=== PATIENT | male | born 1965 | race Caucasian/White ===

== ENCOUNTER 2017-07-24 18:57 | Inpatient (IN) | payer SELFPAY ==
[~2017-07-24] VITALS: Ht 170.2 cm; Wt 175.3 kg
--- NOTE | ~2017-07-24 | CON ---
[place], [place] REPORT OF CONSULTATION NAME: TEMI GARCÍA UNIT #: [id number] ROOM: 525 DOCTOR: ABBIE SHANNON MD BIRTHDATE: [birth year] DOS: 07/25/2017 REASON FOR CONSULTATION: Chest heaviness. HISTORY OF PRESENT ILLNESS: The patient Quirino is a 52-year-old obese man who has a history of hypertension, but no previous history of heart disease, diabetes, hypertension, myocardial infarction or stroke. He states that he has been under considerable stress lately and has had several "panic attacks." He does have a long history of an anxiety disorder. He states that typically he can calm himself down if he has a chance to just sit and relax for a few minutes, but on 07/24/2017, he could not get calmed. He stated that he felt like he was choking and that he could not catch his breath. In addition, he had heaviness and tightness across his chest. He had a hard time describing the sensation. He denied any nausea, vomiting or diaphoresis. His symptoms became intolerable to him and therefore he came into the Emergency Room. In the Emergency Room, he was noted to be hypertensive. Electrocardiogram showed no acute changes and troponin was not abnormally elevated. He was admitted to the hospital for further assessment. PAST MEDICAL HISTORY: Includes the followin. Anxiety disorder with panic attacks. 2. Morbid obesity. 3. Essential hypertension. 4. Degenerative joint disease of the knees. MEDICATIONS: Prior to admission, the patient states that he occasionally took sertraline 100 mg daily along with Xanax p.r.n. Records from his pharmacy indicate that he has been on losartan with hydrochlorothiazide in the past, but has not taken it recently. ALLERGIES: He has no known drug allergies. REVIEW OF SYSTEMS: The patient denies diplopia or loss of vision. He denies focal weakness. He denies fevers, chills, sweats or recent weight change. He has had dyspnea and a sensation that he could not catch his breath. He felt tight in his throat and in his chest. He denied orthopnea. He denied nausea, vomiting, hemoptysis or hematemesis. He denied blood in his stools or urine. He denied any change in his bowel or bladder habits. He denied pedal edema. He did note that his knees hurt quite a bit and his right ankle hurts after an accident a few years ago. He denies heat or cold intolerance and denies polydipsia or polyuria. The remainder of the review of systems is negative except as noted above. FAMILY HISTORY: The patient denies any family history of heart disease. His father of cancer that was in his bones. His mother of complications of dementia. SOCIAL HISTORY: The patient has never smoked. He does not drink to excess. 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 [place], [place] REPORT OF CONSULTATION NAME: TEMI GARCÍA UNIT #: [id number] ROOM: [facility] DOCTOR: ABBIE SHANNON MD BIRTHDATE: [birth year] PHYSICAL EXAMINATION: GENERAL: Reveals an overweight white male who is awake, alert and oriented. VITAL SIGNS: Pulse is 84 and regular, blood pressure is 178/85. He is afebrile. He weighs 175.3 kg and has a body mass index of 60.5. HEENT: Normocephalic, atraumatic. Extraocular muscles are intact. Sclerae are clear. Pupils are equal, round and reactive to light. The oral mucosa is moist. Tongue is midline. NECK: Supple. He has no jugular distention. Carotids are full. I heard no bruits. He had no neck or supraclavicular masses. No thyromegaly. LUNGS: Respirations are unlabored. His chest is clear to auscultation and percussion. He has no presacral edema or chest wall tenderness. CARDIOVASCULAR: His heart has a regular rhythm. He has a fourth heart sound, but no third heart sound or murmur. The PMI is not displaced. He has no precordial heave, lift or thrill. ABDOMEN: Obese, but otherwise benign, without masses, organomegaly or bruits. EXTREMITIES: Showed no edema. Peripheral pulses are palpable in the feet. LABORATORY DATA: Hemoglobin is 13.2, hematocrit 40.7, white count 9600, platelet count 201,000. Electrocardiogram showed sinus rhythm with poor precordial R-wave progression. He does have fairly prominent Q-waves in 1 and aVL with T-wave inversion in aVL, suggesting the possibility of a previous lateral infarction. No acute ST changes are seen. Sodium is 139, potassium 3.8, BUN 14, creatinine 1.01. Troponins have been normal. Cholesterol is 162, triglycerides 67, LDL 95, HDL 54. IMPRESSION: 1. Atypical chest pain. The patient shows no acute objective findings to suggest myocardial injury. His electrocardiogram is suggestive of a previous myocardial infarction. 2. Uncontrolled hypertension. 3. Morbid obesity. 4. Anxiety disorder. PLAN: We will start him back on his losartan with hydrochlorothiazide. We will arrange for him to undergo a pharmacologic myocardial perfusion study. He cannot walk for stress test because of his arthritic problems. Further recommendations depend upon his response to therapy and the results of his testing. I thank the hospitalist physicians for asking our advice regarding his care. [place], [place] REPORT OF CONSULTATION NAME: TEMI GARCÍA UNIT #: [id number] ROOM: 525 DOCTOR: ABBIE SHANNON MD BIRTHDATE: [birth year] ABBIE SHANNON MD CM:CONSTR:REPORT OF CONSULTATION 0922 07/25/17 2253 interface
--- NOTE | ~2017-07-24 | CON ---
[place], [place] REPORT OF CONSULTATION NAME: TEMI GARCÍA UNIT #: [id number] ROOM: 525 DOCTOR: TEMI HURST MD BIRTHDATE: [birth year] DOS: 07/27/2017 CHIEF COMPLAINT: "I have been having panic attacks. They really are scaring me." HISTORY OF PRESENT ILLNESS: This is a 52-year-old white male who was admitted due to possible cardiac issues and has undergone a cardiac workup that per his report has been negative to date. The patient states that he has a history of both depression and panic attacks and had been on Zoloft for approximately 5 years and previously had taken Xanax for the panic attacks. He reports that these symptoms have worsened in the last 3 months prior to this admission. 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 The panic attacks are becoming increasingly more frequent and include rapid heart rate, shortness of breath, constriction of his throat and sense of impending doom. The symptoms have been worsening to the point where he feels that it is significantly impinging on his quality of life. PAST MEDICAL HISTORY: Remarkable for hypertension, morbid obesity, depression and panic attacks. MENTAL STATUS: The patient is alert and oriented. Mood is overwhelmingly depressed with extremely anxious overtones. He endorses multiple neurovegetative symptoms as well as multiple symptoms of autonomic nervous system hyperarousal. There is no lyn or hypomania. Likewise, there are no auditory or visual hallucinations. No delusions, no paranoia present. Memory is intact. DIAGNOSES: Major depression, recurrent and panic disorder. PLAN: I will discontinue his Zoloft as this has lost effectiveness for him and start him on Cymbalta 30 mg at bedtime. I will increase his ____ Ativan to 1 mg b.i.d. to get ahead of the panic attacks. He should follow up in the office with one of the nurse practitioners to further adjust his medicines as needed and as required. TEMI HURST MD CM:CONSTR:REPORT OF CONSULTATION 0939 07/28/17 0142 interface
--- NOTE | ~2017-07-24 | PR ---
[place], [place] PROGRESS NOTE NAME: TEMI GARCÍA UNIT #: [id number] ROOM: 525 DOCTOR: ABBIE SHANNON MD BIRTHDATE: [birth year] DOS: 07/27/2017 SUBJECTIVE: The patient was seen at his bedside today, 07/27/2017. Earlier today, he was feeling lightheaded and apparently fell walking back from the bathroom to his bed. He believes that he did hit his head, but was not knocked unconscious. A CAT scan of the head is pending. I had requested an echocardiogram be done today, but it has not yet been accomplished and probably will not be done until tomorrow. The patient does complain of feeling shaky. He denies any chest pain at this time. PHYSICAL EXAMINATION: VITAL SIGNS: His pulse is 82 and regular, blood pressure 140/59. He is afebrile. He weighs 175.3 kg and has a body mass index of 60.5. NECK: Supple. He has no jugular distention. Carotids are full without bruits. He has no neck or supraclavicular masses. LUNGS: Respirations are unlabored. Chest is clear. HEART: Has a regular rhythm. There is a fourth heart sound, but no third heart sound. ABDOMEN: Obese, but otherwise benign. EXTREMITIES: Showed no edema. IMPRESSION: 1. Atypical chest pain, no evidence for coronary artery disease. 2. Hypertension. 3. Left ventricular enlargement on nuclear imaging. Echocardiography is pending. PLAN: We will review the echo once available. At this point, no other cardiac workup is planned. I thank the hospitalist physicians for asking our advice regarding the patient's care. [place], [place] PROGRESS NOTE NAME: TEMI GARCÍA UNIT #: [id number] ROOM: 525 DOCTOR: ABBIE SHANNON MD BIRTHDATE: [birth year] ABBIE SHANNON MD CM:PNTRANS [id number] ABBIE SHANNON MD 07/27/17 172 interface
--- NOTE | ~2017-07-24 | PR ---
[place], [place] PROGRESS NOTE NAME: TEMI GARCÍA [facility] #: [id number] UNIT #: [id number] ROOM: 525 DOCTOR: ABBIE SHANNON MD BIRTHDATE: [birth year] DOS: 07/26/2017 SUBJECTIVE: The patient was seen in the Cardiology Department today, 07/26/2017, prior to his stress test. He continues to have a feeling of tightness in his throat and dyspnea as well as a cough. He thinks that he may have a viral infection or some other infection in his chest. PHYSICAL EXAMINATION: VITAL SIGNS: Today, his pulse is 71 and regular, blood pressure is 154/74. He is afebrile. He weighs 175.3 kg and has a body mass index of 60.5, oxygen saturations vary from 94 to 97%. NECK: Supple. He has no jugular distention. Carotids are full. LUNGS: Respirations are unlabored at rest. He has decreased breath sounds at the bases, but no wheezes or rales. HEART: Has a regular rhythm with a soft S4 gallop, but no S3. ABDOMEN: Soft and normally active. EXTREMITIES: Showed no edema. IMPRESSION: 1. Atypical chest pain. 2. Anxiety. 3. Essential hypertension. PLAN: We will proceed with his pharmacologic stress test today. Further recommendations will depend upon the results of the stress test. I thank the hospitalist physicians for asking our advice regarding his care. ABBIE SHANNON MD CM:PNTRANS [id number] ABBIE SHANNON MD 07/26/17 1149 interface
[2017-07-24 19:20] VITALS: BP 191/94
[2017-07-24 19:21] LABS: BASO # 0.1 10*3/uL (0.0-0.1); BASO % 0.6 % (0.0-1.0); EOS # 0.2 10*3/uL (0.0-0.4); EOS % 1.5 % (1.0-4.0); HEMOGLOBIN 14.2 g/dl (14.0-18.0); LYMPH # 2.5 10*3/uL (1.3-4.4); LYMPH % 23.5 % (27.0-41.0); MEAN CELL VOLUME 91.9 fl (80.0-94.0); MEAN CORPUSCULAR HGB 29.6 pg (27.0-31.0); MEAN CORPUSCULAR HGB CONC 32.3 g/dl (33.0-37.0); MEAN PLATELET VOLUME 10.1 fl (9.6-12.3); MONO # 0.8 10*3/uL (0.1-1.0); MONO % 7.8 % (3.0-9.0); NEUT # 7.1 10*3/uL (2.3-7.9); NEUT % 66.3 % (47.0-73.0); PLATELET COUNT AUTOMATED 236 10*3/uL (130-400); RED BLOOD COUNT 4.79 10*6/uL (4.50-5.90); RED CELL DISTRI WIDTH 14.4 % (0-14.5); WHITE BLOOD COUNT 10.7 10*3/uL (4.8-10.8)
[2017-07-24 19:35] LABS: ACT PARTIAL THROMBO TIME 25.6 SECONDS (20.8-31.5)
[2017-07-24 19:53] VITALS: BP 213/106
[2017-07-24 20:03] LABS: ALBUMIN 3.7 gm/dl (3.1-4.5); ALKALINE PHOSPHATASE 41 U/L (45-117); BUN 13 mg/dl (7-24); CHLORIDE 105 mmol/L (98-107); CREATININE 1.26 mg/dL (0.70-1.30); POTASSIUM 3.8 mmol/L (3.5-5.1); SGOT/AST 18 IU/L (3-35); SGPT/ALT 23 U/L (12-78); SODIUM 140 mmol/L (136-145)
[2017-07-24 20:04] LABS: TROPONIN I 0.032 ng/ml (<0.045)
[2017-07-24 22:00] VITALS: BP 164/101
--- NOTE | 2017-07-24 22:00 | NUR ---
A 52, admitted to , under the services of MIRNA Larsen DO with a diagnosis of CHEST PAIN. Chief complaint is CHEST PAIN. Patient arrived via bed from ER. Monitor applied. Initial assessment completed. Vital signs taken and recorded. MIRNA LARSEN DO notified of admission to the unit. Orders received. See assessment for past medical history, medications and allergies. Patient and/or family oriented to unit. [facility] visitation policy reviewed. Clothing/patient valuable form completed. MICHELLE CHIU
[2017-07-24] MEDS ORDERED: ZOLOFT100 MG PO (22:27)
--- NOTE | 2017-07-24 22:28 | NUR ---
PT ONLY SURE OF THE NAME OF ONE MEDICATION TAKEN WHICH IS ZOLOFT. HE STATES HE HAS BEEN OUT OF IT FOR ONE WEEK. HE ALSO STATES THAT HE TAKES A MEDICATION THAT STARTS WITH AN "M" THAT IS AN ANTI-INFLAMMATORY. WILL PASS ALONG TO CALL HIS PHARMACY IN THE AM TO UPDATE MED REC.
--- NOTE | 2017-07-24 22:39 | NUR ---
BP ELEVATED, LOPRESSOR GIVEN THAT WAS ORDERED FROM ER. PT C/O PAIN TO B/L KNEES OF 03/28. NORCO GIVEN FOR PAIN. WILL CONT TO MONITOR. CALL LIGHT IN REACH.
--- NOTE | 2017-07-24 23:08 | NUR ---
ANSWERING SERVICE WAS NOTIFIED OF DR. SHIVA SUAREZ. RESPONSE OF NOTIFICATION WAS OK I HAVE YOUR MESSAGE AND I WILL SEND IT. MICHELLE CHIU
[2017-07-25] VITALS (7 sets, daily range): BP systolic 160–187; BP diastolic 65–88
--- NOTE | 2017-07-25 00:35 | NUR ---
DR MO MADE AWARE OF PATIENTS ELEVATED BP. STATES HE WILL TAKE A LOOK AT THE PATIENTS INFO. NO NEW ORDERS.
--- NOTE | 2017-07-25 01:13 | NUR ---
NOTIFIED DR MO OF PATIENTS EKG REPORT SHOWING "PROBABLE LATERAL INFARCT, AGE INDETERMINATE" NO NEW ORDERS AT THIS TIME.
[2017-07-25 02:20] LABS: BASO # 0.1 10*3/uL (0.0-0.1); BASO % 0.5 % (0.0-1.0); EOS # 0.1 10*3/uL (0.0-0.4); EOS % 1.4 % (1.0-4.0); HEMATOCRIT 40.7 % (42.0-52.0); HEMOGLOBIN 13.2 g/dl (14.0-18.0); LYMPH % 20.9 % (27.0-41.0); MEAN CELL VOLUME 92.3 fl (80.0-94.0); MEAN CORPUSCULAR HGB 29.9 pg (27.0-31.0); MEAN CORPUSCULAR HGB CONC 32.4 g/dl (33.0-37.0); MEAN PLATELET VOLUME 9.8 fl (9.6-12.3); MONO # 0.6 10*3/uL (0.1-1.0); MONO % 6.6 % (3.0-9.0); NEUT # 6.8 10*3/uL (2.3-7.9); NEUT % 70.3 % (47.0-73.0); PLATELET COUNT AUTOMATED 201 10*3/uL (130-400); RED BLOOD COUNT 4.41 10*6/uL (4.50-5.90); RED CELL DISTRI WIDTH 14.4 % (0-14.5); WHITE BLOOD COUNT 9.6 10*3/uL (4.8-10.8)
--- NOTE | 2017-07-25 02:20 | NUR ---
RECHECK OF PATIENTS BP AFTER X1 DOSE OF APRESOLINE IS 160/65. WILL CONTINUE TO [facility].
[2017-07-25 02:32] LABS: ACT PARTIAL THROMBO TIME 26.6 SECONDS (20.8-31.5)
[2017-07-25 02:36] LABS: BUN 14 mg/dl (7-24); CHLORIDE 104 mmol/L (98-107); CREATININE 1.01 mg/dL (0.70-1.30); POTASSIUM 3.8 mmol/L (3.5-5.1); SODIUM 139 mmol/L (136-145)
[2017-07-25 02:41] LABS: CHOLESTEROL 162 mg/dL (<200); HDL CHOLESTEROL 54 mg/dl (40-60); LDL CHOLESTEROL 95 mg/dL (9-159); PHOSPHOROUS 2.8 mg/dL (2.5-4.9); TRIGLYCERIDES 67 mg/dl (<150); VLDL CHOLESTEROL 13 mg/dL (6-40)
--- NOTE | 2017-07-25 05:49 | NUR ---
DR MO MADE AWARE OF PATIENTS C/O ANXIETY AND SHAKINESS. NO NEW ORDERS AT THIS TIME.
[2017-07-25 07:43] LABS: VITAMIN D, 25-HYDROXY 7.8 ng/mL (30-100)
--- NOTE | 2017-07-25 09:00 | NUR ---
Business Strategist in to talk to patient. Patient states lives at home with alone. There are few steps in the home. Physician: forrest olivas Pharmacy: [facility] Home health services: none Patient's level of ADLs: INDEPENDENT Patient has working utilities: all working DME: none Follow-up physician's appointment after d/c: will be made by hospitalist nurse director upon discharge Does patient want to access PORTAL?: no Discharge plan discussed with patient, patient lives at home alone, is independent in adls and ambulation, works, drives, patient states he will be going back home when able and denies any home needs, patient also does not have any insurance and pays [facility] for medications, he will also be contacted by someone from [email or web address] and be send a paper to fill out for help with hospital stay. AYAN ROSS
--- NOTE | 2017-07-25 09:28 | NUR ---
This nurse was asked to evaluate patient right upper arm and left upper arm. Patient has several intact scab noted to right upper arm, left upper arm, lower abodmen and upper legs. Patient states I have had these all my life. I need something to do with my hands so I pick myself I'm a very nervous person. Patient states he takes zoloft for his anxiety and was prescribed xanax but hasn't taken that in a long time because he no longer has a prescription for it. Patient requesting something be put on the areas. Cleanse affected areas with soap and water and apply aquaphor BID.
--- NOTE | 2017-07-25 10:45 | NUR ---
PT UNABLE TO GET FIRST SET OF PICTURES FOR NUCLEAR STRESS TEST WITH DR SHANNON, DUE TO EXTREME ANXIETY. PT TAKEN BACK TO FLOOR AND NURSE NOTIFIED OF CANCELLATION OF TEST. DR SHANNON PRESENT AND NOTIFIED THAT PT WAS UNABLE TO COMPLETE PICUTRES.
--- NOTE | 2017-07-25 11:31 | NUR ---
Spoke with Dr. Herzog regarding wound care recommendations.
--- NOTE | 2017-07-25 13:30 | NUR ---
[facility] SPOKE TO HELIO AND SHE STATED SHE WILL INFORM DR HURST.
--- NOTE | 2017-07-25 19:27 | NUR ---
24 HR chart check completed.
--- NOTE | 2017-07-25 21:21 | NUR ---
C/O INSOMNIA. MEDICATED WITH RESTORIL ORDERED AND PER PATIENT REQUEST.
--- NOTE | 2017-07-25 22:20 | NUR ---
PATIENT ASLEEP. RESTORIL EFFECTIVE.
[2017-07-26] VITALS (7 sets, daily range): BP systolic 118–180; BP diastolic 61–100
--- NOTE | 2017-07-26 04:23 | NUR ---
DR. CLAY NOTIFIED OF ELEVATED BLOOD PRESSURES.
[2017-07-26 07:04] LABS: BUN 7 mg/dl (7-24); CHLORIDE 104 mmol/L (98-107); CREATININE 0.84 mg/dL (0.70-1.30); FREE T4 0.98 ng/dl (0.76-1.46); POTASSIUM 4.3 mmol/L (3.5-5.1); SODIUM 138 mmol/L (136-145)
--- NOTE | 2017-07-26 09:00 | NUR ---
case management visits with patient, patient denies any home needs at this time
--- NOTE | 2017-07-26 10:30 | NUR ---
DR HURST IN TO SEE PT. PT WAS IN STRESS TEST. DR HURST WILL SEE PT TOMORROW.
--- NOTE | 2017-07-26 11:16 | NUR ---
INFORMED CONSENT SIGNED FOR LEXISCAN STRESS TEST WITH DR. SHANNON. RESTING EKG NSR, HR 86, BP 168/114. PULSE OX 96% AND LUNGS CLEAR. COMPLETED ONE MINUTE OF LEXISCAN PROTOCOL RECEIVING LEXISCAN 0.4MG OVER 10 SECONDS[address] NO ARRHYTHMI[address] OR ST CHANGES NOTED. PT C/O SOB, HEADACHE AND BEING ANXIOUS. LAST RECOVERY HR 97, BP 180/100. PT CONTINOUS TO C/O LIGHTHEADEDNESS. TRANSFERRED ONTO CART AND PLACE IN A SEMI-FOWLERS POSITION. STATES THAT HELPED. WAITING NUCLEAR SCANNING IN STABLE CONDITION.
--- NOTE | 2017-07-26 12:44 | NUR ---
ADMINISTERED PO NORCO PER PT REQUEST FOR BILAT KNEE PAIN RATED 8/10. WILL MONITOR FOR EFFECTIVENESS.
--- NOTE | 2017-07-26 13:40 | NUR ---
Patient resting quietly with no c/o discomfort. Respirations easy and regular. Vital signs stable. No overt distress. ESTEFANI ROJAS
--- NOTE | 2017-07-26 14:15 | NUR ---
GAVIOTA LEROY IN TO SEE PT R/T COMPLAINTS OF SORE THROAT.
--- NOTE | 2017-07-26 16:45 | NUR ---
ROUTINE MEDICATIONS TOLERATED WELL. ADMINISTERED PO NORCO PER PT REQUEST FOR BILAT KNEE PAIN RATED 7/10. WILL MONITOR FOR EFFECTIVENESS.
--- NOTE | 2017-07-26 17:00 | NUR ---
DR SHANNON IN TO SEE PT TO DISCUSS RESULTS OF STRESS TEST AND IN FORMED HIM OF SCHEDULED ECHO FOR TOMORROW.
--- NOTE | 2017-07-26 17:45 | NUR ---
Patient resting quietly with no c/o discomfort. Respirations easy and regular. Vital signs stable. No overt distress. ESTEFANI ROJAS
--- NOTE | 2017-07-26 20:00 | NUR ---
PT ASSESSED AT THIS TIME, NO ABNORMALITIES NOTED AT THIS TIME. NO S/S OF DISTRESS. PT ADVISED THAT HE IS ABLE TO REMOVE LEAFLET DISTRIBUTOR IN ORDER TO SHOWER, BUT DECLINES WANTING TO AT THIS TIME. HE STATES HE WILL SHOWER IN THE AM. PT RESTING IN BED, ALL NEEDS CURRENTLY MET. NO COMPLAINTS VOICED, CALL LIGHT IN REACH.
[2017-07-27] VITALS: BP 155/85
--- NOTE | 2017-07-27 04:24 | NUR ---
PT RESTING COMFORTABLY AT THIS TIME. RESPIRATIONS EASY AND UNLABORED. NO S/S OF DISTRESS. ALL SAFETY MEASURES IN PLACE. NOT AWAKENED PER [facility] POLICY. CALL LIGHT IN REACH.
--- NOTE | 2017-07-27 04:55 | NUR ---
24 HR chart check completed.
--- NOTE | 2017-07-27 06:30 | NUR ---
AM MEDICATION TAKEN WITH EASE. NO S/S OF DISTRESS AT THIS TIME. PT DENIES ANY PAIN. NO COMPLAINTS VOICED. ALL NEEDS MET, CALL LIGHT IN REACH.
--- NOTE | 2017-07-27 08:37 | NUR ---
PT RESTING IN BED, PT CONT C/O CHEST TIGHTNESS, SOB, CONGESTION. CALL LIGHT WITHIN REACH. WILL MONITOR
--- NOTE | 2017-07-27 09:00 | NUR ---
case management visits with patient, patient denies any home needs at this time
--- NOTE | 2017-07-27 09:47 | NUR ---
PT BP HIGH AT THIS TIME. GAVIOTA LEROY NOTIFIED
[2017-07-27 12:00] VITALS: BP 140/59
--- NOTE | 2017-07-27 14:45 | NUR ---
Patient sustained a fall on 07/27/17, at 1445. The fall was found by a staff member. The patient sustained no injury. Details: PT FOUND ON FLOOR . PT STATES THAT HE GOT DIZZY AND FELL TO FLOOR Patient was assisted to BED, STATES HE DID NOT HIT HIS HEAD. GAVIOTA LEROY NOTIFIED Medications were reviewed. Fall signage initiated per policy. Notification of fall included: Physician/Famil/Supervisr. Fall risk level was reassessed per policy with review of contributory medications and environmental factors. See intervention.
[2017-07-27 16:00] VITALS: BP 157/66
--- NOTE | 2017-07-27 16:00 | NUR ---
GAVIOTA LEROY IN TO SEE PT
[2017-07-27 20:00] VITALS: BP 153/81
--- NOTE | 2017-07-27 22:37 | NUR ---
Medicated with Restoril po prn for help with sleep. Will monitor effectiveness. Call light within reach.
--- NOTE | 2017-07-27 23:35 | NUR ---
Patient resting quietly in bed with eyes closed. Restoril effective. Will continue to monitor. Call light within reach.
--- NOTE | 2017-07-27 23:53 | NUR ---
Medicated with [place] po prn for bilateral knee pain rating 7/10. Will monitor effectiveness. Call light within reach.
[2017-07-28] VITALS: BP 178/79
--- NOTE | 2017-07-28 00:55 | NUR ---
Patient resting quietly in bed with eyes closed. [place] effective. Will continue to monitor. Call light within reach.
--- NOTE | 2017-07-28 01:04 | NUR ---
24 HR chart check completed.
[2017-07-28 08:00] VITALS: BP 156/89
--- NOTE | 2017-07-28 08:45 | NUR ---
PT RESTING IN BED, NO DISTRESS NOTED. WILL MONITOR . GAVIOTA LEROY IN TO SEE PT
--- NOTE | 2017-07-28 09:00 | NUR ---
case management visits with patient, patient denies any home needs
[2017-07-28] MEDS ORDERED: LORAZEPAM1 MG PO (10:47)
[2017-07-28] MEDS ORDERED: LOSARTAN POTASS50 M1 PO (10:47)
[2017-07-28] MEDS ORDERED: GOOD NEIGHBOR L10 MG PO (10:47)
[2017-07-28] MEDS ORDERED: Vitamin D PO (10:47)
[2017-07-28] MEDS ORDERED: DULOXETINE HCL30 MG PO (10:47)
[2017-07-28] MEDS ORDERED: HYDR25T PO (10:47)
[2017-07-28 12:00] VITALS: BP 170/94
--- NOTE | 2017-07-28 14:00 | NUR ---
PT REFUSED TO HAVE DC PHOTOS TAKEN
--- NOTE | 2017-07-28 14:30 | NUR ---
Discharge instructions reviewed with patient/family. Patient receptive and verbalizes understanding. Follow-up care arranged. Written instructions given to patient/family. LINSEY DUMONT
== END 2017-07-28 14:30 | disposition home or self-care (01) | DRG 313 ==
LOC: ED 18:57 → 5E 20:06 → EDHOLD 20:06 → 5E 20:15
PROVIDERS: Internal Medicine; Internal Medicine Cardiovascular Disease; Student in an Organized Health Care Education/Training Program; ADMIT Internal Medicine
PROC: 4A02XM4 Measurement of Cardiac Total Activity, External Approach (ICD-10-PCS; principal; 2017-07-26)
DX: R07.89 Other chest pain (principal); E66.01 Morbid (severe) obesity due to excess calories; I16.1 Hypertensive emergency; Z68.43 Body mass index [BMI] 50.0-59.9, adult; F32.9 Major depressive disorder, single episode, unspecified; F41.0 Panic disorder [episodic paroxysmal anxiety]; F43.0 Acute stress reaction; F41.1 Generalized anxiety disorder; L98.1 Factitial dermatitis; I10 Essential (primary) hypertension; Z91.89 Other specified personal risk factors, not elsewhere classified; Z91.14 Patient's other noncompliance with medication regimen; M19.90 Unspecified osteoarthritis, unspecified site

== ENCOUNTER 2017-09-21 14:01 | Emergency (ER) | payer SELFPAY ==
[~2017-09-21] VITALS: Wt 165.1 kg
[~2017-09-21 14:01] MED LIST: DULOXETINE HCL30 MG PO; GOOD NEIGHBOR L10 MG PO; HYDR25T PO; LORAZEPAM1 MG PO; LOSARTAN POTASS50 M1 PO; Vitamin D PO; ZOLOFT100 MG PO
[2017-09-21] MEDS ORDERED: VITAMIN D32000 UNI1 PO (14:50)
[2017-09-21] MEDS ORDERED: CYMBALTA30 MG PO (14:50)
[2017-09-21] MEDS ORDERED: COZAAR50 M1 PO (14:50)
[2017-09-21] MEDS ORDERED: HYDR25T PO (14:50)
== END 2017-09-21 15:06 | disposition home or self-care (01) ==
LOC: ED 14:01
DX: Z76.0 Encounter for issue of repeat prescription (principal); F41.9 Anxiety disorder, unspecified; Z98.890 Other specified postprocedural states; Z79.899 Other long term (current) drug therapy

== ENCOUNTER 2018-04-23 22:59 | Inpatient (IN) | payer SELFPAY ==
[~2018-04-23] VITALS: Ht 172.7 cm; Wt 141.3 kg
--- NOTE | ~2018-04-23 | EKG ---
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: Aida Llanos : 1965 Requested By: BRANDIE HOLGUIN Order Number: [id number] Reading MD: Evgeny Burks MD Measurements Intervals [place] Rate: 70 P: 27 [place]: 162 QRS: -25 QRSD: 100 T: 75 QT: 399 QTc: 431 Interpretive Statements Sinus rhythm Borderline left axis deviation Abnormal R-wave progression, late transition ST elev, probable normal early repol pattern Baseline wander in lead(s) V3 Compared to previous tracing, no significant change Electronically Signed On 04-24-2018 7:50:13 PDT by Evgeny Burks MD CM:EKGRPT:ELECTROCARDIOGRAM REPORT [id number] 0750 BRANDIE CORREA DRAFT REPORT BRANDIE HOLGUIN DO
--- NOTE | ~2018-04-23 | EKG ---
[place], [place] ELECTROCARDIOGRAM REPORT NAME: TEMI GARCÍA UNIT #: [id number] ROOM: 516 DOCTOR: SHELTON DRAFT REPORT BIRTHDATE: [birth year] [facility] Test Date: 2018-04-24 Test Time: 02:00:42 Pat Name: TEMI GARCÍA Department: 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
--- NOTE | ~2018-04-23 | EKG ---
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
--- NOTE | ~2018-04-23 | CON ---
[place], [place] REPORT OF CONSULTATION NAME: TEMI GARCÍA UNIT #: [id number] ROOM: 516 DOCTOR: PHD ELKE MELISSA BIRTHDATE: [birth year] DOS: 04/24/2018 HISTORY OF PRESENT ILLNESS: The patient is a 53-year-old male who is referred by Pia Schuler with concerns for anxiety, who recently discontinued his Cymbalta due to side effects and feeling it was no longer necessary. At the present time, the patient is on the medical floor of [facility]. The patient has never and has no children. 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 He denied tobacco and illegal drug use. Alcohol use was reported as occasional. PAST MEDICAL HISTORY: Significant for dermatillomania, elevated vitamin B12, hypertension, generalized anxiety disorder, major depressive disorder, panic attacks. MEDICATIONS: Include Cymbalta, Cozaar, Esidrix, Lovenox, Dulcolax, Zofran, [place] 5/325, Ativan and Restoril. PHYSICAL EXAMINATION: The patient is awake, alert and oriented to person, place and time. He reports significant anxiety, panic and depression. Affect was tearful with the patient having an apparent panic attack during the evaluation. He firmly denied current suicidal ideation, plan, and intent. He denied participating in counseling in the past and states that he is not interested in participating in counseling currently due to financial concerns. Provided cognitive behavioral and supportive therapy interventions. DIAGNOSES: Panic disorder; major depressive disorder, recurrent, unspecified; anxiety disorder, unspecified. RECOMMENDATIONS: 1. Continue to assess the appropriateness of psychiatric medications. 2. The patient would benefit from outpatient psychotherapy. Thank you very much for this consult. Maricruz Sheth, PhD CM:CONSTR:REPORT OF CONSULTATION 1754 04/25/18 0024 interface
--- NOTE | ~2018-04-23 | CON ---
[place], [place] REPORT OF CONSULTATION NAME: [facility]ARC[facility]A [id number] UNIT #: [id number] ROOM: 516 DOCTOR: ABBIE SHANNON MD BIRTHDATE: [birth year] DOS: 04/24/2018 REASON FOR CONSULTATION: Chest pressure. HISTORY OF PRESENT ILLNESS: The patient is a 53-year-old man with a history of severe anxiety. He also has hypertension, but no documented previous history of heart disease, diabetes, myocardial infarction or stroke. He was hospitalized in 07/2017 with symptoms of chest tightness. He ruled out for myocardial infarction at that time. A pharmacologic stress test showed an ejection fraction of 58% with normal wall motion and perfusion. It was felt that his symptoms were not cardiac in origin. He tells me that after that he felt well. He had no further chest tightness. He stopped taking his blood pressure medicine sometime back because he thought they were making him lethargic and tired. He continued to be well until about the last 2 days when he began to feel much more anxious. He felt like he was having a panic attack, but could not get ahead of it. Associated with this, he did have some chest tightness like he had in 07/2017. When his symptoms did not improve, he came to the Emergency Room. His blood pressure on admission is recorded as 197/171 with an automated blood pressure cuff. Subsequent blood pressures have been more reasonable, but are still elevated, the most recent of which was 159/75. Serial troponin levels have been mildly abnormal. His initial troponin was 0.062. Subsequent levels were 0.053 and 0.049. We were asked to help assist in his care. Currently, the patient is very anxious. He alternates between crying, shaking and restless movement across his bed. He is able to answer questions, but has a very shaky voice. He looks very frightened. He states that he is afraid of taking a stress test because he fears that it will make his anxiety worse. PAST MEDICAL HISTORY: Includes the followin. Anxiety disorder with panic attacks. 2. Morbid obesity. 3. Essential hypertension. 4. Degenerative joint disease of the knees. 5. Precordial chest discomfort. The patient was hospitalized in 07/2017. Myocardial infarction was ruled out. 6. Pharmacologic stress test on 07/26/2017 showed dilation of the left ventricle with stress and rest. Ejection fraction was 58% with normal wall motion. Normal perfusion was present. The study was felt to be low risk. 7. Medication noncompliance. MEDICATIONS: Prior to admission, the patient's prescribed medicines include vitamin D 2000 units daily, duloxetine 30 mg at 8 p.m. daily, hydrochlorothiazide 25 mg daily and losartan 50 mg daily as noted above. He admits he has not taken his blood pressure medicines recently. ALLERGIES: recently. REVIEW OF SYSTEMS: The patient denies diplopia or loss of vision. He does feel mildly lightheaded, but denies syncope or focal weakness. He feels somewhat [place], [place] REPORT OF CONSULTATION NAME: TEMI GARCÍA UNIT #: [id number] ROOM: 51 DOCTOR: ABBIE SHANNON MD BIRTHDATE: [birth year] nauseous. He denies vomiting. He denies fevers, chills, sweats or recent weight change. His appetite has been good. He has had a rash over his entire body from the neck down. It does appear excoriated. He denies change in bowel or bladder habits. Denies blood in the stools or urine. He denies any peripheral edema. His knees do hurt. He denies any muscle cramps. He does feel very anxious and frightened. Remainder of the review of systems is negative except as noted above. FAMILY HISTORY: The patient denies any family history of heart disease. His father of cancer that was in his bones. His mother of complications of dementia. SOCIAL HISTORY: The patient has never smoked. He does drink on a weekly basis, but denies drinking to excess. He denies the use of any recreational drugs. 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 PHYSICAL EXAMINATION: GENERAL: The patient is an overweight white male who is awake, alert and oriented. He is constantly moving and shaking during the interview. VITAL SIGNS: Pulse is 78 and regular, blood pressure is 159/75. He is afebrile. He weighs 141.3 kg and has a body mass index of 47.4. HEENT: Normocephalic and atraumatic. Extraocular muscles are intact. Sclerae are clear. Pupils equal, round and react to light. The oral mucosa is moist. Tongue is midline. NECK: Supple. He has no jugular distention. Carotids are full. I heard no bruits. He had no neck or supraclavicular masses and no thyromegaly. LUNGS: Respirations are unlabored. His chest is clear to auscultation and percussion. He has no presacral edema or chest wall tenderness. CARDIOVASCULAR: His heart has a regular rhythm with a soft S4 gallop, but no S3 or murmur. The PMI is not displaced. He has no precordial heave, lift or thrill. ABDOMEN: Soft and normoactive without masses, organomegaly or bruits. EXTREMITIES: Showed no edema. Peripheral pulses are easily palpated in the feet. The patient does have an excoriated rash over much of his body. LABORATORY DATA: I reviewed his electrocardiogram, which showed sinus rhythm with a leftward axis. He has poor precordial R-wave progression. He does have early repolarization changes. I compared his current EKGs to those obtained in 07/2017 and there was no change. Hemoglobin is 14.8, hematocrit 44, white count 8300, platelet count 223,000. Sodium is 136, potassium 3.8, chloride 102, CO2 of 28, BUN 10, creatinine 0.71. Sugar 81. Hemoglobin A1c 5.3. Troponins are mildly elevated as noted above. IMPRESSIONS: 1. Atypical chest pain. The patient does note tightness in his chest, but has no EKG changes. His troponin levels are minimally elevated, but do not show a typical rise and fall pattern that would suggest an acute coronary syndrome. 2. Extreme anxiety. The patient is currently in a panic attack. 3. Essential hypertension. The patient currently does not take his blood [place], [place] REPORT OF CONSULTATION NAME: TEMI GARCÍA UNIT #: [id number] ROOM: 516 DOCTOR: ABBIE SHANNON MD BIRTHDATE: [birth year] pressure medicines and appears to have hypertensive urgency. PLAN: When the patient was first presented to me, I thought we should proceed with a stress test; however, he is not in any shape to cooperate with a stress test at this point. In addition, he had a stress test in 07/2017, which showed normal perfusion and ejection fraction with normal wall motion. It is very unlikely that he has developed significant coronary artery disease since then without any EKG changes. His mild elevation in troponin may be related to demand ischemia from his hypertension. For now, we will control his blood pressure and observe him in the hospital. I think that all efforts should be made to control his severe anxiety. After his panic attack has been managed, we can reconsider whether a stress test at this time would be appropriate. I thank the hospitalist physicians for asking our advice regarding his care. ABBIE SHANNON MD CM:CONSTR:REPORT OF CONSULTATION 04/24/181918 interface
[~2018-04-23 22:59] MED LIST changes: +COZAAR50 M1 PO; +CYMBALTA30 MG PO; +VITAMIN D32000 UNI1 PO
[2018-04-23 23:10] VITALS: BP 197/171
[2018-04-23 23:34] LABS: BASO # 0.1 10*3/uL (0.0-0.1); BASO % 0.8 % (0.0-1.0); EOS # 0.2 10*3/uL (0.0-0.4); EOS % 1.7 % (1.0-4.0); HEMATOCRIT 47.4 % (42.0-52.0); LYMPH # 2.2 10*3/uL (1.3-4.4); LYMPH % 18.7 % (27.0-41.0); MEAN CELL VOLUME 89.1 fl (80.0-94.0); MEAN CORPUSCULAR HGB 30.1 pg (27.0-31.0); MEAN CORPUSCULAR HGB CONC 33.8 g/dl (33.0-37.0); MEAN PLATELET VOLUME 9.6 fl (9.6-12.3); MONO # 0.9 10*3/uL (0.1-1.0); MONO % 7.4 % (3.0-9.0); NEUT # 8.5 10*3/uL (2.3-7.9); NEUT % 71.1 % (47.0-73.0); PLATELET COUNT AUTOMATED 260 10*3/uL (130-400); RED BLOOD COUNT 5.32 10*6/uL (4.50-5.90); RED CELL DISTRI WIDTH 14.1 % (0-14.5); WHITE BLOOD COUNT 11.9 10*3/uL (4.8-10.8)
[2018-04-23 23:45] LABS: ACT PARTIAL THROMBO TIME 24.9 SECONDS (20.8-31.5)
[2018-04-23 23:51] LABS: ALBUMIN 3.6 gm/dl (3.1-4.5); ALKALINE PHOSPHATASE 45 U/L (45-117); BUN 11 mg/dl (7-24); CHLORIDE 100 mmol/L (98-107); CREATININE 0.99 mg/dL (0.70-1.30); POTASSIUM 4.2 mmol/L (3.5-5.1); SGOT/AST 28 IU/L (3-35); SGPT/ALT 34 U/L (12-78); SODIUM 134 mmol/L (136-145); TOTAL PROTEIN 7.1 gm/dL (6.4-8.2)
[2018-04-23 23:53] LABS: TROPONIN I 0.062 ng/ml (<0.045)
[2018-04-24] VITALS (7 sets, daily range): BP systolic 146–170; BP diastolic 66–89
[2018-04-24 05:44] LABS: ALBUMIN 3.2 gm/dl (3.1-4.5); ALKALINE PHOSPHATASE 38 U/L (45-117); BUN 10 mg/dl (7-24); CHLORIDE 102 mmol/L (98-107); CHOLESTEROL 145 mg/dL (<200); CREATININE 0.71 mg/dL (0.70-1.30); FREE T4 0.99 ng/dl (0.76-1.46); HDL CHOLESTEROL 84 mg/dl (40-60); LDL CHOLESTEROL 52 mg/dL (9-159); POTASSIUM 3.8 mmol/L (3.5-5.1); SGOT/AST 24 IU/L (3-35); SGPT/ALT 31 U/L (12-78); SODIUM 136 mmol/L (136-145); TOTAL PROTEIN 6.4 gm/dL (6.4-8.2); TRIGLYCERIDES 45 mg/dl (<150); VLDL CHOLESTEROL 9 mg/dL (6-40)
[2018-04-24 06:02] LABS: BASO # 0.1 10*3/uL (0.0-0.1); BASO % 0.6 % (0.0-1.0); EOS # 0.2 10*3/uL (0.0-0.4); EOS % 2.5 % (1.0-4.0); HEMOGLOBIN 14.8 g/dl (14.0-18.0); LYMPH # 1.4 10*3/uL (1.3-4.4); LYMPH % 17.2 % (27.0-41.0); MEAN CORPUSCULAR HGB 30.3 pg (27.0-31.0); MEAN CORPUSCULAR HGB CONC 33.6 g/dl (33.0-37.0); MONO # 0.6 10*3/uL (0.1-1.0); MONO % 6.8 % (3.0-9.0); NEUT % 72.7 % (47.0-73.0); PLATELET COUNT AUTOMATED 223 10*3/uL (130-400); RED BLOOD COUNT 4.89 10*6/uL (4.50-5.90); WHITE BLOOD COUNT 8.3 10*3/uL (4.8-10.8)
[2018-04-24 06:12] LABS: ACT PARTIAL THROMBO TIME 25.3 SECONDS (20.8-31.5)
[2018-04-24 07:18] LABS: VITAMIN D, 25-HYDROXY 18.1 ng/mL (30-100)
[2018-04-24] MEDS ORDERED: ADVIL200 M1 PO (09:58)
[2018-04-24] MEDS ORDERED: TYLENOL WITH C1 EACH PO (09:58)
[2018-04-25] VITALS: BP 128/58
[2018-04-25 08:00] VITALS: BP 140/82; BP 154/86
[2018-04-25] MEDS ORDERED: DULOXETINE HCL30 MG PO (11:16)
[2018-04-25] MEDS ORDERED: HYDROXYZINE PAM25 M1 PO (11:16)
[2018-04-25] MEDS ORDERED: HYDR25T PO (11:16)
[2018-04-25] MEDS ORDERED: LOSARTAN POTASS50 M1 PO (11:16)
== END 2018-04-25 11:45 | disposition home or self-care (01) | DRG 313 ==
LOC: ED 22:59 → EDHOLD 04-24 00:21 → 5E 04-24 00:21
PROVIDERS: Emergency Medicine; Family Medicine
DX: R07.89 Other chest pain (principal); I24.8 Other forms of acute ischemic heart disease; E66.01 Morbid (severe) obesity due to excess calories; F33.9 Major depressive disorder, recurrent, unspecified; Z68.42 Body mass index [BMI] 45.0-49.9, adult; B86 Scabies; F41.0 Panic disorder [episodic paroxysmal anxiety]; I10 Essential (primary) hypertension; R74.8 Abnormal levels of other serum enzymes; F41.1 Generalized anxiety disorder; M17.0 Bilateral primary osteoarthritis of knee; E55.9 Vitamin D deficiency, unspecified; Z80.8 Family history of malignant neoplasm of other organs or systems; Z91.14 Patient's other noncompliance with medication regimen; Z79.899 Other long term (current) drug therapy; Z82.0 Family history of epilepsy and other diseases of the nervous system

== ENCOUNTER 2019-01-06 12:04 | Inpatient (IN) | payer OTHER ==
[~2019-01-06] VITALS: Ht 172.7 cm; Wt 132.0 kg
[2019-01-06] VITALS (8 sets, daily range): BP systolic 171–190; BP diastolic 54–109
--- NOTE | ~2019-01-06 | O ---
[place], [place] OPERATIVE NOTE NAME: TEMI GARCÍA UNIT #: [id number] ROOM: 503 DOCTOR: NESSA WEAVERMELISSA BIRTHDATE: [birth year] DOS: 01/08/2019 PANENDOSCOPY REPORT: INDICATION: The patient has presented with abdominal pain, undergoing investigation. PROCEDURE: Today's procedure part of investigation is panendoscopy. PREMEDICATION: Propofol. SCOPE: Olympus forward-viewing gastroscope Q10 video. REPORT: After putting the patient in left lateral position and application of lubricant to the scope, the scope was introduced. Thereafter, under direct visualization, passed the length of esophagus without difficulty into gastric pouch. As I approached the pyloric ring, there is a giant deep penetrated ulceration in this anatomy, photograph and biopsy from distant margin of which was obtained. The patient was gradually extubated. He tolerated the procedure well. IMPRESSION AND PLAN: Deep, penetrating, giant, acute ulceration secondary to NSAID at pyloric ring, which is corresponding with CT scan finding. We are going to however address with aggressive ulcer therapy. We are going to proceed with colonoscopy. COLONOSCOPIC REPORT: INDICATION: The patient has presented with abdominal pain, undergoing investigation, suspected hepatic flexure pathology. PROCEDURE: Today's procedure part of investigation is colonoscopy. PREMEDICATION: Propofol. SCOPE: Olympus forward-viewing colonoscope 10L video. REPORT: After putting the patient in left lateral position and application of lubricant to the scope, the scope was introduced. Thereafter, under direct visualization, advanced through the length of colon without difficulty. Right colon was approached; however, presence of retained stool throughout the length of colon was appreciated. No other obvious pathology was seen. The patient was extubated. He tolerated the procedure well. IMPRESSION AND PLAN: Normal colonoscopic examination with retained stool. We are going to treat this gentleman with Protonix 40 mg IV b.i.d., sucralfate 2 g 2 hours before meals and at bedtime. Diet to limit to liquid diet including ice cream and milk shake. We have to be careful to see if he can bypass need of surgery and penetrating duodenal pyloric ring ulcer. Follow-up colonoscopy in [place], [place] OPERATIVE NOTE NAME: TEMI GARCÍA UNIT #: [id number] ROOM: 503 DOCTOR: NESSA WEAVER,MELISSA BIRTHDATE: [birth year] 10 years unless there are symptoms in which case follow-up should be as needed. MELISSA SZYMANSKI MD CM:OPRECORD:OPERATIVE NOTE [phone] MELISSA SZYMANSKI MD 01/24/19 1453 interface
--- NOTE | ~2019-01-06 | PR ---
[place], [place] PROGRESS NOTE NAME: [facility]A [id number] UNIT #: [id number] ROOM: 503 DOCTOR: MELISSA SZYMANSKI MD BIRTHDATE: [birth year] DOS: 01/10/2019 GASTROENDOSCOPIC REPORT SUBJECTIVE: A 53-year-old who was presented with chief complaint of GI bleed, has undergone investigation and was found to have a normal colonoscopic examination and was found to have a giant deeply penetrated pyloric ring and duodenal bulb ulceration. The patient has been kept on aggressive ulcer therapy with Protonix 40 mg IV b.i.d., sucralfate 2 g 2 hours before meals and at bedtime, full liquid diet observation of labs on records. The patient had antral biopsy. There was H. pylori, negative fortunately. CBC differential, H and H of 12 and 36, white blood cell of 8, is noted known. His basic metabolic panel has been essentially unremarkable. He has been expressing desire to eat, but been pretty strict about advancing his diet beyond this point, allowing the medication to performance task of enhancing ulcer recovery since if he does not comply and may need do antrectomy and vagotomy and so forth. His labs and records reviewed. PHYSICAL EXAMINATION: HEENT: Head normocephalic, nontraumatic. Mouth and buccal mucosa benign. NECK: Supple, no thyromegaly, no cervical lymphadenopathy. CHEST: Symmetric anatomy, equal expansion. No wheeze, no rhonchi. HEART: Normal sinus rhythm, no gallop, no murmur. ABDOMEN: Obese, large, soft. No hepato-organomegaly. Bowel sounds present. EXTREMITIES: No cyanosis, no pedal edema. NEUROLOGIC: Alert, oriented to time, place, person. IMPRESSION: 1. Giant pyloric ring ulcer, very deep, very large, non-penetrating. 2. Normal colonoscopic examination. PLAN AND DISCUSSION: Remaining with aggressive ulcer therapy, avoiding solid food until Tuesday reassessment, should he not be given adequate time for that ulcer to organize itself and heel, he may end up with surgical consequences and that we should try to avoid. Thank you very much indeed. [place], [place] PROGRESS NOTE NAME: TEMI GARCÍA UNIT #: [id number] ROOM: 503 DOCTOR: MELISSA SZYMANSKI MD BIRTHDATE: [birth year] MELISSA SZYMANSKI MD CM:IGLESIA [id number] MELISSA SZYMANSKI MD 01/31/19 0723 interface
--- NOTE | ~2019-01-06 | POSTOPNOTE ---
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
--- NOTE | ~2019-01-06 | PR ---
[place], [place] PROGRESS NOTE NAME: TEMI GARCÍA UNIT #: [id number] ROOM: 503 DOCTOR: MELISSA SZYMANSKI MD BIRTHDATE: [birth year] DOS: 01/15/2019 SUBJECTIVE: The patient has presented with GI bleed, epigastric pain, nausea, and vomiting. He was found to have a giant ulcer at the antrum. He is very compliant so far with management and therapy and he has been aggressively under therapy with sucralfate and Carafate double dosage. H. pylori, fortunately, has been negative. He has stayed on clear liquid. His cultures have been negative. His latest set of blood work shows H and H of 13 and 40. His basic metabolic panel, electrolytes are balanced. His operative report was reassessed, deep penetrating giant ulcer at the pyloric ring. His CBC differential again was reassessed. The patient was evaluated at the bedside. PAST MEDICAL HISTORY: Obesity, hypertension, dermatitis, depression, scabies. PAST SURGICAL HISTORY: Podiatric surgeries. REVIEW OF SYSTEMS: HEENT: Denies double vision or blurred vision. RESPIRATORY: Denies acute shortness of breath. CARDIOVASCULAR: Denies chest pain. DIGESTIVE SYSTEM: Nausea, epigastric distress. PHYSICAL EXAMINATION: VITAL SIGNS: Stable. HEENT: Benign. NECK: Supple. No thyromegaly. No cervical lymphadenopathy. CHEST: Symmetric anatomy, equal expansion. No wheeze, no rhonchi. HEART: Normal sinus rhythm. No murmur. ABDOMEN: Obese, large, soft. No hepato-organomegaly. Bowel sounds present. EXTREMITIES: Appear to be infestation of scabies however. IMPRESSION: A giant pyloric ring antral ulceration. PLAN: Aggressive therapy and EGD in the next 2 days to assure if he can be discharged and followed up as outpatient. His latest H and H remain stable. [place], [place] PROGRESS NOTE NAME: TEMI GARCÍA UNIT #: [id number] ROOM: 503 DOCTOR: MELISSA SZYMANSKI MD BIRTHDATE: [birth year] MELISSA SZYMANSKI MD CM:PNTRANS [id number] MELISSA SZYMANSKI MD 01/16/19 0420 interface
--- NOTE | ~2019-01-06 | CON ---
[place], [place] REPORT OF CONSULTATION NAME: [facility]ARCÍA [facility] [id number] UNIT #: [id number] ROOM: 503 DOCTOR: NESSA WEAVERRACQUELYE BIRTHDATE: [birth year] DOS: 01/08/2019 GASTROENDOSCOPIC CONSULTATION REPORT HISTORY OF PRESENT ILLNESS: The patient has presented with chief complaint of abdominal pain, epigastric pain. The patient was investigated with CBC and lab results. He was found to have white blood cell of 12, H and H of 12 and 38. His lactic acid was 2.4. His comprehensive metabolic panel was GFR greater than 60. Liver function test was normal. C-reactive protein was 1.6. The patient has been taking 5-[address] scan of the abdomen and pelvis has been done, inflammatory changes in the left upper quadrant, likely relating to cholecystitis, alternative is peptic ulcer disease or pancreatitis possibility. Gallbladder sonogram with unremarkable liver, no cholelithiasis. His CBC differential slight drop was noticed. PAST MEDICAL HISTORY: Morbid obesity, hypertension, dermatitis, major depression, panic disorder, scabies. PAST SURGICAL HISTORY: Podiatric surgery. SOCIAL HISTORY: Social alcohol consumer, nonsmoker. FAMILY HISTORY: Noncontributory. ALLERGIES: TO NO KNOWN MEDICATIONS. MEDICATIONS: Medication list has been reviewed. He is taking meloxicam 7.5 mg daily in addition to 220 mg of Advil 5-6 tablets daily. REVIEW OF SYSTEMS: In general: HEENT: Denies double vision or blurred vision. RESPIRATORY: Denies shortness of breath. CARDIOVASCULAR: Denies chest pain. DIGESTIVE SYSTEM: Abdominal pain, epigastric distress. PHYSICAL EXAMINATION: VITAL SIGNS: Stable. GENERAL: Obese patient. HEENT: Head is normocephalic, nontraumatic. Mouth and buccal mucosa benign. NECK: Supple. No thyromegaly. No cervical lymphadenopathy. CHEST: Symmetric anatomy, equal expansion. No wheeze, no rhonchi. HEART: Normal sinus rhythm. No gallop, no murmur. ABDOMEN: Morbidly obese. Intraabdominal organs cannot be evaluated. EXTREMITIES: Possible scabies on trunk, posterior and anterior, and extremities. NEUROLOGIC: Alert, oriented to time, place, and person. IMPRESSION AND PLAN: Suspected inflammatory response around right upper quadrant, which was defined as gallbladder; however, there is no gallbladder involvement. He has been on meloxicam and Aleve 5 tablets a day. We are going [place], [place] REPORT OF CONSULTATION NAME: TEMI GARCÍA UNIT #: [id number] ROOM: [facility] DOCTOR: MELISSA SZYMANSKI MD BIRTHDATE: [birth year] to proceed with endoscopic and colonoscopic evaluation for GI bleed. Other adjunctive diagnoses as outlined in paragraph of past medical and surgical history. Labs reviewed, records reviewed, and data reviewed. Thank you very much indeed for your kind referral. MELISSA SZYMANSKI MD CM:CONSTR:REPORT OF CONSULTATION 1828 01/09/19 0457 interface
--- NOTE | ~2019-01-06 | O ---
[place], [place] OPERATIVE NOTE NAME: [facility]I [facility]A [facility] [id number] UNIT #: [id number] ROOM: 503 DOCTOR: MELISSA SZYMANSKI MD BIRTHDATE: [birth year] DOS: 01/17/2019 GASTROENDOSCOPIC REPORT INDICATIONS: The patient has presented with a giant antral duodenal ulcers and deep to the level of penetration of ulcer and has been undergoing intense ulcer therapy. PROCEDURE: Today's procedure part of investigation is panendoscopy. PREMEDICATION: Propofol. SCOPE: Olympus forward-viewing gastroscope Q10 video. REPORT: After putting the patient in left lateral position and application of lubricant to the scope, the scope was introduced. Thereafter, under direct visualization, I advanced through the length of esophagus without difficulty. The gastric pouch into the pyloric ring area where there is a large pyloric ring and antral duodenal ulcer. This ulcer has significantly responded to aggressive therapy. Therefore, the danger is evolved and granulation has happened. No biopsies were obtained. Photographed multiple times. The patient extubated, tolerated the procedure well. IMPRESSION: Significant healing response in penetrating pyloric and antral duodenal ulcer. This patient can be treated as outpatient safely now with Protonix 40 mg daily, Carafate 1 gram 2 hours before meals and at bedtime in the outpatient setting. Plan regular diet. ACTIVITY: Ad priti. MELISSA SZYMANSKI MD CM:OPRECORD:OPERATIVE NOTE [phone] MELISSA SZYMANSKI MD 01/31/19 0721 interface
[~2019-01-06 12:04] MED LIST changes: +ADVIL200 M1 PO; +HYDROXYZINE PAM25 M1 PO; +TYLENOL WITH C1 EACH PO; +VISTARIL25 MG PO
[2019-01-06 12:32] LABS: BASO # 0.2 10*3/uL (0.0-0.1); BASO % 1.4 % (0.0-1.0); EOS # 1.3 10*3/uL (0.0-0.4); EOS % 10.3 % (1.0-4.0); HEMOGLOBIN 12.6 g/dl (14.0-18.0); LYMPH # 1.6 10*3/uL (1.3-4.4); LYMPH % 12.5 % (27.0-41.0); MEAN CELL VOLUME 94.8 fl (80.0-94.0); MEAN CORPUSCULAR HGB 31.4 pg (27.0-31.0); MEAN CORPUSCULAR HGB CONC 33.2 g/dl (33.0-37.0); MEAN PLATELET VOLUME 9.2 fl (9.6-12.3); MONO # 0.7 10*3/uL (0.1-1.0); MONO % 5.4 % (3.0-9.0); NEUT # 8.7 10*3/uL (2.3-7.9); NEUT % 70.2 % (47.0-73.0); PLATELET COUNT AUTOMATED 410 10*3/uL (130-400); RED BLOOD COUNT 4.01 10*6/uL (4.50-5.90); RED CELL DISTRI WIDTH 12.6 % (0-14.5); WHITE BLOOD COUNT 12.4 10*3/uL (4.8-10.8)
[2019-01-06 12:41] LABS: ACT PARTIAL THROMBO TIME 26.3 SECONDS (20.8-31.5)
--- NOTE | 2019-01-06 12:46 | NUR ---
LACTIC @ 2.4, NIKO MARSHALL APRN NOTIFIED.
[2019-01-06 12:49] LABS: ALBUMIN 2.8 gm/dl (3.1-4.5); ALKALINE PHOSPHATASE 51 U/L (45-117); BUN 8 mg/dl (7-24); CHLORIDE 106 mmol/L (98-107); LIPASE 116 U/L (73-393); POTASSIUM 3.8 mmol/L (3.5-5.1); SGOT/AST 13 IU/L (3-35); SGPT/ALT 14 U/L (12-78); SODIUM 138 mmol/L (136-145); TOTAL PROTEIN 6.9 gm/dL (6.4-8.2)
[2019-01-06 12:58] LABS: BILIRUBIN 1+ (NEGATIVE); BLOOD 3+ (NEGATIVE); CLARITY CLOUDY (CLEAR); COLOR YELLOW (YELLOW); GLUCOSE NEGATIVE (NEGATIVE); KETONE TRACE (NEGATIVE); LEUKO ESTERASE NEGATIVE (NEGATIVE); NITRITE NEGATIVE (NEGATIVE); PH 5.5 (5.0-9.0); SPECIFIC GRAVITY >= 1.030 (1.005-1.030); UROBILINOGEN 0.2 E.U./dl (0.2-1.0)
--- NOTE | 2019-01-06 13:20 | NUR ---
PT WAS ABLE TO TOLERATE CT, STATES HE HAS ANXIETY, PT WAS BROUGHT BACK TO THE ROOM AND WAS GIVEN SOME MORPHINE. PT IS CALM AND COOPERTIVE, NO DISTRESS NOTED.
[2019-01-06 13:22] LABS: RBC TNTC rbc/hpf (0-2)
[2019-01-06 13:23] LABS: BACTERIA 1+
[2019-01-06 13:24] LABS: FINE GRANULAR CAST 15-20
--- NOTE | 2019-01-06 14:06 | NUR ---
PT RETURNE FROM CT CRYIN AND UPSET, PT WAS UNABLE TO LAY STILL FOR THE CT. PT WAS BROUGHT BACK TO THE ER. NIKO MARSHALL CNP NOTIFIED.
--- NOTE | 2019-01-06 15:18 | NUR ---
PT ADMINISTERED 1 MG IV ATIVAN FOR ANXIETY, PT TAKEN TO CT.
--- NOTE | 2019-01-06 16:43 | NUR ---
PT RESTING WITH FRIENDS AT THE [facility], WAITING ON CT RESULTS.
--- NOTE | 2019-01-06 18:06 | NUR ---
A 53, admitted to 5E, under the services of MIRNA Larsen DO with a diagnosis of ACUTE CHOLECYSTITIS. Chief complaint is ABDOMINAL PAIN. Patient arrived via from ER. Monitor applied. Initial assessment completed. Vital signs taken and recorded. MIRNA LARSEN DO notified of admission to the unit. Orders received. See assessment for past medical history, medications and allergies. Patient and/or family oriented to unit. [address] visitation policy reviewed. Clothing/patient valuable form completed. PT NOTED TO HAVE MULTIPLE SCABBED AREAS ALL OVER HIS BODY THAT HE STATES ARE FROM ITCHING CAUSED BY ANXIETY. NO AREAS ARE OPEN. NO DRAINAGE, PAIN, OR SIGNS OF INFECTION. PT STATES THAT HE HAS SEVERE ANXIETY AND THAT IT IS COMMON FOR HIM TO HAVE MULTIPLE PANIC ATTACKS PER DAY. HE ALSO STATES THAT THE ABDOMINAL PAIN IS RATED AN 8/10 WITH NO ALEVIATING FACTORS KNOWN. JORDEN STRICKLAND
[2019-01-06] MEDS ORDERED: LOSARTAN POTASS25 M1 PO (18:29)
[2019-01-06] MEDS ORDERED: VISTARIL25 MG PO (18:29)
[2019-01-06] MEDS ORDERED: MOBIC7.5 MG PO (18:30)
[2019-01-06] MEDS ORDERED: CYMBALTA60 MG PO (18:30)
[2019-01-06] MEDS ORDERED: ALEVE220 M1 PO (18:31)
--- NOTE | 2019-01-06 21:22 | NUR ---
DR. ALONSO INTO SEE PATIENT.
[2019-01-07] VITALS: BP 139/72
--- NOTE | 2019-01-07 02:30 | NUR ---
IV started right hand with #22 angiocath after 1 attempt. The IV site was prepped with Chloraprep. Heparin lock attached. Sterile dressing applied. Patient tolerated precedure well. Procedure performed according to [facility] policy & procedure. IV discontinued. Site symptomatic. Pressure applied. Sterile dressing applied. CHON HALL
[2019-01-07 06:05] LABS: BASO # 0.1 10*3/uL (0.0-0.1); BASO % 0.8 % (0.0-1.0); EOS % 12.6 % (1.0-4.0); HEMATOCRIT 32.7 % (42.0-52.0); HEMOGLOBIN 10.9 g/dl (14.0-18.0); LYMPH # 1.2 10*3/uL (1.3-4.4); LYMPH % 14.3 % (27.0-41.0); MEAN CELL VOLUME 96.2 fl (80.0-94.0); MEAN CORPUSCULAR HGB 32.1 pg (27.0-31.0); MEAN CORPUSCULAR HGB CONC 33.3 g/dl (33.0-37.0); MEAN PLATELET VOLUME 9.7 fl (9.6-12.3); MONO # 0.6 10*3/uL (0.1-1.0); MONO % 7.8 % (3.0-9.0); NEUT # 5.3 10*3/uL (2.3-7.9); NEUT % 64.1 % (47.0-73.0); PLATELET COUNT AUTOMATED 316 10*3/uL (130-400); RED CELL DISTRI WIDTH 12.8 % (0-14.5); WHITE BLOOD COUNT 8.3 10*3/uL (4.8-10.8)
[2019-01-07 06:08] LABS: ALBUMIN 2.4 gm/dl (3.1-4.5); ALKALINE PHOSPHATASE 41 U/L (45-117); BUN 7 mg/dl (7-24); CHLORIDE 109 mmol/L (98-107); CHOLESTEROL 135 mg/dL (<200); CREATININE 0.83 mg/dL (0.70-1.30); HDL CHOLESTEROL 40 mg/dl (40-60); LDL CHOLESTEROL 80 mg/dL (9-159); LIPASE 48 U/L (73-393); PHOSPHOROUS 3.8 mg/dL (2.5-4.9); POTASSIUM 3.7 mmol/L (3.5-5.1); SGOT/AST 13 IU/L (3-35); SGPT/ALT 12 U/L (12-78); SODIUM 142 mmol/L (136-145); TOTAL PROTEIN 5.8 gm/dL (6.4-8.2); TRIGLYCERIDES 77 mg/dl (<150); VLDL CHOLESTEROL 15 mg/dL (6-40)
[2019-01-07 08:00] VITALS: BP 152/72
--- NOTE | 2019-01-07 08:09 | NUR ---
DR. SZYMANSKI CONSULTED AT THIS TIME SEE NEW ORDERS.
--- NOTE | 2019-01-07 08:12 | NUR ---
MEDICATED WITH IV MORPHINE AND ZOFRAN ORDERED PER PT REQUEST FOR C/O ABDOMINAL PAIN AND NAUSEA.
--- NOTE | 2019-01-07 09:53 | NUR ---
DR SZYMANSKI CALLED REGARDING NEW PT CONSULT. ORDERS RECEIVED FOR EGD/COLO WITH PREP.
--- NOTE | 2019-01-07 10:06 | NUR ---
MEDICATIONS EFFECTIVE. MEDICATED WITH PO VISTARIL ORDERED PER PT REQUEST FOR C/O ANXIETY. PT INFORM THAT HE WILL HAVE AN EGD/COLO IN AM.
--- NOTE | 2019-01-07 11:30 | NUR ---
MEDICATION EFFECTIVE FOR ANXIETY.
[2019-01-07 12:00] VITALS: BP 141/63
--- NOTE | 2019-01-07 15:36 | NUR ---
MEDICATED WITH IV MORPHINE AND ZOFRAN ORDERED PER PT REQUEST FOR C/O STOMACH PAIN RATED 5/10 AND NAUSEA.
[2019-01-07 16:00] VITALS: BP 142/82
--- NOTE | 2019-01-07 16:17 | NUR ---
MEDICATIONS EFFECTIVE PER PT.
[2019-01-07 20:00] VITALS: BP 154/91
--- NOTE | 2019-01-07 20:47 | NUR ---
PT REQUESTED AND GIVEN MORPHINE FOR C/O ABD PAIN. PT RATES PAIN 4/10 WILL MONITOR
--- NOTE | 2019-01-07 21:40 | NUR ---
PT REQUESTED AND GIVEN VISTARIL FOR C/O. ANXIETY WILL MONITOR PT STATES THAT MS HELPED WILL MONITOR
[2019-01-08] VITALS (8 sets, daily range): BP systolic 130–176; BP diastolic 74–100
[2019-01-08 06:46] LABS: BASO # 0.1 10*3/uL (0.0-0.1); BASO % 1.1 % (0.0-1.0); EOS # 1.4 10*3/uL (0.0-0.4); EOS % 15.5 % (1.0-4.0); HEMATOCRIT 33.7 % (42.0-52.0); HEMOGLOBIN 10.7 g/dl (14.0-18.0); LYMPH # 1.5 10*3/uL (1.3-4.4); LYMPH % 17.5 % (27.0-41.0); MEAN CELL VOLUME 98.5 fl (80.0-94.0); MEAN CORPUSCULAR HGB 31.3 pg (27.0-31.0); MEAN CORPUSCULAR HGB CONC 31.8 g/dl (33.0-37.0); MEAN PLATELET VOLUME 9.5 fl (9.6-12.3); MONO # 0.6 10*3/uL (0.1-1.0); MONO % 7.3 % (3.0-9.0); NEUT # 5.1 10*3/uL (2.3-7.9); NEUT % 58.3 % (47.0-73.0); PLATELET COUNT AUTOMATED 314 10*3/uL (130-400); RED BLOOD COUNT 3.42 10*6/uL (4.50-5.90); RED CELL DISTRI WIDTH 12.6 % (0-14.5); WHITE BLOOD COUNT 8.7 10*3/uL (4.8-10.8)
[2019-01-08 07:08] LABS: BUN 5 mg/dl (7-24); CHLORIDE 111 mmol/L (98-107); CREATININE 0.69 mg/dL (0.70-1.30); POTASSIUM 3.9 mmol/L (3.5-5.1); SODIUM 140 mmol/L (136-145)
--- NOTE | 2019-01-08 08:29 | NUR ---
PT C/O ANXIETY, IN ROOM CRYING AND STATING THAT HE NEEDS SOMETHING FOR ANXIETY. PHYSICIAN NOTIFIED AND ONE TIME ORDER FOR 0.5 ATIVAN VIA IV GIVEN AT THIS TIME. WILL NOTIFY PT AND MEDICATE PT WHEN MEDICATION AVAILABLE.
--- NOTE | 2019-01-08 13:15 | NUR ---
Cigarette Carton Sealer in to talk to patient. Patient states lives at HOME with ALONE. There are FEW steps in the home. Physician: HELGA ACEVEDO IN [facility] Pharmacy: [facility] Home health services: NONE Patient's level of ADLs: INDEPENDENT Patient has working utilities: YES DME: NONE Follow-up physician's appointment after d/c: WILL BE MADE BY HOSPITALIST NURSE DIRECTOR ON DISCHARGE Does patient want to access PORTAL?: NO Discharge plan PT LIVES AT HOME ALONE AND PLANS TO RETURN HOME ON DISCHARGE. PT STATES IF HE HAS TO HAVE SURGERY HE MAY NEED HOME HEALTH WHEN HE IS DISCHARGED. OTHER THAN THAT DENIES ANY HOME NEEDS. WILL CONTINUE TO FOLLOW. PT STATES HE WILL HAVE A RIDE HOME .. [facility]
--- NOTE | 2019-01-08 17:25 | NUR ---
PT OFF OF FLOOR FOR SURGERY AT THIS TIME.
--- NOTE | 2019-01-08 18:30 | NUR ---
NEW ORDERS RECEIVED FROM DR SZYMANSKI POST SURGERY. PHYSIICAN STATES THAT PT HAS LARGE PENETRATING, NEARLY PERFORATING ULCER. PT ALSO HAS REFLUX, GASTRITIS, AND GASTRIC OUTLET PYLORIC RING. NEW ORDERS ARE PROTONIX 40 MG IV BID, CARAFATE SLURRY 2 GRAM 2 HOURS ACHS, DISCONTINUE MELOXICAM, DISCONTINUE ALEVE, AND FULL LIQUID DIET WITH NO ADVANCEMENT. SURGERY NURSES STATE THAT PT VITALS ARE WNL AND THAT PROCEDURES WERE TOLERATED WELL. PT WILL BE TRANSFERRED UP TO FLOOR AT 1845.
--- NOTE | 2019-01-08 19:00 | NUR ---
PT AWAKE IN BED DURING BEDSIDE SHIFT REPORT. FULL LIQUID TRAY OBTAINED FROM KITCHEN FOR PT HE RECENTLY RETURNED FROM SURGERY AND WAS UNABLE TO ORDER DINNER. CALL LIGHT IN REACH.
--- NOTE | 2019-01-08 19:06 | NUR ---
PT GIVEN MORPHINE AT THIS TIME FOR C/O ABDOMINAL PAIN. LR FROM SURGERY RUNNING INTO IV SITE IN LEFT HAND, SITE IS PATENT. NO OTHER COMPLAINTS VOICED. RESPIRATIONS EASY AND UNLABORED. PT AWARE OF ALL NEW ORDERS GIVEN BY DR SZYMANSKI. CALL LIGHT IN REACH.
--- NOTE | 2019-01-08 21:00 | NUR ---
OR PHONED AND ADVISED THIS NURSE THAT DR. SZYMANSKI WANTED REPORTED THAT HE DID NOT SEE ANY TUMORS ON THIS PT DURING HIS COLONOSCOPY.
--- NOTE | 2019-01-08 21:20 | NUR ---
PT MEDICATED W/VISTARIL PER REQUEST. LIGHTS TURNED OFF. CALL LIGHT IN REACH.
[2019-01-09 00:30] VITALS: BP 190/96
--- NOTE | 2019-01-09 00:47 | NUR ---
DR. ALONSO NOTIFIED OF PT'S MANUAL BP OF 190/96, PT ASYMPTOMATIC, PT'S BP HAS BEEN ELEVATED ALL PREVIOUS DAY, AND PT TAKES COZAAR 25 MG DAILY AT 1000. TO ORDER VASOTEC.
[2019-01-09 02:00] VITALS: BP 156/73
--- NOTE | 2019-01-09 02:47 | NUR ---
CELESTE OROSCO NOTIFIED OF PT'S BP NOW 156/73
--- NOTE | 2019-01-09 05:52 | NUR ---
PT MEDICATED W/MORPHINE IVP FOR C/O ABD PAIN. PT RESTING QUIETLY IN BED. CALL LIGHT IN REACH.
[2019-01-09 06:39] LABS: BASO # 0.1 10*3/uL (0.0-0.1); BASO % 0.8 % (0.0-1.0); EOS # 1.3 10*3/uL (0.0-0.4); EOS % 16.8 % (1.0-4.0); HEMATOCRIT 33.3 % (42.0-52.0); HEMOGLOBIN 10.6 g/dl (14.0-18.0); LYMPH # 1.3 10*3/uL (1.3-4.4); LYMPH % 16.6 % (27.0-41.0); MEAN CELL VOLUME 96.8 fl (80.0-94.0); MEAN CORPUSCULAR HGB 30.8 pg (27.0-31.0); MEAN CORPUSCULAR HGB CONC 31.8 g/dl (33.0-37.0); MEAN PLATELET VOLUME 9.8 fl (9.6-12.3); MONO # 0.6 10*3/uL (0.1-1.0); MONO % 7.2 % (3.0-9.0); NEUT # 4.7 10*3/uL (2.3-7.9); NEUT % 58.2 % (47.0-73.0); PLATELET COUNT AUTOMATED 313 10*3/uL (130-400); RED BLOOD COUNT 3.44 10*6/uL (4.50-5.90); RED CELL DISTRI WIDTH 12.6 % (0-14.5)
[2019-01-09 06:54] LABS: BUN 4 mg/dl (7-24); CHLORIDE 110 mmol/L (98-107); CREATININE 0.75 mg/dL (0.70-1.30); POTASSIUM 3.7 mmol/L (3.5-5.1); SODIUM 143 mmol/L (136-145)
[2019-01-09 08:00] VITALS: BP 172/70
--- NOTE | 2019-01-09 11:43 | NUR ---
PT MEDICATED WITH PRN MORPHINE FOR C/O ABDOMINAL PAIN THAT HE RATES 04/28. WILL REACCESS.
[2019-01-09 12:00] VITALS: BP 164/80
[2019-01-09 15:48] VITALS: BP 153/67
[2019-01-09 20:00] VITALS: BP 132/57
--- NOTE | 2019-01-09 21:43 | NUR ---
PATIENT MEDICATED WITH VISTARIL FOR COMPLAINTS OF ITCHING AND INSOMNIA. WILL CONTINUE TO MONITOR. CALL LIGHT IN REACH.
[2019-01-10] VITALS: BP 164/77
[2019-01-10 08:00] VITALS: BP 156/67
--- NOTE | 2019-01-10 08:20 | NUR ---
PT REQUESTED IV MORPHINE PER PRN ORDER FOR C/O ABD PAIN. RATES PAIN 5/10. WILL MONITOR EFFECTIVENESS.
[2019-01-10 08:36] LABS: BASO # 0.1 10*3/uL (0.0-0.1); BASO % 0.7 % (0.0-1.0); EOS # 1.5 10*3/uL (0.0-0.4); EOS % 17.4 % (1.0-4.0); HEMATOCRIT 36.4 % (42.0-52.0); LYMPH # 1.4 10*3/uL (1.3-4.4); LYMPH % 16.2 % (27.0-41.0); MEAN CELL VOLUME 97.1 fl (80.0-94.0); MEAN PLATELET VOLUME 9.1 fl (9.6-12.3); MONO # 0.8 10*3/uL (0.1-1.0); MONO % 9.5 % (3.0-9.0); NEUT # 4.9 10*3/uL (2.3-7.9); NEUT % 55.9 % (47.0-73.0); PLATELET COUNT AUTOMATED 307 10*3/uL (130-400); RED BLOOD COUNT 3.75 10*6/uL (4.50-5.90); RED CELL DISTRI WIDTH 12.7 % (0-14.5); WHITE BLOOD COUNT 8.7 10*3/uL (4.8-10.8)
--- NOTE | 2019-01-10 09:10 | NUR ---
EARLIER MORPHINE EFFECTIVE PER PT. WILL CONTINUE TO MONITOR.
[2019-01-10 11:38] VITALS: BP 173/83
--- NOTE | 2019-01-10 13:28 | NUR ---
NO NEW NEEDS PER PT. WILL CONTINUE TO FOLLOW.
--- NOTE | 2019-01-10 15:20 | NUR ---
NOTIFIED REGARDING PATIENTS TOLERANCE OF FULL LIQUID DIET.
[2019-01-10 15:54] VITALS: BP 168/72
--- NOTE | 2019-01-10 16:03 | NUR ---
NOTIFIED REGARDING ELEVATED BP. NEW ORDERS TO BE ENTERED.
--- NOTE | 2019-01-10 19:47 | NUR ---
PATIENT MEDICATED WITH VISTARIL FOR COMPLAINTS OF ANXIETY AND MORPHINE FOR COMPLAINTS OF PAIN. WILL CONTINUE TO MONITOR. CALL LIGHT IN REACH.
[2019-01-10 19:49] VITALS: BP 178/80
[2019-01-11] VITALS (7 sets, daily range): BP systolic 145–188; BP diastolic 69–84
--- NOTE | 2019-01-11 08:10 | NUR ---
NOTIFIED REGARDING ELEVATED BP THIS AM. PT ASYMPTOMATIC. AWAITING PHYSICIAN ORDERS.
--- NOTE | 2019-01-11 11:00 | NUR ---
PT MEDICATED WITH IV MORPHINE SLOWLY PER PRN ORDER FOR C/O ABD PAIN. RATES PAIN 04/28. WILL MONITOR EFFECTIVENESS.
--- NOTE | 2019-01-11 11:05 | NUR ---
VISTARIL PO GIVEN PER PRN ORDER FOR C/O ANXIETY. WILL MONITOR EFFECTIVENESS.
--- NOTE | 2019-01-11 12:00 | NUR ---
EARLIER MEDICATIONS EFFECTIVE PER PT.
--- NOTE | 2019-01-11 12:51 | NUR ---
PT STATES NO NEW NEEDS AT THIS TIME. WILL CONTINUE TO FOLLOW.
--- NOTE | 2019-01-11 13:08 | NUR ---
PT MEDICATED WITH IV ZOFRAN PER PRN ORDER FOR C/O NAUSEA. WILL MONITOR EFFECTIVENESS.
--- NOTE | 2019-01-11 13:20 | NUR ---
PT MEDICATED WITH IV MORPHINE PER PRN ORDER FOR C/O ABD PAIN. INCREASED PAIN/NAUSEA AFTER [place]. WILL MONITOR EFFECTIVENESS. DR.EVERETTE GUILLEN.
--- NOTE | 2019-01-11 14:15 | NUR ---
EARLIER MEDS EFFECTIVE AT THIS TIME. WILL CONTINUE TO MONITOR.
--- NOTE | 2019-01-11 18:45 | NUR ---
PT MEDICATED WITH IV MORPHINE PER PRN ORDER FOR C/O ABD PAIN. RATES PAIN 03/28. WILL MONITOR EFFECTIVENESS.
--- NOTE | 2019-01-11 20:30 | NUR ---
24 HR chart check completed.
--- NOTE | 2019-01-11 21:00 | NUR ---
RESTING IN BED WITH NO ACUTE DISTRESS NOTED. RESPIRATIONS EASY. LUNGS DIMINISHED, CLEAR. PULSE OX 97% RA. CALL LIGHT WITHIN REACH. NO VOICED COMPLAINTS
--- NOTE | 2019-01-11 22:30 | NUR ---
REQUESTED AND RECEIVED VISTARIL AND RESTORIL PER PRN ORDER TO ASSIST WITH ANXIETY AND SLEEP. CALL LIGHT WITHIN REACH. WILL MONITOR FOR EFFECTIVENESS
[2019-01-12] VITALS: BP 160/80
--- NOTE | 2019-01-12 | NUR ---
MEDS APPEAR EFFECTIVE. SLEEPING. NO DISTRESS NOTED. RESPIRATIONS EASY. VSS. CALL LIGHT WITHIN REACH
[2019-01-12] MEDS ORDERED: LOSARTAN-HCTZ1 EAC1 PO (01:29)
[2019-01-12] MEDS ORDERED: MELOXICAM7.5 MG PO (01:31)
--- NOTE | 2019-01-12 05:30 | NUR ---
DR ALONSO CONTACTED AND INFORMED OF DISCREPANCY WITH HOME MEDS. MEDS UPDATED IN COMPUTER, DR ALONSO TO REVIEW
--- NOTE | 2019-01-12 06:00 | NUR ---
SLEPT THROUGHOUT NIGHT WITH NO DISTRESS NOTED. RESPIRATIONS EASY. CALL LIGHT WITHIN REACH. NO VOICED COMPLAINTS THIS SHIFT
[2019-01-12 08:00] VITALS: BP 117/60
--- NOTE | 2019-01-12 08:20 | NUR ---
PT RESTING IN BED. PT C/O ABD PAIN PT HAS NO IV SITE AT THIS TIME WILL MONITOR
--- NOTE | 2019-01-12 10:03 | NUR ---
PT REQUESTED AND GIVEN MORPHINE FOR C/O ABD PAIN , PT RATES PAIN 6/10 WILL MONITOR
--- NOTE | 2019-01-12 11:00 | NUR ---
MORPHINE HELPED PER PT WILL MONITOR
[2019-01-12 12:00] VITALS: BP 157/62
--- NOTE | 2019-01-12 13:28 | NUR ---
PT DENIES HOME NEEDS ON DISCHARGE WILL CONTINUE TO FOLLOW.
--- NOTE | 2019-01-12 14:36 | NUR ---
PT REQUESTED AND GIVEN MORPHINE FOR C/O ABD PAIN. PT RATES PAIN 6/10 WILL MONITOR
--- NOTE | 2019-01-12 15:53 | NUR ---
MORPHINE IS EFFECTIVE. WILL MONITOR
[2019-01-12 16:00] VITALS: BP 155/76
[2019-01-12 20:00] VITALS: BP 161/77
[2019-01-13] VITALS (8 sets, daily range): BP systolic 146–200; BP diastolic 68–88
--- NOTE | 2019-01-13 02:47 | NUR ---
PATIENT SLEEPING. NO S/S OF DISTRESS NOTED. RESPIRATIONS EASY/REG ON RA. CALL LIGHT IN REACH
--- NOTE | 2019-01-13 10:08 | NUR ---
PATIENT RECEIVED NORCO FOR PAIN RATED 6/10.
--- NOTE | 2019-01-13 10:08 | NUR ---
PATIENT'S CLOTHING SENT TO [facility] FOR LAUNDERING. PATIENT STICKER PLACED ON BAG.
--- NOTE | 2019-01-13 11:41 | NUR ---
HYDRALAZINE GIVEN DUE TO BP OF 188/80.
--- NOTE | 2019-01-13 14:05 | NUR ---
PATIENT RECEIVED MORPHINE FOR PAIN IN STOMACH RATED 5/10.
--- NOTE | 2019-01-13 16:38 | NUR ---
PATIENT C/O ABDOMINAL PAIN, RATES 6.5/10 ON PAIN SCALE. MEDICATED WITH PO PRN NORCO AT THIS TIME, WILL MONITOR FOR EFFECTIVENESS. BED IN LOWEST/LOCKED POSITION, SIDERAILS UP X2, CALL LIGHT WITHIN REACH. PATIENT IS ALERT & ORIENTED X3 AT THIS TIME. ENCOURAGED TO USE CALL LIGHT IF ASSISTANCE IS NEEDED.
--- NOTE | 2019-01-13 17:45 | NUR ---
PATIENT RESTING IN BED WITH EYES CLOSED, PRN MEDICATION APPEARS TO BE EFFECTIVE AT THIS TIME. WILL CONTINUE TO MONITOR. BED IN LOWEST/LOCKED POSITION WITH SIDERAILS UP X2 FOR SAFETY AND CALL LIGHT WITHIN REACH.
[2019-01-14 06:29] LABS: BASO # 0.1 10*3/uL (0.0-0.1); BASO % 0.7 % (0.0-1.0); EOS # 1.4 10*3/uL (0.0-0.4); EOS % 15.8 % (1.0-4.0); HEMATOCRIT 41.5 % (42.0-52.0); HEMOGLOBIN 13.7 g/dl (14.0-18.0); LYMPH # 1.8 10*3/uL (1.3-4.4); LYMPH % 20.8 % (27.0-41.0); MEAN CELL VOLUME 94.7 fl (80.0-94.0); MEAN CORPUSCULAR HGB 31.3 pg (27.0-31.0); MEAN PLATELET VOLUME 10.1 fl (9.6-12.3); MONO # 0.9 10*3/uL (0.1-1.0); NEUT # 4.7 10*3/uL (2.3-7.9); NEUT % 52.6 % (47.0-73.0); PLATELET COUNT AUTOMATED 352 10*3/uL (130-400); RED BLOOD COUNT 4.38 10*6/uL (4.50-5.90); RED CELL DISTRI WIDTH 12.9 % (0-14.5); WHITE BLOOD COUNT 8.9 10*3/uL (4.8-10.8)
[2019-01-14 07:01] LABS: BUN 5 mg/dl (7-24); CHLORIDE 101 mmol/L (98-107); CREATININE 0.88 mg/dL (0.70-1.30); SODIUM 138 mmol/L (136-145)
[2019-01-14 08:00] VITALS: BP 156/90
--- NOTE | 2019-01-14 08:50 | NUR ---
TALKED WITH REGARDING PATIENT RASH THAT IS ALL OVER HIS BILATERAL ARMS,TRUNK AND LEGS. PATIENT IS C/O ITCHING ALL OVER. STATED THAT HE WILL ORDER THE PATIENT BENADRYL.
--- NOTE | 2019-01-14 09:36 | NUR ---
PATIENT C/O ITCHING ALL OVER. MEDICATED WITH BENADRYL PER PRN ORDER. WILL CONTINUE TO MONITOR.
--- NOTE | 2019-01-14 09:36 | NUR ---
PATIENT C/O UPPER EPIGASTRI TO RUQ PAIN. MEDICATED WITH NORCO PER PRN ORDER. PAIN RATED 6/10 ON PAIN SCALE. WILL CONTINUE TO MONITOR.
[2019-01-14 12:00] VITALS: BP 118/70
--- NOTE | 2019-01-14 14:29 | NUR ---
PATIENT CONTINUES TO C/O RUQ/UPPER EPIGASTRIC PAIN. RATE 6/10 ON PAIN SCALE. MEDICATED WITH NORCO PER PRN ORDER. WILL CONTINUE TO MONITOR.
--- NOTE | 2019-01-14 15:30 | NUR ---
LUNA SEMIEFFECTIVE. RATE 4/10 ON PAIN SCALE.
[2019-01-14 16:00] VITALS: BP 147/84
--- NOTE | 2019-01-14 18:21 | NUR ---
PATIENT CONTINUES TO C/O RUQ/UPPER EPIGASTRIC PAIN. RATE 6/10 ON PAIN SCALE. MEDICATED WITH NORCO PER PRN ORDER.
[2019-01-14 20:00] VITALS: BP 133/57
--- NOTE | 2019-01-14 21:15 | NUR ---
PATIENT MEDICATED WITH RESTORIL FOR COMPLAINTS OF INSOMNIA. WILL CONTINUE TO MONITOR.
--- NOTE | 2019-01-14 21:21 | NUR ---
PATIENT MEDICATED WITH BENADRYL FOR COMPLAINTS OF ITCHING. WILL CONTINUE TO MONITOR. CALL LIGHT IN REACH.
[2019-01-15] VITALS: BP 137/53
[2019-01-15 06:27] LABS: BASO # 0.1 10*3/uL (0.0-0.1); BASO % 0.6 % (0.0-1.0); EOS # 1.3 10*3/uL (0.0-0.4); EOS % 15.3 % (1.0-4.0); HEMATOCRIT 40.9 % (42.0-52.0); HEMOGLOBIN 13.3 g/dl (14.0-18.0); LYMPH # 1.5 10*3/uL (1.3-4.4); LYMPH % 17.8 % (27.0-41.0); MEAN CELL VOLUME 95.6 fl (80.0-94.0); MEAN CORPUSCULAR HGB 31.1 pg (27.0-31.0); MEAN CORPUSCULAR HGB CONC 32.5 g/dl (33.0-37.0); MEAN PLATELET VOLUME 9.7 fl (9.6-12.3); MONO # 0.8 10*3/uL (0.1-1.0); MONO % 9.5 % (3.0-9.0); NEUT # 4.9 10*3/uL (2.3-7.9); NEUT % 56.6 % (47.0-73.0); PLATELET COUNT AUTOMATED 310 10*3/uL (130-400); RED BLOOD COUNT 4.28 10*6/uL (4.50-5.90); RED CELL DISTRI WIDTH 12.7 % (0-14.5); WHITE BLOOD COUNT 8.6 10*3/uL (4.8-10.8)
[2019-01-15 06:50] LABS: BUN 6 mg/dl (7-24); CHLORIDE 99 mmol/L (98-107); CREATININE 0.99 mg/dL (0.70-1.30); SODIUM 137 mmol/L (136-145)
[2019-01-15 06:56] LABS: POTASSIUM 3.5 mmol/L (3.5-5.1)
--- NOTE | 2019-01-15 07:24 | NUR ---
PATIENT C/O PAIN IN RUQ/UPPER EPIGASTRIC PAIN. RATE 6/10 ON PAIN SCALE. MEDICATED WITH NORCO PER PRN ORDER.
[2019-01-15 08:00] VITALS: BP 132/58
--- NOTE | 2019-01-15 08:12 | NUR ---
PATIENT C/O ITCHING ALL OVER. MEDICATED WITH BENADRYL PER PRN ORDER. WILL CONTINUE TO MONITOR.
[2019-01-15 12:00] VITALS: BP 140/60
--- NOTE | 2019-01-15 12:37 | NUR ---
PT CHAVA HE DOES NOT KNOW WHAT THEY ARE GOING TO DO WITH HIM YET. IF HE HAS SURGERY HE WILL REQUIRE HELP AT HOME WITH HOME HEALTH. STATES HE WILL KNOW MORE AFTER HE TALKS WITH SURGEON TODAY. WILL CONTINUE TO FOLLOW.
[2019-01-15 16:00] VITALS: BP 135/67
[2019-01-15 20:00] VITALS: BP 141/69
--- NOTE | 2019-01-15 20:03 | NUR ---
PATIENT IS RESTING IN BED WITH EASY AND REGULAR RESPERS ON ROOM AIR. ASSESSMENT IS COMPLETE WITH NO C/O OR S/S OF DISTRESS NOTED AT THIS TIME. BED IS LOW, LOCKED, AND CALL LIGHT IS WITHIN REACH. SEE SHIFT ASSESSMENT.
--- NOTE | 2019-01-15 21:41 | NUR ---
2200 MEDICATIONS GIVEN AT THIS TIME. PRN NORCO AND BENADRYL PROVIDED FOR ABDOMINAL PAIN AND ITCHING. ELIMITE CREAM APPLIED. PATIENT TOLERATED PO MEDICATIONS. ELIMITE CREAM WAS TOLERATED WITH THE EXECEPTION OF FEET. PATIENT STATES "I CANT TAKE THIS IT RIVERO TO BAD ON MY FEET." CREAM WAS WIPED OFF WITH DAMP WASHCLOTH. INFORMED PATIENT THAT SHOWER WOULD HAVE TO BE OBTAINED AROUND 10AM FOR THE CREAM TO BE EFFECTIVE, HE IS IN AGREEANCE WITH THIS. CALL LIGHT IS WITHIN REACH, WILL MONITOR EFFECT OF MEDICATIONS.
[2019-01-16] VITALS: BP 125/58; BP 141/69; BP 142/64
[2019-01-16 07:47] LABS: BASO # 0.1 10*3/uL (0.0-0.1); BASO % 0.7 % (0.0-1.0); EOS # 1.1 10*3/uL (0.0-0.4); EOS % 12.5 % (1.0-4.0); HEMATOCRIT 40.8 % (42.0-52.0); HEMOGLOBIN 13.3 g/dl (14.0-18.0); LYMPH # 1.5 10*3/uL (1.3-4.4); LYMPH % 16.5 % (27.0-41.0); MEAN CELL VOLUME 93.8 fl (80.0-94.0); MEAN CORPUSCULAR HGB 30.6 pg (27.0-31.0); MEAN CORPUSCULAR HGB CONC 32.6 g/dl (33.0-37.0); MEAN PLATELET VOLUME 9.7 fl (9.6-12.3); MONO # 0.8 10*3/uL (0.1-1.0); MONO % 9.1 % (3.0-9.0); NEUT # 5.4 10*3/uL (2.3-7.9); PLATELET COUNT AUTOMATED 281 10*3/uL (130-400); RED BLOOD COUNT 4.35 10*6/uL (4.50-5.90); RED CELL DISTRI WIDTH 12.7 % (0-14.5); WHITE BLOOD COUNT 8.9 10*3/uL (4.8-10.8)
--- NOTE | 2019-01-16 07:56 | NUR ---
WRONG O2 AND PULSE OX DOCUMENTED ON THIS PT ON 01/15/19 AT 0857.
[2019-01-16 08:00] VITALS: BP 144/70
[2019-01-16 08:18] LABS: BUN 5 mg/dl (7-24); CHLORIDE 101 mmol/L (98-107); POTASSIUM 3.3 mmol/L (3.5-5.1); SODIUM 137 mmol/L (136-145)
--- NOTE | 2019-01-16 08:27 | NUR ---
24HR CHART CHECK COMPLETE
--- NOTE | 2019-01-16 09:09 | NUR ---
PRN NORCO AND ZOFRAN GIVEN FOR COMPLAINTS OF PAIN AND NAUSEA. PAIN RATED 7/10. WILL MONITOR FOR EFFECTIVENESS. CONTINUE TO MONITOR THE PT.
--- NOTE | 2019-01-16 09:50 | NUR ---
RE-EVALUATED AT THIS TIME. PAIN IS CONTROLLED. PRN NORCO EFFECTIVE. PRN ZOFRAN EFFECTIVE WELL.
[2019-01-16 12:00] VITALS: BP 148/72
[2019-01-16 16:00] VITALS: BP 122/60
--- NOTE | 2019-01-16 16:43 | NUR ---
PATIENT C/O ANXIETY AT PRESENT TIME, REQUESTING ANXIETY MEDICATION. STATES 20 MINUTES EARLIER WAS UP TO RR, BECAME DIZZY, SLIGHTLY SOB AND BEGAN TO SEE DARK SPOTS, HAD ONE EPISODE OF DIARRHEA AND RETURNED TO BED. ALL SYMPTOMS EXCEPT SEEING DARK SPOTS RESOLVED WITH REST. HE DENIES WEAKNESS OR NAUSEA, NO PALPITATIONS OR CHEST PAIN, BUT REMAINS ANXIOUS ABOUT THE VISUAL CHANGES.
--- NOTE | 2019-01-16 17:56 | NUR ---
PRN PO VISTARIL EFFECTIVE FOR ANXIETY, PER PATIENT.
[2019-01-16 20:00] VITALS: BP 130/62
--- NOTE | 2019-01-16 20:13 | NUR ---
PATIENT IS RESTING IN BED WITH EASY AND REGULAR RESPERS ON ROOM AIR. ASSESSMENT IS COMPLETE WITH NO C/O OR S/S OF DISTRESS NOTED AT THIS TIME. BED IS LOW, LOCKED, AND CALL LIGHT IS WITHIN REACH. PATIENT DOES ASK WHEN HE IS DUE FOR MEDICATIIONS AGAIN, BUT COULD NOT SPECIFY WHAT TIME. PATIENT DENIES PAIN, ANXIETY, AND ITCHING. INFORMED PATIENT THAT 2200 MEDICATIONS ARE TO BE GIVEN AROUND 2100 AND HE IS IN AGREEANCE TO THIS. SEE SHIFT ASSESSMENT.
--- NOTE | 2019-01-16 21:30 | NUR ---
PRN NORCO AND BENADRYL GIVEN AT THIS TIME FOR C/O ABDOMINAL PAIN AND ITCHING. CALL LIGHT IS WITHIN REACH. WILL MONITOR EFFECT.
--- NOTE | 2019-01-16 22:00 | NUR ---
PRN MEDICATIONS SEEM EFFECTIVE, PATIENT IS SLEEPING WITH EASY AND REGULAR RESPERS ON ROOM AIR. CALL LIGHT IS WITHIN REACH.
[2019-01-17] VITALS (9 sets, daily range): BP systolic 102–141; BP diastolic 50–85
--- NOTE | 2019-01-17 04:00 | NUR ---
PATIENT SLEEPING WITH EASY AND REGULAR RESPERS ON ROOM AIR.
--- NOTE | 2019-01-17 05:26 | NUR ---
0600 MEDICATIONS HELD D/T EGD IN THE AM.
[2019-01-17 06:33] LABS: BUN 9 mg/dl (7-24); CHLORIDE 101 mmol/L (98-107); CREATININE 1.17 mg/dL (0.70-1.30); POTASSIUM 3.3 mmol/L (3.5-5.1); SODIUM 137 mmol/L (136-145)
--- NOTE | 2019-01-17 10:30 | NUR ---
PATIENT TO OR BY BED FOR EGD PROCEDURE.
--- NOTE | 2019-01-17 13:10 | NUR ---
PATIENT BACK FROM OR PROCEDURE, RESUMING MEDICATIONS AND DIET.
--- NOTE | 2019-01-17 13:20 | NUR ---
MEDICATED WITH PRN PO NORCO FOR ABDOMINAL PAIN.
--- NOTE | 2019-01-17 14:41 | NUR ---
PRN PO NORCO EFFECTIVE, PER PATIENT.
[2019-01-18] VITALS: BP 92/50
[2019-01-18 06:32] LABS: BASO # 0.1 10*3/uL (0.0-0.1); BASO % 0.9 % (0.0-1.0); EOS # 0.8 10*3/uL (0.0-0.4); EOS % 9.5 % (1.0-4.0); HEMATOCRIT 39.6 % (42.0-52.0); LYMPH # 1.9 10*3/uL (1.3-4.4); LYMPH % 22.5 % (27.0-41.0); MEAN CELL VOLUME 94.5 fl (80.0-94.0); MEAN CORPUSCULAR HGB CONC 32.8 g/dl (33.0-37.0); MEAN PLATELET VOLUME 10.2 fl (9.6-12.3); MONO # 0.9 10*3/uL (0.1-1.0); MONO % 10.4 % (3.0-9.0); NEUT # 4.8 10*3/uL (2.3-7.9); NEUT % 56.3 % (47.0-73.0); PLATELET COUNT AUTOMATED 278 10*3/uL (130-400); RED BLOOD COUNT 4.19 10*6/uL (4.50-5.90); RED CELL DISTRI WIDTH 12.5 % (0-14.5); WHITE BLOOD COUNT 8.5 10*3/uL (4.8-10.8)
[2019-01-18 06:58] LABS: ALBUMIN 2.8 gm/dl (3.1-4.5); ALKALINE PHOSPHATASE 48 U/L (45-117); BUN 11 mg/dl (7-24); CHLORIDE 100 mmol/L (98-107); CREATININE 1.28 mg/dL (0.70-1.30); POTASSIUM 3.3 mmol/L (3.5-5.1); SGOT/AST 10 IU/L (3-35); SGPT/ALT 9 U/L (12-78); SODIUM 136 mmol/L (136-145); TOTAL PROTEIN 6.1 gm/dL (6.4-8.2)
[2019-01-18 08:00] VITALS: BP 152/52
[2019-01-18 08:48] VITALS: BP 101/60
--- NOTE | 2019-01-18 10:34 | NUR ---
PT HAS NO NEEDS AT HOME ON DISCHARGE. WILL CONTINUE TO FOLLOW.
[2019-01-18 12:00] VITALS: BP 114/51
--- NOTE | 2019-01-18 14:47 | NUR ---
MEDICATED WITH PRN PO NORCO FOR ABDOMINAL PAIN.
--- NOTE | 2019-01-18 14:49 | NUR ---
PATIENT REPORTS HAVING NAUSEA/EMESIS AFTER EATING MEATLOAF THIS AFTERNOON. HE IS REQUESTING NAUSEA MEDICATION.
--- NOTE | 2019-01-18 14:57 | NUR ---
MEDICATED WITH PRN PO ZOFRAN FOR NAUSEA.
[2019-01-18 16:00] VITALS: BP 107/64
[2019-01-18] MEDS ORDERED: PROTONIX TR40 M1 PO (16:21)
[2019-01-18] MEDS ORDERED: AMLODIPINE BESYL5 MG PO (16:21)
[2019-01-18] MEDS ORDERED: LOPRESSOR25 MG PO (16:21)
[2019-01-18] MEDS ORDERED: CARAFATE1 G1 PO (16:21)
--- NOTE | 2019-01-18 16:52 | NUR ---
PRN PO NORCO AND ZOFRAN EFFECTIVE, PER PATIENT.
[2019-01-18] MEDS ORDERED: ZOFRAN4 MG PO (17:18)
--- NOTE | 2019-01-18 17:33 | NUR ---
Discharge instructions reviewed with patient. Patient receptive and verbalizes understanding. Follow-up care arranged. Written instructions given to patient. PATIENT DISCHARGED TO ER FRONT LOBBY, AMBULATORY, FOR TRANSPORT HOME BY PRIVATE VEHICLE. PERRY VALE
[2019-01-27] MEDS ORDERED: MELOXICAM7.5 MG PO (13:21)
[2019-01-31] MEDS ORDERED: Carafate1 GM PO (10:09)
[2019-01-31] MEDS ORDERED: LISINOPRIL5 MG PO (10:09)
[2019-01-31] MEDS ORDERED: SEPTDS PO (10:09)
[2019-01-31] MEDS ORDERED: Bactroban Oint22 GM T (10:12)
[2019-01-31] MEDS ORDERED: ELIMITE 5%60 GM T (10:18)
[2019-01-31] MEDS ORDERED: BETASEPT 118 M118 ML T (10:22)
[2019-01-31] MEDS ORDERED: ULTRAM50 MG PO (10:36)
== END 2019-01-18 17:33 | disposition home or self-care (01) | DRG 377 ==
LOC: ED 12:04 → 5E 17:18 → EDHOLD 17:18 → 5E 17:48
PROVIDERS: Family Medicine; Internal Medicine; Nurse Practitioner Family; Student in an Organized Health Care Education/Training Program; ADMIT Emergency Medicine
PROC: 0DB98ZX Excision of Duodenum, Via Natural or Artificial Opening Endoscopic, Diagnostic (ICD-10-PCS; 2019-01-08)
PROC: 0DJD8ZZ Inspection of Lower Intestinal Tract, Via Natural or Artificial Opening Endoscopic (ICD-10-PCS; 2019-01-08)
PROC: 0DJ08ZZ Inspection of Upper Intestinal Tract, Via Natural or Artificial Opening Endoscopic (ICD-10-PCS; principal; 2019-01-17)
DX: K29.91 Gastroduodenitis, unspecified, with bleeding (principal); E43 Unspecified severe protein-calorie malnutrition; R65.10 Systemic inflammatory response syndrome (SIRS) of non-infectious origin without acute organ dysfunction; E87.2 Acidosis; Z68.41 Body mass index [BMI] 40.0-44.9, adult; I16.0 Hypertensive urgency; D53.9 Nutritional anemia, unspecified; F41.0 Panic disorder [episodic paroxysmal anxiety]; D47.3 Essential (hemorrhagic) thrombocythemia; K42.9 Umbilical hernia without obstruction or gangrene; R73.9 Hyperglycemia, unspecified; E66.01 Morbid (severe) obesity due to excess calories; F32.9 Major depressive disorder, single episode, unspecified; G47.00 Insomnia, unspecified; M19.90 Unspecified osteoarthritis, unspecified site; F41.1 Generalized anxiety disorder; I10 Essential (primary) hypertension; E87.8 Other disorders of electrolyte and fluid balance, not elsewhere classified; B86 Scabies; R10.84 Generalized abdominal pain; Z80.8 Family history of malignant neoplasm of other organs or systems; Z82.0 Family history of epilepsy and other diseases of the nervous system; Z79.899 Other long term (current) drug therapy

== ENCOUNTER 2019-02-05 19:16 | Inpatient (IN) | payer MEDICAID ==
[~2019-02-05] VITALS: Ht 172.7 cm; Wt 130.3 kg
--- NOTE | ~2019-02-05 | EKG ---
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
--- NOTE | ~2019-02-05 | ST ---
[place], [place] EXERCISE STRESS TEST REPORT [id number] UN[facility] #: [id number] ROOM: 531 DOCTOR: BALJIT VAUGHAN MD BIRTHDATE: [birth year] DOS: 02/08/2019 LEXISCAN STRESS EKG REFERRING PHYSICIAN: Dr. Minaya. INDICATION: Central chest pain. The patient underwent standard protocol Lexiscan stress EKG. Baseline EKG, normal sinus, nonspecific ST-T wave changes. The patient's peak baseline heart rate was 99 with blood pressure 112/78. The patient's peak heart rate is 122 with a blood pressure 118/80. The patient had no chest pain, no ischemic changes, no arrhythmias. SUMMARY OF FINDINGS: Unremarkable Lexiscan stress EKG. Please see separate report for perfusion scan imaging results. BALJIT VAUGHAN MD CM:STRESS:EXERCISE STRESS TEST REPORT [id number] 02 BALJIT VAUGHAN MD
--- NOTE | ~2019-02-05 | EKG ---
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1965 Requested By: JOSE ANTONIO YEPEZ Order Number: [id number] Reading MD: Archie Ramos MD Measurements Intervals [place] Rate: 86 P: 34 MN: 185 QRS: -16 QRSD: 102 T: 62 QT: 355 QTc: 425 Interpretive Statements Sinus rhythm Borderline left axis deviation Abnormal lateral Q waves Probable anteroseptal infarct, old Compared to ECG 04/24/2018 05:02:15 Q waves now present Myocardial infarct finding now present ST (T wave) deviation no longer present Electronically Signed On 02-09-2019 9:35:54 PDT by Archie Ramos MD CM:EKGRPT:ELECTROCARDIOGRAM REPORT [id number] JOSE ANTONIO CORREA DRAFT REPORT JOSE ANTONIO YEPEZ DO
--- NOTE | ~2019-02-05 | EKG ---
[place], [place] ELECTROCARDIOGRAM REPORT NAME: TEMI GARCÍA UNIT #: [id number] ROOM: 531 DOCTOR: SHELTON DRAFT REPORT BIRTHDATE: [birth year] [facility] Test Date: 2019-02-05 Test Time: 22:24:26 Pat Name: TEMI GARCÍA Department: Room: 531 Gender: M [place] Layer: SS RESP : 1965 Requested By: JOSE ANTONIO YEPEZ Order Number: [id number] Reading MD: Archie Ramos MD Measurements Intervals [place] Rate: 71 P: 21 WV: 172 QRS: -20 QRSD: 102 T: 51 QT: 384 QTc: 418 Interpretive Statements Sinus rhythm Borderline left axis deviation Probable lateral infarct, old Probable anteroseptal infarct, old Baseline wander in lead(s) V4,V5,V6 Compared to ECG 04/24/2018 05:02:15 Myocardial infarct finding now present ST (T wave) deviation no longer present Electronically Signed On 02-09-2019 9:33:49 PDT by Archie Ramos MD CM:EKGRPT:ELECTROCARDIOGRAM REPORT [id number] JOSE ANTONIO CORREA DRAFT REPORT JOSE ANTONIO YEPEZ DO
[~2019-02-05 19:16] MED LIST changes: +ALEVE220 M1 PO; +AMLODIPINE BESYL5 MG PO; +BETASEPT 118 M118 ML T; +Bactroban Oint22 GM T; +CARAFATE1 G1 PO; +CYMBALTA60 MG PO; +Carafate1 GM PO; +ELIMITE 5%60 GM T; +LISINOPRIL5 MG PO; +LOPRESSOR25 MG PO; +LOSARTAN POTASS25 M1 PO; +LOSARTAN-HCTZ1 EAC1 PO; +MELOXICAM7.5 MG PO; +MOBIC7.5 MG PO; +PROTONIX TR40 M1 PO; +SEPTDS PO; +ULTRAM50 MG PO; +ZOFRAN4 MG PO
[2019-02-05 19:17] VITALS: BP 119/71
[2019-02-05 19:41] LABS: BASO # 0.1 10*3/uL (0.0-0.1); BASO % 0.7 % (0.0-1.0); EOS # 0.3 10*3/uL (0.0-0.4); EOS % 2.1 % (1.0-4.0); HEMATOCRIT 36.1 % (42.0-52.0); HEMOGLOBIN 12.3 g/dl (14.0-18.0); LYMPH % 22.7 % (27.0-41.0); MEAN CELL VOLUME 90.5 fl (80.0-94.0); MEAN CORPUSCULAR HGB 30.8 pg (27.0-31.0); MEAN CORPUSCULAR HGB CONC 34.1 g/dl (33.0-37.0); MEAN PLATELET VOLUME 10.8 fl (9.6-12.3); MONO # 0.8 10*3/uL (0.1-1.0); NEUT % 68.1 % (47.0-73.0); PLATELET COUNT AUTOMATED 329 10*3/uL (130-400); RED BLOOD COUNT 3.99 10*6/uL (4.50-5.90); RED CELL DISTRI WIDTH 12.5 % (0-14.5); WHITE BLOOD COUNT 13.2 10*3/uL (4.8-10.8)
[2019-02-05 20:16] LABS: ALBUMIN 3.2 gm/dl (3.1-4.5); ALKALINE PHOSPHATASE 55 U/L (45-117); BUN 25 mg/dl (7-24); CHLORIDE 100 mmol/L (98-107); CREATININE 3.23 mg/dL (0.70-1.30); POTASSIUM 4.9 mmol/L (3.5-5.1); SGOT/AST 19 IU/L (3-35); SGPT/ALT 10 U/L (12-78); SODIUM 135 mmol/L (136-145); TOTAL PROTEIN 6.8 gm/dL (6.4-8.2)
[2019-02-05 20:17] LABS: TROPONIN I < 0.015 ng/ml (<0.045)
[2019-02-05 20:45] LABS: ACT PARTIAL THROMBO TIME 26.8 SECONDS (20.0-32.1); INTERNATIONAL NORM RATIO 0.9 (2.0-3.5)
[2019-02-05 22:05] VITALS: BP 112/61
--- NOTE | 2019-02-05 22:05 | NUR ---
A 53, admitted to , under the services of MIRNA Larsen DO with a diagnosis of ARF,CP. Chief complaint is CP WITH DIZZINESS ONSET COUPLE HOURS PRIOR TO ER. PT. HAS HX OF ANXIETY BUT PER PT. SAYS "IT FEELS DIFFERENT". Patient arrived via wheel chair from ER. Monitor applied. Initial assessment completed. Vital signs taken and recorded. MIRNA LARSEN DO notified of admission to the unit. Orders received. See assessment for past medical history, medications and allergies. Patient and/or family oriented to unit. [facility]. visitation policy reviewed. Clothing/patient valuable form completed. STEPHANIE TENORIO
--- NOTE | 2019-02-05 22:15 | NUR ---
PATIENT WITH MULTIPLE SCABBED WOUNDS. PATIENT WITH CLOSED WOUND TO [facility] BUT REFUSED PHOTO. NO CONERNS AT THIS TIME.
--- NOTE | 2019-02-06 01:51 | NUR ---
C/O HEADACHE TOOK TYLENOL TO PATIENT AND HE SAID "THAT'S NOT GOING TO DO ANYTHING FOR IT, MY HEAD IS HURTING TO BAD. I NEED SOMETHING STRONGER." PATIENT STATED PAIN STARTED ON LEFT SIDE AND NOW IT'S ALL ACROSS THE FOREHEAD TO THE OTHER SIDE. CALLED DR. LANGFORD AND NOTIFIED HIM OF THIS AND ORDERS TO BE RECEIVED.
--- NOTE | 2019-02-06 06:23 | NUR ---
CALLED ANSWERING SERVICE FOR DR. VAUGHAN CONSULT. INFORMATION OBTAINED.
--- NOTE | 2019-02-06 06:24 | NUR ---
PT. ALSO CONTINUES TO C/O HEADACHE.
[2019-02-06 07:33] LABS: BASO # 0.1 10*3/uL (0.0-0.1); BASO % 0.8 % (0.0-1.0); EOS # 0.4 10*3/uL (0.0-0.4); EOS % 3.7 % (1.0-4.0); HEMATOCRIT 35.4 % (42.0-52.0); HEMOGLOBIN 11.6 g/dl (14.0-18.0); LYMPH # 1.9 10*3/uL (1.3-4.4); LYMPH % 18.8 % (27.0-41.0); MEAN CORPUSCULAR HGB 29.8 pg (27.0-31.0); MEAN CORPUSCULAR HGB CONC 32.8 g/dl (33.0-37.0); MEAN PLATELET VOLUME 9.4 fl (9.6-12.3); MONO # 0.7 10*3/uL (0.1-1.0); MONO % 6.9 % (3.0-9.0); NEUT # 6.9 10*3/uL (2.3-7.9); NEUT % 69.1 % (47.0-73.0); PLATELET COUNT AUTOMATED 315 10*3/uL (130-400); RED BLOOD COUNT 3.89 10*6/uL (4.50-5.90); RED CELL DISTRI WIDTH 12.3 % (0-14.5); WHITE BLOOD COUNT 9.9 10*3/uL (4.8-10.8)
[2019-02-06 08:00] VITALS: BP 114/70
[2019-02-06 08:05] LABS: ALBUMIN 2.8 gm/dl (3.1-4.5); CREATININE 2.5 mg/dL (0.70-1.30); PHOSPHOROUS 4.3 mg/dL (2.5-4.9); TOTAL PROTEIN 5.9 gm/dL (6.4-8.2)
[2019-02-06 08:13] LABS: FREE T4 0.85 ng/dl (0.76-1.46); THYROID STIM HORMONE (HS) 3.8 uIU/ml (0.358-4.75)
[2019-02-06 08:24] LABS: POTASSIUM 3.9 mmol/L (3.5-5.1)
--- NOTE | 2019-02-06 08:26 | NUR ---
TEMI GARCÍA [id number] Please refer to the physician's history and physical for past medical history, comorbid conditions, and allergies. Diagnosis: ARF CHEST PAIN Robinson Score: 21,LOW OR NO RISK WOUND DESCRIPTIONS: Patient has raised firm raised area measuring 1.5cm x 1.0cm x <0.1cm to right ac. No drainage noted at time of assessment patient complaining of discomfort upon touch. Patient has several areas of partial thickness areas in a linear fashion bilateral upper extremities, bilateral lower extremities, chest, abdomen, back and hands. No drainage noted at time of assessment. Patient stated that he is not itchy. He stated that he was very itchy about 2 months ago. He states the area where he had his ankle repaired is very itchy but that is his normal. Surface the patient is resting on: Isoflex SKIN PREVENTION RECOMMENDATION: 1. Pressure redistribution support surface as appropriate 2. Elevate heels 3. Remove boots/TEDS every shift and reapply 4. Head of bed 30 degrees as tolerated 5. Assess nutrition and hydration 6. Manage moisture 7. Avoid the use of containment devices while in bed 8. Use absorptive products on surfaces limit layers of linens on bed 9. Turn and reposition every 1-2 hours in bed and every 1 hour in chair as tolerated 10. Weight shifts every 15 minutes while up in chair 11. Offloading with pillows or device to keep heels elevated off bed 12. Monitor skin at least every shift 13. Inspect under medical devices twice a day WOUND TREATMENT RECOMMENDATIONS: Consult ID due to non-healing areas to entire body and treatment orders. 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 Consult surgery per patient request due to area to right ac.
--- NOTE | 2019-02-06 10:27 | NUR ---
Dr. Stroud notified of wound care recommendations.
--- NOTE | 2019-02-06 11:15 | NUR ---
PT TAKEN TO NUCLEAR MEDICINE IN STABLE CONDITION FOR SCANNING. WITH LAYING DOWN PT BECAME ANXIOUS. PT CRYING OUT WANTING UP AND REMOVED FROM SCANNER. SCANNING NEVER STARTED. DR. VAUGHAN HERE AND NOTIFIED AND STRESS TEST CANCELLED. REPORT CALLED TO NURSING STAFF AND RETURNED TO NURSING UNIT. CONTACT ISOLATION WAS MAINTAINED.
--- NOTE | 2019-02-06 13:12 | NUR ---
Manager Lpn in to talk to patient. Patient states lives at HOME with ALONE. There are FEW steps in the home. Physician: KRISTINA PARTIDA Pharmacy: [facility] Home health services: NONE Patient's level of ADLs: INDEPENDENT Patient has working utilities: YES DME: NONE Follow-up physician's appointment after d/c: WILL BE MADE BY HOSPITALIST NURSE DIRECTOR ON DISCHARGE Does patient want to access PORTAL?: NO Discharge plan PT STATES HE LIVES ALONE AND PLANS TO RETURN HOME ON DISCHARGE.. DENIES ANY HOME NEEDS. WILL CONTINUE TO FOLLOW. STATES HE WILL HAVE A RIDE HOME ON DISCHARGE. [place] [facility]
[2019-02-06] MEDS ORDERED: CARAFATE1 G1 PO (14:59)
[2019-02-06 16:00] VITALS: BP 147/87
--- NOTE | 2019-02-06 19:51 | NUR ---
24 HR CHART CHECK COMPELTE.
[2019-02-06 20:00] VITALS: BP 121/54
--- NOTE | 2019-02-06 20:39 | NUR ---
PT MEDICATED WITH PRN NORCO FOR COMPLAINT OF HEADACHE RATED A 6/10. WILL MONITOR FOR EFFECTIVENESS.
--- NOTE | 2019-02-06 21:30 | NUR ---
PT IS RESTING COMFORTABLY. PRN NORCO EFFECTIVE. WILL CONTINUE TO MONITOR.
[2019-02-07] VITALS: BP 108/83
[2019-02-07 08:00] VITALS: BP 122/80
--- NOTE | 2019-02-07 08:22 | NUR ---
PHONED CARDIAC REHAB REGARDING IV ATIVAN DOSE TO BE GIVEN BEFORE STRESS TEST TODAY AND THEY STATED TEST WAS NOT REORDERED. DR. VAUGHAN PAGED TO CLARIFY.
[2019-02-07 08:45] LABS: CREATININE 2.03 mg/dL (0.70-1.30)
[2019-02-07 08:50] LABS: POTASSIUM 5.2 mmol/L (3.5-5.1)
--- NOTE | 2019-02-07 10:12 | NUR ---
PT MEDICATED WITH TYLENOL,BENADRYL,SOLUMEDROL AND REGLAN PER ORDER FROM DR FOR C/O A HEADACHE. WILL MONITOR.
--- NOTE | 2019-02-07 11:00 | NUR ---
Dr. Stroud notified of wound care recommendations.
[2019-02-07 12:00] VITALS: BP 131/68
--- NOTE | 2019-02-07 12:23 | NUR ---
PT CONTINUES TO DENY NEEDS AT HOME ON DISCHARAGE. WILL CONTINUE TO FOLLOW.
--- NOTE | 2019-02-07 15:00 | NUR ---
PHYSICAL THERAPY PAtient off floor for testing at this time. Lamar Larose,PT
--- NOTE | 2019-02-07 15:00 | NUR ---
Patient not available for Occupational Therapy as he is out of his room for testing. OTR will recheck at a later date. Rita Erickson OTR/L
[2019-02-07 16:00] VITALS: BP 99/63
[2019-02-07 20:00] VITALS: BP 91/55
--- NOTE | 2019-02-07 21:15 | NUR ---
PT STATING THAT HE IS UNABLE TO EMPTY HIS BLADDER. HE STATES THAT HE HAS NOT URINATED SINCE THE PREVIOUS NIGHT BUT HAS NOT TOLD ANYONE ABOUT IT UNTIL NOW. BLADDER SCANNER REVEALED APPROX 400ML OF URINE. PATIENT WAS ENCOURAGED TO ATTEMP TO VOID AND WAS THEN ASSISTED TO THE BATHROOM. HAT WAS PROVIDED IN TOILET TO MEASURE OUTPUT BUT THE PATIENT FAILED TO URINATE INTO THE HAT. UNKNOWN AMOUNT OF URINE VOIDED. POST BLADDER SCAN REAVEALED NO URINE. DR LANGFORD NOTIFIED OF PT'S C/O BEING UNABLE TO VOID. ORDERS RECIEVED TO OBTAIN UA AND CONTINUE TO MONITOR.
--- NOTE | 2019-02-07 21:57 | NUR ---
PRN VISTARIL ADMINISTERED FOR C/O ANXIETY PER PT. WILL CONTINUE TO MONITOR.
--- NOTE | 2019-02-07 22:18 | NUR ---
PRN RESTORIL ADMINISTERED PER PATIENT REQUEST FOR C/O BEING UNABLE TO SLEEP. WILL CONTINUE TO MONITOR.
--- NOTE | 2019-02-07 22:45 | NUR ---
PT IS RESTING COMFORTABLY IN BED. HE STATES THAT HIS ANXIETY IS MUCH LESS SEVERE AT THIS TIME AND HE IS GOING TO TRY TO GET SOME REST.
--- NOTE | 2019-02-07 23:34 | NUR ---
PT LAYING IN BED WITH EYES CLOSED AT THIS TIME. LEGS SEEM SOMEWHAT RESTLESS, BUT OTHERWISE NO DISTRESS NOTED. WILL CONTINUE TO MONITOR.
--- NOTE | 2019-02-07 23:48 | NUR ---
WHEN REMINDING PATIENT OF NPO STATUS AT MIDNIGHT, HE BECAME ANGRY AND STATES THAT HE IS ONLY SPENDING ONE MORE NIGHT HERER AND THEN HE IS LEAVING. ATTEMPT WAS MADE TO CALM PATIENT DOWN BUT HE STATES THAT HE JUST WANTS LEFT ALONE. WILL CONTINUE TO MONITOR.
[2019-02-08] VITALS: BP 129/71
[2019-02-08 03:36] LABS: BILIRUBIN NEGATIVE (NEGATIVE); BLOOD 1+ (NEGATIVE); CLARITY CLEAR (CLEAR); COLOR YELLOW (YELLOW); GLUCOSE NEGATIVE (NEGATIVE); KETONE NEGATIVE (NEGATIVE); LEUKO ESTERASE NEGATIVE (NEGATIVE); NITRITE NEGATIVE (NEGATIVE); PH 6.5 (5.0-9.0); SPECIFIC GRAVITY <= 1.005 (1.005-1.030); UROBILINOGEN 0.2 E.U./dl (0.2-1.0)
[2019-02-08 03:41] LABS: BACTERIA TRACE; EPITHELIAL CELLS 0-2; RBC 16-20 rbc/hpf (0-2); WBC 0-2 wbc/hpf (0-5)
[2019-02-08 06:44] LABS: BASO % 0.1 % (0.0-1.0); HEMATOCRIT 36.8 % (42.0-52.0); HEMOGLOBIN 11.9 g/dl (14.0-18.0); LYMPH # 1.3 10*3/uL (1.3-4.4); LYMPH % 12.2 % (27.0-41.0); MEAN CORPUSCULAR HGB 29.8 pg (27.0-31.0); MEAN CORPUSCULAR HGB CONC 32.3 g/dl (33.0-37.0); MEAN PLATELET VOLUME 9.7 fl (9.6-12.3); MONO # 0.3 10*3/uL (0.1-1.0); NEUT # 9.3 10*3/uL (2.3-7.9); NEUT % 84.2 % (47.0-73.0); RED CELL DISTRI WIDTH 12.2 % (0-14.5)
[2019-02-08 06:59] LABS: PLATELET COUNT AUTOMATED 481 10*3/uL (130-400)
[2019-02-08 07:07] LABS: CREATININE 2.09 mg/dL (0.70-1.30)
[2019-02-08 07:16] LABS: POTASSIUM 3.9 mmol/L (3.5-5.1)
[2019-02-08 08:00] VITALS: BP 134/76
--- NOTE | 2019-02-08 10:42 | NUR ---
PT MEDICATED WITH ATIVAN 2MG ORDERED FOR TESTING WILL MONITOR
--- NOTE | 2019-02-08 11:30 | NUR ---
INFORMED CONSENT OBTAINED FOR LEXISCAN NUCLEAR STRESS TEST WITH DR. VAUGHAN. PT IN CONTACT ISOLATION AND ISOLATION PROTOCOL MAINTAINED. RESTING EKG NSR WITH PAC'S WITH A RESTING HR OF 99 AND BP 112/78. LUNGS DIMINISHED BS WITH SPO2 OF 97% ON ROOM AIR. PT COMPLETED A 1:00 LEXISCAN PROTOCOL RECEIVING LEXISCAN 0.4 MG IV OVER 10 SECONDS. HAD NO CHEST PAIN OR ANY EKG CHANGES. HAD A PEAK HR OF 122 AND BP OF 118/80. LAST RECOVERY HR OF 111 WITH BP OF 122/78. AWAITING SCANNING IN STABLE CONDITION.
[2019-02-08 12:00] VITALS: BP 144/70
[2019-02-08 16:00] VITALS: BP 138/74
[2019-02-08 20:00] VITALS: BP 128/61
--- NOTE | 2019-02-08 20:00 | NUR ---
24 HR chart check completed.
--- NOTE | 2019-02-08 21:00 | NUR ---
RESTING IN BED. NO ACUTE DISTRESS NOTED. RESPIRATIONS EASY. LUNGS DIMINISHED, CLEAR. PULSE OX 97% RA. LINEAR SCRATCHES/SCBAS NOTED SPORADICALLY OVER ENTIRE BODY, DENIES ITCHING. IV FLUIDS INFUSING PER ORDER. CALL LIGHT WITHIN REACH. NO VOICED COMPLAINTS
--- NOTE | 2019-02-08 22:00 | NUR ---
PATIENT VOICING DISPLEASURE WITH CARE. STATES PLAN OF CARE CONTINUES TO CHANGE AND "NO-ONE IS DOING ANYTHING FOR ME." WHEN ASKED TO EXPLAIN, PATIENT C/O HEADACHE SINCE ADMISSION AND STATES "NO-ONE WANTS TO DO ANYTHING." EXPLAINED TO PATIENT MRI SCHEDULED FOR AM. PATIENT VOICES AWARENESS.
--- NOTE | 2019-02-08 22:15 | NUR ---
MEDICATED WITH NORCO PER PRN ORDER FOR C/O HEADACHE RATING A 5. ALSO MEDICATED WITH VISTARIL TO ASSIST WITH ANXIETY AND RESTORIL TO ASSIST WITH SLEEP. WILL MONITOR FOR EFFECTIVENESS
[2019-02-09] VITALS: BP 133/63
--- NOTE | 2019-02-09 | NUR ---
EARLIER MEDS APPEAR EFFECTIVE. SLEEPING. RESPIRATIONS EASY. VSS. CALL LIGHT WITHIN REACH
--- NOTE | 2019-02-09 06:31 | NUR ---
SLEPT THROUGHOUT NIGHT WITH NO DISTRESS NOTED. RESPIRATIONS EASY. CONTINUES TO C/O HEADACHE RATING A 5, MEDICATED WITH NORCO PER PRN ORDER. IV FLUIDS MAINTAINED. CALL LIGHT WITHIN REACH. WILL MONITOR
[2019-02-09 08:00] VITALS: BP 120/71; BP 126/74
--- NOTE | 2019-02-09 08:06 | NUR ---
PATIENT MEDICATED WITH IV ATIVAN AT THIS TIME PER ORDER FOR MRI PREP. WILL MONITOR FOR EFFECTIVENESS.
--- NOTE | 2019-02-09 08:33 | NUR ---
Patient not available for Occupational Therapy as he out of his room for an MRI. Rita Erickson OTR/l
--- NOTE | 2019-02-09 08:33 | NUR ---
PHYSICAL THERAPY Spoke with Dr. Mathias, patient is not being discharged and may require SNF. Attempted PT evaluation right after discussion with Dr. Mathias and patient off floor for MRI. Will attempt later this date. Thank you for this referral. Lamar Larose,PT
--- NOTE | 2019-02-09 09:30 | NUR ---
PT WAS ABLE TO WITHSTAND MRI; ATIVAN EFFECTIVE. PT BACK ON FLOOR AT THIS TIME.
--- NOTE | 2019-02-09 12:02 | NUR ---
Patient declined OT evalaution this date stating that he just returned from MRI and was too tired. Rita Erickson OTR/L
--- NOTE | 2019-02-09 12:02 | NUR ---
PHYSICAL THERAPY PAtient refuses PT at this time. Reports maybe later this date. Thank you for this referral. Lamar Larose,PT
[2019-02-09 12:10] LABS: CREATININE 1.64 mg/dL (0.70-1.30); POTASSIUM 3.9 mmol/L (3.5-5.1)
[2019-02-09 14:26] LABS: BILIRUBIN NEGATIVE (NEGATIVE); BLOOD 1+ (NEGATIVE); CLARITY CLEAR (CLEAR); COLOR YELLOW (YELLOW); GLUCOSE NEGATIVE (NEGATIVE); KETONE NEGATIVE (NEGATIVE); LEUKO ESTERASE NEGATIVE (NEGATIVE); NITRITE NEGATIVE (NEGATIVE); SPECIFIC GRAVITY <= 1.005 (1.005-1.030); UROBILINOGEN 0.2 E.U./dl (0.2-1.0)
[2019-02-09 14:35] LABS: URINE CREATININE RANDOM 76.9 mg/dL
[2019-02-09 14:40] LABS: BACTERIA 1+; EPITHELIAL CELLS 0-2
--- NOTE | 2019-02-09 14:45 | NUR ---
PHYSICAL THERAPY PT evaluation attempted for second time this date. Patient educated and encouraged to get up to feel better. Patient asking for PT to come back later. Plan to reassess at a later date. Isha Ramos, PT,DPT
--- NOTE | 2019-02-09 14:59 | NUR ---
PT REFUSING TO KEEP PODIATRIC SURGEON ON AT THIS TIME; NOTIFIED .
[2019-02-09 16:00] VITALS: BP 117/66
[2019-02-09 20:00] VITALS: BP 124/55
--- NOTE | 2019-02-09 20:16 | NUR ---
24 HR chart check completed.
--- NOTE | 2019-02-09 21:00 | NUR ---
RESTING IN BED. FLAT AFFECT. RESPIRATIONS EASY. LUNGS DIMINISHED, CLEAR. PULSE OX 97% RA. C/O DIZZINESS. ORTHOS CHECKED: SUPINE 126/64, 78 ; SITTING 112/80, 82 ; REFUSES TO STAND STATING "I DON'T THINK I CAN." C/O GROIN PAIN BUT DENIES DYSURIA. PATIENT CONTINUES TO VOICE DISPLEASURE WITH TREATMENT AND PROBABLE D/C IN AM. REQUESTS IV TO BE REMOVED, EXPLAINED TO PATIENT THAT IV ACCESS NEEDS TO REMAIN. CONTINUES TO REFUSE PAIL TESTER. CALL LIGHT WITHIN REACH
--- NOTE | 2019-02-09 21:28 | NUR ---
REQUESTED AND RECEIVED RESTORIL TO ASSIST WITH SLEEP AND VISTARIL FOR ANXIETY. WILL MONITOR
--- NOTE | 2019-02-09 21:45 | NUR ---
CALLED TO ROOM BY PATIENT. PATIENT HOLDING IV. 2X2'S APPLIED TO SITE. PATIENT STATES "THIS IS GOING TO END UP LIKE THE OTHER (REFERRING TO RIGHT AC ABSCESS +MRSA). PATIENT INSTRUCTED TO LEAVE SITE COVERED.
--- NOTE | 2019-02-09 23:30 | NUR ---
MEDS APPEAR EFFECTIVE. SLEEPING. CALL LIGHT WITHIN REACH
[2019-02-10] VITALS: BP 123/52
--- NOTE | 2019-02-10 00:30 | NUR ---
sleeping. no distress noted. respirations easy. vss. call light within reach
--- NOTE | 2019-02-10 05:53 | NUR ---
MEDICATED WITH VISTARIL PER PRN ORDER TO ASSIST WITH ANXIETY. CALL LIGHT WITHIN REACH. WILL MONITOR FOR EFFECTIVENESS
[2019-02-10 06:56] LABS: BASO # 0.1 10*3/uL (0.0-0.1); EOS # 0.2 10*3/uL (0.0-0.4); HEMATOCRIT 33.9 % (42.0-52.0); HEMOGLOBIN 10.8 g/dl (14.0-18.0); LYMPH # 1.9 10*3/uL (1.3-4.4); LYMPH % 23.5 % (27.0-41.0); MEAN CELL VOLUME 93.6 fl (80.0-94.0); MEAN CORPUSCULAR HGB 29.8 pg (27.0-31.0); MEAN CORPUSCULAR HGB CONC 31.9 g/dl (33.0-37.0); MEAN PLATELET VOLUME 9.4 fl (9.6-12.3); MONO # 0.6 10*3/uL (0.1-1.0); MONO % 7.8 % (3.0-9.0); NEUT # 5.2 10*3/uL (2.3-7.9); NEUT % 64.5 % (47.0-73.0); PLATELET COUNT AUTOMATED 316 10*3/uL (130-400); RED BLOOD COUNT 3.62 10*6/uL (4.50-5.90); RED CELL DISTRI WIDTH 12.5 % (0-14.5); WHITE BLOOD COUNT 8.1 10*3/uL (4.8-10.8)
[2019-02-10 07:23] LABS: CREATININE 1.49 mg/dL (0.70-1.30); POTASSIUM 3.8 mmol/L (3.5-5.1)
[2019-02-10 08:00] VITALS: BP 124/76
[2019-02-10] MEDS ORDERED: DOXYCYCLINE MO100 M1 PO (10:04)
[2019-02-10] MEDS ORDERED: MECLIZINE HCL25 M2 PO (10:04)
--- NOTE | 2019-02-10 12:04 | NUR ---
Discharge instructions reviewed with patient/family. Patient receptive and verbalizes understanding. Follow-up care arranged. Written instructions given to patient/family. SHERRI PRUITT
== END 2019-02-10 11:45 | disposition home or self-care (01) | DRG 683 ==
LOC: ED 19:16 → 5E 20:57 → EDHOLD 20:57 → 5E 21:41
PROVIDERS: Family Medicine; Internal Medicine Nephrology; Student in an Organized Health Care Education/Training Program; ADMIT Internal Medicine
PROC: 4A02XM4 Measurement of Cardiac Total Activity, External Approach (ICD-10-PCS; principal; 2019-02-08)
PROC: 3E073KZ Introduction of Other Diagnostic Substance into Coronary Artery, Percutaneous Approach (ICD-10-PCS; principal; 2019-02-08)
DX: N17.0 Acute kidney failure with tubular necrosis (principal); E87.1 Hypo-osmolality and hyponatremia; L02.413 Cutaneous abscess of right upper limb; F41.0 Panic disorder [episodic paroxysmal anxiety]; D64.9 Anemia, unspecified; D72.829 Elevated white blood cell count, unspecified; E66.01 Morbid (severe) obesity due to excess calories; I10 Essential (primary) hypertension; L98.1 Factitial dermatitis; I95.1 Orthostatic hypotension; R51 Headache; E78.5 Hyperlipidemia, unspecified; Z68.41 Body mass index [BMI] 40.0-44.9, adult; Z79.899 Other long term (current) drug therapy

== ENCOUNTER 2019-03-20 10:51 | Emergency (ER) | payer MEDICAID ==
[~2019-03-20] VITALS: Ht 172.7 cm; Wt 142.0 kg
[~2019-03-20 10:51] MED LIST changes: +DOXYCYCLINE MO100 M1 PO; +MECLIZINE HCL25 M2 PO
[2019-03-20] MEDS ORDERED: Motrin,Rufen400 MG PO (15:18)
[2019-03-20] MEDS ORDERED: TYLENOL325 M1 PO (15:18)
== END 2019-03-20 16:08 | disposition home or self-care (01) ==
LOC: ED 10:51
DX: M72.2 Plantar fascial fibromatosis (principal); M25.571 Pain in right ankle and joints of right foot; I10 Essential (primary) hypertension; E66.01 Morbid (severe) obesity due to excess calories; Z98.890 Other specified postprocedural states; Z79.899 Other long term (current) drug therapy

== ENCOUNTER 2019-03-30 16:36 | Emergency (ER) | payer MEDICAID ==
[~2019-03-30] VITALS: Ht 172.7 cm; Wt 148.3 kg
--- NOTE | ~2019-03-30 | EKG ---
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
--- NOTE | ~2019-03-30 | EKG ---
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
[~2019-03-30 16:36] MED LIST changes: +Motrin,Rufen400 MG PO; +TYLENOL325 M1 PO
[2019-03-30 17:12] LABS: BASO % 0.1 % (0.0-1.0); HEMATOCRIT 37.2 % (42.0-52.0); HEMOGLOBIN 12.2 g/dl (14.0-18.0); LYMPH # 1.5 10*3/uL (1.3-4.4); MEAN CELL VOLUME 92.1 fl (80.0-94.0); MEAN CORPUSCULAR HGB 30.2 pg (27.0-31.0); MEAN CORPUSCULAR HGB CONC 32.8 g/dl (33.0-37.0); MEAN PLATELET VOLUME 10.7 fl (9.6-12.3); MONO # 1.2 10*3/uL (0.1-1.0); MONO % 7.2 % (3.0-9.0); NEUT # 13.5 10*3/uL (2.3-7.9); NEUT % 83.1 % (47.0-73.0); PLATELET COUNT AUTOMATED 230 10*3/uL (130-400); RED BLOOD COUNT 4.04 10*6/uL (4.50-5.90); RED CELL DISTRI WIDTH 14.2 % (0-14.5); WHITE BLOOD COUNT 16.3 10*3/uL (4.8-10.8)
== END 2019-03-30 17:29 | disposition short-term general hospital (02) ==
LOC: ED 16:36
PROVIDERS: Emergency Medicine
DX: I21.3 ST elevation (STEMI) myocardial infarction of unspecified site (principal); I10 Essential (primary) hypertension; E66.01 Morbid (severe) obesity due to excess calories; Z79.2 Long term (current) use of antibiotics; Z79.899 Other long term (current) drug therapy

== ENCOUNTER 2019-04-22 11:27 | Inpatient (IN) | payer MEDICAID ==
[~2019-04-22] VITALS: Ht 172.7 cm; Wt 145.4 kg
--- NOTE | ~2019-04-22 | EKG ---
[place], [place] ELECTROCARDIOGRAM REPORT NAME: TEMI GARCÍA UNIT #: [id number] ROOM: 521 DOCTOR: SHELTON DRAFT REPORT BIRTHDATE: [birth year] [facility] Test Date: 2019-04-22 Test Time: 14:36:22 Pat Name: TEMI GARCÍA Department: Room: 521 Gender: M Chick Sexer: MALOU : 1965 Requested By: PEGGY OWENS Order Number: [id number] Reading MD: Archie Ramos MD Measurements Intervals [place] Rate: 71 P: 37 WV: 153 QRS: -18 QRSD: 93 T: 67 QT: 363 QTc: 395 Interpretive Statements Sinus rhythm Borderline left axis deviation ST elevation, consider anterior injury Baseline wander in lead(s) I,II,aVR Compared to ECG 03/30/2019 17:06:27 ST (T wave) deviation now present Myocardial infarct finding still present Electronically Signed On 04-23-2019 12:01:07 PDT by Archie Ramos MD CM:EKGRPT:ELECTROCARDIOGRAM REPORT 1436 1201 PEGGY PEOPLES DRAFT REPORT PEGGY OWENS M.D.
--- NOTE | ~2019-04-22 | EKG ---
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
--- NOTE | ~2019-04-22 | WRIGHTHP ---
[place], [place] PATIENT HISTORY AND PHYSICAL EXAM NAME: [facility]A [facility] [id number] UNIT #: [id number] ROOM: 521 DOCTOR: POLLO MARLEY DPM BIRTHDATE: [birth year] DOS: 04/26/2019 INDICATION NOTE The patient is seen for painful right ankle. He has had history of previous fixation on his right ankle and there what appears to be an open reduction and internal fixation. The patient has changes in his talus and tibia joint and that he wants to have the ankle replacement. Due to his history and uncertainty, he is brought in for culture and biopsy of his right ankle to check for any contamination or infection in this ankle. With this in mind, he is aware of pros, cons, risks, benefits, overcorrection, undercorrection, recurrence of his infection or worsening, limb loss, DVT, PE, RSD, etc. With this in mind, he is set for surgery at [facility] on 04/26/2019. POLLO MARLEY DPM CM:HISPHYS:PATIENT HISTORY AND PHYSICAL EXAMINATION 3 5 POLLO MARLEY DPM 05/02/19811 interface
--- NOTE | ~2019-04-22 | O ---
[place], [place] OPERATIVE NOTE NAME: TEMI GARCÍA [facility] #: [id number] UNIT #: [id number] ROOM: 521 DOCTOR: POLLO MARLEY DPM BIRTHDATE: [birth year] DOS: 04/26/2019 SURGEON: Pollo Marley DPM ASSISTANTS: 1. Dr. Raul Covarrubias, fellow. 2. Andrew Parrish, PGY3. 3. Chan Gaitan, PGY1. PREOPERATIVE DIAGNOSES: 1. Osteomyelitis, distal tibia, right. 2. Osteomyelitis of the right talus. POSTOPERATIVE DIAGNOSES: 1. Osteomyelitis, distal tibia, right. 2. Osteomyelitis of the right talus. PROCEDURES: 1. Incision and drainage, bone debridement, bone biopsy of the right lateral distal tibia. 2. Incision and drainage, bone debridement, bone biopsy of the right medial tibia. 3. Incision and drainage, bone debridement, bone biopsy of the right lateral talus. 4. Incision and drainage, bone debridement, bone biopsy of the right medial talus. DESCRIPTION OF PROCEDURE: The patient was seen in preoperative holding area. Appropriate site markings performed. The patient concurred with this. After appropriate time-out, perioperative management and also the operative report and site marking. He was brought into OR, placed well-padded on OR table. Anesthesia was achieved. Once the anesthesia was achieved under fluoroscopy guidance, procedure was done. PROCEDURE #1: INCISION AND DRAINAGE, BONE DEBRIDEMENT, BONE BIOPSY OF RIGHT LATERAL TIBIA. Under fluoroscopy, a stab incision was made. It was deepened down to the same plane using sharp and blunt dissection, avoiding the neurovascular structures, carried down to the bone. At this time, using a Jamshidi needle and a curette, the bone was harvested and curettaged on the distal right lateral tibia. The bone was debrided and sent for Gram stain, aerobic, anaerobic, fungal, acid fast as well as a biopsy of the right. The area was flushed with copious amounts of sterile saline. Skin was closed using 2-0 nylon. PROCEDURE #2: INCISION AND DRAINAGE, BONE DEBRIDEMENT, BONE BIOPSY OF THE DISTAL MEDIAL TIBIA. Incision was made under fluoroscopy guidance. This was deepened to the same plane using sharp and blunt dissection, avoiding the neurovascular structures, carried down to the bone. At this point in time, the bone was debrided with a curette and the bone was harvested with Jamshidi needle and curettes and sent for Gram stain, aerobic, anaerobic, fungal, acid fast as [place], [place] OPERATIVE NOTE NAME: TEMI GARCÍA UNIT #: [id number] ROOM: 521 DOCTOR: POLLO MARLEY DPM BIRTHDATE: [birth year] well as biopsy of the right medial distal tibia. The area was flushed with copious amounts of sterile saline. Skin was closed using 2-0 nylon. PROCEDURE #3: INCISION AND DRAINAGE, BONE DEBRIDEMENT, BONE BIOPSY, RIGHT LATERAL TALUS. Under fluoroscopy guidance, incision was made and this was carried down to the bone and at this time this was debrided with a curette and bone was resected and excised as well as a Jamshidi needle for harvesting of bone and sent for Gram stain, aerobic, anaerobic, fungal, acid fast as well as a biopsy of the right lateral talus. PROCEDURE #4: INCISION AND DRAINAGE, BONE DEBRIDEMENT, BONE BIOPSY OF THE RIGHT MEDIAL TALUS. Incision was made, carried down to bone. At this time, this bone was again excised and removed in total using a curette, debridement of bone as well as Jamshidi needle for harvesting of bone. It was sent for Gram stain, aerobic, anaerobic, fungal, acid fast as well as biopsy of the right medial area, this was flushed with copious amounts of sterile saline. Skin was closed using 2-0 nylon. Surgical wounds were dressed with Betadine-soaked Adaptic, 4 x 4s, Young in a sterile compressive fashion. He tolerated the procedure and anesthesia well, left the OR with vital signs stable and vascular status intact. POLLO MARLEY DPM CM:OPRECORD:OPERATIVE NOTE [id number] POLLO MARLEY DPM 05/02/19 0815 interface
--- NOTE | ~2019-04-22 | EKG ---
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
--- NOTE | ~2019-04-22 | WRIGHTHP ---
[place], [place] PATIENT HISTORY AND PHYSICAL EXAM [facility]: [id number] UNIT #: [id number] ROOM: 521 DOCTOR: POLLO MARLEY DPM BIRTHDATE: [birth year] DOS: LOWER EXTREMITY PHYSICAL EXAMINATION: VASCULAR: He has intact pedal pulses bilaterally. Mild diffuse edema around the right lower leg. NEUROLOGICAL: He has intact epicritic sensation on the right with no gross deformities. DERMATOLOGIC: He has well-healed previous scars from previous surgery. MUSCULOSKELETAL: He has pain upon range of motion. He has slight tenderness upon standing, ambulation and activity of his tibiotalar joint of the right. 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 POLLO MARLEY DPM CM:HISPHYS:PATIENT HISTORY AND PHYSICAL EXAMINATION 0824 1204 POLLO MARLEY DPM 04/26/19 1203 interface
--- NOTE | 2019-04-22 11:28 | NUR ---
PT REPORTS MIDSTERNAL NONRADIATING CHEST PAIN INTERMITTENTLY FOR 2 DAYS AND RECENT HX OF STENT PLACEMENT.
[2019-04-22 11:37] VITALS: BP 154/111
[2019-04-22 11:53] LABS: BASO % 0.2 % (0.0-1.0); EOS # 0.1 10*3/uL (0.0-0.4); EOS % 0.3 % (1.0-4.0); HEMATOCRIT 37.4 % (42.0-52.0); HEMOGLOBIN 12.2 g/dl (14.0-18.0); LYMPH # 1.3 10*3/uL (1.3-4.4); LYMPH % 7.7 % (27.0-41.0); MEAN CELL VOLUME 90.8 fl (80.0-94.0); MEAN CORPUSCULAR HGB 29.6 pg (27.0-31.0); MEAN CORPUSCULAR HGB CONC 32.6 g/dl (33.0-37.0); MEAN PLATELET VOLUME 9.1 fl (9.6-12.3); MONO # 0.8 10*3/uL (0.1-1.0); MONO % 4.7 % (3.0-9.0); NEUT # 14.1 10*3/uL (2.3-7.9); NEUT % 85.6 % (47.0-73.0); PLATELET COUNT AUTOMATED 338 10*3/uL (130-400); RED BLOOD COUNT 4.12 10*6/uL (4.50-5.90); WHITE BLOOD COUNT 16.5 10*3/uL (4.8-10.8)
[2019-04-22 11:56] VITALS: BP 138/64
[2019-04-22 12:05] LABS: ACT PARTIAL THROMBO TIME 22.7 SECONDS (20.0-32.1); INTERNATIONAL NORM RATIO 0.9 (2.0-3.5)
[2019-04-22 12:10] LABS: ALBUMIN 3.6 gm/dl (3.1-4.5); CREATININE 1.72 mg/dL (0.70-1.30); POTASSIUM 4.5 mmol/L (3.5-5.1); TOTAL PROTEIN 6.4 gm/dL (6.4-8.2)
--- NOTE | 2019-04-22 12:10 | NUR ---
PAIN UNCHANGED FROM NTG DOSE. VITALS STABLE AND WITHIN NORMAL LIMITS. MADE AWARE, NEW ORDERS PENDING.
[2019-04-22 12:15] LABS: TROPONIN I 0.054 ng/ml (<0.045)
--- NOTE | 2019-04-22 12:15 | NUR ---
TROPONIN 0.054 CALLED CRITICAL AT THIS TIME. DR OWENS NOTIFIED.
[2019-04-22 12:16] VITALS: BP 132/60
[2019-04-22 12:49] VITALS: BP 138/64
--- NOTE | 2019-04-22 12:50 | NUR ---
PT RESTING WITH EYES CLOSED INTERMITTENTLY, STATES PAIN IS DOWN FROM 10/10 T0 5/10 AFTER MORPHINE AND ATIVAN DOSING. ALL TESTING HAS RETURNED.
--- NOTE | 2019-04-22 13:17 | NUR ---
ADMISSION ORDER INPUT, AWAITING BED ASSIGNMENT.
[2019-04-22] MEDS ORDERED: METOPROLOL SUCC25 M2 PO (13:42)
[2019-04-22] MEDS ORDERED: NITROSTAT0.4 MG SL (13:43)
[2019-04-22] MEDS ORDERED: LISINOPRIL5 MG PO (13:44)
[2019-04-22] MEDS ORDERED: ATORVASTATIN CA80 M1 PO (13:44)
[2019-04-22] MEDS ORDERED: BRILINTA90 M1 PO (13:44)
[2019-04-22] MEDS ORDERED: ASPIR 8181 MG PO (13:44)
[2019-04-22] MEDS ORDERED: MAPAP325 MG PO (13:45)
[2019-04-22] MEDS ORDERED: LOSARTAN-HCTZ1 EAC1 PO (13:46)
[2019-04-22] MEDS ORDERED: MELOXICAM7.5 MG PO (13:46)
[2019-04-22 14:00] VITALS: BP 152/93
--- NOTE | 2019-04-22 14:00 | NUR ---
DR. VAUGHAN'S ANSWERING SERVICE NOTIFIED OF CONSULT.
--- NOTE | 2019-04-22 14:00 | NUR ---
A 54 YO MALE, admitted to , under the services of JODI Knox DO with a diagnosis of CHEST PAIN. Chief complaint is LEFT OF STERNUM PAIN INTERMITTENTLY FOR PAST TWO DAYS WITH DIZZINESS AND SHORTNESS OF BREATH. Patient arrived via stretcher from ER. Monitor applied. Initial assessment completed. Vital signs taken and recorded. JODI KNOX DO notified of admission to the unit. Orders received. See assessment for past medical history, medications and allergies. Patient and/or family oriented to unit. [facility] visitation policy reviewed. Clothing/patient valuable form completed. PERRY VALE
--- NOTE | 2019-04-22 14:37 | NUR ---
MED REC UPDATED/CORRECTED USING INFORMATION PROVIDED BY THE PATIENT, WHICH CORRESPONDS WITH HIS MEDICATIONS CLAIMS HISTORY.
--- NOTE | 2019-04-22 15:06 | NUR ---
ÁNGEL LEROY NOTIFIED OF MOST RECENT TROPONIN RESULT, DR. VAUGHAN ALSO PAGED VIA HIS ANSWERING SERVICE WITH THE RESULT.
--- NOTE | 2019-04-22 15:50 | NUR ---
PODIATRY RESIDENT NOTIFIED OF CONSULT, OBTAINED ORDER FOR XRAY OF RIGHT ANKLE.
--- NOTE | 2019-04-22 16:00 | NUR ---
MEDICATED WITH PRN IV MORPHINE FOR CHEST PAIN.
--- NOTE | 2019-04-22 16:07 | NUR ---
MEDICATED WITH PRN IV MORPHINE FOR SEVERE CHEST PAIN.
--- NOTE | 2019-04-22 16:42 | NUR ---
PATIENT REFUSED XRAYS OF RT FOOT AND ANKLE, STATES JUST HAD IMAGING DONE IN DR. RUELAS'S OFFICE AND A RECENT CT SCAN, WAS FOR A BONE BIOPSY THIS TUESDAY.
--- NOTE | 2019-04-22 16:45 | NUR ---
PRN IV MORPHINE SOMEWHAT EFFECTIVE, PER PATIENT.
--- NOTE | 2019-04-22 18:43 | NUR ---
Patient sustained a fall on 04/22/19, at 1833. The fall was reported by a staff member. The patient sustained moderate/intervention injury. Details: PATIENT REPORTED ATTEMPTING TO GO TO RR, BECAME LIGHT-HEADED/DIZZY AND FELL AGAINST BATHROOM DOOR JAM, STATES ONLY HIS HEAD STRUCK THE DOOR, CAUGHT HIMSELF USING THE DOOR HANDLE, SO DID NOT FALL TO THE GROUND. HE RETURNED TO BED, NOW REPORTS PAIN 5/10 ON PAIN SCALE TO LEFT ABOVE BAPTISM AREA. HE IS TEARFUL, ANXIOUS, AND GUARDING LEFT HEAD, THE AREA IS TENDER TO PALPATION Intervention included: STAT CT HEAD ORDERED BY PHYSICIAN, MEDICATED WITH NORCO FOR HEAD PAIN, REINFORCED CALL SYSTEM, INSTRUCTED PATIENT TO CALL FOR HELP EVERY TIME HE NEEDS TO GET OUT OF BED. Medications were reviewed. Signage posted at per policy. Notification of fall included: Physician AND NURSING CUSTODY ASSISTANT. Fall risk level was reassessed per policy with review of contributory medications and environmental factors. See intervention.
[2019-04-22 20:00] VITALS: BP 151/56
[2019-04-23] VITALS: BP 163/89
--- NOTE | 2019-04-23 05:36 | NUR ---
MEDICATED WITH NORCO FOR COMPLAINTS OF PAIN. WILL CONTINUE TO MONITOR.
[2019-04-23 07:00] LABS: BASO % 0.3 % (0.0-1.0); EOS # 0.1 10*3/uL (0.0-0.4); EOS % 1.4 % (1.0-4.0); HEMATOCRIT 35.3 % (42.0-52.0); HEMOGLOBIN 11.2 g/dl (14.0-18.0); LYMPH # 2.3 10*3/uL (1.3-4.4); MEAN CELL VOLUME 93.1 fl (80.0-94.0); MEAN CORPUSCULAR HGB 29.6 pg (27.0-31.0); MEAN CORPUSCULAR HGB CONC 31.7 g/dl (33.0-37.0); MEAN PLATELET VOLUME 9.2 fl (9.6-12.3); MONO # 0.6 10*3/uL (0.1-1.0); MONO % 5.9 % (3.0-9.0); NEUT # 7.1 10*3/uL (2.3-7.9); PLATELET COUNT AUTOMATED 258 10*3/uL (130-400); RED BLOOD COUNT 3.79 10*6/uL (4.50-5.90); WHITE BLOOD COUNT 10.3 10*3/uL (4.8-10.8)
[2019-04-23 07:05] LABS: ALBUMIN 3.1 gm/dl (3.1-4.5); ALKALINE PHOSPHATASE 24 U/L (45-117); BUN 29 mg/dl (7-24); CHLORIDE 107 mmol/L (98-107); CREATININE 1.35 mg/dL (0.70-1.30); PHOSPHOROUS 3.4 mg/dL (2.5-4.9); POTASSIUM 4.1 mmol/L (3.5-5.1); SGOT/AST 13 IU/L (3-35); SGPT/ALT 21 U/L (12-78); SODIUM 140 mmol/L (136-145); TOTAL PROTEIN 5.4 gm/dL (6.4-8.2)
[2019-04-23 08:00] VITALS: BP 136/80
--- NOTE | 2019-04-23 08:55 | NUR ---
MEDICATED WITH PRN IV MORPHINE FOR CHEST PAIN.
--- NOTE | 2019-04-23 08:58 | NUR ---
MEDICATED WITH PRN PO VISTARIL FOR ITCHING TO LOWER ABDOMEN.
--- NOTE | 2019-04-23 09:42 | NUR ---
PRN IV MORPHINE SOMEWHAT EFFECTIVE, PER PATIENT.
--- NOTE | 2019-04-23 11:38 | NUR ---
MEDICATED WITH PRN PO NORCO FOR CHEST PAIN, ALSO RIGHT HIP AREA PAIN.
[2019-04-23 12:00] VITALS: BP 149/81
--- NOTE | 2019-04-23 12:30 | NUR ---
PRN PO NORCO NOT VERY EFFECTIVE, PER PATIENT.
--- NOTE | 2019-04-23 12:42 | NUR ---
Fluid Dynamicist in to talk to patient. Patient states lives at HOME with ALONE. There are OUTSIDE steps in the home. Physician: HELGA ACEVEDO Pharmacy: [facility] health services: NONE Patient's level of ADLs: INDEPENDENT Patient has working utilities: YES DME: [employer] Follow-up physician's appointment after d/c: WILL BE MADE BY HOSPITALIST NURSE DIRECTOR ON DISCHARGE Does patient want to access PORTAL?: NO Discharge plan PT LIVES AT HOME ALONE AND IS INDEPENDENT IN CARE. STATES HE RECENTLY HAD STENTS PUT IN AT [facility] AND IS SCHEDULED TO HAVE A TOTAL ANKLE REPLACMENT AT THE END OF THE MONTH. STATES HE IS CURRENTLY USING [employer] TO GET AROUND. DENIES HE WILL HAVE ANY NEEDS ON DISCHARGE AT THIS TIME. STATES HE WILL HAVE A RIDE HOME. WILL CONTINUE TO FOLLOW.. [place] [facility]
--- NOTE | 2019-04-23 14:57 | NUR ---
MEDICATED WITH PRN IV MORPHINE FOR CHEST PAIN.
[2019-04-23 16:00] VITALS: BP 139/98
--- NOTE | 2019-04-23 16:11 | NUR ---
PRN IV MORPHINE SOMEWHAT EFFECTIVE, PER PATIENT.
--- NOTE | 2019-04-23 19:54 | NUR ---
PATIENT MEDICATED WITH MORPHINE FOR C/O 7/10 CHEST PAIN. WILL MONITOR
[2019-04-23 20:00] VITALS: BP 145/69
--- NOTE | 2019-04-23 20:54 | NUR ---
PATIENT STATED MORPHINE "TOOK THE EDGE OFF THE PAIN." WILL MONITOR
--- NOTE | 2019-04-23 23:54 | NUR ---
PATIENT MEDICATED AT THIS TIME WITH VISTARIL FOR C/O ANXIOUS AND UNABLE TO SLEEP ALONG WITH BEING ITCHY. WILL MONITOR
[2019-04-24] VITALS: BP 128/57
--- NOTE | 2019-04-24 00:54 | NUR ---
VISTARIL APPEARS TO BE EFFECTIVE. PATIENT RESTING IN BED, EYES CLOSED NO DISTESS NOTED. CALL LIGTH WITHIN REACH.
--- NOTE | 2019-04-24 06:57 | NUR ---
PATIENT MEDICATED WITH MORPHINE FOR C/O 8/10 CHEST PAIN. WILL MONITOR
--- NOTE | 2019-04-24 07:00 | NUR ---
HEPARIN DRIPS STOPPED AT THIS TIME PER HEPARIN PROTOCOL FOR APTT=85.9. WILL BE RESUMED IN 1HR AND AND NEW LAB DRAW 6 HRS FROM THEN.
--- NOTE | 2019-04-24 08:00 | NUR ---
HEPARIN GTT RESTARTED AT THIS TIME AND DECREASED TO 11U/GR/HR. REPEAT APTT ORDERED @ 1400.
--- NOTE | 2019-04-24 09:39 | NUR ---
PT TAKEN OFF FLOOR FOR CTA AT THIS TIME.
--- NOTE | 2019-04-24 10:51 | NUR ---
PT C/O ITCHING TO SCABBED AREAS ON STOMACH. MEDICATED WITH VISTARIL PER ORDER AT THIS TIME; WILL MONITOR.
[2019-04-24 12:00] VITALS: BP 118/68
--- NOTE | 2019-04-24 12:00 | NUR ---
PT STATES THAT VISTARIL HAS BEEN EFFECTIVE. ITCHING HAS IMPROVED. NO OTHER COMPLAINTS AT THIS TIME.
--- NOTE | 2019-04-24 12:42 | NUR ---
PT DENIES NEEDS AT HOME ON DISCHARGE. WILL RETURN HOME WHEN MEDICALLY STABLE. WILL CONTINUE TO FOLLOW.
[2019-04-24] MEDS ORDERED: BRILINTA90 M1 PO (13:20)
[2019-04-24 16:00] VITALS: BP 120/68
--- NOTE | 2019-04-24 17:00 | NUR ---
PT C/O MULTIPLE ITCHY, SCABBED AREAS T/O TRUNK AND BLE. NOTED IN ASSESSMENT AND NOTIFIED SINCE GAVIOTA LEROY HAS LEFT FOR THE DAY.
--- NOTE | 2019-04-24 19:05 | NUR ---
BEDSIDE REPORT OBTAINED FROM EDMUNDO-RN. PATIENT IS RESTING IN BED, VOICED NO COMPLAINTS. NO DISTRESS NOTED, RESP ARE ERND ON ROOM AIR. BED IS LOCKED IN LOWEST POSITION. CALL LIGHT LEFT WITHIN REACH
[2019-04-24 20:00] VITALS: BP 112/71
--- NOTE | 2019-04-24 21:28 | NUR ---
PATIENT MEDICATED WITH VISTARIL FOR C/O ITCHING AND ANXIETY. WILL MONITOR
--- NOTE | 2019-04-24 21:29 | NUR ---
PATIENT MEDICATED WITH MORPHINE FRO C/O 04/28 CHEST PAIN, NON-RADIATING. WILL MONITOR
--- NOTE | 2019-04-24 22:29 | NUR ---
MORPHINE EFFECTIVE FOR CHEST PAIN.
[2019-04-25] VITALS: BP 144/84
--- NOTE | 2019-04-25 06:05 | NUR ---
PATIENT MEDICATED WITH MORPHINE FRO C/O 8/10 CHEST PAIN. WILL MONITOR
[2019-04-25 06:43] LABS: ALBUMIN 3.1 gm/dl (3.1-4.5); BUN 25 mg/dl (7-24); CHLORIDE 107 mmol/L (98-107); POTASSIUM 4.5 mmol/L (3.5-5.1); SGOT/AST 14 IU/L (3-35); SGPT/ALT 24 U/L (12-78); SODIUM 138 mmol/L (136-145)
[2019-04-25 06:45] LABS: ALKALINE PHOSPHATASE 25 U/L (45-117); TOTAL PROTEIN 5.8 gm/dL (6.4-8.2)
[2019-04-25 08:00] VITALS: BP 124/70
--- NOTE | 2019-04-25 11:08 | NUR ---
PT DENIES NEEDS AT HOME. WILL CONTINUE TO FOLLOW.
[2019-04-25 12:00] VITALS: BP 112/49
--- NOTE | 2019-04-25 14:05 | NUR ---
PT MEDICATED WITH MORPHINE IV PER ORDER FOR COMPLAINTS OF CHEST PAIN 02/26. WILL MONITOR FOR EFFECTIVENESS.
--- NOTE | 2019-04-25 15:08 | NUR ---
PHYSICAL THERAPY Physical therapy evaluation offered. Patient reports no difficulty and is preparing to take a shower at this time. Plan to re-assess following bone biopsy tomorrow and offer PT evaluation again at a later date. Thank you. Isha Ramos,PT,DPT.
--- NOTE | 2019-04-25 15:12 | NUR ---
Patient seated edge of bed with crutches nearby. Patient waiting to take a shower. Patient had strong body odor and in need of a shower. He reports that he does "fairly well " with mobility and ADls. OTR will recheck tomorrow after gone biopsy to determine OT needs. Patient in agreement. Rita Erickson OTR/dasha
[2019-04-25 16:00] VITALS: BP 155/75
[2019-04-25 20:00] VITALS: BP 129/73
--- NOTE | 2019-04-25 20:19 | NUR ---
PRN MORPHINE GIVEN FOR PT COMPLAINTS OF CHEST PAIN RATING IT 10/10. CALL LIGHT WITHIN REACH, WILL ARTEM
--- NOTE | 2019-04-25 20:55 | NUR ---
IN TO PUT PATIENT BACK ON HEART MONITOR, PATIENT ON BATHROOM FLOOR FACE DOWN. ASKED PATIENT WHAT HAPPENED HE STATED THAT HE PASSED OUT GETTING UP FROM THE TOILET. THIS NURSE STATED THAT HE WAS FACING TOWARDS THE DOOR AND THAT HE WOULD HAVE BEEN ON HIS WAY BACK FROM THE BATHROOM. ASKED PATIENT WHY HE DECIDED TO NOT USE THE URINAL THIS TIME AND HE STATED HE WAS JUST TRYING TO GET UP AND GO TO THE BATHROOM. ALSO ASKED WHY HE DID NOT USE THE CRUTCHES THAT ARE IN HIS ROOM AND HE STATED THAT HE THOUGHT HE WAS OK. THIS NURSE STATED THAT HE HAD SAID EARLIER THAT HE DIDN'T FEEL VERY GOOD AND DIDN'T WANT TO GET BACK UP. PATIENT HAS BEEN ALERT AND ORIENTED THIS WHOLE TIME. HE STATED THAT HE HAD TO HAVE HIT HIS HEAD. ALL OF THIS WAY RELAYED TO DR. COBB. TRACK OILER NOTIFIED WELL.
--- NOTE | 2019-04-25 21:58 | NUR ---
PRN TYLENOL GIVEN FOR PT COMPLAINTS OF A HEADACHE. RATING IT 8/10. CALL LIGHT WITHIN REACH, WILL ARTEM. PATIENT ALSO STATED THAT MORPHINE IS INEFFECTIVE FOR CHEST PAIN
--- NOTE | 2019-04-25 21:59 | NUR ---
PRN NITRO GIVEN FOR PT COMPLAINTS OF CHEST PAIN RATING IT 10/10. CALL LIGHT WITHIN REACH, WILL MONITOR
--- NOTE | 2019-04-25 22:21 | NUR ---
IN TO REASSESS PATIENTS CHEST PAIN. PATIENT SITTING UP PLAYING ON PHONE. ASKED PATIENT HOW HE FELT, HE STATED THAT HE FELT ABOUT THE SAME AND THE PAIN IS ALL ACROSS HIS CHEST.
--- NOTE | 2019-04-25 22:44 | NUR ---
PRN NORCO GIVEN FOR CONTINUED CHEST PAIN RATING IT 10/10. NOTIFIED DR. COBB THAT NITRO AND MORPHINE INEFFECTIVE, SHE STATED TO TRY THE NORCO. CALL LIGHT WITHIN REACH, WILL MONITOR
[2019-04-26] VITALS (12 sets, daily range): BP systolic 117–143; BP diastolic 58–83
--- NOTE | 2019-04-26 | NUR ---
PRN MEDICATION APPEARS EFFECTIVE, PT SLEEPING
--- NOTE | 2019-04-26 06:30 | NUR ---
PATIENT OFF THE FLOOR TO SURGERY AT THIS TIME
[2019-04-26 06:53] LABS: HEMATOCRIT 36.9 % (42.0-52.0); HEMOGLOBIN 12.1 g/dl (14.0-18.0); MEAN CELL VOLUME 91.1 fl (80.0-94.0); MEAN CORPUSCULAR HGB 29.9 pg (27.0-31.0); MEAN CORPUSCULAR HGB CONC 32.8 g/dl (33.0-37.0); MEAN PLATELET VOLUME 9.2 fl (9.6-12.3); PLATELET COUNT AUTOMATED 267 10*3/uL (130-400); RED BLOOD COUNT 4.05 10*6/uL (4.50-5.90); RED CELL DISTRI WIDTH 13.6 % (0-14.5); WHITE BLOOD COUNT 13.2 10*3/uL (4.8-10.8)
[2019-04-26 07:22] LABS: TOTAL CELLS COUNTED 100 #CELLS
[2019-04-26 07:23] LABS: PLATELET SUFFICIENCY NORMAL (NORMAL)
--- NOTE | 2019-04-26 09:50 | NUR ---
PATIENT BACK IN ROOM.
--- NOTE | 2019-04-26 10:01 | NUR ---
MEDICATED WITH PRN NORCO FOR C/O R FOOT PAIN RATED AT A 7 OUT OF 10.
--- NOTE | 2019-04-26 13:05 | NUR ---
PHYSICAL THERAPY Physical therapy evaluation offered. Patient reports that he is "good right now" and that he just returned from surgery a couple of hours ago. Patient requesting for skilled PT services to come back again tomorrow so he can rest. Will attempt PT evaluation tomorrow. Thank you. Isha Ramos,PT,DPT.
--- NOTE | 2019-04-26 13:06 | NUR ---
Occupational Therapy evaluation offered this date. patient in bed and reports that he had a bone biopsy this am and fell last night coming from the bathroom and he did not sleep well and did not feel well. He declined OT evaluation. OTR to recheck at a later date. Rita Erickson OTR/l
--- NOTE | 2019-04-26 15:48 | NUR ---
MEDICATED WITH PRN NORCO FOR C/O R FOOT PAIN.
--- NOTE | 2019-04-26 17:35 | NUR ---
MEDICATED WITH PRN NITRO FOR C/O MIDSTERNAL CHEST PAIN FOR ABOUT 1/2 HOUR.
--- NOTE | 2019-04-26 17:51 | NUR ---
MEDICATED WITH PRN MORPHINE PER ORDER AND REQUEST, NITRO NOT HELPING.
--- NOTE | 2019-04-26 22:16 | NUR ---
All medications taken at this time 2208. Patient complaining of chest pain ratting a 8 out of 10. vital signs stable. P.R.N. Morphine given at this time per orders and request. call light within reach.
--- NOTE | 2019-04-26 22:20 | NUR ---
patient complaing of increased anxiety.medicated wth vistiral per orders and request. sinus on the monitor . no signs and symptoms of distres. call light within reach.
[2019-04-27] VITALS: BP 122/54
--- NOTE | 2019-04-27 | NUR ---
PRN MEDICATION APPEARS EFFECTIVE, PT SLEEPING
--- NOTE | 2019-04-27 04:36 | NUR ---
AT 2300 RESIDENT IN BED RESTING WITH EYES CLOSED. NO SIGNS OR SYMPTOMS OF DISTRESS, CALL LIGHT WITHIN REACH.
--- NOTE | 2019-04-27 05:14 | NUR ---
24 HR chart check completed.
--- NOTE | 2019-04-27 06:15 | NUR ---
MORPHINE GIVEN AT THIS TIME FOR PATIENTS COMPLAINTS OF RIGHT FOOT PAIN. WILL CONTINUE TO MONITOR CALL LIGHT WITHIN REACH
[2019-04-27 08:00] VITALS: BP 124/62
--- NOTE | 2019-04-27 08:42 | NUR ---
MEDICATED WITH PRN NORCO FOR C/O OF CHEST PAIN AMD R FOOT PAIN.
--- NOTE | 2019-04-27 08:56 | NUR ---
PHYSICAL THERAPY Physical therapy evaluation attempted. Patient refusing PT services again this date. Will try again at a later date. Thank you. Isha Ramos,PT,DPT.
--- NOTE | 2019-04-27 08:56 | NUR ---
Occupational Therapy evaluation offered this date, patient declined stating he was waiting to hear from the chimney mechanic regarding his RLE. He did not have his cam walker on his RLE and he is supposed to be PWB RLE with cam walker. OTR will recheck at a later time. Rita Erickson OTR/Emely
--- NOTE | 2019-04-27 09:30 | NUR ---
LUNA HELPED A LITTLE.
[2019-04-27] MEDS ORDERED: Bactroban Oint22 GM T (10:08)
[2019-04-27] MEDS ORDERED: DOXYCYCLINE100 MG PO (10:08)
[2019-04-27] MEDS ORDERED: XARELTO10 MG PO (10:08)
[2019-04-27] MEDS ORDERED: TRAMADOL HCL50 MG PO (10:08)
--- NOTE | 2019-04-27 11:09 | NUR ---
PATIENT BEING DISCHARGED.
--- NOTE | 2019-04-27 11:41 | NUR ---
PT STATAES NO NEEDS AT HOME. CAN BE DISCHARGED TO HOME WHEN MEDICALLY STABLE. WILL CONTINUE TO FOLLOW.
--- NOTE | 2019-04-27 12:36 | NUR ---
WAITING FOR SCRIPTS TO BE FILLED.
--- NOTE | 2019-04-27 13:15 | NUR ---
SCRIPTS FILLED THIS RN PICKED UP FOR PATIENT. TAKEN BY WHEEL CHAIR TO CAR WITH BELONGINGS.
[2019-04-27 17:07] LABS: ACID FAST SPEC PROCESSING Tissue Grinding (.)
== END 2019-04-27 13:17 | disposition home or self-care (01) | DRG 982 ==
LOC: ED 11:27 → 5E 13:18 → EDHOLD 13:18 → 5E 13:54
PROVIDERS: Emergency Medicine; Podiatrist; Registered Nurse; ADMIT Internal Medicine
PROC: 0QBG0ZZ Excision of Right Tibia, Open Approach (ICD-10-PCS; principal; 2019-04-26)
PROC: 0QBG0ZZ Excision of Right Tibia, Open Approach (ICD-10-PCS; 2019-04-26)
PROC: 0QBL0ZZ Excision of Right Tarsal, Open Approach (ICD-10-PCS; 2019-04-26)
PROC: 0QBL0ZZ Excision of Right Tarsal, Open Approach (ICD-10-PCS; 2019-04-26)
DX: M94.0 Chondrocostal junction syndrome [Tietze] (principal); E44.0 Moderate protein-calorie malnutrition; Z68.42 Body mass index [BMI] 45.0-49.9, adult; M86.8X6 Other osteomyelitis, lower leg; I71.2 Thoracic aortic aneurysm, without rupture; I12.9 Hypertensive chronic kidney disease with stage 1 through stage 4 chronic kidney disease, or unspecified chronic kidney disease; N18.3 Chronic kidney disease, stage 3 (moderate); D72.829 Elevated white blood cell count, unspecified; D53.9 Nutritional anemia, unspecified; F32.9 Major depressive disorder, single episode, unspecified; I25.10 Atherosclerotic heart disease of native coronary artery without angina pectoris; F41.1 Generalized anxiety disorder; E66.01 Morbid (severe) obesity due to excess calories; Z87.11 Personal history of peptic ulcer disease; Z82.0 Family history of epilepsy and other diseases of the nervous system; Z80.8 Family history of malignant neoplasm of other organs or systems; Z79.899 Other long term (current) drug therapy; I25.2 Old myocardial infarction; Z79.82 Long term (current) use of aspirin; Z95.5 Presence of coronary angioplasty implant and graft

== ENCOUNTER 2019-05-15 16:21 | Inpatient (IN) | payer MEDICAID ==
[~2019-05-15] VITALS: Ht 172.7 cm; Wt 137.6 kg
[~2019-05-15 16:21] MED LIST changes: +ASPIR 8181 MG PO; +ATORVASTATIN CA80 M1 PO; +BRILINTA90 M1 PO; +DOXYCYCLINE100 MG PO; +MAPAP325 MG PO; +METOPROLOL SUCC25 M2 PO; +NITROSTAT0.4 MG SL; +TRAMADOL HCL50 MG PO; +XARELTO10 MG PO
[2019-05-15 16:23] VITALS: BP 119/83
--- NOTE | 2019-05-15 17:16 | NUR ---
PT REMAINS W/O ACUTE DISTRESS NOTED AWAITING ALL RESULTS FOR ADDITIONAL PLAN OF CARE,SAFETY PRECAUTIONS INTACT AND CALL LIGHT WITHIN REACH,NO COMPLAINTS VOICED.
[2019-05-15 17:17] LABS: BASO % 0.2 % (0.0-1.0); EOS # 0.2 10*3/uL (0.0-0.4); EOS % 1.6 % (1.0-4.0); LYMPH # 2.5 10*3/uL (1.3-4.4); MEAN CELL VOLUME 86.7 fl (80.0-94.0); MEAN CORPUSCULAR HGB 28.9 pg (27.0-31.0); MEAN CORPUSCULAR HGB CONC 33.3 g/dl (33.0-37.0); MEAN PLATELET VOLUME 9.7 fl (9.6-12.3); MONO # 0.9 10*3/uL (0.1-1.0); MONO % 6.7 % (3.0-9.0); NEUT # 9.8 10*3/uL (2.3-7.9); PLATELET COUNT AUTOMATED 382 10*3/uL (130-400); RED BLOOD COUNT 3.46 10*6/uL (4.50-5.90); RED CELL DISTRI WIDTH 13.2 % (0-14.5); WHITE BLOOD COUNT 13.6 10*3/uL (4.8-10.8)
[2019-05-15 17:27] LABS: ACT PARTIAL THROMBO TIME 23.3 SECONDS (20.0-32.1); INTERNATIONAL NORM RATIO 0.9 (2.0-3.5)
[2019-05-15 17:32] LABS: ALBUMIN 3.2 gm/dl (3.1-4.5); ALKALINE PHOSPHATASE 37 U/L (45-117); BUN 14 mg/dl (7-24); CHLORIDE 106 mmol/L (98-107); CREATININE 1.21 mg/dL (0.70-1.30); POTASSIUM 4.2 mmol/L (3.5-5.1); SGOT/AST 7 IU/L (3-35); SGPT/ALT 24 U/L (12-78); SODIUM 138 mmol/L (136-145); TOTAL PROTEIN 6.1 gm/dL (6.4-8.2)
--- NOTE | 2019-05-15 18:12 | NUR ---
PT WITH MULTIPLE SCABS AND PT ITCHING,SCRATCHING SELF NO OPEN DRAINGE AREAS NOTED,PT WITH WRAP ON RT ANKLE PER DR MARLEY(PODIATRY)FROM BIOPSY.
[2019-05-15 19:03] VITALS: BP 124/75
[2019-05-15 20:15] VITALS: BP 120/98
[2019-05-15 21:00] VITALS: BP 131/75
--- NOTE | 2019-05-15 21:00 | NUR ---
A 54, admitted to 5E, under the services of BREANNA Grande DO with a diagnosis of POSITIVE BLOOD CULTURES, SEPSIS. Chief complaint is MULTIPLE COMPLAINTS. Patient arrived via STRETCHER FROM ER. Monitor applied. Initial assessment completed. Vital signs taken and recorded. BREANNA GRANDE DO notified of admission to the unit. Orders received. See assessment for past medical history, medications and allergies. Patient and/or family oriented to unit. [address] visitation policy reviewed. Clothing/patient valuable form completed. MED REQ IS UP TO DATE. ADMISSION ASSESSMENT COMPLETE. NO OPEN WOUNDS NOTED ON ADMISSION. GENERALIZED SCABS PRESENT, GENERALIZED BRUISING PRESENT, AND ON RT FOOT PT HAS 4 SUTURES PRESENT ON ANKLE, PICTURES WERE TAKEN IN ER PER ER NURSE IN REPORT. PT ALSO STATES THAT HE WAS SUPPOSED TO HAVE SURGERY ON THAT ANKLE TOMORROW, BUT HAS NOT HAD A CHANCE TO FOLLOW UP WITH HIS NATURE PHOTOGRAPHER. NO PROOF OF APPOINTMENT WAS NOTED ON ADMISSION. PT DOES COMPLAIN OF DIZZINESS WHEN STANDING UP. PT STATES MOST RECENT FALL WAS ON TuesdayApril, NONE NOTED SINCE. BED ALARM INTACT AND CALL LIGHT IN REACH FOR PATIENT. NO SIGNS OF DISTRESS AT THIS TIME. JEANETTE FERRARO
[2019-05-15] MEDS ORDERED: TRAMADOL HCL50 MG PO (21:10)
[2019-05-15] MEDS ORDERED: RANOLAZINE ER500 MG PO (21:14)
[2019-05-15] MEDS ORDERED: PANTOPRAZOLE SO40 MG PO (21:15)
[2019-05-15] MEDS ORDERED: BUSPIRONE15 MG PO (21:16)
[2019-05-15] MEDS ORDERED: MIDODRINE HCL5 M1 PO (21:17)
[2019-05-15] MEDS ORDERED: CARAFATE1 G1 PO (21:18)
--- NOTE | 2019-05-15 22:11 | NUR ---
CALLED DR. ALONSO AND NOTIFIED HIM THAT MED REQ WAS UP TO DATE AND ALSO NOTIFIED HIM THAT PT HAS SCABS GENERALIZED AND HAS A HISTORY OF SCABBIES. PT IS CURRENTLY IN CONTACT ISOLATION DUE TO HISTORY OF (+) MRSA OF NARES. NO SIGNS OF ANY BUGS WITHIN PT'S ROOM. WILL CONTINUE TO MONITOR PATIENT.
[2019-05-16 03:30] LABS: BASO % 0.3 % (0.0-1.0); EOS # 0.2 10*3/uL (0.0-0.4); EOS % 1.9 % (1.0-4.0); HEMATOCRIT 25.9 % (42.0-52.0); HEMOGLOBIN 8.5 g/dl (14.0-18.0); LYMPH # 2.1 10*3/uL (1.3-4.4); LYMPH % 19.7 % (27.0-41.0); MEAN CELL VOLUME 87.5 fl (80.0-94.0); MEAN CORPUSCULAR HGB 28.7 pg (27.0-31.0); MEAN CORPUSCULAR HGB CONC 32.8 g/dl (33.0-37.0); MEAN PLATELET VOLUME 8.8 fl (9.6-12.3); MONO # 0.7 10*3/uL (0.1-1.0); MONO % 6.3 % (3.0-9.0); NEUT # 7.6 10*3/uL (2.3-7.9); NEUT % 70.5 % (47.0-73.0); PLATELET COUNT AUTOMATED 279 10*3/uL (130-400); RED BLOOD COUNT 2.96 10*6/uL (4.50-5.90); RED CELL DISTRI WIDTH 13.2 % (0-14.5); WHITE BLOOD COUNT 10.7 10*3/uL (4.8-10.8)
[2019-05-16 03:42] LABS: BUN 11 mg/dl (7-24); CHLORIDE 108 mmol/L (98-107); CREATININE 1.14 mg/dL (0.70-1.30); POTASSIUM 3.8 mmol/L (3.5-5.1); SODIUM 140 mmol/L (136-145)
--- NOTE | 2019-05-16 06:21 | NUR ---
24 HR chart check completed.
[2019-05-16 08:00] VITALS: BP 144/66
--- NOTE | 2019-05-16 08:49 | NUR ---
RICKYTEMI [id number] Please refer to the physician's history and physical for past medical history, comorbid conditions, and allergies. Diagnosis: POSITIVE BLOOD CULTURE SEPSIS Robinson Score: 17,AT RISK WOUND DESCRIPTIONS: PATIENT HAS INTACT SCABS TO ABD, LEGS AND ARMS. PATIENT STATES HE "ITCHES ALL OVER" WITH NO RELIEF FROM TOPICAL CREAMS. PATIENT STATES THAT HE ITCHES DUE TO "NERVOUS ENERGY." PATIENT DENIES PAIN AT ASSESSMENT. PATIENT HAS FOUR INTACT SUTURES DORSAL RIGHT FOOT. PATIENT STATES PODIATRY DID A BIOPSY IN THESE AREAS APPROXIMATELY THREE WEEKS AGO. PATIENT DENIES PAIN TO THIS AREA. PATIENT STATES THAT HE HAD AN APPOINTMENT TODAY WITH PODIATRY TO HAVE SUTURES REMOVED TODAY. Surface the patient is resting on: Isoflex SKIN PREVENTION RECOMMENDATION: 1. Pressure redistribution support surface as appropriate 2. Elevate heels 3. Remove boots/TEDS every shift and reapply 4. Head of bed 30 degrees as tolerated 5. Assess nutrition and hydration 6. Manage moisture 7. Avoid the use of containment devices while in bed 8. Use absorptive products on surfaces limit layers of linens on bed 9. Turn and reposition every 1-2 hours in bed and every 1 hour in chair as tolerated 10. Weight shifts every 15 minutes while up in chair 11. Offloading with pillows or device to keep heels elevated off bed 12. Monitor skin at least every shift 13. Inspect under medical devices twice a day WOUND TREATMENT RECOMMENDATIONS: CONSULT PODIATRY PATIENT IN KNOWN TO THEM.
--- NOTE | 2019-05-16 08:58 | NUR ---
PHYSICAL THERAPY Nursing screen received and chart reviewed. Please refer PT services for evaluation if decline in functional mobility presents. Thank you. Isha Ramos,PT,DPT.
--- NOTE | 2019-05-16 09:42 | NUR ---
ELIMITE CREAM APPLIED TO MAJORITY OF PT'S BODY, PT STATES HE WILL APPLY TO HIS ABDOMEN AND MAIDA AREA.
--- NOTE | 2019-05-16 09:42 | NUR ---
DR FAIRCHILD MADE AWARE OF NEW CONSULT.
--- NOTE | 2019-05-16 10:00 | NUR ---
DR WEISS HERE AT THIS TIME TO REMOVE SUTURES TO RIGHT FOOT.
[2019-05-16 12:00] VITALS: BP 153/80
--- NOTE | 2019-05-16 14:02 | NUR ---
DR VANESSA MADE AWARE THAT PT IS REQUESTING HIS HOME MEDICATIONS, SPECIFICALLY HIS ULTRAM, STATING HIS RIGHT FOOT IS PAINFUL.
--- NOTE | 2019-05-16 14:39 | NUR ---
MEDICATED WITH ULTRAM PER PRN ORDER FOR COMPLAINTS OF RIGHT FOOT PAIN, RATES PAIN 8/10, ALSO GIVEN VISTARIL FOR ITCHING. WILL MONITOR FOR EFFECTIVENESS.
[2019-05-16 16:00] VITALS: BP 134/88
--- NOTE | 2019-05-16 16:00 | NUR ---
Nursing screen received and chart reviewed. patient admitted with positive blood cultures. If patient should have a decline in AdLS or functional mobility please refer to Occupational Therapy. Thank you. Rita Erickson OTr/L
--- NOTE | 2019-05-16 16:00 | NUR ---
ASSUMED CARE FOR THIS PT AT THIS TIME. PT HAS A FLAT AFFECT AND APPEARS DEPRESSED. PT NOT WANTING TO TALK. PT STATES HE IS NOT GOING TO EAT. COMFORT AND PT TEACHNG GIVEN. PT LYING IN BED. CALL LIGHT IN REACH.
--- NOTE | 2019-05-16 17:17 | NUR ---
PT MEDICATED W/IVP BENADRYL FOR C/O WHOLE BODY ITCHING. ADVISED PT TO NOTIFY THIS NURSE IF EFFECTIVE. PT STATES, "IT DON'T MATTER, YOU DON'T HAVE TO." PT STATES THAT HE CONTINUES TO HAVE DIZZINESS BUT "IT DOESN'T MATTER." PT CONTINUES TO REFUSE TO TALK TO THIS NURSE. WILL CONTINUE TO MONITOR PT FOR S/S OF SUICIDAL IDEATIONS.
--- NOTE | 2019-05-16 18:00 | NUR ---
PT STATES THAT BENADRYL DID NOT HELP THE ITCHING.
[2019-05-16 20:00] VITALS: BP 138/82
[2019-05-17] VITALS: BP 159/94
--- NOTE | 2019-05-17 03:47 | NUR ---
24 HR chart check completed.
[2019-05-17 06:20] LABS: BASO % 0.3 % (0.0-1.0); EOS # 0.2 10*3/uL (0.0-0.4); EOS % 2.1 % (1.0-4.0); HEMATOCRIT 24.7 % (42.0-52.0); HEMOGLOBIN 7.7 g/dl (14.0-18.0); LYMPH # 1.3 10*3/uL (1.3-4.4); LYMPH % 15.3 % (27.0-41.0); MEAN CELL VOLUME 89.5 fl (80.0-94.0); MEAN CORPUSCULAR HGB 27.9 pg (27.0-31.0); MEAN CORPUSCULAR HGB CONC 31.2 g/dl (33.0-37.0); MEAN PLATELET VOLUME 9.4 fl (9.6-12.3); MONO # 0.7 10*3/uL (0.1-1.0); MONO % 7.8 % (3.0-9.0); NEUT # 6.4 10*3/uL (2.3-7.9); NEUT % 73.4 % (47.0-73.0); PLATELET COUNT AUTOMATED 288 10*3/uL (130-400); RED BLOOD COUNT 2.76 10*6/uL (4.50-5.90); RED CELL DISTRI WIDTH 13.2 % (0-14.5); WHITE BLOOD COUNT 8.7 10*3/uL (4.8-10.8)
[2019-05-17 06:42] LABS: BUN 8 mg/dl (7-24); CHLORIDE 108 mmol/L (98-107); CREATININE 1.14 mg/dL (0.70-1.30); POTASSIUM 4.1 mmol/L (3.5-5.1); SODIUM 142 mmol/L (136-145)
[2019-05-17 08:00] VITALS: BP 152/75
[2019-05-17] MEDS ORDERED: MIDODRINE HCL5 M1 PO (10:00)
[2019-05-17] MEDS ORDERED: MECLIZINE HCL25 M2 PO (10:00)
--- NOTE | 2019-05-17 10:31 | NUR ---
Discharge instructions reviewed with patient/family. Patient receptive and verbalizes understanding. Follow-up care arranged. Written instructions given to patient/family. Patient refused education on medication changes and follow up appointment with . Patient stated "I already cancelled it." Patient was wheeled from unit by staff member with all personal belongings accounted for. VERNON HENRIQUEZ
== END 2019-05-17 10:31 | disposition home or self-care (01) | DRG 872 ==
LOC: ED 16:21 → 5E 20:01 → EDHOLD 20:01 → 5E 20:30
PROVIDERS: Internal Medicine; Nurse Practitioner Family; Student in an Organized Health Care Education/Training Program; ADMIT Internal Medicine
DX: A41.9 Sepsis, unspecified organism (principal); Z68.42 Body mass index [BMI] 45.0-49.9, adult; E66.01 Morbid (severe) obesity due to excess calories; F41.0 Panic disorder [episodic paroxysmal anxiety]; F32.9 Major depressive disorder, single episode, unspecified; I12.9 Hypertensive chronic kidney disease with stage 1 through stage 4 chronic kidney disease, or unspecified chronic kidney disease; D64.9 Anemia, unspecified; N18.3 Chronic kidney disease, stage 3 (moderate); I25.10 Atherosclerotic heart disease of native coronary artery without angina pectoris; B86 Scabies; I25.2 Old myocardial infarction; Z95.5 Presence of coronary angioplasty implant and graft; Z80.8 Family history of malignant neoplasm of other organs or systems; Z82.0 Family history of epilepsy and other diseases of the nervous system; Z79.82 Long term (current) use of aspirin; Z79.899 Other long term (current) drug therapy

== ENCOUNTER 2019-05-28 18:03 | Inpatient (IN) | payer MEDICAID ==
[~2019-05-28] VITALS: Ht 172.7 cm; Wt 140.8 kg
--- NOTE | ~2019-05-28 | EKG ---
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
--- NOTE | ~2019-05-28 | O ---
[place], [place] OPERATIVE NOTE NAME: [facility]ARC[facility]A [id number] UNIT #: [id number] ROOM: 401 DOCTOR: MELISSA SZYMANSKI MD BIRTHDATE: [birth year] DOS: 05/30/2019 GASTROENDOSCOPIC REPORT INDICATIONS: This is a 54-year-old patient who has presented with chief complaint of gastro abdominal pain, anemia and guaiac positivity, undergoing investigation. PROCEDURE: Today's procedure part of investigation is panendoscopy plus biopsy. PREMEDICATION: Propofol. SCOPE: Olympus forward-viewing gastroscope Q10 video. REPORT: After putting the patient in left lateral position and application of lubricant to the scope, the scope was introduced. Thereafter, under direct visualization, advanced through the length of esophagus without difficulty. Hiatal hernia 2 cm was noticed. Gastric pouch was entered. As we approached toward the antrum, deep ulceration which is approximately 2 cm in its diameters was noticed. A biopsy from margin was obtained, antral ulcer was photographed. Duodenal bulb, second and third part within normal limits. The patient extubated, tolerated the procedure well. IMPRESSION: Large antral ulcer, gastritis, hiatal hernia. PLAN AND DISCUSSION: We are going to proceed with aggressive PPI therapy, Protonix 40 mg b.i.d., Carafate 2 grams slurry 2 hours before meals and at bedtime and clinical reassessment. MELISSA SZYMANSKI MD CM:OPRECORD:OPERATIVE NOTE 20 32 MELISSA SZYMANSKI MD 05/30/191931 interface
--- NOTE | ~2019-05-28 | EKG ---
[place], [place] ELECTROCARDIOGRAM REPORT NAME: TEMI GARCÍA UNIT #: [id number] ROOM: 401 DOCTOR: SHELTON DRAFT REPORT BIRTHDATE: [address] 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
--- NOTE | ~2019-05-28 | EKG ---
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
--- NOTE | ~2019-05-28 | CON ---
[place], [place] REPORT OF CONSULTATION NAME: [id number] UNIT #: [id number] ROOM: 401 DOCTOR: SEBASTIEN MCNEILL BIRTHDATE: [birth year] DOS: 05/29/2019 CARDIOLOGY CONSULTATION REASON FOR CONSULTATION: Chest pain and syncope. REQUESTING PHYSICIAN: Dr. Jarrett Mathias. HISTORY OF PRESENT ILLNESS: The patient is a 54-year-old gentleman with a history of coronary artery disease, recently had an anterior GA in 03/2019, status post PCI to the LAD. He also has recurrent syncope, states he has had about 7 episodes over the past 3 months, including when he presented with GA recently. It sounds like on each occasion syncopal episode is related to rising from a seated position and upon walking, he gets dizzy, lightheaded and passes out. This is precisely what happened yesterday. He is watching TV. He got up to walk to the kitchen and started to feel dizzy and lightheaded and the next thing he woke up on the floor. Unclear how long he was out for. He suddenly woke up, he did have some chest heaviness. He also gets short of breath when he walks, which he states has been present since his stent was placed in March. He notes some palpitations right before he passed out as well. He otherwise denies exertional chest pain, difficulty. REVIEW OF SYSTEMS: He otherwise is feeling well prior to yesterday, denies being dehydrated and undernourished. Denies any fevers or chills. Remainder of the review of systems negative except as described above. PAST MEDICAL HISTORY: Coronary artery disease as described above, recent PCI to the LAD, 03/2019, CKD, hypertension, recurrent syncope, depression, obesity, osteomyelitis of the ankle. SURGICAL HISTORY: Incision and drainage of the ankle in 01/2019. SOCIAL HISTORY: Occasional alcohol use. Denies smoking or drug abuse. FAMILY HISTORY: No history of premature coronary artery disease. Both parents are . Father had brain cancer. Mother had dementia. HOME MEDICATIONS: Currently include aspirin 81 mg daily, atorvastatin 80 mg daily, ticagrelor 90 mg b.i.d., hydrochlorothiazide 25 mg daily, lisinopril 5 mg daily, losartan 100 mg daily, metoprolol succinate 25 mg b.i.d., midodrine 2.5 mg b.i.d., ranolazine 500 mg daily. In addition, on acetaminophen, buspirone, duloxetine, hydroxyzine, meloxicam, pantoprazole, sucralfate, tramadol, nitroglycerin. ALLERGIES: No known drug allergies. PHYSICAL EXAMINATION: VITAL SIGNS: He is afebrile, pulse 61, blood pressure 155/67, saturating 97% on room air. Orthostatic vital signs checked last evening, supine 168/74, pulse in the 60s; sitting 154/83, pulse in the 60s; standing 146/85, pulse in the 60s. [place], [place] REPORT OF CONSULTATION NAME: TEMI GARCÍA UNIT #: [id number] ROOM: 401 DOCTOR: SEBASTIEN MCNEILL BIRTHDATE: [birth year] GENERAL APPEARANCE: He is an obese-appearing middle-aged male, lying in bed, in no distress. ENT: Moist mucous membranes. NECK: Supple and thick. Difficult to assess JVP given body habitus. No bruits. RESPIRATORY: Lungs are clear. CARDIOVASCULAR: Regular rhythm with normal rate. No murmurs. Chest wall very tender to palpation, reproducing the same pain that he states he woke up with. ABDOMEN: Obese. Positive bowel sounds. Soft. Mildly tender to palpation. EXTREMITIES: Warm and well perfused. No edema. NEUROLOGIC: Nonfocal. LABORATORY DATA: Hemoglobin 8.3, platelets 219. Potassium 4.1, creatinine 1.22, was 1.44 on admission. LFTs normal. Three sets of troponins are negative. CRP elevated at 5, LDL 54. Echocardiogram 01/2019 showed normal EF 60%, mild LVH, grade 1 diastolic dysfunction. Nuclear stress test from 04/2019 showed normal perfusion with normal EF. Recent heart catheterization from [facility], I do not have the details, but he did receive a mid LAD stent for an 80% lesion. EKG from admission showed sinus rhythm with a rate of 82 beats per minute. Normal axis with normal intervals. There is subtle anterior ST elevation, which appears similar to the EKG from 04/22/2019 without significant changes. Repeat EKG later last evening shows sinus rhythm, rate of 62 with similar appearing changes. He has been in sinus rhythm on telemetry with no arrhythmias. IMPRESSION: 1. Recurrent syncope. It sounds orthostatic by history, complicated by polypharmacy. 2. Chest pain appears musculoskeletal. 3. History of anterior GA, status post PCI to the LAD, 03/2019. 4. Obesity. 5. Likely untreated sleep apnea. 6. Acute kidney injury, resolved with hydration. 7. Depression. RECOMMENDATIONS: 1. Resume dual antiplatelet therapy with aspirin and ticagrelor. 2. It sounds like he is being overmedicated for his hypertension as an outpatient, also he is on both an GABE inhibitor and an ARB along with a diuretic, beta alexandria and multiple antidepressants and antianxiety medications. Suspect this is contributing to orthostatic postural changes. Recommend continuing midodrine. Resume lisinopril and hold other antihypertensives for now. 3. We will continue to monitor on telemetry. 4. Counseled on counter pressure maneuvers, and taking this time with postural changes. I suspect finding an optimal medication regimen will be beneficial. [place], [place] REPORT OF CONSULTATION NAME: RICKYTEMI Addie UNIT #: [id number] ROOM: [facility] DOCTOR: SEBASTIEN MCNEILL BIRTHDATE: [birth year] 5. Recommend an outpatient sleep study and weight loss. Thank you for the consultation. Dr. SEBASTIEN MCNEILL MD CM:CONSTR:REPORT OF CONSULTATION 0758 05/29/19 1107 interface
--- NOTE | ~2019-05-28 | PR ---
[place], [place] PROGRESS NOTE NAME: TEMI GARCÍA UNIT #: [id number] ROOM: 401 DOCTOR: SEBASTIEN MCNEILL BIRTHDATE: [birth year] DOS: 06/01/2019 The patient is being seen in followup for syncope and chest pain. SUBJECTIVE: The patient states he had another terrible night. He had a panic attack yesterday. He continues to complain of headache and dizziness. Hemoglobin is actually stable today, and he remains on aspirin and ticagrelor. OBJECTIVE: VITAL SIGNS: Temperature 98.1, pulse 83, respirations 16, blood pressure 155/62, saturating 94% on room air. GENERAL: Obese, middle-aged male lying in bed, in no distress. NECK: Supple. JVP is normal. No carotid bruits. RESPIRATORY: Lungs are clear. CARDIOVASCULAR: Regular rhythm with a normal rate. There are no murmurs. ABDOMEN: Obese. Mildly tender to palpation in the epigastric area. EXTREMITIES: Free of edema. LABORATORY DATA: Hemoglobin is 9.4, potassium 3.7, creatinine 1.11. CURRENT CARDIAC MEDICATIONS: Includes aspirin 81 mg daily, atorvastatin 80 mg daily, ticagrelor 90 mg b.i.d., lisinopril 5 mg daily. IMPRESSION: 1. Syncope, multifactorial, in part due to blood loss anemia and overmedication with antihypertensive agents. No recurrent episodes while in the hospital and no arrhythmias. 2. Acute blood loss anemia secondary to gastric ulcer, status post EGD. 3. Coronary artery disease, status post percutaneous coronary intervention to the mid left anterior descending on 03/30/2019 for non-ST elevation myocardial infarction with a single drug-eluting stent. 4. Obesity. 5. Untreated sleep apnea. 6. Depression and anxiety. RECOMMENDATIONS: 1. Continue dual antiplatelet therapy. 2. Increase lisinopril to 10 mg daily. 3. Continue to monitor blood counts as they may trend down because of his ulcer, but dual antiplatelet therapy is necessary because of his recent stent and he is at high risk for in-stent thrombosis. 4. Transfuse as necessary. 5. We will be available on an as needed basis over the weekend. Please call with any questions. [place], [place] PROGRESS NOTE NAME: TEMI GARCÍA UNIT #: [id number] ROOM: [facility] DOCTOR: SEBASTIEN MCNEILL BIRTHDATE: [birth year] Dr. SEBASTIEN MCNEILL MD CM:PNTRANS 1415 0030 SEBASTIEN MCNEILL 06/02/19 0028 interface
--- NOTE | ~2019-05-28 | PR ---
[place], [place] PROGRESS NOTE NAME: TEMI GARCÍA [facility] #: [id number] UNIT #: [id number] ROOM: 401 DOCTOR: NESSA WEAVERMELISSA BIRTHDATE: [birth year] DOS: 06/01/2019 SUBJECTIVE: This is a 54-year-old patient who has presented with chief complaint of ulcer within the gastric antrum with depth of 1.3 cm. Findings; no CT scan evidence of findings for perforation or intraperitoneal fat, large fat-containing umbilical hernia. This is the latest CT scan with of the contrast p.o. His biopsy of gastric ulcer and no evidence of the neoplastic cells, debris of acute inflammatory residuals from the margin of the ulcer has been confirmed. His chest x-ray has been no acute pulmonic findings. Comprehensive metabolic panel within normal limit. Liver function tests normal. CBC: White blood cell 6, H and H of 9 and 29. Endoscopic findings has been reviewed at the bedside with him, attending physician, Dr. Davies involved with details. The patient at bedside, he is telling me that he is feeling much better since he has been compliant with his GI medication while he is in the hospital. REVIEW OF SYSTEMS: HEENT: Denies double vision, blurred vision. RESPIRATORY: Denies acute shortness of breath. CARDIOVASCULAR: Denies acute chest pain. DIGESTIVE SYSTEM: No hematemesis, no hematochezia. PHYSICAL EXAMINATION: VITAL SIGNS: Stable. GENERAL: Obese patient. HEENT: Within normal limit. NECK: Supple, no thyromegaly, no cervical lymphadenopathy. CHEST: Symmetric anatomy, equal expansion. HEART: Normal sinus rhythm, no gallop, no murmur. ABDOMEN: Soft. No hepato-organomegaly. Bowel sounds present. EXTREMITIES: No cyanosis, no pedal edema. He had difficulty with ambulation. NEUROLOGIC: Alert, oriented to time, place, and person. Labs reviewed. Records reviewed. IMPRESSION: Gastric ulcer, status post biopsies, status post aggressive ulcer therapy with sucralfate and PPI management. There is no evidence of perforation or ulcer. Nevertheless, this ulcer about 13 mm deep and approximately a cm and half in width. PLAN AND DISCUSSION: He requires continuation and meticulous tenderness to intake of his medications and then ____. Etiology of above has been nonsteroidal anti-inflammatory and aspirin products. [place], [place] PROGRESS NOTE NAME: TEMI GARCÍA UNIT #: [id number] ROOM: 401 DOCTOR: NESSA WEAVER,MELISSA BIRTHDATE: [birth year] MELISSA SZYMANSKI MD CM:IGLESIA 192 07 MELISSA SZYMANSKI MD 06/02/19 0715 interface
--- NOTE | ~2019-05-28 | PR ---
[place], [place] PROGRESS NOTE NAME: TEMI GARCÍA [facility] #: [id number] UNIT #: [id number] ROOM: 401 DOCTOR: SEBASTIEN MCNEILL BIRTHDATE: [birth year] DOS: 05/31/2019 CARDIOLOGY PROGRESS NOTE. CHIEF COMPLAINT: The patient is being seen in followup for syncope and chest pain. SUBJECTIVE: The patient underwent EGD yesterday showing a large gastric ulcer. States he still feels terrible with a headache and dizzy every time he stands up. He did receive blood transfusion yesterday, hemoglobin is up to 9.0 today. Still with intermittent chest pain. States he became a little bit itchy with a blood transfusion and has not felt much better after blood transfusion. PHYSICAL EXAMINATION: VITAL SIGNS: Afebrile, pulse 63, respirations 18, blood pressure 137/57, saturating 99% on room air. GENERAL APPEARANCE: Obese, middle-aged male, lying in bed, in no distress. NECK: Supple. JVP normal. No carotid bruits. RESPIRATORY: Lungs are clear. CARDIOVASCULAR: Regular rhythm, normal rate. No murmurs. ABDOMEN: Positive bowel sounds. Soft. Mildly tender to palpation. EXTREMITIES: No edema. LABORATORY DATA: Hemoglobin 9.0 up from 7.9, platelets 217. CURRENT CARDIAC MEDICATIONS: Include atorvastatin 80 mg daily, ticagrelor 90 mg b.i.d., midodrine 2.5 mg daily, lisinopril 5 mg daily. Aspirin was discontinued. PROCEDURES PERFORMED: Details of left heart catheterization, which was on 03/30/2019 for [id number] myocardial infarction: Mid LAD 80% stenosis treated with a 3 x 15 mm [place] drug-eluting stent. RCA had mild disease. A large obtuse marginal had a 50% midportion stenosis. ASSESSMENT: 1. Syncope, multifactorial, in large part due to blood loss anemia and overmedication with antihypertensive agents. 2. Acute blood loss anemia secondary to gastric ulcers, status post EGD. 3. Coronary artery disease, status post PCI to the mid LAD on 03/30/2019 because of [id number]-[id number] myocardial infarction with a drug-eluting stent. 4. Obesity. 5. Untreated sleep apnea. 6. Depression. RECOMMENDATIONS: 1. Unfortunately, it is a high risk to hold antiplatelet agents as he had a mid LAD stent just 2 months ago. Ideally, we would like to get him to bare minimum of 3 months in the absence of overt hemorrhage. Thus, I recommend continuing dual antiplatelet therapy, realizing he is at high risk of bleeding. Recommend transfusing relatively liberally and we would recommend another blood [place], [place] PROGRESS NOTE NAME: TEMI GARCÍA UNIT #: [id number] ROOM: 401 DOCTOR: SEBASTIEN MCNEILL BIRTHDATE: [birth year] transfusion today. If he continues to have persistent drop in hemoglobin, then I would consider stopping one of the antiplatelet agents, but again with a mid LAD drug-eluting stent, it is high risk for stent thrombosis. 2. We will discontinue midodrine at this time. I do not think it is helping much. 3. Continue lisinopril alone for antihypertensive therapy. Dr. SEBASTIEN MCNEILL MD CM:PNTRANS [id number] SEBASTIEN MCNEILL 05/31/19 1448 interface
--- NOTE | ~2019-05-28 | CON ---
[place], [place] REPORT OF CONSULTATION NAME: [facility]A [facility] [id number] UNIT #: [id number] ROOM: 401 DOCTOR: NESSA WEAVERMELISSA BIRTHDATE: [birth year] DOS: 05/30/2019 HISTORY OF PRESENT ILLNESS: A 54-year-old gentleman who has presented with chief complaint of atypical chest pain, history of myocardial infarction. He has had persistent epigastric distress. Also, he has been guaiac positive, he has been anemic. PAST MEDICAL HISTORY: Morbid obesity, hepatic steatosis, degenerative joint disease, protein-calorie malnutrition, osteomyelitis, non-STEMI myocardial infarction, essential hypertension, chronic renal insufficiency stage 3 and coronary artery disease. PAST SURGICAL HISTORY: Manipulation of the ankle joint, cardiac catheterization. SOCIAL HISTORY: Nonsmoker, social alcohol consumer. FAMILY HISTORY: Noncontributory. MEDICATIONS: List reviewed including meloxicam. Amongst multiple other medications including enteric aspirin 81 mg. The patient as well on Brilinta. PHYSICAL EXAMINATION. HEENT: Denies double vision, blurred vision. RESPIRATORY: Admits some shortness of breath. CARDIOVASCULAR: Atypical chest pain. DIGESTIVE SYSTEM: Epigastric pain and dyspepsia. The patient on aspirin and meloxicam. PHYSICAL EXAMINATION: VITAL SIGNS: Stable. HEENT: Head normocephalic, nontraumatic. Mouth and buccal mucosa benign. NECK: Supple, no thyromegaly, no cervical lymphadenopathy. CHEST: Symmetric anatomy, equal expansion. No wheeze. Decreased air entry in general. HEART: Normal sinus rhythm, no gallop, no murmur. ABDOMEN: Soft. No hepato-organomegaly, obese. Bowel sounds present. No detailed organ evaluation can be done externally. EXTREMITIES: No cyanosis, no pedal edema. NEUROLOGICAL: Alert and oriented to time, place, person. IMPRESSION: Epigastric pain, dyspepsia, on aspirin and meloxicam, possibility of peptic ulcer disease. Labs and records have been reviewed. CBC: H and H of 8 and 26, platelet of 231. Comprehensive metabolic panel has been reviewed. Liver function tests normal, lipase has been normal. CPK and troponin has been addressed, which is within normal limit. His H and H dropped to 7 and 25. Labs reviewed, records reviewed. PLAN: Endoscopic assessment, ruling out peptic ulcer disease, workup input in general. I am recommending at this time to withhold meloxicam and aspirin and [place], [place] REPORT OF CONSULTATION NAME: TEMI GARCÍA UNIT #: [id number] ROOM: 401 DOCTOR: NESSA WEAVER,MELISSA BIRTHDATE: [birth year] we are going to treat this gentleman with aggressive antiulcer medications with PPI and sucralfate therapy. MELISSA SZYMANSKI MD CM:CONSTR:REPORT OF CONSULTATION 20 05/30/191943 interface
--- NOTE | ~2019-05-28 | PR ---
[place], [place] PROGRESS NOTE NAME: TEMI GARCÍA UNIT #: [id number] ROOM: 401 DOCTOR: VERONICA MCGREGOR MD BIRTHDATE: [birth year] DOS: 06/04/2019 CARDIOLOGY FOLLOWUP NOTE REASON FOR VISIT: Syncope and recent myocardial infarction. HISTORY OF PRESENT ILLNESS: The patient denies any chest pain or shortness of breath. Apparently, he is being transferred to a tertiary care hospital. No chest pain or shortness of breath. No PND, no orthopnea, no palpitations or dizziness. REVIEW OF SYSTEMS: Review of the 8 systems negative except as mentioned above. PHYSICAL EXAMINATION: VITAL SIGNS: Blood pressure 126/91, pulse 72, respiratory rate was 20, weight 145 kg and BMI 47. RHYTHM STRIPS: The patient in sinus rhythm. GENERAL: Alert, comfortable, in no acute distress. HEAD AND NECK: Pupils are round and equal. No jaundice. CHEST: Nontender. LUNGS: A few scattered rhonchi. HEART: Regular rhythm, no S3, no palpable thrills. ABDOMEN: Obese, nontender. EXTREMITIES: No edema. Distal pulses are fair. His right hand was in dressing. NEUROLOGIC: Alert with no focal neurologic deficit. RECTAL: Deferred. IMPRESSION: 1. Syncope, likely from his anemia and possible hypotension. 2. Severe anemia due to upper gastrointestinal bleed. 3. Recent myocardial infarction with drug-eluting stent to the left anterior descending on 03/30/2019. 4. Anemia. 5. Morbid obesity. 6. Hypertension. RECOMMENDATIONS: 1. Continue his cardiac medications including aspirin, Brilinta and statins. 2. The patient is being transferred to tertiary care hospital for further management. 3. Currently, the patient is chest pain free and hemoglobin 9.4. 4. No family at bedside at the time of examination. 5. The patient will follow with [facility] after discharge. 6. No family at bedside at the time of examination. 7. The patient advised not to stop his aspirin and Brilinta unless there is a life-threatening bleeding issue. [place], [place] PROGRESS NOTE NAME: TEMI GARCÍA UNIT #: [id number] ROOM: 401 DOCTOR: VERONICA MCGREGOR MD BIRTHDATE: [birth year] VERONICA MCGREGOR MD CM:PNTRANS [id number] VERONICA MCGREGOR MD 06/05/19 0237 interface
--- NOTE | ~2019-05-28 | EKG ---
[place], [place] ELECTROCARDIOGRAM REPORT NAME: TEMI GARCÍA UNIT #: [id number] ROOM: 401 DOCTOR: SHELTON DRAFT REPORT BIRTHDATE: [birth year] [facility] Test Date: 2019-06-03 Test Time: 02:31:35 Pat Name: TEMI GARCÍA Department: Room: 401 Gender: M Diver'S Tender: Ibis Lynch : 1965 Requested By: YURIY VANESSA Order Number: [id number] Reading MD: Lance Dupree Measurements Intervals [place] Rate: 127 P: 49 [place]: 144 QRS: -20 QRSD: 92 T: 89 QT: 306 QTc: 445 Interpretive Statements Sinus tachycardia Multiple premature complexes, vent \T\ supraven Abnormal R-wave progression, late transition Probable LVH with secondary repol abnrm Baseline wander in lead(s) V2,V3 Compared to ECG 05/31/2019 11:21:25 Sinus rhythm no longer present Left-axis deviation no longer present ST (T wave) deviation no longer present Myocardial infarct finding no longer present Electronically Signed On 06-03-2019 11:12:21 PDT by Lance Dupree CM:EKGRPT:ELECTROCARDIOGRAM REPORT [id number] YURIY CORREA DRAFT REPORT YURIY VANESSA DO
--- NOTE | ~2019-05-28 | PR ---
[place], [place] PROGRESS NOTE NAME: TEMI GARCÍA [facility] #: [id number] UNIT #: [id number] ROOM: 401 DOCTOR: SEBASTIEN MCNEILL BIRTHDATE: [birth year] DOS: 05/30/2019 CARDIOLOGY PROGRESS NOTE The patient is being seen in followup for syncope and coronary artery disease. SUBJECTIVE: The patient states he is feeling terrible this morning. He said he had an episode sometime overnight where he felt very faint like he has been in the past couple of days, feels like he may have gone out for a few minutes, he woke up and the nurse was at the bedside. He told the nurse that he was feeling quite unwell. He has been getting very dizzy when he goes up to use the bathroom. Today's hemoglobin was quite low at 7.9, from 8.6 on admission. He has a history of stomach ulcers. He now reports to me he has noted melena over the past couple of weeks. He states he was scoped a few months back. He has never received a blood transfusion. He is still getting short of breath, and also when he woke up from the episode, he had some chest heaviness. OBJECTIVE: VITAL SIGNS: Afebrile, pulse in the 70s, respirations 16, blood pressure 148/64. Last night, blood pressure 123/50, saturating 100% on room air. GENERAL APPEARANCE: Overweight, middle-aged male, lying in bed, in no acute distress. NECK: Supple. JVP normal. No carotid bruits. RESPIRATORY: Lungs are clear. CARDIOVASCULAR: Regular rhythm with a normal rate. No murmurs heard. ABDOMEN: Positive bowel sounds. Soft, nontender. EXTREMITIES: Free of edema. LABORATORY DATA: Hemoglobin 7.9, down from 8.6 on admission, hemoglobin was 12 about a month ago, potassium 3.8, creatinine 1.05. CURRENT CARDIAC MEDICATIONS: Include aspirin 81 mg daily, ticagrelor 90 mg p.o. b.i.d., aspirin 81 mg daily, midodrine 2.5 mg b.i.d., lisinopril 5 mg daily. The remainder of his home antihypertensives including hydrochlorothiazide, losartan, metoprolol succinate on hold, unclear why he was on both lisinopril and losartan. IMPRESSION: 1. Syncope, multifactorial. Likely due to overmedication with antihypertensive agents, causing orthostatic hypotension, interactions with his psychiatric meds, and I think anemia is a big part of this. 2. Blood loss anemia, hemoglobin 7.9. 3. History of gastric ulcers. 4. History of coronary artery disease, status post left anterior descending percutaneous coronary intervention on 04/07/2019 after an anterior myocardial infarction. 5. Obesity. 6. Untreated sleep apnea. 7. Depression. [place], [place] PROGRESS NOTE NAME: TEMI GARCÍA UNIT #: [id number] ROOM: [facility] [place][note 2] DOCTOR: SEBASTIEN MCNEILL BIRTHDATE: [birth year] RECOMMENDATIONS: 1. I think he will benefit from a blood transfusion, at his size and age and significant drop in hemoglobin over the past month, this is likely contributing to all of his symptoms. 2. Because of the recent stent, dual antiplatelet therapy will need to be continued. 3. Would continue on just lisinopril and midodrine for now. Dr. SEBASTIEN MCNEILL MD CM:PNTRANS [id number] SEBASTIEN MCNEILL 05/30/19 234 interface
--- NOTE | ~2019-05-28 | EKG ---
[place], [place] ELECTROCARDIOGRAM REPORT NAME: TEMI GARCÍA UNIT #: [id number] ROOM: 401 DOCTOR: SHELTON DRAFT REPORT BIRTHDATE: [birth year] [facility] Test Date: 2019-05-29 Test Time: 13:15:16 Pat Name: TEMI GARCÍA Department: Room: 401 1 Gender: M Pharmacy Technician Program Director: Anahi Vanegas : 1965 Requested By: MARIANELA MICHELLE Order Number: [id number] Reading MD: Neville Tsang MD Measurements Intervals [place] Rate: 67 P: -29 [place]: 153 QRS: -17 QRSD: 99 T: 82 QT: 388 QTc: 410 Interpretive Statements Sinus rhythm Abnormal R-wave progression, late transition ST elevation, consider anterior injury Compared to ECG 04/22/2019 17:15:30 ST (T wave) deviation looks similar to prior Electronically Signed On 05-29-2019 11:57:48 PDT by Neville Tsang MD CM:EKGRPT:ELECTROCARDIOGRAM REPORT [id number] MARIANELA PEOPLES DRAFT REPORT
--- NOTE | ~2019-05-28 | EKG ---
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
[~2019-05-28 18:03] MED LIST changes: +BUSPIRONE15 MG PO; +MIDODRINE HCL5 M1 PO; +PANTOPRAZOLE SO40 MG PO; +RANOLAZINE ER500 MG PO
[2019-05-28 18:04] VITALS: BP 148/81
[2019-05-28 19:32] VITALS: BP 146/79
[2019-05-28 19:36] LABS: HEMATOCRIT 26.8 % (42.0-52.0); HEMOGLOBIN 8.6 g/dl (14.0-18.0); MEAN CELL VOLUME 88.2 fl (80.0-94.0); MEAN CORPUSCULAR HGB 28.3 pg (27.0-31.0); MEAN CORPUSCULAR HGB CONC 32.1 g/dl (33.0-37.0); PLATELET COUNT AUTOMATED 231 10*3/uL (130-400); RED BLOOD COUNT 3.04 10*6/uL (4.50-5.90); RED CELL DISTRI WIDTH 14.3 % (0-14.5); WHITE BLOOD COUNT 9.4 10*3/uL (4.8-10.8)
[2019-05-28 19:51] LABS: ALKALINE PHOSPHATASE 40 U/L (45-117); BUN 20 mg/dl (7-24); CHLORIDE 98 mmol/L (98-107); CREATININE 1.44 mg/dL (0.70-1.30); LIPASE 208 U/L (73-393); POTASSIUM 3.9 mmol/L (3.5-5.1); SGOT/AST 6 IU/L (3-35); SGPT/ALT 17 U/L (12-78); SODIUM 132 mmol/L (136-145); TROPONIN I 0.028 ng/ml (<0.045)
[2019-05-28 19:57] LABS: BASOPHILS 1 % (0-1); PLATELET SUFFICIENCY NORMAL (NORMAL); TOTAL CELLS COUNTED 100 #CELLS
[2019-05-28 21:40] VITALS: BP 163/90
[2019-05-28 22:04] VITALS: BP 158/71
[2019-05-28 22:20] VITALS: BP 155/67
--- NOTE | 2019-05-28 22:20 | NUR ---
A 54, admitted to , under the services of BREANNA Grande DO with a diagnosis of SYNCOPAL EPISODE,CHEST PAIN. Chief complaint is SYNCOPE. Patient arrived via stretcher from ER. Monitor applied. Initial assessment completed. Vital signs taken and recorded. BREANNA GRANDE DO notified of admission to the unit. Orders received. See assessment for past medical history, medications and allergies. Patient and/or family oriented to unit. [facility] visitation policy reviewed. Clothing/patient valuable form completed. DEBBIE HURD
[2019-05-28] MEDS ORDERED: ZESTRIL,PRINIVIL5 MG PO (22:31)
[2019-05-28] MEDS ORDERED: COZAAR100 MG PO (22:33)
[2019-05-28] MEDS ORDERED: HYDROCHLOROTHIA25 M1 PO (22:33)
--- NOTE | 2019-05-28 23:30 | NUR ---
DR MICHELLE CALLED AND MADE AWARE THAT HOME MEDICATIONS ARE UP TO DATE.
--- NOTE | 2019-05-28 23:39 | NUR ---
PATIENT REQUESTING PAIN MEDICATION FOR HEADACHE RATED 7/10 ON 0/10 SCALE. NORCO ADMINISTERED PRESCRIBED. WILL MONITOR FOR EFFECTIVENESS.
[2019-05-29] VITALS: BP 155/67
--- NOTE | 2019-05-29 00:39 | NUR ---
PATIENT RESTING WITH EYES CLOSED AT THIS TIME. BED ALARM ON. CALL LIGHT WITHIN REACH. WILL MONITOR.
[2019-05-29 02:15] LABS: BASO % 0.1 % (0.0-1.0); EOS % 0.2 % (1.0-4.0); HEMOGLOBIN 8.3 g/dl (14.0-18.0); LYMPH # 0.5 10*3/uL (1.3-4.4); LYMPH % 5.3 % (27.0-41.0); MEAN CELL VOLUME 87.8 fl (80.0-94.0); MEAN CORPUSCULAR HGB CONC 31.9 g/dl (33.0-37.0); MEAN PLATELET VOLUME 8.5 fl (9.6-12.3); MONO # 0.4 10*3/uL (0.1-1.0); MONO % 4.2 % (3.0-9.0); NEUT # 8.7 10*3/uL (2.3-7.9); NEUT % 89.3 % (47.0-73.0); PLATELET COUNT AUTOMATED 219 10*3/uL (130-400); RED BLOOD COUNT 2.96 10*6/uL (4.50-5.90); RED CELL DISTRI WIDTH 14.1 % (0-14.5); WHITE BLOOD COUNT 9.7 10*3/uL (4.8-10.8)
--- NOTE | 2019-05-29 02:30 | NUR ---
PATIENT REQUESTING MEDICATION FOR UPSET STOMACH. ZOFRAN ADMINISTERED PRESCRIBED. WILL MONITOR FOR EFFECTIVENESS.
[2019-05-29 02:34] LABS: ALKALINE PHOSPHATASE 41 U/L (45-117); BUN 19 mg/dl (7-24); CHLORIDE 100 mmol/L (98-107); CHOLESTEROL 154 mg/dL (<200); CREATININE 1.22 mg/dL (0.70-1.30); HDL CHOLESTEROL 92 mg/dl (40-60); LDL CHOLESTEROL 54 mg/dL (9-159); PHOSPHOROUS 4.2 mg/dL (2.5-4.9); POTASSIUM 4.1 mmol/L (3.5-5.1); SGOT/AST 10 IU/L (3-35); SGPT/ALT 19 U/L (12-78); SODIUM 134 mmol/L (136-145); TOTAL PROTEIN 6.1 gm/dL (6.4-8.2); TRIGLYCERIDES 41 mg/dl (<150); VLDL CHOLESTEROL 8 mg/dL (6-40)
--- NOTE | 2019-05-29 03:30 | NUR ---
PATIENT RESTING WITH EYES CLOSED AT THIS TIME.RESPIRATIONS EASY AND UNLABORED ON ROOM AIR. CALL LIGHT WITHIN REACH. WILL MONITOR.
--- NOTE | 2019-05-29 06:22 | NUR ---
TEMI GARCÍA [id number] Please refer to the physician's history and physical for past medical history, comorbid conditions, and allergies. Diagnosis: SYNCOPAL EPISODES,CHEST PAIN Robinson Score: 13,MODERATE RISK WOUND DESCRIPTIONS: Patient has several intact scabbed areas noted to right upper arm, left upper arm, right lower quadrant, right umbicial region, left umbilical region, left lower quadrant, right lower leg and right lateral archuleta no drainage noted. No redness surrounding areas at time of assessment. Multiple scar tissue noted over entire body. Patient stated not really itchy at time of assessment it comes and goes. Surface the patient is resting on: Isoflex SKIN PREVENTION RECOMMENDATION: 1. Pressure redistribution support surface as appropriate 2. Elevate heels 3. Remove boots/TEDS every shift and reapply 4. Head of bed 30 degrees as tolerated 5. Assess nutrition and hydration 6. Manage moisture 7. Avoid the use of containment devices while in bed 8. Use absorptive products on surfaces limit layers of linens on bed 9. Turn and reposition every 1-2 hours in bed and every 1 hour in chair as tolerated 10. Weight shifts every 15 minutes while up in chair 11. Offloading with pillows or device to keep heels elevated off bed 12. Monitor skin at least every shift 13. Inspect under medical devices twice a day WOUND TREATMENT RECOMMENDATIONS: Cleanse all scabbed areas with soap and water and apply aquaphor ointment BID.
--- NOTE | 2019-05-29 06:42 | NUR ---
NEW CONSULT CALLED TO [facility] CARDIOLOGY ANSWERING SERVICE.
[2019-05-29 08:00] VITALS: BP 158/72
--- NOTE | 2019-05-29 08:21 | NUR ---
Nursing screen received and chart review completed. Patient admitted with syncope, chest pain. At this time no OT is indicated, however if patient should have a decline in ADLS, functional mobility then refer to OT. Thank you. Rita Erickson OTR/Emely
--- NOTE | 2019-05-29 08:41 | NUR ---
PT REQUESTED AND WAS MEDICATED WITH NORCO FOR C/O HEADACHE. RESP EASY AND NONLABORED ON RA. IVF INFUSING PER ORDERS. CALL LIGHT IN REACH. WILL MONITOR
--- NOTE | 2019-05-29 09:00 | NUR ---
Senior Technical Recruiter in to talk to patient. Patient states lives at home with alone. There are few steps in the home. Physician: forrest olivas Pharmacy: [facility] Home health services: none Patient's level of ADLs: MINIMAL ASSIST Patient has working utilities: all working DME: crutches Follow-up physician's appointment after d/c: will be made by hospitalist nurse director upon discharge Does patient want to access PORTAL?: no Discharge plan discussed with patient, he states he lives at home alone, he uses crutches for ambulation, patient states he will return home when able and denies any home needs. AYAN ROSS
--- NOTE | 2019-05-29 09:45 | NUR ---
PT STATES NORCO IS SLIGHTLY EFFECTIVE AT THIS TIME. WILL MONITOR
--- NOTE | 2019-05-29 10:14 | NUR ---
Pia BHAT notified of wound care recommendations
--- NOTE | 2019-05-29 10:15 | NUR ---
Dr. Boyd notified of wound care recommendations.
--- NOTE | 2019-05-29 11:54 | NUR ---
PT REQUESTED AND WAS MEDICATED WITH ULTRAM FOR C/O HEADACHE/ANKLE PAIN AND VISTRIL FOR C/O ANXIETY. CALL LIGHT IN REACH. WILL MONITOR
[2019-05-29 12:00] VITALS: BP 147/63
--- NOTE | 2019-05-29 12:54 | NUR ---
PT SLEEPING UPON ENTERING ROOM HE HEARD THIS NURSE AND REQUESTED NORCO FOR C/O HEADACHE. MEDICATED PER REQUEST. CALL LIGHT IN REACH. WILL MONITOR
[2019-05-29 16:00] VITALS: BP 153/82
--- NOTE | 2019-05-29 16:12 | NUR ---
PHYSICAL THERAPY Nursing screen recevived and chart reviewed. Please order PT evaluation if decline in functional mobility presents. Thank you Macey Valencia, SPT Isha Ramos,PT,DPT
[2019-05-29 20:00] VITALS: BP 123/50; BP 135/76; BP 148/64; BP 150/86
[2019-05-30] VITALS (10 sets, daily range): BP systolic 140–167; BP diastolic 53–94
--- NOTE | 2019-05-30 02:28 | NUR ---
PATIENT REQUESTING PAIN MEDICATION FOR HEADACHE AND GENERALIZED PAIN RATED 7/10 ON 0/10 SCALE. MORPHINE ADMINISTERED PRESCRIBED. WILL MONITOR FOR EFFECTIVENESS.
--- NOTE | 2019-05-30 03:28 | NUR ---
PATIENT RESTING WITH EYES CLOSED AT THIS TIME. CALL LIGHT WITHIN REACH. WILL MONITOR.
--- NOTE | 2019-05-30 05:35 | NUR ---
Recommend follow up for wound care in outpatient setting patient refused at this time.
[2019-05-30 06:19] LABS: BASO % 0.2 % (0.0-1.0); EOS # 0.1 10*3/uL (0.0-0.4); EOS % 1.5 % (1.0-4.0); HEMOGLOBIN 7.9 g/dl (14.0-18.0); LYMPH # 1.3 10*3/uL (1.3-4.4); LYMPH % 14.7 % (27.0-41.0); MEAN CELL VOLUME 88.3 fl (80.0-94.0); MEAN CORPUSCULAR HGB 27.9 pg (27.0-31.0); MEAN CORPUSCULAR HGB CONC 31.6 g/dl (33.0-37.0); MONO # 0.6 10*3/uL (0.1-1.0); MONO % 6.4 % (3.0-9.0); NEUT # 6.6 10*3/uL (2.3-7.9); NEUT % 76.4 % (47.0-73.0); PLATELET COUNT AUTOMATED 245 10*3/uL (130-400); RED BLOOD COUNT 2.83 10*6/uL (4.50-5.90); RED CELL DISTRI WIDTH 14.4 % (0-14.5); WHITE BLOOD COUNT 8.7 10*3/uL (4.8-10.8)
[2019-05-30 06:51] LABS: CHLORIDE 105 mmol/L (98-107); POTASSIUM 3.8 mmol/L (3.5-5.1); SODIUM 138 mmol/L (136-145)
[2019-05-30 06:55] LABS: BUN 12 mg/dl (7-24); CREATININE 1.05 mg/dL (0.70-1.30)
--- NOTE | 2019-05-30 08:30 | NUR ---
NOTIFIED DR. GONZALES IN PERSON FOR POSITIVE ORTHOSTATICS. PATIENT DIZZY WHILE SITTING AND STANDING.
--- NOTE | 2019-05-30 09:00 | NUR ---
case management visits with patient, he will be returning home when medically stable and denies any home needs
--- NOTE | 2019-05-30 09:30 | NUR ---
NOTIFIED DR. SZYMANSKI OF CONSULT. VITALS, LABS, AND TEST RESULTS REVIEWED. ORDERS RECEIVED. NPO FOR EGD TODAY, HOLD BLOOD THINNERS FOR TODAY.
--- NOTE | 2019-05-30 10:14 | NUR ---
NOTIFIED CARDIOLOGY OF POSITIVE ORTHOS WITH BLOOD PRESSURE OF 151/73. CLARIFIED MIDODRINE AND LISINOPRIL. ORDER GIVEN TO HOLD MIDODRINE THIS TIME AND THAT THE ROTARY PUMP OPERATOR RECOMMENDS A BLOOD TRANSFUSION.
--- NOTE | 2019-05-30 10:29 | NUR ---
Dr. Boyd notified of wound care recommendations.
--- NOTE | 2019-05-30 10:45 | NUR ---
UPDATED DR. GONZALES OF TALKING TO CARDIOLOGY AND THEIR RECOMMENDDATIONS OF TRANSFUSING BLOOD. ALSO NOTIFIED DR. GONZALES THAT DR. SZYMANSKI WILL BE DOING AND EGD TODAY.
--- NOTE | 2019-05-30 13:47 | NUR ---
PATIENT MEDICATED WITH PRN MORPHINE PER ORDER FOR 8/10 PAIN IN HIS HEAD. PATIENT STATED THE EARLY ONE TIME MEDICATION WAS NOT EFFECTIVE. WILL MONITOR.
--- NOTE | 2019-05-30 14:20 | NUR ---
PATIENT STATED PRN MORPHINE WAS EFFECTIVE.
--- NOTE | 2019-05-30 16:35 | NUR ---
PATIENT DRY HEAVING. GIVEN PRN ZOFRAN. WILL MONITOR FOR EFFECTIVENESS.
--- NOTE | 2019-05-30 22:00 | NUR ---
PATIENT REQUESTED AND WAS MEDICATED WITH NORCO PER PRN ORDER FOR C/O HEADACHE. RATED PAIN A 7/10 WITH 10 BEING THE WORST. SEE EMAR. REINFORCED USE OF CALL LIGHT
[2019-05-31] VITALS: BP 137/57
--- NOTE | 2019-05-31 01:05 | NUR ---
PATIENT STATED MEDICATION GIVEN EARLIER WAS NOT EFFECTIVE FOR HEADACHE. PATIENT REQUESTED AND WAS MEDICATED WITH MORPHINE FOR C/O HEADACHE. SEE EMAR. REINFORCED USE OF CALL LIGHT
--- NOTE | 2019-05-31 04:54 | NUR ---
PATIENT RESTING QUIETLY. NO FURTHER C/O VOICED.
[2019-05-31 06:46] LABS: BASO % 0.5 % (0.0-1.0); EOS # 0.2 10*3/uL (0.0-0.4); EOS % 2.5 % (1.0-4.0); HEMATOCRIT 28.9 % (42.0-52.0); LYMPH # 1.1 10*3/uL (1.3-4.4); LYMPH % 16.8 % (27.0-41.0); MEAN CELL VOLUME 90.3 fl (80.0-94.0); MEAN CORPUSCULAR HGB 28.1 pg (27.0-31.0); MEAN CORPUSCULAR HGB CONC 31.1 g/dl (33.0-37.0); MEAN PLATELET VOLUME 8.8 fl (9.6-12.3); MONO # 0.6 10*3/uL (0.1-1.0); MONO % 8.9 % (3.0-9.0); NEUT # 4.6 10*3/uL (2.3-7.9); NEUT % 70.7 % (47.0-73.0); PLATELET COUNT AUTOMATED 217 10*3/uL (130-400); RED CELL DISTRI WIDTH 14.5 % (0-14.5); WHITE BLOOD COUNT 6.5 10*3/uL (4.8-10.8)
[2019-05-31 08:00] VITALS: BP 162/72
--- NOTE | 2019-05-31 09:00 | NUR ---
case management visits with patient, he states he will be returning home when able and denies any home needs
--- NOTE | 2019-05-31 09:00 | NUR ---
PT MEDICATED WITH MORPHINE AT HIS REQUEST FOR C/O HEADACHE THAT HE HAS HAD FOR 3 MONTHS. STATES IT IS THE ONLY THING THAT WORKS FOR HIM.
--- NOTE | 2019-05-31 11:30 | NUR ---
PT AMBULATED TO THE BATHROOM AND STATED HE BECAME DIZZY. PT LYING IN BED SHAKING HIS EXTREMITIES STATING THE HE IS DIZZY AND CANT BREATH. POX 97% ON ROOM AIR. TACHY AT 110. BP 150/90. STATES HE CANT TAKE HIS PO MEDS BECAUSE HE FEELS LIKE HIS HIS THROAT IS CLOSING. PER NURSING ASSESSMENT PT SEEMS TO BE HAVING A ANXIETY ATTACK. DR GONZALES NOTIFIED AND UP TO SEE PT. SEEMED TO BE PT WAS HOLDING HIS BREATH ON PURPOSE AT THIS TIME AND THEN PT SLUMPED HIS HEAD OVER LIKE HE WAS UNRESPONSIVE. I STATED TO PT THAT HIS HEART RATE WAS NOW PERFECT AT 80'S ADN POX 98% ON ROOM AIR. PT THEN OPENED EYES TO ANSWER ME. DR GONZALES ORDERED ATIVAN 1MG IV AND BENADRYL 25MG IV TO BE GIVEN AND THOSE WERE GIVEN. PT NOW BREATHING EASY RESTING IN BED.
[2019-05-31 12:00] VITALS: BP 146/60
--- NOTE | 2019-05-31 12:20 | NUR ---
PT RESTING IN BED. NO ACUTE DISTRESS NOTED. VSS. NSR 80'S ON ELECTRICAL PLUMBING SUPERVISOR.
--- NOTE | 2019-05-31 15:30 | NUR ---
ASSUMED CARE FOR THIS PT AT THIS TIME. PT AWAKE IN BED LISTENING TO MUSIC. CALL LIGHT IN REACH.
[2019-05-31 16:00] VITALS: BP 134/58
--- NOTE | 2019-05-31 16:40 | NUR ---
PT MEDICATED W/MS IVP FOR C/O H/A 02/26 AND VISTARIL FOR C/O ANXIETY. WILL MONITOR FOR EFFECTIVENESS.
--- NOTE | 2019-05-31 16:46 | NUR ---
DR. GONZALES NOTIFIED OF DR. MCNEILL'S NOTE RECOMMENDING TRANSFUSING ANOTHER UNIT OF BLOOD TODAY WITH HGB OF [address] GONZALES STATES THAT THEY ARE GOING TO CHECK H&H IN THE MORNING AND IF IT'S LOWER THAN 9 THEN TRANSFUSE. PT NOTIFIED.
[2019-05-31 20:00] VITALS: BP 157/69
--- NOTE | 2019-05-31 21:41 | NUR ---
DR. CASILLAS NOTIFIED OF PT C/O ITCHING AND REQUESTING BENADRYL. TO ORDER BENADRYL
--- NOTE | 2019-05-31 22:07 | NUR ---
PT MEDICATED W/MORPHINE IVP FOR C/O WHOLE HEAD H/A 03/28.
--- NOTE | 2019-05-31 22:12 | NUR ---
PT MEDICATED W/RESTORIL TO HELP PROMOTE SLEEP.
[2019-06-01] VITALS: BP 125/65
[2019-06-01 06:46] LABS: BASO % 0.5 % (0.0-1.0); EOS # 0.1 10*3/uL (0.0-0.4); HEMATOCRIT 29.3 % (42.0-52.0); HEMOGLOBIN 9.4 g/dl (14.0-18.0); LYMPH # 1.2 10*3/uL (1.3-4.4); LYMPH % 17.5 % (27.0-41.0); MEAN CELL VOLUME 88.8 fl (80.0-94.0); MEAN CORPUSCULAR HGB 28.5 pg (27.0-31.0); MEAN CORPUSCULAR HGB CONC 32.1 g/dl (33.0-37.0); MEAN PLATELET VOLUME 9.2 fl (9.6-12.3); MONO # 0.6 10*3/uL (0.1-1.0); MONO % 9.5 % (3.0-9.0); NEUT # 4.6 10*3/uL (2.3-7.9); NEUT % 69.9 % (47.0-73.0); PLATELET COUNT AUTOMATED 262 10*3/uL (130-400); RED CELL DISTRI WIDTH 14.6 % (0-14.5); WHITE BLOOD COUNT 6.6 10*3/uL (4.8-10.8)
[2019-06-01 07:10] LABS: ALBUMIN 2.8 gm/dl (3.1-4.5); ALKALINE PHOSPHATASE 37 U/L (45-117); BUN 10 mg/dl (7-24); CHLORIDE 105 mmol/L (98-107); CREATININE 1.11 mg/dL (0.70-1.30); POTASSIUM 3.7 mmol/L (3.5-5.1); SGOT/AST 10 IU/L (3-35); SGPT/ALT 13 U/L (12-78); SODIUM 139 mmol/L (136-145)
--- NOTE | 2019-06-01 09:00 | NUR ---
case management visits with patient, he will be returning home when medically stable, patient denies any home needs
--- NOTE | 2019-06-01 09:00 | NUR ---
PATIENT RECEIVED MORPHINE FOR PAIN RATED 7/10 FOR HEADACHE. AND ALSO RECEIVED VISTARIL FOR ITCHING.
--- NOTE | 2019-06-01 11:36 | NUR ---
PRN MEDICATIONS EFFECTIVE.
[2019-06-01 12:00] VITALS: BP 155/62
[2019-06-01 16:00] VITALS: BP 153/65
--- NOTE | 2019-06-01 16:30 | NUR ---
PATIENT RECEIVED ONE TIME ATIVAN PRIOR TO CT SCAN FOR CLAUSTROPHOBIA.
--- NOTE | 2019-06-01 19:30 | NUR ---
24 HOUR CHART CHECK COMPLETE.
[2019-06-01 20:00] VITALS: BP 146/73
--- NOTE | 2019-06-01 21:20 | NUR ---
PRN MORPHINE AND RESTORIL ADMINISTERED PRESCRIBED FOR PT C/O 6/10 PAIN RELATED TO A H/A AND TROUBLE SLEEPING. WILL CONTINUE TO MONITOR AND REASSESS. CALL LIGHT IN REACH.
--- NOTE | 2019-06-01 23:35 | NUR ---
Patient sustained a fall on 06/01/19, at 2335. The fall was reported by the patient. The patient sustained no obvious injury. Details: PT STATES HE WAS ON HIS WAY BACK FROM THE BATHROOM WHEN HE "WASN'T SURE IF HE HAD BLACKED OUT OR WHAT HAPPENED" AND HIS "KNEES BUCKLED" WHICH CAUSED HIM TO FALL FACE FORWARD ONTO THE GROUND. PT C/O BILAT KNEE PAIN. Patient was assisted to BED. Intervention included: CT of head, xray of bilateral knees, re-oriented to environment, & bed alarm applied. Medications were reviewed. Fall signage initiated per policy. Notification of fall included: Nursing Paralegal Supervisor & Physician. Fall risk level was reassessed per policy with review of contributory medications and environmental factors. See intervention.
[2019-06-02] VITALS: BP 122/67
[2019-06-02 09:00] VITALS: BP 118/58
--- NOTE | 2019-06-02 11:11 | NUR ---
PT ORTHO'S LAYING 131/62 HR 86, SITTING 99/61 HR 102. PT STATES HE FEELS DIZZY. PT STATES HE IS UNABLE TO STAND HE FEELS TO DIZZY. HR 120. DR MORROW CALLED AND NOTIFIED.
[2019-06-02 12:00] VITALS: BP 125/66
[2019-06-02 12:39] LABS: BASO # 0.1 10*3/uL (0.0-0.1); BASO % 0.6 % (0.0-1.0); EOS # 0.2 10*3/uL (0.0-0.4); EOS % 2.4 % (1.0-4.0); HEMATOCRIT 32.5 % (42.0-52.0); HEMOGLOBIN 10.3 g/dl (14.0-18.0); LYMPH # 1.1 10*3/uL (1.3-4.4); LYMPH % 12.7 % (27.0-41.0); MEAN CELL VOLUME 89.3 fl (80.0-94.0); MEAN CORPUSCULAR HGB 28.3 pg (27.0-31.0); MEAN CORPUSCULAR HGB CONC 31.7 g/dl (33.0-37.0); MEAN PLATELET VOLUME 9.3 fl (9.6-12.3); MONO # 0.8 10*3/uL (0.1-1.0); MONO % 9.4 % (3.0-9.0); NEUT # 6.3 10*3/uL (2.3-7.9); NEUT % 74.3 % (47.0-73.0); PLATELET COUNT AUTOMATED 240 10*3/uL (130-400); RED BLOOD COUNT 3.64 10*6/uL (4.50-5.90); RED CELL DISTRI WIDTH 14.4 % (0-14.5); WHITE BLOOD COUNT 8.5 10*3/uL (4.8-10.8)
[2019-06-02 12:52] LABS: BUN 7 mg/dl (7-24); CHLORIDE 103 mmol/L (98-107); CREATININE 1.23 mg/dL (0.70-1.30); POTASSIUM 4.1 mmol/L (3.5-5.1); SODIUM 135 mmol/L (136-145)
[2019-06-02 16:00] VITALS: BP 131/61
[2019-06-02 20:00] VITALS: BP 160/61; BP 184/72
--- NOTE | 2019-06-02 21:30 | NUR ---
PRN MORPHINE ADMINISTERED PRESCRIBED FOR PT C/O HEADACHE RATED A 6/10 ON THE PAIN SCALE. PT C/O CHILLS WELL. TEMPERATURE AT THIS TIME IS 98.9. WILL CONTINUE TO MONITOR.
[2019-06-03] VITALS: BP 175/66
--- NOTE | 2019-06-03 01:25 | NUR ---
SPOKE WITH DR. VANESSA REGARDING PT BP READING OF 182/92. TO TAKEN FOR 10 MG HYDRALAZINE IV NOW.
--- NOTE | 2019-06-03 02:20 | NUR ---
PT C/O SHORTNESS OF BREATH, CHEST TIGHTNESS, AND THE FEELING IF HIS "HEART IS BEATING OUT OF HIS CHEST". HR 130'S AT THIS TIME, PULSE OX 96%, BP 142/69. DR. VANESSA NOTIFIED. ORDER FOR STAT EKG AND TROPONIN TAKEN.
[2019-06-03 02:52] LABS: BASO % 0.3 % (0.0-1.0); EOS # 0.2 10*3/uL (0.0-0.4); EOS % 2.4 % (1.0-4.0); HEMATOCRIT 31.7 % (42.0-52.0); HEMOGLOBIN 10.2 g/dl (14.0-18.0); LYMPH # 0.6 10*3/uL (1.3-4.4); LYMPH % 6.5 % (27.0-41.0); MEAN CELL VOLUME 86.6 fl (80.0-94.0); MEAN CORPUSCULAR HGB 27.9 pg (27.0-31.0); MEAN CORPUSCULAR HGB CONC 32.2 g/dl (33.0-37.0); MEAN PLATELET VOLUME 8.8 fl (9.6-12.3); MONO # 0.7 10*3/uL (0.1-1.0); MONO % 7.7 % (3.0-9.0); NEUT # 7.6 10*3/uL (2.3-7.9); NEUT % 82.7 % (47.0-73.0); PLATELET COUNT AUTOMATED 246 10*3/uL (130-400); RED BLOOD COUNT 3.66 10*6/uL (4.50-5.90); RED CELL DISTRI WIDTH 14.4 % (0-14.5); WHITE BLOOD COUNT 9.2 10*3/uL (4.8-10.8)
--- NOTE | 2019-06-03 03:00 | NUR ---
PT PLACED ON 2L NC FOR COMFORT.
[2019-06-03 03:07] LABS: BUN 9 mg/dl (7-24); CHLORIDE 103 mmol/L (98-107); CREATININE 1.25 mg/dL (0.70-1.30); POTASSIUM 3.9 mmol/L (3.5-5.1); SODIUM 134 mmol/L (136-145)
--- NOTE | 2019-06-03 03:19 | NUR ---
DR VANESSA NOTIFED OF TROPONIN RESULT. STATES TO "KEEP AN EYE" ON THE PT FOR NOW. NO NEW ORDERS TAKEN. T: 99.4, P: 115, R: 20, BP: 136/66, PO 95%.WILL CONTINUE TO MONITOR.
--- NOTE | 2019-06-03 03:49 | NUR ---
PT RESTING AT THIS TIME. WILL CONTINUE TO MONITOR.
[2019-06-03 04:00] VITALS: BP 136/66
--- NOTE | 2019-06-03 06:30 | NUR ---
PT LOOKS RELAXED IN BED. RESPIRATIONS EASY AND NONLABORED. STATES HE FEELS "A LITTLE BETTER".
[2019-06-03 08:00] VITALS: BP 124/62
--- NOTE | 2019-06-03 09:38 | NUR ---
ORTHO'S THIS AM. LAYING 124/62 HR 100. SITTING 148/82 HR 118. PT STATES HE FEELS DIZZY AND HIS HEAD IS POUNDING LIKE A "DRUM". PT STATES HE IS UNABLE TO STAND. DR MORROW NOTIFIED.
[2019-06-03 12:00] VITALS: BP 104/52
[2019-06-03 16:00] VITALS: BP 131/58
[2019-06-03 20:00] VITALS: BP 135/53
--- NOTE | 2019-06-03 21:56 | NUR ---
PRN MORPHINE GIVEN FOR PT COMPLAINTS OF 9/10 HEADACHE. CALL LIGHT WITHIN REACH, WILL MONITOR
--- NOTE | 2019-06-03 22:30 | NUR ---
PRN MEDICATION SOMEWHAT EFFECTIVE PER PT HEADACHE NOW 01/26
--- NOTE | 2019-06-03 23:05 | NUR ---
PT MEDICATED W/ZOFRAN FOR C/O NAUSEA. IVF COMPLETE AT THIS TIME. PT SKIN FEELS WARM TO TOUCH. WILL ASSESS VS. CALL LIGHT IN REACH.
--- NOTE | 2019-06-03 23:13 | NUR ---
PT MEDICATED W/TYLENOL FOR TEMP OF 101.8. WILL MONITOR.
--- NOTE | 2019-06-03 23:16 | NUR ---
NOTIFIED DR. VANESSA OF PATIENTS RIGHT HAND. PATIENT STATED THAT IT WAS AN IV THAT WENT BAD. BUT HAND IS RED AND SWOLLEN. PATIENT ALSO HAS A TEMP OF 101.8. DR. VANESSA STATED HE WILL START HIM ON ATB
[2019-06-04] VITALS: BP 142/71
--- NOTE | 2019-06-04 00:29 | NUR ---
PRN VISTARIL GIVEN FOR PT COMPLAINTS OF ITCHING. CALL LIGHT WITHIN REACH, WILL MONITOR
--- NOTE | 2019-06-04 00:34 | NUR ---
PATIENT DUG SCAB OPEN THAT WAS BELOW INDEX FINGER ON REDDENED HAND AFTER EXPLAINING TO HIM THAT WE WOULD BE GIVING HIM ANTIBIOTICS FOR THE HAND. DR. VANESSA NOTIFIED HIM OF WOUND CARE ORDERS NEEDED
--- NOTE | 2019-06-04 01:00 | NUR ---
PRN MEDICATION EFFECTIVE, NO C/O NAUSEA TEMP NOW 98.7
--- NOTE | 2019-06-04 02:59 | NUR ---
24 HR chart check completed.
--- NOTE | 2019-06-04 06:10 | NUR ---
PRN MORPHINE GIVEN FOR PT COMPLAINTS OF A HEADACHE RATING IT 9/10 REFUSING ALL OTHER TYPES OF PAIN MEDICATIONS. CALL LIGHT WITHIN REACH, WILL MONITOR
[2019-06-04 07:34] LABS: BASO % 0.5 % (0.0-1.0); EOS # 0.2 10*3/uL (0.0-0.4); EOS % 3.2 % (1.0-4.0); HEMATOCRIT 29.5 % (42.0-52.0); HEMOGLOBIN 9.4 g/dl (14.0-18.0); LYMPH # 0.6 10*3/uL (1.3-4.4); LYMPH % 8.9 % (27.0-41.0); MEAN CELL VOLUME 86.5 fl (80.0-94.0); MEAN CORPUSCULAR HGB 27.6 pg (27.0-31.0); MEAN CORPUSCULAR HGB CONC 31.9 g/dl (33.0-37.0); MEAN PLATELET VOLUME 9.3 fl (9.6-12.3); MONO # 0.6 10*3/uL (0.1-1.0); NEUT # 4.8 10*3/uL (2.3-7.9); NEUT % 76.8 % (47.0-73.0); PLATELET COUNT AUTOMATED 206 10*3/uL (130-400); RED BLOOD COUNT 3.41 10*6/uL (4.50-5.90); RED CELL DISTRI WIDTH 14.1 % (0-14.5); WHITE BLOOD COUNT 6.2 10*3/uL (4.8-10.8)
--- NOTE | 2019-06-04 07:38 | NUR ---
RICKYTEMI Real [id number] Please refer to the physician's history and physical for past medical history, comorbid conditions, and allergies. Diagnosis: SYNCOPAL EPISODES,CHEST PAIN Robinson Score: 17,AT RISK WOUND DESCRIPTIONS: Wound Number: 9 Location of the wound: right hand Type of wound: skin tear Thickness: Full Size: 0.3cm x 0.3cm x0.1cm Tunneling: none Undermining: none Sinus Tract: none Presence of Exudate: Purulent Amount: Light Color: Red Odor: None Periwound Skin Appearance: Edema Wound edges: approximated Pain (associated with wound): denied at time of assessment How does patient state this happened? patient states that this area was there when IV was removed. Nurse caring for patient states that patient has been picking at the area. If wound is on legs/feet or hands, capillary refill time, pulses, color temp, sensation: Cap refill < 3 seconds. Patient has several intact scabbed areas noted to right upper arm, left upper arm, right lower quadrant, right umbicial region, left umbilical region, left lower quadrant, right lower leg and right lateral archuleta no drainage noted. No redness surrounding areas at time of assessment. Multiple scar tissue noted over entire body. Patient stated not really itchy at time of assessment it comes and goes. Surface the patient is resting on: Isoflex SKIN PREVENTION RECOMMENDATION: 1. Pressure redistribution support surface as appropriate 2. Elevate heels 3. Remove boots/TEDS every shift and reapply 4. Head of bed 30 degrees as tolerated 5. Assess nutrition and hydration 6. Manage moisture 7. Avoid the use of containment devices while in bed 8. Use absorptive products on surfaces limit layers of linens on bed 9. Turn and reposition every 1-2 hours in bed and every 1 hour in chair as tolerated 10. Weight shifts every 15 minutes while up in chair 11. Offloading with pillows or device to keep heels elevated off bed 12. Monitor skin at least every shift 13. Inspect under medical devices twice a day WOUND TREATMENT RECOMMENDATIONS: Clarify skin tear guidelines right hand: Cleanse with nss apply sureprep around the wound allow to dry apply therahoney and cover with rolled gauze. Continue current orders to scabbed areas.
[2019-06-04 08:18] LABS: BUN 10 mg/dl (7-24); CHLORIDE 105 mmol/L (98-107); CREATININE 1.28 mg/dL (0.70-1.30); POTASSIUM 4.1 mmol/L (3.5-5.1); SODIUM 135 mmol/L (136-145)
--- NOTE | 2019-06-04 08:34 | NUR ---
PT REFUSED TO STAND FOR ORTHOSTATIC BLOOD PRESSURE CHECKS. PT STATES THAT HE IS UNABLE TO AT THIS TIME. ALL OTHER BLOOD PRESSURE AND PULSE CHECKS COMPLETED. TYLENOL GIVEN FOR A FEVER. WILL MONITOR FOR EFFECTIVENESS. PT LYING IN BED, ALL SAFETY MEASURES IN PLACE. CALL LIGHT IN REACH.
--- NOTE | 2019-06-04 09:00 | NUR ---
case management visits with patient patient states he will return home when medically stable but is unsure at this time if he is going to be transferred to another facility, case management will follow
--- NOTE | 2019-06-04 09:37 | NUR ---
Spoke with Dr. Munguia she stated to give them (Wound care recommendations) to the resident.
--- NOTE | 2019-06-04 10:11 | NUR ---
PT GIVEN MORPHINE 2 MG AT THIS TIME FOR C/O GENERALIZED PAIN AND HEADACHE. PT ALSO GIVEN ZOFRAN FOR C/O NAUSEA. WILL MONITOR FOR EFFECTIVENESS. CALL LIGHT IN REACH.
--- NOTE | 2019-06-04 11:06 | NUR ---
MORPHINE EFFECTIVE PER PT. PT STATES THAT ZOFRAN IS SOMEWHAT EFFECTIVE.
[2019-06-04 11:46] VITALS: BP 126/91
--- NOTE | 2019-06-04 12:07 | NUR ---
DRESSING CHANGE TO RIGHT HAND DONE AT THIS TIME. PT REFUSING AQUAPHOR TO SCABBED AREAS.
--- NOTE | 2019-06-04 14:48 | NUR ---
PT GIVEN 2 MG MORPHINE AT THIS TIME FOR HEADACHE AND GENERALIZED PAIN. WILL MONITOR FOR EFFECTIVENESS. PT LYING IN BED.ALL SAFETY MEASURES IN PLACE. CALL LIGHT IN REACH.
--- NOTE | 2019-06-04 15:48 | NUR ---
MORPHINE EFFECTIVE PER PT.
--- NOTE | 2019-06-04 15:57 | NUR ---
REPORT CALLED TO NURSE PINTO AT [facility].
[2019-06-04 16:00] VITALS: BP 156/90
--- NOTE | 2019-06-04 17:07 | NUR ---
PT GIVEN TYLENOL FOR A TEMPERATURE OF 99.0, WILL MONITOR FOR EFFECTIVENESS. CALL LIGHT IN REACH.
[2019-06-04 20:00] VITALS: BP 125/64
--- NOTE | 2019-06-04 20:11 | NUR ---
24 HR chart check completed.
--- NOTE | 2019-06-04 20:50 | NUR ---
LAYING IN BED. NO ACUTE DISTRESS NOTED. RESPIRATIONS EASY. LUNGS DIMINISHED, CLEAR. ROOM AIR. DRESSING DRY AND INTACT TO RIGHT HAND. REQUESTED AND RECEIVED MORPHINE IV PER PRN ORDER FOR COMPLAINTS OF HEADACHE RATING A 10. ALSO MEDICATED WITH VISTARIL TO ASSIST WITH ANXIETY REGARDING TRANSFER. CALL LIGHT WITHIN REACH. WILL MONITOR FOR EFFECTIVENESS.
--- NOTE | 2019-06-04 21:30 | NUR ---
[facility] STILL HAS YET TO ARRIVE. CONTACTED. TO BE HERE IN 20 MINS
--- NOTE | 2019-06-04 22:00 | NUR ---
STATES RELIEF FROM EARLIER MEDS
--- NOTE | 2019-06-04 22:30 | NUR ---
[facility] HERE TO TRANSPORT PATIENT. PATIENT AND BELONGINGS LOADED ONTO GURNEY WITHOUT INCIDENCE.
--- NOTE | 2019-06-05 09:03 | NUR ---
PHYSICAL THERAPY Nursing screen received and chart reviewed. Patient discharged 06/04/19. Thank you. Isha Ramos,PT,DPT
== END 2019-06-04 23:40 | disposition short-term general hospital (02) | DRG 205 ==
LOC: ED 18:03 → EDHOLD 19:07 → ED 19:07 → 4E 21:16 → EDHOLD 21:16 → 4E 21:53 → EDHOLD 21:53 → 4E 06-03 06:37
PROVIDERS: Family Medicine; Internal Medicine; Nurse Practitioner Family; ADMIT Internal Medicine
PROC: 30233N1 Transfusion of Nonautologous Red Blood Cells into Peripheral Vein, Percutaneous Approach (ICD-10-PCS; principal; 2019-05-30)
PROC: 0DB68ZX Excision of Stomach, Via Natural or Artificial Opening Endoscopic, Diagnostic (ICD-10-PCS; 2019-05-30)
DX: M94.0 Chondrocostal junction syndrome [Tietze] (principal); N17.0 Acute kidney failure with tubular necrosis; K25.4 Chronic or unspecified gastric ulcer with hemorrhage; K29.71 Gastritis, unspecified, with bleeding; E87.1 Hypo-osmolality and hyponatremia; E44.0 Moderate protein-calorie malnutrition; Z68.42 Body mass index [BMI] 45.0-49.9, adult; K76.0 Fatty (change of) liver, not elsewhere classified; N18.3 Chronic kidney disease, stage 3 (moderate); D50.0 Iron deficiency anemia secondary to blood loss (chronic); I25.10 Atherosclerotic heart disease of native coronary artery without angina pectoris; I71.2 Thoracic aortic aneurysm, without rupture; K44.9 Diaphragmatic hernia without obstruction or gangrene; E86.0 Dehydration; I12.9 Hypertensive chronic kidney disease with stage 1 through stage 4 chronic kidney disease, or unspecified chronic kidney disease; E83.41 Hypermagnesemia; E66.01 Morbid (severe) obesity due to excess calories; F32.9 Major depressive disorder, single episode, unspecified; F41.1 Generalized anxiety disorder; Z91.89 Other specified personal risk factors, not elsewhere classified; I25.2 Old myocardial infarction; Z95.5 Presence of coronary angioplasty implant and graft; Z79.1 Long term (current) use of non-steroidal anti-inflammatories (NSAID); Z79.82 Long term (current) use of aspirin; Z79.899 Other long term (current) drug therapy

== ENCOUNTER 2019-07-02 19:00 | Inpatient (IN) | payer OTHER ==
[~2019-07-02] VITALS: Ht 172.7 cm; Wt 139.3 kg
[~2019-07-02 19:00] MED LIST changes: +COZAAR100 MG PO; +HYDROCHLOROTHIA25 M1 PO; +ZESTRIL,PRINIVIL5 MG PO
[2019-07-02 19:05] VITALS: BP 178/100
[2019-07-02 19:30] VITALS: BP 159/88
[2019-07-02 19:48] LABS: HEMATOCRIT 30.2 % (42.0-52.0); HEMOGLOBIN 9.7 g/dl (14.0-18.0); MEAN CORPUSCULAR HGB 28.3 pg (27.0-31.0); MEAN CORPUSCULAR HGB CONC 32.1 g/dl (33.0-37.0); MEAN PLATELET VOLUME 9.4 fl (9.6-12.3); PLATELET COUNT AUTOMATED 219 10*3/uL (130-400); RED BLOOD COUNT 3.43 10*6/uL (4.50-5.90); RED CELL DISTRI WIDTH 18.2 % (0-14.5); WHITE BLOOD COUNT 7.9 10*3/uL (4.8-10.8)
[2019-07-02 19:59] LABS: LIPASE 72 U/L (73-393)
[2019-07-02 20:00] LABS: ACT PARTIAL THROMBO TIME 29.6 SECONDS (20.0-32.1)
[2019-07-02 20:05] LABS: CREATININE 1.9 mg/dL (0.70-1.30); POTASSIUM 4.1 mmol/L (3.5-5.1); TOTAL PROTEIN 6.2 gm/dL (6.4-8.2); TROPONIN I 0.031 ng/ml (<0.045)
[2019-07-02 20:10] LABS: TOTAL CELLS COUNTED 100 #CELLS
[2019-07-02 20:11] LABS: OVALOCYTES FEW; PLATELET SUFFICIENCY NORMAL (NORMAL)
[2019-07-02 20:17] VITALS: BP 149/78
--- NOTE | 2019-07-02 22:00 | NUR ---
PT TO CT. CONDITION STABLE.
--- NOTE | 2019-07-02 22:20 | NUR ---
PT RETURN FROM CT. CONDITION STABLE. NO COMPLAINTS AT THIS TIME.
--- NOTE | 2019-07-02 22:24 | NUR ---
EKG AT BEDSIDE.
--- NOTE | 2019-07-02 23:18 | NUR ---
PT HAS MULTIPLE SCABBED AREAS ON THE ABDOMEN D/T PICKING. NO TREATMENT NECESSARY. PT DECLINES PICTURES. PT REPORTS NO OTHER WOUNDS.
[2019-07-02 23:36] VITALS: BP 176/07; BP 176/97
--- NOTE | 2019-07-02 23:36 | NUR ---
A 54, admitted to , under the services of BREANNA Grande DO with a diagnosis of SYNCOPE, CHEST PAIN. Chief complaint is PASSED OUT AT FRIENDS HOUSE. Patient arrived via stretcher from ER. Monitor applied. Initial assessment completed. Vital signs taken and recorded. BREANNA GRANDE DO notified of admission to the unit. Orders received. See assessment for past medical history, medications and allergies. Patient and/or family oriented to unit. [facility] visitation policy reviewed. Clothing/patient valuable form completed. BLAIR CAVAZOS
--- NOTE | 2019-07-03 | NUR ---
PT SYMPTOMATIC WITH ORTHOSTATIC B/P. PT. BECAME SHAKEY AND DIAPHORETIC. ON ADMISSION/ANXIOUS AT TIME: SUPINE 176/97, 109 SITTING 170/106, 121 STANDING 184/116, 132
--- NOTE | 2019-07-03 00:03 | NUR ---
DR. ALICE CURRIE SERVICE NOTIFIED OF CONSULT TO BE NOTIFIED IN AM.
--- NOTE | 2019-07-03 01:12 | NUR ---
PT. HAS MULTIPLE SMALL SCABBED AND OPEN LESIONS FROM "PICKING". THE LARGEST AND GREATEST NUMBER ARE ON THE ABDOMEN. PICTURE TAKEN, ABD MEASURED ONE UNIT DUE TO MULTIPLE LESIONS IN AREA. BLAIR CAVAZOS RN
--- NOTE | 2019-07-03 01:24 | NUR ---
APPLIED TUNG HOSE TO PATIETS LEFT LEG ONLY, REFUSING TO FIRMWARE ENGINEER RIGHT ANKLE DUE TO PAIN. BILAT SCD'S PLACED ON PATIENTS LOWER LEGS. BLAIR CAVAZOS RN
[2019-07-03 04:18] LABS: BILIRUBIN NEGATIVE (NEGATIVE); BLOOD NEGATIVE (NEGATIVE); CLARITY CLEAR (CLEAR); COLOR YELLOW (YELLOW); GLUCOSE NEGATIVE (NEGATIVE); KETONE NEGATIVE (NEGATIVE); LEUKO ESTERASE NEGATIVE (NEGATIVE); NITRITE NEGATIVE (NEGATIVE); PH 6.5 (5.0-9.0); SPECIFIC GRAVITY 1.015 (1.005-1.030)
[2019-07-03 04:27] LABS: EPITHELIAL CELLS 0-5; WBC 0-2 wbc/hpf (0-5)
--- NOTE | 2019-07-03 06:13 | NUR ---
DR. SZYMANSKI NOTIFIED OF CONSULT.
[2019-07-03 06:14] LABS: ALBUMIN 2.8 gm/dl (3.1-4.5); CREATININE 1.57 mg/dL (0.70-1.30); FREE T4 0.96 ng/dl (0.76-1.46); PHOSPHOROUS 3.1 mg/dL (2.5-4.9); POTASSIUM 3.5 mmol/L (3.5-5.1); TOTAL PROTEIN 5.7 gm/dL (6.4-8.2)
[2019-07-03 06:15] LABS: BASO % 0.4 % (0.0-1.0); EOS # 0.2 10*3/uL (0.0-0.4); EOS % 2.5 % (1.0-4.0); HEMATOCRIT 27.1 % (42.0-52.0); HEMOGLOBIN 8.5 g/dl (14.0-18.0); LYMPH % 13.7 % (27.0-41.0); MEAN CELL VOLUME 88.3 fl (80.0-94.0); MEAN CORPUSCULAR HGB 27.7 pg (27.0-31.0); MEAN CORPUSCULAR HGB CONC 31.4 g/dl (33.0-37.0); MEAN PLATELET VOLUME 9.5 fl (9.6-12.3); MONO # 0.5 10*3/uL (0.1-1.0); MONO % 7.4 % (3.0-9.0); NEUT # 5.2 10*3/uL (2.3-7.9); NEUT % 75.6 % (47.0-73.0); PLATELET COUNT AUTOMATED 207 10*3/uL (130-400); RED BLOOD COUNT 3.07 10*6/uL (4.50-5.90); RED CELL DISTRI WIDTH 18.3 % (0-14.5); WHITE BLOOD COUNT 6.9 10*3/uL (4.8-10.8)
[2019-07-03 06:18] LABS: THYROID STIM HORMONE (HS) 0.873 uIU/ml (0.358-4.75)
--- NOTE | 2019-07-03 06:35 | NUR ---
Dr. Ziegler notified of wound care recommendations
--- NOTE | 2019-07-03 06:38 | NUR ---
TEMI GARCÍA [id number] Please refer to the physician's history and physical for past medical history, comorbid conditions, and allergies. Diagnosis: SYNCOPE AND COLLAPSE CHEST PAIN Robinson Score: 18,AT RISK WOUND DESCRIPTIONS: Patient has several intact scabbed areas noted to right upper arm, left upper arm, right lower quadrant, right umbicial region, left umbilical region, left lower quadrant, right lower and upper leg and left lower and upper leg no drainage noted. Areas appear in a linear fashion. No redness surrounding areas at time of assessment. Multiple scar tissue noted over entire body. Patient stated not really itchy at time of assessment it comes and goes he states this is the same ongoing thing he has all the time. Nurse caring for patient stated ER informed of possible bed bug noted in patient's room upon cleaning. Surface the patient is resting on: Position Pro SKIN PREVENTION RECOMMENDATION: 1. Pressure redistribution support surface as appropriate 2. Elevate heels 3. Remove boots/TEDS every shift and reapply 4. Head of bed 30 degrees as tolerated 5. Assess nutrition and hydration 6. Manage moisture 7. Avoid the use of containment devices while in bed 8. Use absorptive products on surfaces limit layers of linens on bed 9. Turn and reposition every 1-2 hours in bed and every 1 hour in chair as tolerated 10. Weight shifts every 15 minutes while up in chair 11. Offloading with pillows or device to keep heels elevated off bed 12. Monitor skin at least every shift 13. Inspect under medical devices twice a day WOUND TREATMENT RECOMMENDATIONS: Cleanse all scabbed areas with soap and water and apply aquaphor ointment BID. [place] as directed.
[2019-07-03 07:17] LABS: VITAMIN D, 25-HYDROXY 19.3 ng/mL (30-100)
[2019-07-03 08:00] VITALS: BP 164/72
--- NOTE | 2019-07-03 08:30 | NUR ---
PT C/O HEAD AND ABDOMINAL PAIN. PT RATES PAIN 8/10. DR. GILLIS NOTIFIED AND ORDERED ONE TIME DOSE OF NORCO. PT MEDICATED WITH IT AT THIS TIME. WILL MONITOR.
--- NOTE | 2019-07-03 09:00 | NUR ---
Voice Over Artist in to talk to patient. Patient states lives at home with alone. There are no steps in the home. Physician: forrest olivas Pharmacy: [facility] Home health services: none Patient's level of ADLs: MINIMAL ASSIST Patient has working utilities: all working DME: crutches Follow-up physician's appointment after d/c: will be made by hospitalist nurse director upon discharge Does patient want to access PORTAL?: no Discharge plan discussed with patient, he states he lives at home alone, is independen in adls and ambulation with crutches, he states he will return home when medically stable, discussed with him VNA and he declines any services at this time, case management will follow. AYAN ROSS
--- NOTE | 2019-07-03 09:52 | NUR ---
HEADACHE PAIN UNRELIEVED AND PATIENT MEDICATED WITH ONE TIME DOSE OF FIORCET AT THIS TIME. WILL MONITOR.
--- NOTE | 2019-07-03 11:02 | NUR ---
AQUAPHOR NOT APPLIED TO SCABBED AREAS BECAUSE OF ELIMITE CREAM NEEDING TO BE ON 8/14 HOURS.
[2019-07-03 12:00] VITALS: BP 180/68
[2019-07-03 16:00] VITALS: BP 164/88
--- NOTE | 2019-07-03 17:35 | NUR ---
PT C/O HEADACHE AND ABDOMINAL PAIN OF 10/10. DR SOMERS NOTIFIED AND STATES TO OFFER TYLENOL.
--- NOTE | 2019-07-03 17:40 | NUR ---
TYLENOL GIVEN FOR C/O HEADACHE AND ABDOMINAL PAIN OF 10/10. WILL CONT TO MONITOR. CALL LIGHT IN REACH.
--- NOTE | 2019-07-03 19:50 | NUR ---
DR. GUILLAUME NOTIFIED OF PATIENTS REQUEST FOR PAIN MEDICATION DUE TO ABD PAIN AND HEADACHE. NO FURTHER ORDERS RECEIVED.
[2019-07-03 20:00] VITALS: BP 152/79
[2019-07-04] VITALS: BP 171/70
[2019-07-04 06:45] LABS: BUN 11 mg/dl (7-24); CHLORIDE 109 mmol/L (98-107); POTASSIUM 3.5 mmol/L (3.5-5.1); SODIUM 140 mmol/L (136-145)
--- NOTE | 2019-07-04 07:50 | NUR ---
DR SOMERS NOTIFIED OF BP 200/102 MANUAL.
[2019-07-04 08:00] VITALS: BP 200/102
[2019-07-04 08:36] LABS: BASO % 0.4 % (0.0-1.0); EOS # 0.5 10*3/uL (0.0-0.4); EOS % 6.7 % (1.0-4.0); HEMATOCRIT 27.8 % (42.0-52.0); HEMOGLOBIN 8.5 g/dl (14.0-18.0); LYMPH # 1.3 10*3/uL (1.3-4.4); LYMPH % 18.6 % (27.0-41.0); MEAN CELL VOLUME 89.4 fl (80.0-94.0); MEAN CORPUSCULAR HGB 27.3 pg (27.0-31.0); MEAN CORPUSCULAR HGB CONC 30.6 g/dl (33.0-37.0); MEAN PLATELET VOLUME 9.2 fl (9.6-12.3); MONO # 0.5 10*3/uL (0.1-1.0); MONO % 6.7 % (3.0-9.0); NEUT # 4.5 10*3/uL (2.3-7.9); NEUT % 67.3 % (47.0-73.0); PLATELET COUNT AUTOMATED 208 10*3/uL (130-400); RED BLOOD COUNT 3.11 10*6/uL (4.50-5.90); RED CELL DISTRI WIDTH 18.7 % (0-14.5); WHITE BLOOD COUNT 6.7 10*3/uL (4.8-10.8)
--- NOTE | 2019-07-04 09:00 | NUR ---
case management visits with patient, he will return home when medically stable, patient denies any home needs at this time
[2019-07-04 10:05] VITALS: BP 170/80
--- NOTE | 2019-07-04 10:05 | NUR ---
DR SOMERS, DR GILLIS AND DR MO NOTIFIED OF BP RECHECK OF 170/80.
--- NOTE | 2019-07-04 10:56 | NUR ---
PER DR SOMERS GIVE COZAAR NOW AND THEN WAIT TO SEE WHAT RECHECK BP IS PRIOR TO GIVING PRN LOPRESSOR.
[2019-07-04 12:00] VITALS: BP 148/90
--- NOTE | 2019-07-04 12:00 | NUR ---
BP RECHECKED AND DR GILLIS UPDATED. NO NEW ORDERS.
[2019-07-04 16:00] VITALS: BP 151/75
--- NOTE | 2019-07-04 16:19 | NUR ---
C/O HEADACHE AND ABDOMINAL PAIN OF 10/10. FIORICET GIVEN AT THIS TIME. WILL CONT TO MONITOR. CALL LIGHT IN REACH.
--- NOTE | 2019-07-04 16:50 | NUR ---
PT STATES THAT WHEN HE WALKS TO THE RESTROOM HE GETS VERY DIZZY, SOB AND DIAPHORETIC. CHECKED WITH MONITOR TECHS TO SEE IF THERE WAS ANY ABNORMAL ACTIVITY T/O THE DAY AND THEY DID NOT SEE ANY. DR SOMERS NOTIFIED AND STATED TO GET ORTHOS NOW.
--- NOTE | 2019-07-04 17:14 | NUR ---
ORTHOSTATIC BP REPORTED TO DR SOMERS
--- NOTE | 2019-07-04 17:19 | NUR ---
PRN PAIN MEDS EFF. WILL CONT TO MONITOR. CALL LIGHT IN REACH.
[2019-07-04 20:00] VITALS: BP 158/88; BP 180/80
--- NOTE | 2019-07-04 22:43 | NUR ---
24 HR chart check completed.
--- NOTE | 2019-07-04 22:56 | NUR ---
PATIENT UP AMBULATING TO THE BATHROOM WITH ASSISTANCE. NO SHORTNESS OF BREATH/DIAPHORESIS NOTED.
--- NOTE | 2019-07-04 23:15 | NUR ---
SPOKE WITH REGARDING PATIENTS BP OF 168/90 AND HEART RATE OF 63. PT REQUESTING RESTORIL. DR. ALEXIS SAID TO GIVE HIM THE RESTORIL AND RECHECK BP IN A FEW INSTEAD OF GIVING THE PRN IV LOPRESSOR.
--- NOTE | 2019-07-04 23:23 | NUR ---
PATIENT COMPLAINS OF INSOMNIA. STATED HE HASNT SLEPT SINCE HE GOT HERE. MEDICATED WITH RESTORIL. WILL CONTINUE TO MONITOR FOR RELIEF. VOICES NO OTHER CONCERNS AT THIS TIME. RESTING IN BED. CALL LIGHT JEN MACARIO.
[2019-07-05] VITALS: BP 142/78
[2019-07-05 00:13] VITALS: BP 142/78
--- NOTE | 2019-07-05 00:13 | NUR ---
BP IS NOW 142/78. PATIENT RESTING IN BED. VOICES NO OTHER CONCERNS AT THIS TIME.
--- NOTE | 2019-07-05 04:14 | NUR ---
Patient sleeping. Respirations relaxed and easy. Siderails up . [place] on. CALL LIGHT WITHIN REACH HISSOM,DEE DEE
[2019-07-05 06:08] LABS: BUN 7 mg/dl (7-24); CHLORIDE 105 mmol/L (98-107); CREATININE 1.06 mg/dL (0.70-1.30); POTASSIUM 3.7 mmol/L (3.5-5.1); SODIUM 137 mmol/L (136-145)
[2019-07-05 06:35] LABS: EOS % 0.3 % (1.0-4.0); HEMATOCRIT 29.8 % (42.0-52.0); HEMOGLOBIN 9.1 g/dl (14.0-18.0); LYMPH # 0.4 10*3/uL (1.3-4.4); LYMPH % 9.2 % (27.0-41.0); MEAN CELL VOLUME 88.2 fl (80.0-94.0); MEAN CORPUSCULAR HGB 26.9 pg (27.0-31.0); MEAN CORPUSCULAR HGB CONC 30.5 g/dl (33.0-37.0); MONO # 0.1 10*3/uL (0.1-1.0); MONO % 1.3 % (3.0-9.0); NEUT # 3.5 10*3/uL (2.3-7.9); NEUT % 88.7 % (47.0-73.0); PLATELET COUNT AUTOMATED 212 10*3/uL (130-400); RED BLOOD COUNT 3.38 10*6/uL (4.50-5.90); WHITE BLOOD COUNT 3.9 10*3/uL (4.8-10.8)
[2019-07-05 08:00] VITALS: BP 158/83
--- NOTE | 2019-07-05 08:24 | NUR ---
FLAME CHANNELER left messages for [facility] and [facility] to see if there are any beds available. Patient has [facility] and will require a PRECERT. -TIANA Keen
--- NOTE | 2019-07-05 09:00 | NUR ---
case management spoke to Dr Ledesma regarding patient's discharge plan, patient told Dr Mathias he would like to go to a short term [facility] for rehab prior to returning home, social worker psychiatric will check the facilities that will take patient's insurance. case management visited with patient, discussed a short term skilled prior to returning home and patient became angry, stated that he wasn't going to a SNF, that he would just return home, attempted to calm patient and inquire why he was angry. patient stated every time he is a patient in this facility everyone tries to discharge him quickly, educated him that a discharge plan is initiated on admission to see what the patient may need when they are medically stable for discharge. also educated the patient that the doctor would not discharge him unless he felt the patient was medically stable. patient stated he would have a friend take him to another facility, educated him that this is his right, but the doctors in this facility would not discharge him to home if they didn't feel he was medically stable, patient stated he is just going home, discussed with him VNA and educated him that [facility] is in network with his insurance, patient declines any home services at this time
--- NOTE | 2019-07-05 10:00 | NUR ---
PT AWAKE. ASSESSMENT COMPLETE. ORTHOSTATIC BLOOD PRESSURES TAKEN. IMPROVED FROM YESTERDAY. PT NOT IN AGREEMENT WITH LEAVING BUT DR GILLIS EXPLAINED THAT PT IS STABLE AND CAN FOLLOW UP AN OUTPATIENT. PT VOICED UNDERSTANDING.
--- NOTE | 2019-07-05 12:00 | NUR ---
CALLED TO PTS ROOM. PT STATES "GET MY PAPERWORK READY BECAUSE I AM LEAVING!I CAN NOT BELIEVE I AM BEING DISCHARGED!" HE STATED HE WANTED TO SPEAK TO A CHIEF TALENT OFFICER. I ASKED IF HE WANTED TO SPEAK TO THE DOCTOR AND PT STATED "IF YOU SEND A DOCTOR IN HERE THEY WILL NEED A DOCTOR BECAUSE I WILL F KILL THEM!" YUIRY SANTANA CAME IN AND SPOKE TO PATIENT. HE TRIED TO EXPLAIN THAT SINCE THE PATIENT SHOWED IMPROVEMENT AND WAS STABLE THERE WAS NO REASON TO CONTINUE INPATIENT CARE. YURIY ASKED WHAT HE COULD DO TO HELP THE PT AND THE RESPONSE WAS "I JUST WANT MY PAPERWORK SO I CAN LEAVE." PT REFUSED TO WAIT FOR DISCHARGE ORDERS AND REFUSED TO SIGN AMA PAPER
--- NOTE | 2019-07-05 12:30 | NUR ---
Patient signed out AMA. Patient encouraged to stay and advised of possible consequences of premature discharge. Physician DR HERRON and [employer] department supervisor YURIY SANTANA notified. Patient instructed what to do regarding care post-departure from the hospital; emergency phone numbers provided. Patent was accompanied by ESTEFANI CAMERON
== END 2019-07-05 12:30 | disposition left against medical advice (07) | DRG 377 ==
LOC: ED 19:00 → 4E 22:59 → EDHOLD 22:59 → 4E 23:16
PROVIDERS: Emergency Medicine; Hospitalist; Internal Medicine; ADMIT Internal Medicine
DX: K25.4 Chronic or unspecified gastric ulcer with hemorrhage (principal); N17.0 Acute kidney failure with tubular necrosis; E87.1 Hypo-osmolality and hyponatremia; E44.0 Moderate protein-calorie malnutrition; R65.10 Systemic inflammatory response syndrome (SIRS) of non-infectious origin without acute organ dysfunction; Z68.42 Body mass index [BMI] 45.0-49.9, adult; T39.395A Adverse effect of other nonsteroidal anti-inflammatory drugs [NSAID], initial encounter; D72.810 Lymphocytopenia; R73.9 Hyperglycemia, unspecified; B86 Scabies; I95.1 Orthostatic hypotension; N18.3 Chronic kidney disease, stage 3 (moderate); D64.9 Anemia, unspecified; Z53.29 Procedure and treatment not carried out because of patient's decision for other reasons; E86.0 Dehydration; I25.10 Atherosclerotic heart disease of native coronary artery without angina pectoris; E55.9 Vitamin D deficiency, unspecified; I12.9 Hypertensive chronic kidney disease with stage 1 through stage 4 chronic kidney disease, or unspecified chronic kidney disease; F41.1 Generalized anxiety disorder; F32.9 Major depressive disorder, single episode, unspecified; E66.01 Morbid (severe) obesity due to excess calories; I25.2 Old myocardial infarction; Z87.11 Personal history of peptic ulcer disease; Z95.5 Presence of coronary angioplasty implant and graft; Z82.0 Family history of epilepsy and other diseases of the nervous system; Z80.8 Family history of malignant neoplasm of other organs or systems; Z76.5 Malingerer [conscious simulation]; Z79.82 Long term (current) use of aspirin; Z79.899 Other long term (current) drug therapy; Y92.89 Other specified places as the place of occurrence of the external cause

== ENCOUNTER 2019-07-16 23:02 | Inpatient (IN) | payer OTHER ==
[~2019-07-16] VITALS: Ht 172.7 cm; Wt 141.5 kg
--- NOTE | ~2019-07-16 | EKG ---
[place], [place] ELECTROCARDIOGRAM REPORT NAME: TEMI GARCÍA UNIT #: [id number] ROOM: 422 DOCTOR: SHELTON DRAFT REPORT BIRTHDATE: [birth year] [facility] Test Date: 2019-07-17 Test Time: 04:19:07 Pat Name: TEMI GARCÍA Department: Room: 422 Gender: M Coat Baster: : 1965 Requested By: BRANDIE HOLGUIN Order Number: [id number] Reading MD: Lucio Bower MD Measurements Intervals [place] Rate: 85 P: 34 CO: 157 QRS: -18 QRSD: 97 T: 71 QT: 375 QTc: 446 Interpretive Statements Sinus rhythm Borderline left axis deviation Consider anterolateral infarct Compared to ECG 07/03/2019 01:47:28 Myocardial infarct finding now present Sinus tachycardia no longer present T-wave abnormality no longer present Electronically Signed On 07-18-2019 17:24:23 PDT by Lucio Bower MD CM:EKGRPT:ELECTROCARDIOGRAM REPORT [id number] BRANDIE CORREA DRAFT REPORT BRANDIE HOLGUIN DO
--- NOTE | ~2019-07-16 | EKG ---
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 Agent Music Education: : 1965 Requested By: BRANDIE HOLGUIN Order Number: [id number] Reading MD: Lucio Bower MD Measurements Intervals [place] Rate: 85 P: 20 PA: 154 QRS: -17 QRSD: 95 T: 27 QT: 365 QTc: 434 Interpretive Statements Sinus rhythm Borderline left axis deviation Consider anterior infarct Compared to ECG 07/03/2019 01:47:28 Myocardial infarct finding now present Sinus tachycardia no longer present T-wave abnormality no longer present Electronically Signed On 07-18-2019 17:23:51 PDT by Lucio Bower MD CM:EKGRPT:ELECTROCARDIOGRAM REPORT [id number] 1723 BRANDIE CORREA DRAFT REPORT BRANDIE HOLGUIN DO
--- NOTE | ~2019-07-16 | EKG ---
[place], [place] ELECTROCARDIOGRAM REPORT NAME: TEMI GARCÍA UNIT #: [id number] ROOM: 422 DOCTOR: SHELTON DRAFT REPORT BIRTHDATE: [birth year] [facility] Test Date: 2019-07-16 Test Time: 23:08:13 Pat Name: TEMI GARCÍA Department: Room: 422 Gender: M Film Editor Supervisor: : 1965 Requested By: BRANDIE HOLGUIN Order Number: [id number] Reading MD: Lucio Bower MD Measurements Intervals [place] Rate: 85 P: 36 MT: 151 QRS: -20 QRSD: 95 T: 43 QT: 359 QTc: 427 Interpretive Statements Sinus rhythm Borderline left axis deviation Baseline wander in lead(s) V3 Compared to ECG 07/03/2019 01:47:28 Sinus tachycardia no longer present T-wave abnormality no longer present Electronically Signed On 07-18-2019 17:22:43 PDT by Lucio Bower MD CM:EKGRPT:ELECTROCARDIOGRAM REPORT [id number] BRANDIE CORREA DRAFT REPORT BRANDIE HOLGUIN DO
[2019-07-16 23:18] VITALS: BP 116/49
[2019-07-16 23:37] LABS: BASO # 0.1 10*3/uL (0.0-0.1); BASO % 0.3 % (0.0-1.0); HEMATOCRIT 31.6 % (42.0-52.0); HEMOGLOBIN 9.8 g/dl (14.0-18.0); LYMPH # 0.8 10*3/uL (1.3-4.4); LYMPH % 5.5 % (27.0-41.0); MEAN CELL VOLUME 87.5 fl (80.0-94.0); MEAN CORPUSCULAR HGB 27.1 pg (27.0-31.0); MEAN PLATELET VOLUME 8.6 fl (9.6-12.3); MONO # 0.4 10*3/uL (0.1-1.0); MONO % 2.6 % (3.0-9.0); NEUT # 12.9 10*3/uL (2.3-7.9); NEUT % 89.9 % (47.0-73.0); PLATELET COUNT AUTOMATED 554 10*3/uL (130-400); RED BLOOD COUNT 3.61 10*6/uL (4.50-5.90); RED CELL DISTRI WIDTH 17.6 % (0-14.5); WHITE BLOOD COUNT 14.3 10*3/uL (4.8-10.8)
[2019-07-16 23:46] LABS: ACT PARTIAL THROMBO TIME 25.8 SECONDS (20.0-32.1)
[2019-07-16 23:53] LABS: ALBUMIN 3.5 gm/dl (3.1-4.5); ALKALINE PHOSPHATASE 42 U/L (45-117); BUN 14 mg/dl (7-24); CHLORIDE 102 mmol/L (98-107); CREATININE 1.45 mg/dL (0.70-1.30); POTASSIUM 4.3 mmol/L (3.5-5.1); SGOT/AST 20 IU/L (3-35); SGPT/ALT 22 U/L (12-78); SODIUM 135 mmol/L (136-145); TOTAL PROTEIN 6.6 gm/dL (6.4-8.2)
[2019-07-16 23:57] LABS: TROPONIN I 0.046 ng/ml (<0.045)
--- NOTE | 2019-07-16 23:58 | NUR ---
0.046 TROPONIN , DR HOLGUIN NOTIFIED
[2019-07-16 23:59] VITALS: BP 151/72
--- NOTE | 2019-07-16 23:59 | NUR ---
PT ANXIOUS, STATES ATIVAN USUALLY HELPS
--- NOTE | 2019-07-17 01:40 | NUR ---
left boot to ankle, states "i need an ankle replacement, but no wounds anywhere" "just some dried scabs i pick on my belly"
--- NOTE | 2019-07-17 01:46 | NUR ---
PT STATES MORPHINE "HELPS WITH THE CHEST PAIN" REPEAT EKG "NO CHANGE" PER DR HOLGUIN AWAITING 2ND TROPONIN
--- NOTE | 2019-07-17 01:54 | NUR ---
DR HOLGUIN PREFERS SECOND TROPONIN COMES BACK BEFORE SENDS TO FLOOR
[2019-07-17 02:17] VITALS: BP 167/73
[2019-07-17 02:40] VITALS: BP 186/98
--- NOTE | 2019-07-17 02:40 | NUR ---
A 54, admitted to , under the services of BREANNA Grande DO with a diagnosis of CHEST PAIN. Chief complaint is CHEST PAIN. Patient arrived via stretcher from ER. Monitor applied. Initial assessment completed. Vital signs taken and recorded. BREANNA GRANDE DO notified of admission to the unit. Orders received. See assessment for past medical history, medications and allergies. Patient and/or family oriented to unit. [address] visitation policy reviewed. Clothing/patient valuable form completed. SRIRAM LEE
--- NOTE | 2019-07-17 02:41 | NUR ---
PATIENT REPORT BEING GIVEN ON FLOOR, NURSES STATE PATIENT HAS HISTORY OF SCABIES, THIS WAS NOT IN PATIENT'S HX FROM HIS CHART, PATIENT DID NOT STATE HE HAD A HX OF SCABIES NOR HISTORY OF BED BUGS NO BED BUGS WERE VISUALIZED
--- NOTE | 2019-07-17 03:01 | NUR ---
RICKYTEMI [id number] Please refer to the physician's history and physical for past medical history, comorbid conditions, and allergies. Diagnosis: CHEST PAIN Robinson Score: , WOUND DESCRIPTIONS: Patient has several intact scabbed areas noted to right upper arm, left upper arm, abdomen, lower back , right lower and upper leg and left lower and upper leg no drainage noted. Bilateral lower extremities areas appear in a linear fashion. No redness surrounding areas at time of assessment. Multiple scar tissue noted over entire body. Patient stated not really itchy at time of assessment it comes and goes he states this is the same ongoing thing he has all the time. Patient has fungal areas noted to middle abdominal fold and left groin musty odor noted at time of assessment area measuring 25cm x 18ucm x 0.1cm. Surface the patient is resting on: Isoflex SKIN PREVENTION RECOMMENDATION: 1. Pressure redistribution support surface as appropriate 2. Elevate heels 3. Remove boots/TEDS every shift and reapply 4. Head of bed 30 degrees as tolerated 5. Assess nutrition and hydration 6. Manage moisture 7. Avoid the use of containment devices while in bed 8. Use absorptive products on surfaces limit layers of linens on bed 9. Turn and reposition every 1-2 hours in bed and every 1 hour in chair as tolerated 10. Weight shifts every 15 minutes while up in chair 11. Offloading with pillows or device to keep heels elevated off bed 12. Monitor skin at least every shift 13. Inspect under medical devices twice a day WOUND TREATMENT RECOMMENDATIONS: Cleanse all scabbed areas with soap and water and apply aquaphor ointment BID. Cleanse middle abdomen fold and left groin with soap and water and apply nystatin powder every 8 hours [place] as directed if provider deems necessary.
--- NOTE | 2019-07-17 04:19 | NUR ---
NOTIFIED DR VANESSA OF COMPLETED MED REC
[2019-07-17 05:49] LABS: BUN 16 mg/dl (7-24); CHLORIDE 103 mmol/L (98-107); CREATININE 1.34 mg/dL (0.70-1.30); PHOSPHOROUS 4.1 mg/dL (2.5-4.9); POTASSIUM 4.1 mmol/L (3.5-5.1); SODIUM 135 mmol/L (136-145)
--- NOTE | 2019-07-17 05:51 | NUR ---
Recommend follow up for wound care in outpatient setting patient refused at this time.
[2019-07-17 06:00] LABS: HEMATOCRIT 31.2 % (42.0-52.0); HEMOGLOBIN 9.7 g/dl (14.0-18.0); MEAN CELL VOLUME 87.6 fl (80.0-94.0); MEAN CORPUSCULAR HGB 27.2 pg (27.0-31.0); MEAN CORPUSCULAR HGB CONC 31.1 g/dl (33.0-37.0); MEAN PLATELET VOLUME 8.7 fl (9.6-12.3); PLATELET COUNT AUTOMATED 480 10*3/uL (130-400); RED BLOOD COUNT 3.56 10*6/uL (4.50-5.90); RED CELL DISTRI WIDTH 17.3 % (0-14.5); WHITE BLOOD COUNT 12.2 10*3/uL (4.8-10.8)
--- NOTE | 2019-07-17 06:32 | NUR ---
NOTIFIED DR JENSEN'S ANSWERING SERVICE OF CONSULT.
--- NOTE | 2019-07-17 06:34 | NUR ---
NOTIFIED DR MARLEY'S RESIDENT OF CONSULT. HE STATED THEY WOULD BE BY THIS MORNING TO SEE THE PATIENT.
[2019-07-17 07:11] LABS: PLATELET SUFFICIENCY HIGH (NORMAL); SCHISTOCYTES FEW; TOTAL CELLS COUNTED 100 #CELLS
[2019-07-17 07:12] LABS: TARGET CELLS FEW
[2019-07-17 08:00] VITALS: BP 164/110
--- NOTE | 2019-07-17 10:00 | NUR ---
URINE SENT TO LAB ORDERED
[2019-07-17 10:58] LABS: BILIRUBIN NEGATIVE (NEGATIVE); BLOOD NEGATIVE (NEGATIVE); CLARITY CLEAR (CLEAR); COLOR YELLOW (YELLOW); GLUCOSE NEGATIVE (NEGATIVE); KETONE NEGATIVE (NEGATIVE); LEUKO ESTERASE NEGATIVE (NEGATIVE); NITRITE NEGATIVE (NEGATIVE); PH 7.5 (5.0-9.0); UROBILINOGEN 0.2 E.U./dl (0.2-1.0)
[2019-07-17 11:09] LABS: EPITHELIAL CELLS 0-2; RBC 0-2 rbc/hpf (0-2); WBC 0-2 wbc/hpf (0-5)
--- NOTE | 2019-07-17 15:21 | NUR ---
BLOOD PRESSURE IS 154/82.
[2019-07-17 16:00] VITALS: BP 170/80
--- NOTE | 2019-07-17 19:18 | NUR ---
PATIENT C/O PAIN 02/26 STATES TO CHEST SYTATES IT FEELS LIKE SOMEONE PRESSING ON HIS CHEST. MEDICATED WITH NORCO ORDERD FOR PAIN.
[2019-07-17 20:00] VITALS: BP 158/82
--- NOTE | 2019-07-17 20:15 | NUR ---
PATIENT REPORTS MINIMA RELIEF WITH NORCO GIVEEN TIMES 1 HOUR AGO, DECLINEDS MORPHINE AT THIS TIME.
--- NOTE | 2019-07-17 21:15 | NUR ---
CHEST PAIN CONTINUES AT 6-7/QO MEDICATED WITH MORPHINE PER HIS REQUEST.
[2019-07-18] VITALS: BP 160/80
--- NOTE | 2019-07-18 00:36 | NUR ---
PT. GIVEN BRUCE CROSSING AT 0018 FOR COMPLAINTS OF EPIG PAIN BLAIR CAVAZOS RN
--- NOTE | 2019-07-18 01:41 | NUR ---
PT. SLEEPING, NORCO EFFECTIVE. FOR PAIN.
[2019-07-18 06:50] LABS: BASO # 0.1 10*3/uL (0.0-0.1); BASO % 0.6 % (0.0-1.0); EOS # 0.1 10*3/uL (0.0-0.4); EOS % 0.8 % (1.0-4.0); HEMATOCRIT 28.9 % (42.0-52.0); HEMOGLOBIN 8.8 g/dl (14.0-18.0); LYMPH # 2.3 10*3/uL (1.3-4.4); LYMPH % 23.3 % (27.0-41.0); MEAN CELL VOLUME 86.8 fl (80.0-94.0); MEAN CORPUSCULAR HGB 26.4 pg (27.0-31.0); MEAN CORPUSCULAR HGB CONC 30.4 g/dl (33.0-37.0); MEAN PLATELET VOLUME 8.7 fl (9.6-12.3); MONO # 0.8 10*3/uL (0.1-1.0); NEUT # 6.5 10*3/uL (2.3-7.9); NEUT % 66.8 % (47.0-73.0); PLATELET COUNT AUTOMATED 438 10*3/uL (130-400); RED BLOOD COUNT 3.33 10*6/uL (4.50-5.90); RED CELL DISTRI WIDTH 17.1 % (0-14.5); WHITE BLOOD COUNT 9.8 10*3/uL (4.8-10.8)
[2019-07-18 07:20] LABS: BUN 10 mg/dl (7-24); CHLORIDE 104 mmol/L (98-107); CREATININE 1.27 mg/dL (0.70-1.30); POTASSIUM 3.7 mmol/L (3.5-5.1); SODIUM 135 mmol/L (136-145)
[2019-07-18 08:00] VITALS: BP 170/90
--- NOTE | 2019-07-18 08:40 | NUR ---
MEDICATED WITH NORCO PER ORDER AND REQUEST.
--- NOTE | 2019-07-18 09:00 | NUR ---
Human Resources Analyst in to talk to patient. Patient states lives at home with alone. There are few steps in the home. Physician: forrest olivas Pharmacy: [facility] Home health services: none Patient's level of ADLs: MINIMAL ASSIST Patient has working utilities: all working DME: crutches Follow-up physician's appointment after d/c: will be made by hospitalist nurse director upon discharge Does patient want to access PORTAL?: no Discharge plan discussed with patient, he states he lives at home alone, he is independent in adls and ambulation with the crutches. he states he will return home when medically stable, discussed with him VNA and he declines any home services at this time. AYAN ROSS
[2019-07-18] MEDS ORDERED: NORVASC10 MG PO (10:38)
[2019-07-18] MEDS ORDERED: Oscal,Oyster S500 MG PO (10:38)
[2019-07-18] MEDS ORDERED: METOPROLOL SUCC50 M1 PO (10:38)
--- NOTE | 2019-07-18 11:44 | NUR ---
PATIENT DISCHARGED TO HOME DECLINED PHOTOS OF BED BUG BITES.
--- NOTE | 2019-07-18 12:01 | NUR ---
Occupational Therapy referral received. Nurse reported that patient is to be discharged home today. No OT evaluation completed. Rita Erickson OTR/l
--- NOTE | 2019-07-18 12:33 | NUR ---
PATIENT STATES HE LOST HIS BLUE TOOTH EAR PIECE. LOST ITEM PAPER FILLED OUT AND X RAY OPERATOR AWARE. PATIENT ALSO STSTES HE IS NOT LEAVING TILL HE SEE PODIATRY DOCTOR.
--- NOTE | 2019-07-18 13:39 | NUR ---
PATIENT LEFT PER DIOSCHARGE ORDER.
--- NOTE | 2019-07-18 13:42 | NUR ---
BLUE TOOTH EAR PIECE WAS FOUND JUST PRIOR TO PATIENT LEAVING.
--- NOTE | 2019-07-18 15:26 | NUR ---
PHYSICAL THERAPY Pt has been discharged. Mindy Fabian, PT, DPT
== END 2019-07-18 13:39 | disposition home or self-care (01) | DRG 391 ==
LOC: ED 23:02 → EDHOLD 07-17 00:39 → 4E 07-17 00:39
PROVIDERS: Emergency Medicine; Internal Medicine; Student in an Organized Health Care Education/Training Program; ADMIT Internal Medicine
DX: K21.9 Gastro-esophageal reflux disease without esophagitis (principal); N17.0 Acute kidney failure with tubular necrosis; R65.11 Systemic inflammatory response syndrome (SIRS) of non-infectious origin with acute organ dysfunction; E44.0 Moderate protein-calorie malnutrition; E87.1 Hypo-osmolality and hyponatremia; I24.8 Other forms of acute ischemic heart disease; K43.6 Other and unspecified ventral hernia with obstruction, without gangrene; Z68.42 Body mass index [BMI] 45.0-49.9, adult; D64.9 Anemia, unspecified; M19.079 Primary osteoarthritis, unspecified ankle and foot; D47.3 Essential (hemorrhagic) thrombocythemia; R73.9 Hyperglycemia, unspecified; I71.2 Thoracic aortic aneurysm, without rupture; F10.10 Alcohol abuse, uncomplicated; G89.4 Chronic pain syndrome; E86.0 Dehydration; E78.5 Hyperlipidemia, unspecified; E55.9 Vitamin D deficiency, unspecified; N18.3 Chronic kidney disease, stage 3 (moderate); I12.9 Hypertensive chronic kidney disease with stage 1 through stage 4 chronic kidney disease, or unspecified chronic kidney disease; E66.01 Morbid (severe) obesity due to excess calories; F41.1 Generalized anxiety disorder; F32.9 Major depressive disorder, single episode, unspecified; I25.119 Atherosclerotic heart disease of native coronary artery with unspecified angina pectoris; Z91.14 Patient's other noncompliance with medication regimen; I25.2 Old myocardial infarction; Z87.11 Personal history of peptic ulcer disease; Z95.5 Presence of coronary angioplasty implant and graft; Z82.0 Family history of epilepsy and other diseases of the nervous system; Z80.8 Family history of malignant neoplasm of other organs or systems; Z79.82 Long term (current) use of aspirin; Z79.899 Other long term (current) drug therapy; Z71.41 Alcohol abuse counseling and surveillance of alcoholic; Z71.3 Dietary counseling and surveillance

== ENCOUNTER 2019-09-12 21:31 | Inpatient (IN) | payer OTHER ==
[~2019-09-12] VITALS: Ht 172.7 cm; Wt 148.0 kg
[~2019-09-12 21:31] MED LIST changes: -ASPIR 8181 MG PO; -ATORVASTATIN CA80 M1 PO; -BUSPIRONE15 MG PO; -MAPAP325 MG PO; +METOPROLOL SUCC50 M1 PO; -NITROSTAT0.4 MG SL; +NORVASC10 MG PO; +Oscal,Oyster S500 MG PO
[2019-09-12 21:32] VITALS: BP 122/99
[2019-09-12 21:59] LABS: HEMATOCRIT 33.2 % (42.0-52.0); HEMOGLOBIN 10.2 g/dl (14.0-18.0); MEAN CELL VOLUME 90.2 fl (80.0-94.0); MEAN CORPUSCULAR HGB 27.7 pg (27.0-31.0); MEAN CORPUSCULAR HGB CONC 30.7 g/dl (33.0-37.0); MEAN PLATELET VOLUME 9.2 fl (9.6-12.3); PLATELET COUNT AUTOMATED 312 10*3/uL (130-400); RED BLOOD COUNT 3.68 10*6/uL (4.50-5.90); RED CELL DISTRI WIDTH 17.8 % (0-14.5); WHITE BLOOD COUNT 13.8 10*3/uL (4.8-10.8)
[2019-09-12 22:11] LABS: ACT PARTIAL THROMBO TIME 24.1 SECONDS (20.0-32.1)
[2019-09-12 22:15] LABS: ALBUMIN 3.3 gm/dl (3.1-4.5); ALKALINE PHOSPHATASE 36 U/L (45-117); BUN 34 mg/dl (7-24); CHLORIDE 106 mmol/L (98-107); CREATININE 1.64 mg/dL (0.70-1.30); SGOT/AST 9 IU/L (3-35); SGPT/ALT 24 U/L (12-78); SODIUM 135 mmol/L (136-145); TOTAL PROTEIN 6.1 gm/dL (6.4-8.2)
[2019-09-12 22:16] LABS: TROPONIN I < 0.015 ng/ml (<0.045)
[2019-09-12 22:20] LABS: PLATELET SUFFICIENCY NORMAL (NORMAL); TOTAL CELLS COUNTED 100 #CELLS
[2019-09-12 23:01] VITALS: BP 165/77
[2019-09-13] VITALS (9 sets, daily range): BP systolic 149–226; BP diastolic 70–100
--- NOTE | 2019-09-13 02:25 | NUR ---
A 54 YEAR OLD MALE PATIENT, admitted to ICCU, under the services of YURIY Bustamante DO with a diagnosis of CHEST PAIN. Chief complaint is CHEST PAIN STARTING 20 MINUTES PRIOR TO ARRIVAL. Patient arrived via CART WITH RN from ER. Monitor applied. Initial assessment completed. Vital signs taken and recorded. See assessment for past medical history, medications and allergies. Patient and/or family oriented to unit. [facility] ICCU-2 visitation policy reviewed. Clothing/patient valuable form completed. CHERRIE DAVE
[2019-09-13 03:34] LABS: EOS % 0.1 % (1.0-4.0); HEMATOCRIT 31.6 % (42.0-52.0); HEMOGLOBIN 9.9 g/dl (14.0-18.0); LYMPH % 7.7 % (27.0-41.0); MEAN CELL VOLUME 88.8 fl (80.0-94.0); MEAN CORPUSCULAR HGB 27.8 pg (27.0-31.0); MEAN CORPUSCULAR HGB CONC 31.3 g/dl (33.0-37.0); MEAN PLATELET VOLUME 8.7 fl (9.6-12.3); MONO # 0.8 10*3/uL (0.1-1.0); MONO % 6.2 % (3.0-9.0); NEUT # 11.5 10*3/uL (2.3-7.9); NEUT % 85.3 % (47.0-73.0); PLATELET COUNT AUTOMATED 263 10*3/uL (130-400); RED BLOOD COUNT 3.56 10*6/uL (4.50-5.90); RED CELL DISTRI WIDTH 17.6 % (0-14.5); WHITE BLOOD COUNT 13.5 10*3/uL (4.8-10.8)
[2019-09-13 03:50] LABS: CREATININE 1.55 mg/dL (0.70-1.30); FREE T4 0.69 ng/dl (0.76-1.46); POTASSIUM 4.4 mmol/L (3.5-5.1)
[2019-09-13 03:57] LABS: THYROID STIM HORMONE (HS) 1.15 uIU/ml (0.358-4.75)
--- NOTE | 2019-09-13 04:30 | NUR ---
PATIENT UP TO THE BATHROOM, STATES HIS STOMACH IS HURTING AND HE NEEDS SOMETHING TO DRINK. PATIENT MADE AWARE THAT HE IS TO REMAIN NPO UNTIL HIS SCHEDULED STRESS TEST. PATIENT VERBALIZES UNDERSTANDING.
[2019-09-13] MEDS ORDERED: LOSARTAN-HCTZ1 EAC1 PO (06:02)
[2019-09-13] MEDS ORDERED: VITAMIN D32000 UNI1 PO (06:03)
--- NOTE | 2019-09-13 07:30 | NUR ---
PT RESTING QUIETLY IN BED. VOICES NO CONCERNS AT THIS TIME. RESPS EASY AND NON LABORED. CALL LIGHT WITHIN REACH. VITALS STABLE
[2019-09-13 07:52] LABS: VITAMIN D, 25-HYDROXY 8.5 ng/mL (30-100)
--- NOTE | 2019-09-13 07:53 | NUR ---
PT COMPLAINS OF 6/10 CHEST PRESSURE AND ABDOMINAL PAIN. MEDICATED PER ORDER. WILL MONITOR FOR RELIEF. VOICES NO OTHER CONCERNS AT THIS TIME. RESTING IN BED. RESPS EASY AND NON LABORED. VITALS STABLE. CALL LIGHT WITHIN REACH.
--- NOTE | 2019-09-13 08:00 | NUR ---
MORPHINE EFFECTIVE PER PT
--- NOTE | 2019-09-13 08:48 | NUR ---
PT REQUESTING A DOSE OF IV ATIVAN PRIOR TO STRESS TEST. STATED HE IS VERY ANXIOUS ABOUT GOING INTO THE "TUBE". CALLED DR MORROW WHO STATED HE WOULD LOOK INTO IT.
--- NOTE | 2019-09-13 09:03 | NUR ---
DR HOOVER IN TO SEE PATIENT
--- NOTE | 2019-09-13 10:00 | NUR ---
PT TAKEN OFF THE FLOOR VIA WHEELCHAIR TO CARDIAC REHAB FOR STRESS TEST
--- NOTE | 2019-09-13 10:32 | NUR ---
Shift chart check completed.
--- NOTE | 2019-09-13 10:50 | NUR ---
INFORMED CONSENT OBTAINED FOR LEXISCAN NUCLEAR STRESS TEST WITH DR. MCNEILL. RESTING EKG NSR WITH A RESTING HR OF 81 WITH BP OF 170/100. HAS C/O CONSTANT CENTRAL CHEST DISCOMFORT THAT IS A 6 ON PAIN SCALE. LUNGS CLEAR WITH SPO2 OF 100% ON ROOM AIR. PT COMPLETED A 1:00 LEXISCAN PROTOCOL RECEIVING LEXISCAN 0.4 MG IV OVER 10 SECONDS. HAD NO EKG CHANGES. HAD NO CHANGE IN CONSTANT CENTRAL CHEST DISCOMFORT. HAD C/O FEELING "ANXIOUS" PER PATIENT AND HEADACHE THAT LESSENED IN RECOVERY. HAD A PEAK HR OF 113 WITH BP OF 166/98. LAST RECOVERY HR OF 106 WITH BP OF 170/92. AWAITING SCANNING IN STABLE CONDITION.
--- NOTE | 2019-09-13 11:07 | NUR ---
CONTACT ISOLATION MAINTAINED.
--- NOTE | 2019-09-13 12:43 | NUR ---
PT COMPLAINS OF 6/10 ABDOMINAL PAIN AND CHEST PRESSURE. MEDICATED PER ORDER. WILL MONITOR FOR RELIEF. VOICES NO OTHER CONCERNS AT THIS TIME. RESTING IN BED. VITALS STABLE. NO S/S OF DISTRESS NOTED. CALL LIGHT WITHIN REACH
--- NOTE | 2019-09-13 13:45 | NUR ---
MORPHINE PARTIALLY EFFECTIVE PER PT
[2019-09-13] MEDS ORDERED: BUSPIRONE15 MG PO (14:01)
[2019-09-13] MEDS ORDERED: ASPIR 8181 MG PO (14:01)
[2019-09-13] MEDS ORDERED: BRILINTA90 M1 PO (14:01)
[2019-09-13] MEDS ORDERED: ATORVASTATIN CA80 M1 PO (14:01)
[2019-09-13] MEDS ORDERED: CARAFATE1 G1 PO (14:01)
[2019-09-13] MEDS ORDERED: NITROSTAT0.4 MG SL (14:01)
[2019-09-13] MEDS ORDERED: VISTARIL25 MG PO (14:01)
[2019-09-13] MEDS ORDERED: MAPAP325 MG PO (14:01)
[2019-09-13] MEDS ORDERED: METOPROLOL SUC100 M1 PO (14:04)
[2019-09-13] MEDS ORDERED: AMLODIPINE BESY10 MG PO (14:05)
[2019-09-13 16:17] LABS: URINE AMPHETAMINES < 1000 (1000ng/ml); URINE BARBITURATES < 200 (200ng/ml); URINE CANNABINOIDS (THC) < 50 (50ng/ml)
[2019-09-13 16:20] LABS: URINE BENZODIAZEPINES < 200 (200ng/ml); URINE COCAINE < 300 (300ng/ml); URINE METHADONE < 300 (300ng/ml); URINE OPIATES > 300 (300ng/ml)
[2019-09-13 16:29] LABS: URINE PHENCYCLIDINE < 25 (25ng/ml)
--- NOTE | 2019-09-13 18:15 | NUR ---
MED WITH LUNA FOR CHEST PAIN RATE CHEST 02/26 STOMACH 03/28 -- PT EATING DINNER & SAYS HIS ULCERS ARE PROBABLY ACTING UP
--- NOTE | 2019-09-13 21:11 | NUR ---
PATIENT MEDICATED WITH MORPHINE FOR C/O 7/10 CHEST PAIN. WILL MONITOR
--- NOTE | 2019-09-13 22:11 | NUR ---
MORPHINE EFFECTIVE FOR CHEST PAIN.
[2019-09-14] VITALS: BP 178/101
[2019-09-14 00:10] VITALS: BP 154/80
--- NOTE | 2019-09-14 07:05 | NUR ---
ARRIVED ON SHIFT, INTRODUCED TO PATIENT, NO NEEDS VOICED AT THIS TIME, WHITE BOARD UPDATED.
--- NOTE | 2019-09-14 08:17 | NUR ---
Shift chart check completed.
--- NOTE | 2019-09-14 08:17 | NUR ---
UPON GIVING MORNING MEDICATIONS PATIENT C/O LEFT CHEST PAIN, AND ABDOMINAL PAIN, DESCRIBES A CONSTANT PAIN, STATED THAT NORCO INEFFECTIVE AND REQUESTED SOMETHING. STRONGER MORPHINE GIVEN ORDERED.
--- NOTE | 2019-09-14 09:00 | NUR ---
Technician Anatomic Pathology in to talk to patient. Patient states lives at home with alone. There are few steps in the home. Physician: forrest olivas Pharmacy: [facility] Home health services: none Patient's level of ADLs: INDEPENDENT Patient has working utilities: all working DME: cruthches Follow-up physician's appointment after d/c: will be made by hospitalist nurse director upon discharge Does patient want to access PORTAL?: no Discharge plan discussed with him, he states he lives at home alone, he is independent in adls and uses cruthches for ambulation, he states he will return home when medically stable and denies any home needs, case management will follow. AYAN ROSS
--- NOTE | 2019-09-14 09:55 | NUR ---
CALL PLACED TO HOSPITALIST LINE SPOKE TO DR. MORROW, ADVISED OF PATIENT WANTING EGD, ADVISED BY DR. MORROW PATIENT IS ASSIGNED TO Yu LEROY CNP, CALL PLACED TO HER SHE VERSED SHE WAS GOING IN TO SEE PATIENT.
[2019-09-14 12:00] VITALS: BP 151/67
[2019-09-14] MEDS ORDERED: PHARMASSURE FO0.4 MG PO (13:08)
[2019-09-14] MEDS ORDERED: CARAFATE1 G1 PO (13:19)
[2019-09-14] MEDS ORDERED: PANTOPRAZOLE SO40 MG PO (13:19)
--- NOTE | 2019-09-14 14:20 | NUR ---
Discharge instructions reviewed with patient. Patient receptive and verbalizes understanding. Follow-up care reviewed. Written instructions given to patient. IV and telemetry removed, Patient take via w/c to lobby for discharge. HELIO TURNER
== END 2019-09-14 14:20 | disposition home or self-care (01) | DRG 206 ==
LOC: ED 21:31 → 4E 09-13 01:51 → EDHOLD 09-13 01:51 → ICCU 09-13 02:09 → 4E 09-13 16:32
PROVIDERS: Emergency Medicine; Internal Medicine; ADMIT Family Medicine
PROC: 4A02XM4 Measurement of Cardiac Total Activity, External Approach (ICD-10-PCS; principal; 2019-09-13)
PROC: 3E073KZ Introduction of Other Diagnostic Substance into Coronary Artery, Percutaneous Approach (ICD-10-PCS; principal; 2019-09-13)
DX: M94.0 Chondrocostal junction syndrome [Tietze] (principal); Z68.42 Body mass index [BMI] 45.0-49.9, adult; N17.9 Acute kidney failure, unspecified; E87.1 Hypo-osmolality and hyponatremia; D64.9 Anemia, unspecified; D72.829 Elevated white blood cell count, unspecified; R73.9 Hyperglycemia, unspecified; E55.9 Vitamin D deficiency, unspecified; E78.5 Hyperlipidemia, unspecified; I25.10 Atherosclerotic heart disease of native coronary artery without angina pectoris; F32.9 Major depressive disorder, single episode, unspecified; F41.1 Generalized anxiety disorder; K27.9 Peptic ulcer, site unspecified, unspecified as acute or chronic, without hemorrhage or perforation; N18.3 Chronic kidney disease, stage 3 (moderate); R10.13 Epigastric pain; E53.8 Deficiency of other specified B group vitamins; E66.01 Morbid (severe) obesity due to excess calories; G47.30 Sleep apnea, unspecified; I71.2 Thoracic aortic aneurysm, without rupture; I12.9 Hypertensive chronic kidney disease with stage 1 through stage 4 chronic kidney disease, or unspecified chronic kidney disease; Z95.5 Presence of coronary angioplasty implant and graft; I25.2 Old myocardial infarction; Z80.8 Family history of malignant neoplasm of other organs or systems; Z82.0 Family history of epilepsy and other diseases of the nervous system; Z79.899 Other long term (current) drug therapy; Z79.82 Long term (current) use of aspirin

== ENCOUNTER 2019-10-22 03:54 | Emergency (ER) | payer OTHER ==
[~2019-10-22] VITALS: Ht 172.7 cm; Wt 145.1 kg
[~2019-10-22 03:54] MED LIST changes: +AMLODIPINE BESY10 MG PO; +ASPIR 8181 MG PO; +ATORVASTATIN CA80 M1 PO; +BUSPIRONE15 MG PO; +MAPAP325 MG PO; +METOPROLOL SUC100 M1 PO; +NITROSTAT0.4 MG SL; +PHARMASSURE FO0.4 MG PO
[2019-10-22 06:06] LABS: EOS % 0.1 % (1.0-4.0); HEMOGLOBIN 10.9 g/dl (14.0-18.0); LYMPH % 11.9 % (27.0-41.0); MEAN CELL VOLUME 84.4 fl (80.0-94.0); MEAN CORPUSCULAR HGB CONC 32.1 g/dl (33.0-37.0); MEAN PLATELET VOLUME 8.8 fl (9.6-12.3); MONO # 0.6 10*3/uL (0.1-1.0); MONO % 7.6 % (3.0-9.0); NEUT # 6.5 10*3/uL (2.3-7.9); NEUT % 79.1 % (47.0-73.0); PLATELET COUNT AUTOMATED 303 10*3/uL (130-400); RED BLOOD COUNT 4.03 10*6/uL (4.50-5.90); RED CELL DISTRI WIDTH 14.9 % (0-14.5); WHITE BLOOD COUNT 8.3 10*3/uL (4.8-10.8)
[2019-10-22 06:25] LABS: ALBUMIN 3.6 gm/dl (3.1-4.5); ALKALINE PHOSPHATASE 102 U/L (45-117); BUN 17 mg/dl (7-24); CHLORIDE 98 mmol/L (98-107); CREATININE 1.18 mg/dL (0.70-1.30); POTASSIUM 4.2 mmol/L (3.5-5.1); SGOT/AST 9 IU/L (3-35); SGPT/ALT 24 U/L (12-78); SODIUM 129 mmol/L (136-145); TOTAL PROTEIN 7.1 gm/dL (6.4-8.2)
[2019-10-22 06:28] LABS: INTERNATIONAL NORM RATIO 0.9 (2.0-3.5)
[2019-10-22 06:35] LABS: TROPONIN I < 0.015 ng/ml (<0.045)
[2019-10-22] MEDS ORDERED: NORCO 5-325 TA1 EACH PO ×3 (07:14→07:41)
[2019-10-22] MEDS ORDERED: NAPROSYN500 MG PO (07:39)
[2019-10-22] MEDS ORDERED: TYLENOL325 M1 PO (07:39)
== END 2019-10-22 07:42 | disposition home or self-care (01) ==
LOC: ED 03:54
PROVIDERS: Emergency Medicine
DX: S22.41XA Multiple fractures of ribs, right side, initial encounter for closed fracture (principal); I25.10 Atherosclerotic heart disease of native coronary artery without angina pectoris; I12.9 Hypertensive chronic kidney disease with stage 1 through stage 4 chronic kidney disease, or unspecified chronic kidney disease; N18.3 Chronic kidney disease, stage 3 (moderate); E78.5 Hyperlipidemia, unspecified; I25.2 Old myocardial infarction; Z79.899 Other long term (current) drug therapy; Z79.82 Long term (current) use of aspirin; W01.0XXA Fall on same level from slipping, tripping and stumbling without subsequent striking against object, initial encounter; Y93.89 Activity, other specified; Y92.89 Other specified places as the place of occurrence of the external cause; Y99.8 Other external cause status

== ENCOUNTER 2019-11-12 01:08 | Emergency (ER) | payer OTHER ==
[~2019-11-12] VITALS: Ht 172.7 cm; Wt 145.1 kg
[~2019-11-12 01:08] MED LIST changes: +NAPROSYN500 MG PO; +NORCO 5-325 TA1 EACH PO
== END 2019-11-12 04:45 | disposition home or self-care (01) ==
LOC: ED 01:08
DX: S16.1XXA Strain of muscle, fascia and tendon at neck level, initial encounter (principal); S09.90XA Unspecified injury of head, initial encounter; I25.10 Atherosclerotic heart disease of native coronary artery without angina pectoris; I25.2 Old myocardial infarction; E78.5 Hyperlipidemia, unspecified; I12.9 Hypertensive chronic kidney disease with stage 1 through stage 4 chronic kidney disease, or unspecified chronic kidney disease; N18.3 Chronic kidney disease, stage 3 (moderate); Z79.82 Long term (current) use of aspirin; Z79.899 Other long term (current) drug therapy; W01.198A Fall on same level from slipping, tripping and stumbling with subsequent striking against other object, initial encounter; Y93.9 Activity, unspecified; Y92.89 Other specified places as the place of occurrence of the external cause; Y99.8 Other external cause status

== ENCOUNTER 2020-01-07 16:45 | Inpatient (IN) | payer OTHER ==
[~2020-01-07] VITALS: Ht 173.9 cm; Wt 161.7 kg
[2020-01-07 16:55] VITALS: BP 181/93
[2020-01-07 17:31] LABS: HEMATOCRIT 36.3 % (42.0-52.0); MEAN CORPUSCULAR HGB 30.6 pg (27.0-31.0); MEAN CORPUSCULAR HGB CONC 32.5 g/dl (33.0-37.0); PLATELET COUNT AUTOMATED 203 10*3/uL (130-400); RED BLOOD COUNT 3.86 10*6/uL (4.50-5.90); RED CELL DISTRI WIDTH 15.4 % (0-14.5); WHITE BLOOD COUNT 12.7 10*3/uL (4.8-10.8)
[2020-01-07 17:42] LABS: INTERNATIONAL NORM RATIO 0.9 (2.0-3.5)
[2020-01-07 17:48] LABS: ALBUMIN 3.2 gm/dl (3.1-4.5); ALKALINE PHOSPHATASE 43 U/L (45-117); BUN 26 mg/dl (7-24); CHLORIDE 108 mmol/L (98-107); CREATININE 1.84 mg/dL (0.70-1.30); LIPASE 87 U/L (73-393); POTASSIUM 4.3 mmol/L (3.5-5.1); SGOT/AST 12 IU/L (3-35); SGPT/ALT 26 U/L (12-78); SODIUM 140 mmol/L (136-145); TOTAL PROTEIN 5.8 gm/dL (6.4-8.2)
[2020-01-07 17:49] LABS: PLATELET SUFFICIENCY NORMAL (NORMAL); TOTAL CELLS COUNTED 100 #CELLS
[2020-01-07 17:52] LABS: TROPONIN I 0.098 ng/ml (<0.045)
[2020-01-07 19:30] VITALS: BP 169/91
[2020-01-08 00:35] VITALS: BP 170/87
[2020-01-08] MEDS ORDERED: COZAAR50 M1 PO (00:48)
[2020-01-08] MEDS ORDERED: FEROSUL325 MG PO (00:49)
[2020-01-08] MEDS ORDERED: NAPROXEN500 MG PO (00:50)
[2020-01-08] MEDS ORDERED: Carafate1 GM PO (00:53)
[2020-01-08] MEDS ORDERED: Clopidogrel75 MG PO (00:56)
[2020-01-08] MEDS ORDERED: NORCO 5-325 TA1 EACH PO (00:57)
[2020-01-08] MEDS ORDERED: PROTONIX IV40 MG IV (01:00)
[2020-01-08] MEDS ORDERED: PROTONIX TR40 MG PO (01:02)
[2020-01-08 05:00] VITALS: BP 178/102
[2020-01-08 05:03] LABS: CREATININE 1.56 mg/dL (0.70-1.30); PHOSPHOROUS 3.8 mg/dL (2.5-4.9); POTASSIUM 4.2 mmol/L (3.5-5.1)
[2020-01-08 06:07] LABS: HEMATOCRIT 37.6 % (42.0-52.0); MEAN CORPUSCULAR HGB CONC 31.9 g/dl (33.0-37.0); MEAN PLATELET VOLUME 9.3 fl (9.6-12.3); PLATELET COUNT AUTOMATED 209 10*3/uL (130-400); RED CELL DISTRI WIDTH 15.3 % (0-14.5); WHITE BLOOD COUNT 13.5 10*3/uL (4.8-10.8)
[2020-01-08 06:25] VITALS: BP 166/82
[2020-01-08 06:30] LABS: PLATELET SUFFICIENCY NORMAL (NORMAL); TOTAL CELLS COUNTED 100 #CELLS
[2020-01-08 07:32] LABS: BILIRUBIN NEGATIVE (NEGATIVE); BLOOD NEGATIVE (NEGATIVE); CLARITY CLEAR (CLEAR); COLOR YELLOW (YELLOW); GLUCOSE NEGATIVE (NEGATIVE); KETONE NEGATIVE (NEGATIVE); LEUKO ESTERASE NEGATIVE (NEGATIVE); NITRITE NEGATIVE (NEGATIVE); PH 6.5 (5.0-9.0); UROBILINOGEN 0.2 E.U./dl (0.2-1.0)
[2020-01-08 07:40] LABS: CALCIUM OXALATE CRYSTALS 1+
[2020-01-08 08:00] VITALS: BP 156/80
[2020-01-08 12:00] VITALS: BP 160/86
[2020-01-08 20:00] VITALS: BP 153/69
[2020-01-09] VITALS: BP 153/92
[2020-01-09 06:08] LABS: BASO % 0.1 % (0.0-1.0); EOS # 0.1 10*3/uL (0.0-0.4); EOS % 0.5 % (1.0-4.0); HEMATOCRIT 36.7 % (42.0-52.0); LYMPH # 1.5 10*3/uL (1.3-4.4); LYMPH % 16.1 % (27.0-41.0); MEAN CELL VOLUME 94.1 fl (80.0-94.0); MEAN CORPUSCULAR HGB 29.7 pg (27.0-31.0); MEAN CORPUSCULAR HGB CONC 31.6 g/dl (33.0-37.0); MEAN PLATELET VOLUME 8.9 fl (9.6-12.3); MONO # 0.5 10*3/uL (0.1-1.0); MONO % 5.2 % (3.0-9.0); NEUT % 76.4 % (47.0-73.0); PLATELET COUNT AUTOMATED 163 10*3/uL (130-400); RED CELL DISTRI WIDTH 15.3 % (0-14.5); WHITE BLOOD COUNT 9.2 10*3/uL (4.8-10.8)
[2020-01-09 06:24] LABS: BUN 22 mg/dl (7-24); CHLORIDE 109 mmol/L (98-107); CREATININE 1.23 mg/dL (0.70-1.30); SODIUM 140 mmol/L (136-145)
[2020-01-09 08:00] VITALS: BP 160/94
[2020-01-09 12:00] VITALS: BP 164/84
[2020-01-09 16:00] VITALS: BP 170/88
[2020-01-09 18:43] VITALS: BP 156/88
[2020-01-09 20:00] VITALS: BP 157/68
[2020-01-10] VITALS: BP 168/95
[2020-01-10 06:05] LABS: BASO % 0.3 % (0.0-1.0); EOS % 0.5 % (1.0-4.0); HEMATOCRIT 37.5 % (42.0-52.0); LYMPH % 13.2 % (27.0-41.0); MEAN CELL VOLUME 91.5 fl (80.0-94.0); MEAN CORPUSCULAR HGB 29.5 pg (27.0-31.0); MEAN CORPUSCULAR HGB CONC 32.3 g/dl (33.0-37.0); MONO # 0.4 10*3/uL (0.1-1.0); MONO % 4.9 % (3.0-9.0); NEUT # 5.9 10*3/uL (2.3-7.9); NEUT % 79.7 % (47.0-73.0); PLATELET COUNT AUTOMATED 162 10*3/uL (130-400); RED CELL DISTRI WIDTH 14.6 % (0-14.5); WHITE BLOOD COUNT 7.4 10*3/uL (4.8-10.8)
[2020-01-10 06:10] LABS: BUN 16 mg/dl (7-24); CHLORIDE 104 mmol/L (98-107); CREATININE 1.29 mg/dL (0.70-1.30); POTASSIUM 3.7 mmol/L (3.5-5.1); SODIUM 138 mmol/L (136-145)
[2020-01-10 08:00] VITALS: BP 150/76
[2020-01-10] MEDS ORDERED: LOSARTAN POTASS50 M1 PO (14:34)
[2020-01-10] MEDS ORDERED: Clopidogrel75 MG PO (14:34)
== END 2020-01-10 15:25 | disposition home or self-care (01) | DRG 205 ==
LOC: ED 16:45 → EDHOLD 21:31 → 4E 21:31
PROVIDERS: Emergency Medicine; Hospitalist; Internal Medicine; ADMIT Internal Medicine
PROC: 4A02XM4 Measurement of Cardiac Total Activity, External Approach (ICD-10-PCS; principal; 2020-01-10)
PROC: 3E073KZ Introduction of Other Diagnostic Substance into Coronary Artery, Percutaneous Approach (ICD-10-PCS; principal; 2020-01-10)
DX: M94.0 Chondrocostal junction syndrome [Tietze] (principal); N17.0 Acute kidney failure with tubular necrosis; I16.1 Hypertensive emergency; Z68.43 Body mass index [BMI] 50.0-59.9, adult; R55 Syncope and collapse; E83.39 Other disorders of phosphorus metabolism; E83.41 Hypermagnesemia; R73.9 Hyperglycemia, unspecified; E78.5 Hyperlipidemia, unspecified; E53.8 Deficiency of other specified B group vitamins; D64.9 Anemia, unspecified; N18.3 Chronic kidney disease, stage 3 (moderate); K27.9 Peptic ulcer, site unspecified, unspecified as acute or chronic, without hemorrhage or perforation; K76.0 Fatty (change of) liver, not elsewhere classified; I12.9 Hypertensive chronic kidney disease with stage 1 through stage 4 chronic kidney disease, or unspecified chronic kidney disease; F32.9 Major depressive disorder, single episode, unspecified; F41.1 Generalized anxiety disorder; I25.10 Atherosclerotic heart disease of native coronary artery without angina pectoris; E66.01 Morbid (severe) obesity due to excess calories; Z95.5 Presence of coronary angioplasty implant and graft; I25.2 Old myocardial infarction; Z80.8 Family history of malignant neoplasm of other organs or systems; Z81.8 Family history of other mental and behavioral disorders; Z79.899 Other long term (current) drug therapy

== ENCOUNTER 2020-04-05 13:59 | Inpatient (IN) | payer OTHER ==
[~2020-04-05] VITALS: Ht 172.7 cm; Wt 159.8 kg
[2020-04-05] VITALS (7 sets, daily range): BP systolic 160–208; BP diastolic 80–117
[~2020-04-05 13:59] MED LIST changes: +Clopidogrel75 MG PO; +FEROSUL325 MG PO; +NAPROXEN500 MG PO; +PROTONIX IV40 MG IV; +PROTONIX TR40 MG PO
[2020-04-05 14:29] LABS: BASO % 0.5 % (0.0-1.0); EOS # 0.1 10*3/uL (0.0-0.4); EOS % 1.1 % (1.0-4.0); HEMATOCRIT 32.7 % (42.0-52.0); LYMPH # 0.9 10*3/uL (1.3-4.4); LYMPH % 13.9 % (27.0-41.0); MEAN CELL VOLUME 89.8 fl (80.0-94.0); MEAN CORPUSCULAR HGB 28.8 pg (27.0-31.0); MEAN CORPUSCULAR HGB CONC 32.1 g/dl (33.0-37.0); MEAN PLATELET VOLUME 9.2 fl (9.6-12.3); MONO # 0.5 10*3/uL (0.1-1.0); MONO % 8.2 % (3.0-9.0); NEUT # 4.9 10*3/uL (2.3-7.9); PLATELET COUNT AUTOMATED 229 10*3/uL (130-400); RED BLOOD COUNT 3.64 10*6/uL (4.50-5.90); WHITE BLOOD COUNT 6.5 10*3/uL (4.8-10.8)
[2020-04-05 14:39] LABS: ACT PARTIAL THROMBO TIME 30.4 SECONDS (20.0-32.1); INTERNATIONAL NORM RATIO 0.9 (2.0-3.5)
[2020-04-05 14:46] LABS: ALBUMIN 3.3 gm/dl (3.1-4.5); ALKALINE PHOSPHATASE 46 U/L (45-117); BUN 18 mg/dl (7-24); CHLORIDE 110 mmol/L (98-107); CREATININE 1.27 mg/dL (0.70-1.30); POTASSIUM 4.3 mmol/L (3.5-5.1); SGOT/AST 18 IU/L (3-35); SGPT/ALT 22 U/L (12-78); SODIUM 138 mmol/L (136-145); TOTAL PROTEIN 6.6 gm/dL (6.4-8.2)
[2020-04-05 14:48] LABS: TROPONIN I 0.067 ng/ml (<0.045)
[2020-04-05] MEDS ORDERED: TRAMADOL HCL50 MG PO (18:42)
[2020-04-06] VITALS: BP 158/80; BP 190/100
[2020-04-06 06:25] LABS: BASO % 0.5 % (0.0-1.0); EOS # 0.1 10*3/uL (0.0-0.4); EOS % 1.3 % (1.0-4.0); HEMATOCRIT 34.8 % (42.0-52.0); LYMPH # 0.9 10*3/uL (1.3-4.4); LYMPH % 14.8 % (27.0-41.0); MEAN CELL VOLUME 91.3 fl (80.0-94.0); MEAN CORPUSCULAR HGB 28.6 pg (27.0-31.0); MEAN CORPUSCULAR HGB CONC 31.3 g/dl (33.0-37.0); MEAN PLATELET VOLUME 9.4 fl (9.6-12.3); MONO # 0.5 10*3/uL (0.1-1.0); MONO % 8.5 % (3.0-9.0); NEUT # 4.5 10*3/uL (2.3-7.9); NEUT % 74.1 % (47.0-73.0); PLATELET COUNT AUTOMATED 230 10*3/uL (130-400); RED BLOOD COUNT 3.81 10*6/uL (4.50-5.90)
[2020-04-06 06:34] LABS: ACT PARTIAL THROMBO TIME 34.9 SECONDS (20.0-32.1)
[2020-04-06 07:07] LABS: ALBUMIN 2.9 gm/dl (3.1-4.5); ALKALINE PHOSPHATASE 44 U/L (45-117); BUN 15 mg/dl (7-24); CHLORIDE 110 mmol/L (98-107); CHOLESTEROL 154 mg/dL (<200); CREATININE 1.03 mg/dL (0.70-1.30); HDL CHOLESTEROL 44 mg/dl (40-60); LDL CHOLESTEROL 77 mg/dL (9-159); SGOT/AST 14 IU/L (3-35); SGPT/ALT 19 U/L (12-78); SODIUM 138 mmol/L (136-145); TOTAL PROTEIN 6.4 gm/dL (6.4-8.2); TRIGLYCERIDES 166 mg/dl (<150); VLDL CHOLESTEROL 33 mg/dL (6-40)
[2020-04-06 07:12] LABS: VITAMIN D, 25-HYDROXY 17.4 ng/mL (30-100)
[2020-04-06 08:00] VITALS: BP 164/80
[2020-04-06 12:00] VITALS: BP 180/75
[2020-04-06 13:30] VITALS: BP 140/90
[2020-04-06 16:00] VITALS: BP 147/69
[2020-04-06 20:00] VITALS: BP 140/70; BP 143/64
[2020-04-07] VITALS: BP 156/80
[2020-04-07 08:00] VITALS: BP 138/62
[2020-04-07 12:00] VITALS: BP 141/66
[2020-04-07 16:00] VITALS: BP 144/68
[2020-04-07 20:00] VITALS: BP 163/78
[2020-04-08] VITALS: BP 168/82
[2020-04-08 08:00] VITALS: BP 170/92
[2020-04-08] MEDS ORDERED: HYDR12.5C PO (10:48)
[2020-04-08] MEDS ORDERED: METOPROLOL SUC100 M1 PO (10:48)
[2020-04-08] MEDS ORDERED: TRAMADOL HCL50 MG PO ×2 (10:49→12:28)
[2020-04-08 12:00] VITALS: BP 143/72
== END 2020-04-08 15:30 | disposition home or self-care (01) | DRG 280 ==
LOC: ED 13:59 → 4E 16:34 → EDHOLD 16:34 → 4E 17:09
PROVIDERS: Emergency Medicine; Hospitalist; ADMIT Student in an Organized Health Care Education/Training Program
DX: I21.4 Non-ST elevation (NSTEMI) myocardial infarction (principal); N17.0 Acute kidney failure with tubular necrosis; I16.1 Hypertensive emergency; Z68.43 Body mass index [BMI] 50.0-59.9, adult; F33.9 Major depressive disorder, recurrent, unspecified; E87.8 Other disorders of electrolyte and fluid balance, not elsewhere classified; E66.9 Obesity, unspecified; N18.3 Chronic kidney disease, stage 3 (moderate); I25.118 Atherosclerotic heart disease of native coronary artery with other forms of angina pectoris; E78.2 Mixed hyperlipidemia; R73.9 Hyperglycemia, unspecified; E83.41 Hypermagnesemia; I12.9 Hypertensive chronic kidney disease with stage 1 through stage 4 chronic kidney disease, or unspecified chronic kidney disease; D64.9 Anemia, unspecified; E83.39 Other disorders of phosphorus metabolism; B86 Scabies; F41.1 Generalized anxiety disorder; M21.071 Valgus deformity, not elsewhere classified, right ankle; I73.9 Peripheral vascular disease, unspecified; M89.8X7 Other specified disorders of bone, ankle and foot; Z95.5 Presence of coronary angioplasty implant and graft; I25.2 Old myocardial infarction; Z80.3 Family history of malignant neoplasm of breast; Z82.0 Family history of epilepsy and other diseases of the nervous system; Z79.899 Other long term (current) drug therapy

== ENCOUNTER 2020-05-18 15:52 | Observation (INO) | payer OTHER ==
[~2020-05-18] VITALS: Ht 172.7 cm; Wt 186.0 kg
[~2020-05-18 15:52] MED LIST changes: +CARAFATE1 GM PO; +HYDR12.5C PO
[2020-05-18 16:18] LABS: BASO % 0.2 % (0.0-1.0); EOS % 0.1 % (1.0-4.0); HEMATOCRIT 36.6 % (42.0-52.0); LYMPH # 0.9 10*3/uL (1.3-4.4); MEAN CELL VOLUME 91.5 fl (80.0-94.0); MEAN CORPUSCULAR HGB 29.3 pg (27.0-31.0); MONO # 0.7 10*3/uL (0.1-1.0); NEUT # 9.6 10*3/uL (2.3-7.9); NEUT % 84.1 % (47.0-73.0); PLATELET COUNT AUTOMATED 251 10*3/uL (130-400); RED CELL DISTRI WIDTH 14.8 % (0-14.5); WHITE BLOOD COUNT 11.4 10*3/uL (4.8-10.8)
[2020-05-18 16:31] LABS: ACT PARTIAL THROMBO TIME 21.5 SECONDS (20.0-32.1); INTERNATIONAL NORM RATIO 0.9 (2.0-3.5)
[2020-05-18 16:34] LABS: ALBUMIN 3.3 gm/dl (3.1-4.5); ALKALINE PHOSPHATASE 38 U/L (45-117); BUN 31 mg/dl (7-24); CHLORIDE 106 mmol/L (98-107); CREATININE 1.25 mg/dL (0.70-1.30); POTASSIUM 4.2 mmol/L (3.5-5.1); SGOT/AST 5 IU/L (3-35); SGPT/ALT 23 U/L (12-78); SODIUM 140 mmol/L (136-145); TOTAL PROTEIN 6.3 gm/dL (6.4-8.2)
[2020-05-18 16:35] LABS: LIPASE 105 U/L (73-393)
[2020-05-18 16:39] LABS: TROPONIN I 0.076 ng/ml (<0.045)
--- NOTE | 2020-05-18 17:10 | NUR ---
PATIENT DENIES WANTING PICTURES TAKEN OF HIS WOUNDS.
[2020-05-18 19:33] VITALS: BP 178/107
[2020-05-18 20:22] VITALS: BP 158/97
--- NOTE | 2020-05-18 21:10 | NUR ---
A 55, admitted to 5E, under the services of YURIY Cortes DO with a diagnosis of CHEST PAIN RULE OUT VT. Chief complaint is CHEST PAIN. Patient arrived via stretcher from ER. Monitor applied. Initial assessment completed. Vital signs taken and recorded. YURIY CORTES DO notified of admission to the unit. Orders received. See assessment for past medical history, medications and allergies. Patient and/or family oriented to unit. [facility] visitation policy reviewed. Clothing/patient valuable form completed. JOEL WALKER
[2020-05-18] MEDS ORDERED: COZAAR50 M1 PO (21:43)
[2020-05-18] MEDS ORDERED: METOPROLOL SUC200 M1 PO (21:44)
[2020-05-18] MEDS ORDERED: PANTOPRAZOLE SO40 MG PO (21:58)
[2020-05-18 22:05] VITALS: BP 202/104
--- NOTE | 2020-05-18 22:09 | NUR ---
NOTIFIED OF ELEVATED BP 202/104 MANUALLY. AWARE MED REC UP TO DATE & PT HAS HAD MOST OF HIS HOME MEDS TODAY. NEW ORDERS TO FOLLOW.
--- NOTE | 2020-05-18 22:10 | NUR ---
OKAY TO HANG IVF (@125 ML/HR) X1 BAG PER .
--- NOTE | 2020-05-18 22:35 | NUR ---
INFORMED OF 3 SET CH TROP OF 0.093. STATED HE WILL PLACE ANOTHER SET OF TROPONINS.
--- NOTE | 2020-05-18 23:17 | NUR ---
NOTIFIED OF PATIENT'S REQUEST FOR SOMETHING FOR ANXIETY. PT STATES HE FEELS LIKE HE IS HAVING A PANIC ATTACK. RN ENCOURAGED DEEP BREATHS. MADE AWARE OF HOME MED REC UP TO DATE. PT TAKES PO HYDROXYZINE AT HOME. OKAY TO ORDER PO HYDROXYZINE PT TAKES AT HOME.
--- NOTE | 2020-05-18 23:35 | NUR ---
PT FOUND SLEEPING WHEN RN ENTERED ROOM. RN WOKE PATIENT TO CHECK BP. PT STILL C/O HAVING PANIC ATTACK. PO VISTARIL GIVEN PER ORDER FOR PT C/O ANXIETY/"PANIC ATTACK." WILL MONITOR.
[2020-05-18 23:45] VITALS: BP 106/106; BP 206/106
--- NOTE | 2020-05-18 23:45 | NUR ---
NOTIFIED OF PT'S BP 206/106 & HR 76. AWARE OF 10 MG IV LABETOLOL GIVEN AT 2231 AND 25 MG PO VISTARIL GIVEN AT 2335. NEW ORDER RECEIVED FOR IV LABETOLOL 20 MG. AWARE PT DID NOT TAKE SECOND DOSE OF HOME METOPROLOL. ONLY TOOK 1 OF 2 DOSES TODAY (05/18/20).
[2020-05-19 01:20] VITALS: BP 162/92
--- NOTE | 2020-05-19 01:30 | NUR ---
NOTIFIED OF BP IMPROVED FOLLOWING IV LABETOLOL. BP NOW 162/92. HR IN 70S PER CM. ALSO MADE AWARE OF TROPONIN 0.102, UP FROM 0.093.
--- NOTE | 2020-05-19 01:31 | NUR ---
PT STILL REFUSING ORTHOS AT THIS TIME.
[2020-05-19 06:15] VITALS: BP 188/92
--- NOTE | 2020-05-19 06:44 | NUR ---
5 MG IV HYDRALAZINE GIVEN PER ONE TIME ORDER FOR ELEVATED BP. PO VISTARIL ALSO GIVEN FOR INCREASED ANXIETY. PT NOW AGREES TO ATTEMPT ORTHOS. ORTHOS POSITIVE & PT VERY DIZZY. WILL NOTIFY
[2020-05-19 07:23] LABS: BASO % 0.1 % (0.0-1.0); EOS # 0.1 10*3/uL (0.0-0.4); EOS % 0.5 % (1.0-4.0); HEMATOCRIT 36.8 % (42.0-52.0); LYMPH # 1.6 10*3/uL (1.3-4.4); LYMPH % 17.6 % (27.0-41.0); MEAN CELL VOLUME 92.5 fl (80.0-94.0); MEAN CORPUSCULAR HGB 29.1 pg (27.0-31.0); MEAN CORPUSCULAR HGB CONC 31.5 g/dl (33.0-37.0); MEAN PLATELET VOLUME 8.8 fl (9.6-12.3); MONO # 0.5 10*3/uL (0.1-1.0); MONO % 5.7 % (3.0-9.0); NEUT # 6.9 10*3/uL (2.3-7.9); PLATELET COUNT AUTOMATED 217 10*3/uL (130-400); RED BLOOD COUNT 3.98 10*6/uL (4.50-5.90); RED CELL DISTRI WIDTH 15.1 % (0-14.5); WHITE BLOOD COUNT 9.3 10*3/uL (4.8-10.8)
--- NOTE | 2020-05-19 07:38 | NUR ---
DR ALONSO NOTIFIED OF CRITICAL TROPONIN OF 0.093
--- NOTE | 2020-05-19 07:38 | NUR ---
NOTIFIED OF TROPONIN 0.093 AND +ORTHOS.
[2020-05-19 07:49] LABS: ALBUMIN 3.3 gm/dl (3.1-4.5); ALKALINE PHOSPHATASE 38 U/L (45-117); BUN 26 mg/dl (7-24); CHLORIDE 107 mmol/L (98-107); CREATININE 1.31 mg/dL (0.70-1.30); POTASSIUM 3.8 mmol/L (3.5-5.1); SGOT/AST 8 IU/L (3-35); SGPT/ALT 23 U/L (12-78); SODIUM 140 mmol/L (136-145); TOTAL PROTEIN 6.3 gm/dL (6.4-8.2)
[2020-05-19 07:53] LABS: INTERNATIONAL NORM RATIO 0.9 (2.0-3.5)
[2020-05-19 08:00] VITALS: BP 173/89
--- NOTE | 2020-05-19 08:00 | NUR ---
Neurological: awake,alert,oriented Respiratory: diminished bilaterally Breath sounds: clear Cough: none Cardiovascular: no problem Gastrointestinal: soft Genito/Urinary: no problem Musculoskeketal: AMBULATORY PLEASANT, COOPERATIVE. TRUCK SALES REPRESENTATIVE SEEN PATIENT AND GAVE ORDER TO BE NPO. NO C/O AT THIS TIME. AMBULATES WITH WALKER AND ASSIST. TRACE EDEMA BLE. DOUGLAS CLARK
--- NOTE | 2020-05-19 08:18 | NUR ---
PHYSICAL THERAPY Screen received, pt admitted from home w chest pain, syncope, possible PR. Please consult PT if pts functional status declines from baseline and medically appropriate. Thank you. Jose Berkowitz SPT Ghazala Cortez PT
--- NOTE | 2020-05-19 08:34 | NUR ---
CONSULT CALLED TO DR VAUGHAN'S OFFICE.
--- NOTE | 2020-05-19 09:00 | NUR ---
CM in to see patient. He is currently have an echo performed at bedside. Will follow up at a later time.
--- NOTE | 2020-05-19 10:30 | NUR ---
Casino Worker in to talk to patient. Patient states lives at home alone with his family checking in on him. There are 0 steps in the home. Physician: Lotus Baltazar Pharmacy: [facility] Home health services: none Patient's level of ADLs: MINIMAL ASSIST Patient has working utilities: yes DME: crutches, walking boot Follow-up physician's appointment after d/c: will be made by the hospitalist nurse director upon discharge Does patient want to access PORTAL?: no Discharge plan discussed with patient. He lives at home with his family checking in on him. He is independent in his ADLs and ambulates with a walking boot and crutches. Discussed home health care services and he declines. CM will continue to follow for any discharge planning needs. When medically stable he will be discharged to home. He states he will have a ride home on discharge. BOB PRADO
[2020-05-19 12:00] VITALS: BP 162/95
--- NOTE | 2020-05-19 15:56 | NUR ---
Nursing screen received and chart reviewed. Patient admitted for chest pain, syncope, and possible ME. If patient has a decline in ADLs, transfers, or functional mobility, please send OT orders. Thank you. Nora Aguirre, OTR/L
[2020-05-19 16:00] VITALS: BP 125/54
--- NOTE | 2020-05-19 19:29 | NUR ---
HOME MEDICATIONS REMAIN IN PATIENT'S ROOM. NOT SENT TO PHARMACY PT IS LEAVING FOR CARDIAC CATH TOMORROW MORNING-THERE IS CURRENTLY NO SET TIME FOR DEPARTURE.
[2020-05-19 20:10] VITALS: BP 165/95
--- NOTE | 2020-05-19 21:20 | NUR ---
PT REQUESTED AND RECEIVED IV MORPHINE FOR C/O HEADACHE, PAIN IN STOMACH, AND CHEST PAIN RATED 7/10. PT STATES PAIN IN CHEST IS THE SAME WHEN HE CAME IN-NO WORSE, NO BETTER. PO VISTARIL ALSO GIVEN FOR C/O ANXIETY. WILL MONITOR EFFECTIVENESS. CALL LIGHT IN REACH.
--- NOTE | 2020-05-19 22:10 | NUR ---
EARLIER MEDICATION EFFECTIVE PER PT. WILL MONITOR.
[2020-05-20 00:01] VITALS: BP 153/93
--- NOTE | 2020-05-20 01:53 | NUR ---
IV MORPHINE GIVEN FOR C/O HEADACHE AND STOMACH ACHE RATED 7/10. WILL MONITOR. CALL LIGHT IN REACH.
--- NOTE | 2020-05-20 05:31 | NUR ---
ATTEMPTED TO CALL [facility] LIBRARY ASSOCIATE AT [phone]. NO ANSWER. WILL ATTEMPT AT LATER TIME TO DISCUSS DETAILS OF PATIENT TRANSFER FOR CARDIAC CATH.
--- NOTE | 2020-05-20 06:04 | NUR ---
IV MORPHINE GIVEN PER PRN ORDER FOR C/O HEADACHE, STOMACH ACHE, AND CHEST PAIN. WILL MONITOR EFFECTIVENESS. CALL LIGHT IN REACH.
--- NOTE | 2020-05-20 06:08 | NUR ---
SPOKE TO NAJMA AT [facility]'S NOTCHING PRESS OPERATOR. STATES PT IS CURRENTLY LAST ON THE SCHEDULE AND HIS TIME IS 1430. STATES IF ALL GOES PLANNED, PT WOULD NEED TO BE HERE BY 1230. HOWEVER, THERE ARE 8 CATHS AHEAD OF HIM. PER NAJMA, HAVE AM SHIFT CALL BACK AND SPEAK TO CHARGE NURSE TICO. STATES SHE WILL HAVE A BETTER IDEA OF WHEN PATIENT SHOULD DEPART FROM [facility]. PER NAJMA, DO NOT SET UP TRANSPORT AT THIS TIME.
[2020-05-20 08:00] VITALS: BP 148/86
--- NOTE | 2020-05-20 08:00 | NUR ---
REMAINS NPO . BP HIGH 148/86. GAVE MEDS INDICATED. LUNGS CLEAR. MULTIPLE SCABS AND SCATCHES BUT REFUSES PICTURES TO BE TAKEN. TRACE EDEMA BLE. PLEASANT AND COOPERATIVE.
--- NOTE | 2020-05-20 09:09 | NUR ---
MATHEMATICS TEACHER CALLED, REPORT GIVEN. NOTIFIED OF MANUAL BP THIS AM OF 148/86. ORDERS RECEIVED TO GIVE COZAAR, TOPROL XL, PLAVIX AND ASPIRIN DOSE TO BE 325MG. Jamison LEROY INTERIOR DESIGN PROFESSIONAL NOTIFIED.
--- NOTE | 2020-05-20 10:00 | NUR ---
PT REFUSED DISCHARGE WOUND PHOTOS
--- NOTE | 2020-05-20 10:35 | NUR ---
AMBULANCE SERVICE PICKED PATIENT UP TO BE TRANSFERED TO [facility]. TOOK ALL BELONGING WITH HIM. IN STABLE CONDITION. TELE MONITOR REMOVED.
--- NOTE | 2020-05-20 10:36 | NUR ---
Discharge instructions reviewed with patient/family. Patient receptive and verbalizes understanding. Follow-up care arranged. Written instructions given to patient/family. THANG MORA
== END 2020-05-20 10:33 | disposition other institution (70) ==
LOC: ED 15:52 → EDHOLD 18:40 → 5E 18:40
PROVIDERS: Emergency Medicine; Student in an Organized Health Care Education/Training Program; ADMIT Family Medicine; ATTEND Family Medicine
DX: R07.89 Other chest pain (principal); R55 Syncope and collapse; I16.1 Hypertensive emergency; I12.9 Hypertensive chronic kidney disease with stage 1 through stage 4 chronic kidney disease, or unspecified chronic kidney disease; N18.3 Chronic kidney disease, stage 3 (moderate); N17.0 Acute kidney failure with tubular necrosis; D64.9 Anemia, unspecified; I21.4 Non-ST elevation (NSTEMI) myocardial infarction

== ENCOUNTER 2020-06-13 10:54 | Emergency (ER) | payer OTHER ==
[~2020-06-13] VITALS: Ht 172.7 cm; Wt 1628.4 kg
[~2020-06-13 10:54] MED LIST changes: +METOPROLOL SUC200 M1 PO
[2020-06-13 11:26] LABS: BASO # 0.1 10*3/uL (0.0-0.1); BASO % 0.7 % (0.0-1.0); EOS # 0.3 10*3/uL (0.0-0.4); EOS % 3.4 % (1.0-4.0); HEMATOCRIT 38.9 % (42.0-52.0); LYMPH # 1.3 10*3/uL (1.3-4.4); LYMPH % 16.3 % (27.0-41.0); MEAN CORPUSCULAR HGB 28.6 pg (27.0-31.0); MEAN CORPUSCULAR HGB CONC 32.1 g/dl (33.0-37.0); MEAN PLATELET VOLUME 9.1 fl (9.6-12.3); MONO # 0.7 10*3/uL (0.1-1.0); MONO % 8.2 % (3.0-9.0); NEUT # 5.8 10*3/uL (2.3-7.9); NEUT % 70.8 % (47.0-73.0); PLATELET COUNT AUTOMATED 367 10*3/uL (130-400); RED BLOOD COUNT 4.37 10*6/uL (4.50-5.90); RED CELL DISTRI WIDTH 14.1 % (0-14.5); WHITE BLOOD COUNT 8.1 10*3/uL (4.8-10.8)
[2020-06-13 11:42] LABS: ALBUMIN 3.2 gm/dl (3.1-4.5); CREATININE 1.5 mg/dL (0.70-1.30); POTASSIUM 3.5 mmol/L (3.5-5.1); TOTAL PROTEIN 6.6 gm/dL (6.4-8.2)
== END 2020-06-13 13:34 | disposition home or self-care (01) ==
LOC: ED 10:54
PROVIDERS: Nurse Practitioner Family
DX: R11.2 Nausea with vomiting, unspecified (principal); F41.9 Anxiety disorder, unspecified; I10 Essential (primary) hypertension; Z79.2 Long term (current) use of antibiotics; Z79.899 Other long term (current) drug therapy

== ENCOUNTER 2020-06-20 17:28 | Observation (INO) | payer OTHER ==
[~2020-06-20] VITALS: Ht 172.7 cm; Wt 157.9 kg
[2020-06-20 17:31] VITALS: BP 118/73
[2020-06-20 18:12] LABS: BASO # 0.1 10*3/uL (0.0-0.1); BASO % 1.3 % (0.0-1.0); EOS # 0.3 10*3/uL (0.0-0.4); EOS % 3.3 % (1.0-4.0); HEMATOCRIT 37.2 % (42.0-52.0); LYMPH # 1.3 10*3/uL (1.3-4.4); LYMPH % 14.6 % (27.0-41.0); MEAN CELL VOLUME 90.7 fl (80.0-94.0); MEAN PLATELET VOLUME 9.2 fl (9.6-12.3); MONO # 0.8 10*3/uL (0.1-1.0); MONO % 8.7 % (3.0-9.0); NEUT # 6.3 10*3/uL (2.3-7.9); NEUT % 71.8 % (47.0-73.0); PLATELET COUNT AUTOMATED 388 10*3/uL (130-400); RED CELL DISTRI WIDTH 14.2 % (0-14.5); WHITE BLOOD COUNT 8.8 10*3/uL (4.8-10.8)
[2020-06-20 18:28] LABS: ALBUMIN 2.8 gm/dl (3.1-4.5); ALKALINE PHOSPHATASE 59 U/L (45-117); BUN 3 mg/dl (7-24); CHLORIDE 105 mmol/L (98-107); CREATININE 1.18 mg/dL (0.70-1.30); LIPASE 99 U/L (73-393); POTASSIUM 3.6 mmol/L (3.5-5.1); SGOT/AST 18 IU/L (3-35); SGPT/ALT 11 U/L (12-78); SODIUM 135 mmol/L (136-145); TOTAL PROTEIN 6.4 gm/dL (6.4-8.2); TROPONIN I 0.022 ng/ml (<0.045)
[2020-06-20 18:35] LABS: ACT PARTIAL THROMBO TIME 36.1 SECONDS (20.0-32.1); INTERNATIONAL NORM RATIO 1.1 (2.0-3.5)
[2020-06-20 21:23] VITALS: BP 165/99
[2020-06-20 23:00] VITALS: BP 149/86
[2020-06-21 03:48] LABS: BILIRUBIN 1+ (Negative); BLOOD Negative (Negative); CLARITY Clear (Clear); COLOR Dark Yellow (Yellow); GLUCOSE Negative (Negative); KETONE 1+ (Negative); LEUKO ESTERASE Trace (Negative); NITRITE Negative (Negative); SPECIFIC GRAVITY 1.025 (1.001-1.030)
[2020-06-21 04:02] LABS: HYALINE CAST 16-20
[2020-06-21 06:31] LABS: BASO # 0.1 10*3/uL (0.0-0.1); BASO % 1.1 % (0.0-1.0); EOS # 0.2 10*3/uL (0.0-0.4); EOS % 3.4 % (1.0-4.0); HEMATOCRIT 34.6 % (42.0-52.0); LYMPH # 1.2 10*3/uL (1.3-4.4); LYMPH % 17.8 % (27.0-41.0); MEAN CELL VOLUME 90.8 fl (80.0-94.0); MEAN CORPUSCULAR HGB 28.9 pg (27.0-31.0); MEAN CORPUSCULAR HGB CONC 31.8 g/dl (33.0-37.0); MEAN PLATELET VOLUME 9.4 fl (9.6-12.3); MONO # 0.8 10*3/uL (0.1-1.0); MONO % 12.1 % (3.0-9.0); NEUT # 4.3 10*3/uL (2.3-7.9); NEUT % 65.1 % (47.0-73.0); PLATELET COUNT AUTOMATED 304 10*3/uL (130-400); RED BLOOD COUNT 3.81 10*6/uL (4.50-5.90); RED CELL DISTRI WIDTH 14.1 % (0-14.5); WHITE BLOOD COUNT 6.5 10*3/uL (4.8-10.8)
[2020-06-21 06:46] LABS: ALBUMIN 2.6 gm/dl (3.1-4.5); ALKALINE PHOSPHATASE 56 U/L (45-117); BUN 4 mg/dl (7-24); CHLORIDE 106 mmol/L (98-107); POTASSIUM 3.6 mmol/L (3.5-5.1); SGOT/AST 16 IU/L (3-35); SGPT/ALT 9 U/L (12-78); SODIUM 138 mmol/L (136-145)
[2020-06-21 08:00] VITALS: BP 138/72
[2020-06-21 12:00] VITALS: BP 156/90
[2020-06-21 16:00] VITALS: BP 139/71
[2020-06-21 20:00] VITALS: BP 152/67
[2020-06-22] VITALS: BP 168/68
[2020-06-22 08:00] VITALS: BP 168/70
[2020-06-22 12:00] VITALS: BP 141/59
[2020-06-22 16:00] VITALS: BP 151/66
[2020-06-22 20:00] VITALS: BP 151/68
[2020-06-23] VITALS (9 sets, daily range): BP systolic 137–160; BP diastolic 50–90
[2020-06-24] VITALS: BP 168/77
[2020-06-24 07:00] LABS: CREATININE 0.74 mg/dL (0.70-1.30)
[2020-06-24 07:45] LABS: BASO # 0.1 10*3/uL (0.0-0.1); BASO % 0.9 % (0.0-1.0); EOS # 0.2 10*3/uL (0.0-0.4); EOS % 3.3 % (1.0-4.0); HEMATOCRIT 36.5 % (42.0-52.0); LYMPH # 1.3 10*3/uL (1.3-4.4); MEAN CELL VOLUME 89.7 fl (80.0-94.0); MEAN CORPUSCULAR HGB 28.7 pg (27.0-31.0); MEAN CORPUSCULAR HGB CONC 32.1 g/dl (33.0-37.0); MEAN PLATELET VOLUME 9.4 fl (9.6-12.3); MONO # 0.8 10*3/uL (0.1-1.0); MONO % 11.4 % (3.0-9.0); NEUT # 4.4 10*3/uL (2.3-7.9); NEUT % 65.1 % (47.0-73.0); PLATELET COUNT AUTOMATED 289 10*3/uL (130-400); RED BLOOD COUNT 4.07 10*6/uL (4.50-5.90); RED CELL DISTRI WIDTH 13.7 % (0-14.5); WHITE BLOOD COUNT 6.7 10*3/uL (4.8-10.8)
[2020-06-24 08:00] VITALS: BP 159/89
[2020-06-24 12:00] VITALS: BP 157/98
[2020-06-24 16:00] VITALS: BP 160/90
[2020-06-24 20:00] VITALS: BP 165/72
[2020-06-25] VITALS: BP 166/93
[2020-06-25 08:00] VITALS: BP 149/58
[2020-06-25] MEDS ORDERED: CARAFATE1 GM PO (09:03)
[2020-06-25] MEDS ORDERED: NEXIUM40 MG PO (09:03)
[2020-06-25] MEDS ORDERED: HYDROCODONE-AC1 EAC1 PO (09:03)
[2020-06-25] MEDS ORDERED: PEPCID40 MG PO (09:07)
[2020-06-25 12:00] VITALS: BP 144/73
== END 2020-06-25 16:37 | disposition home or self-care (01) ==
LOC: ED 17:28 → EDHOLD 21:24 → 5E 21:24
PROVIDERS: Emergency Medicine; Internal Medicine; ADMIT Family Medicine; ATTEND Family Medicine
DX: K29.70 Gastritis, unspecified, without bleeding (principal); R55 Syncope and collapse; R07.89 Other chest pain; E87.1 Hypo-osmolality and hyponatremia; R79.89 Other specified abnormal findings of blood chemistry; R79.82 Elevated C-reactive protein (CRP); D72.824 Basophilia; D72.810 Lymphocytopenia; D64.9 Anemia, unspecified; E83.42 Hypomagnesemia; F32.9 Major depressive disorder, single episode, unspecified; I12.9 Hypertensive chronic kidney disease with stage 1 through stage 4 chronic kidney disease, or unspecified chronic kidney disease; N18.9 Chronic kidney disease, unspecified; I25.10 Atherosclerotic heart disease of native coronary artery without angina pectoris

== ENCOUNTER 2020-07-10 00:09 | Emergency (ER) | payer OTHER ==
[~2020-07-10] VITALS: Ht 172.7 cm; Wt 147.0 kg
== END 2020-07-10 02:20 | disposition left against medical advice (07) ==
LOC: ED 00:09
DX: R07.9 Chest pain, unspecified (principal); G89.18 Other acute postprocedural pain; F41.9 Anxiety disorder, unspecified; I25.10 Atherosclerotic heart disease of native coronary artery without angina pectoris; I12.9 Hypertensive chronic kidney disease with stage 1 through stage 4 chronic kidney disease, or unspecified chronic kidney disease; N18.30 Chronic kidney disease, stage 3 unspecified; Z79.899 Other long term (current) drug therapy; Z79.2 Long term (current) use of antibiotics

== ENCOUNTER 2020-08-24 23:53 | Inpatient (IN) | payer OTHER ==
[~2020-08-24] VITALS: Ht 172.7 cm; Wt 129.9 kg
[~2020-08-24 23:53] MED LIST changes: +HYDROCODONE-AC1 EAC1 PO; +NEXIUM40 MG PO; +PEPCID40 MG PO
[2020-08-24 23:57] VITALS: BP 128/85
[2020-08-25] VITALS (9 sets, daily range): BP systolic 107–150; BP diastolic 72–92
--- NOTE | 2020-08-25 00:30 | NUR ---
SPOKE WITH THE PATIENTS NEIGHBOR/GRAND [employer]Y DEPUTY SHERIFF WHO STATES THE PATIENT IS UNABLE TO CARE FOR SELF. STATES SHE IS HIS NEIGHBOR AND STOPS IN TO CHECK ON HIM DAILY STATESD YESTERDAY HE WAS TALKING ABOUT PEOPLE BEING IN HIS HOUSE. STATES HE IS NOT EATING OR DRINKING . STATES HE IS NOT GETTING OUT OF BED. THE NEIGHBOR STATES SHE TRIES TO HELP MUCH SHE CAN BUT SHE WORKS BELT BRANDER. NEIGHBOR ALSO STATES THE PATIENT IS NOT TAKING HIS MEDICATIONS AND STATES SHE IS UNSURE WHAT HE IS EVEN TAKING. WHEN ASKING THE PATIENT WHAT HE TAKES THE PATIENT STATES "ASK MY FRIEND/NEIGHBOR" BECAUSE I DONT KNOW. AMERICO BOLDEN RN.
[2020-08-25 00:48] LABS: BASO % 0.5 % (0.0-1.0); EOS # 0.1 10*3/uL (0.0-0.4); EOS % 3.3 % (1.0-4.0); HEMATOCRIT 36.6 % (42.0-52.0); LYMPH # 1.3 10*3/uL (1.3-4.4); LYMPH % 33.1 % (27.0-41.0); MEAN CELL VOLUME 82.1 fl (80.0-94.0); MEAN CORPUSCULAR HGB 26.5 pg (27.0-31.0); MEAN CORPUSCULAR HGB CONC 32.2 g/dl (33.0-37.0); MEAN PLATELET VOLUME 9.7 fl (9.6-12.3); MONO # 0.3 10*3/uL (0.1-1.0); MONO % 7.1 % (3.0-9.0); NEUT # 2.2 10*3/uL (2.3-7.9); NEUT % 55.7 % (47.0-73.0); PLATELET COUNT AUTOMATED 208 10*3/uL (130-400); RED BLOOD COUNT 4.46 10*6/uL (4.50-5.90); RED CELL DISTRI WIDTH 13.6 % (0-14.5); WHITE BLOOD COUNT 3.9 10*3/uL (4.8-10.8)
[2020-08-25 01:04] LABS: ALBUMIN 3.1 gm/dl (3.1-4.5); ALKALINE PHOSPHATASE 72 U/L (45-117); BUN 7 mg/dl (7-24); CHLORIDE 101 mmol/L (98-107); CREATININE 0.76 mg/dL (0.70-1.30); LIPASE 965 U/L (73-393); POTASSIUM 3.7 mmol/L (3.5-5.1); SGOT/AST 46 IU/L (3-35); SGPT/ALT 15 U/L (12-78); SODIUM 135 mmol/L (136-145); TOTAL PROTEIN 6.5 gm/dL (6.4-8.2)
--- NOTE | 2020-08-25 09:06 | NUR ---
Time: 905 A 55 year old MALE admitted to 5E under services of EL BARROW DO. Pt. arrived via ambulance from ER. Chief complaint: POOR APPETITE, NOT EATING/DRINKING, POOR OUTPUT, WEAKNESS, UNABLE TO AMBULATE. MARQUITA WARE
--- NOTE | 2020-08-25 09:15 | NUR ---
OT NOTE Occupational therapy evaluation received and attempted to see patient. Patient just arriving to the medical floor from the ED and nursing was completing a patient assessment. Will follow up with patient at a later time. Thank you. Nora Aguirre OTR/L
--- NOTE | 2020-08-25 09:15 | NUR ---
PHYSICAL THERAPY Santos knight attempted to see pt at the bedside just admitted to room from the ED and nursing assessing patient, will follow at a later time. Ghazala Cortez PT
[2020-08-25] MEDS ORDERED: CIPROFLOXACIN500 M4 PO (10:06)
[2020-08-25] MEDS ORDERED: PANTOPRAZOLE SO40 MG PO (10:08)
[2020-08-25] MEDS ORDERED: METRONIDAZOLE500 M1 PO (10:08)
--- NOTE | 2020-08-25 10:20 | NUR ---
MED REC UPDATED.
--- NOTE | 2020-08-25 11:43 | NUR ---
NOTIFIED OF CONSULT. ORDERS FOR HIDA SCAN RECEIVED.
--- NOTE | 2020-08-25 12:05 | NUR ---
PARKING LOT ATTENDANT AND CASHIER FAXED DEMOGRAPHICS TO [facility] FOR REVIEW.
--- NOTE | 2020-08-25 13:20 | NUR ---
OT NOTE Occupational therapy order received, chart reviewed, and attempted to see patient at bedside. Patient declining an OT evaluation at this time stating he was "waiting on the doctor...too nervous right now to get up...I don't want you getting me up today." Patient agreeable to an OT evaluation at a later date. Nursing notified of patient's refusal. Thank you. Nora Aguirre, OTR/L
--- NOTE | 2020-08-25 13:26 | NUR ---
PHYSICAL THERAPY Physical Therapy evaluation attempted at the bedside currently pt declining therapy wanting to be seen in the AM per pt "I'm nervous I'm waiting for the doctor and I'm suppose to have a test". Pt to have a HIDA scan. Spoke with primary nurse will follow in the AM. Ghazala Cortez PT
--- NOTE | 2020-08-25 13:35 | NUR ---
INSTRUCTOR CREELER FAXED REFERRAL TO [facility] FOR REVIEW.
--- NOTE | 2020-08-25 14:04 | NUR ---
OFF FLOOR FOR HIDA SCAN.
--- NOTE | 2020-08-25 15:33 | NUR ---
[facility]
--- NOTE | 2020-08-25 19:47 | NUR ---
BLADDER SCANNED FOR 433CC. NOTIFIED PT HAS NOT VOIDED AT ALL SINCE ADMISSION. NEW ORDERS TO STRAIGHT CATH REC'D.
--- NOTE | 2020-08-25 20:02 | NUR ---
REFUSING STRAIGHT CATH. SAID HE JUST NEEDS TO DRINK MORE WATER. EXPLAINED THAT HE HAS HAD 3 BAGS OF FLUIDS AT THIS POINT AND SHOULD HAVE URINATED BY NOW. REFUSES TO BELIEVE THIS. INSISTS ON INCREASING PO FLUIDS. INFORMED HIM HE HAS REFUSED ALL LIQUIDS AND FOOD INTAKE SINCE ARRIVAL. DINNER STILL ON BEDSIDE TABLE UNTOUCHED.. WILL REASSESS AT ANOTHER TIME.
--- NOTE | 2020-08-25 20:50 | NUR ---
STILL REFUSING TO BE STRAIGHT CATHED.
--- NOTE | 2020-08-25 21:38 | NUR ---
STILL NO URINE PRODUCED. ASKED PT AGAIN TO BE STRAIGHT CATH'D. SAID HE HAS ONLY BEEN ON THE FLOOR FOR 1 HOUR. INFORMED HE HAS BEEN ON THE FLOOR FOR SEVERAL HOURS AND HAS NOT VOIDED ALSO HAD IVF CONTINUOUS SINCE ADMISSION. 120CC PO FLUIDS CONSUMED SINCE ADMISSION. STILL REFUSED STRAIGHT CATH ALSO REFUSING TO TRY TO VOID AT THIS TIME. CALL LIGHT IN REACH.
[2020-08-26] VITALS: BP 136/88; BP 136/99
--- NOTE | 2020-08-26 | NUR ---
SLEEPING WITH NO DISTRESS NOTED. RESPIRATIONS EASY. LUNGS DIMINISHED. PULSE OX 97% RA. IV FLUIDS INFUSING PER ORDER. CALL LIGHT WITHIN REACH. BED ALARM APPLIED FOR SAFETY
--- NOTE | 2020-08-26 05:00 | NUR ---
24 HR chart check completed.
--- NOTE | 2020-08-26 06:00 | NUR ---
SLEPT THROUGHOUT NIGHT WITH NO DISTRESS NOTED. RESPIRATIONS EASY. IV FLUIDS MAINTAINED. CALL LIGHT WITHIN REACH. BED ALARM MAINTAINED FOR SAFETY
[2020-08-26 06:38] LABS: BASO % 0.6 % (0.0-1.0); EOS # 0.1 10*3/uL (0.0-0.4); EOS % 2.8 % (1.0-4.0); HEMATOCRIT 29.4 % (42.0-52.0); LYMPH # 0.8 10*3/uL (1.3-4.4); LYMPH % 25.6 % (27.0-41.0); MEAN CELL VOLUME 81.7 fl (80.0-94.0); MEAN CORPUSCULAR HGB 26.9 pg (27.0-31.0); MEAN PLATELET VOLUME 10.4 fl (9.6-12.3); MONO # 0.2 10*3/uL (0.1-1.0); MONO % 6.6 % (3.0-9.0); NEUT % 64.1 % (47.0-73.0); PLATELET COUNT AUTOMATED 175 10*3/uL (130-400); RED CELL DISTRI WIDTH 13.5 % (0-14.5); WHITE BLOOD COUNT 3.2 10*3/uL (4.8-10.8)
[2020-08-26 06:54] LABS: BUN 9 mg/dl (7-24); CHLORIDE 105 mmol/L (98-107); CREATININE 0.72 mg/dL (0.70-1.30); LIPASE 696 U/L (73-393); POTASSIUM 3.5 mmol/L (3.5-5.1); SODIUM 136 mmol/L (136-145)
--- NOTE | 2020-08-26 07:35 | NUR ---
[facility] IS OUT OF NETWORK FOR THIS PATIENT.
--- NOTE | 2020-08-26 07:47 | NUR ---
PHYSICAL THERAPY PT screen and eval received will follow thank you Ghazala Cortez PT
[2020-08-26 08:00] VITALS: BP 152/95
--- NOTE | 2020-08-26 08:30 | NUR ---
Line Assembly Utility Worker in this a.m. to talk to patient. Pt. lying in bed, affect flat. Pt. mildly confused when speaking. Patient states he lives at Home Alone with nearby assistance of a Caregiver who lives close to him. There are no steps in the home. he Lives in A trailer on one floor. Uses a Motorized wheelchair to get around in his trailer. Physician: Dr. Baltazar Pharmacy: Home health services: none at this time Patient's level of ADLs: MAX ASSIST Patient has working utilities: yes DME: Motorized Scooter Follow-up physician's appointment after d/c: Per Hospitalist Office Does patient want to access PORTAL?: Declines Discharge plan Pt. will require SNF due to Complex Needs. Pt.is unable to even feed himself at this point. Pt. has not been taking his Medications and Is unable to safely be at home due to his Needs at this time. Family Friend Debora Expressed Concerns reguarding Pt. significant decline over the last Several Days. Pt. just basically has been laying in bed and Not taking meds, or eating and Drinking.. MELISSA GUSMAN L.P.N.
--- NOTE | 2020-08-26 08:37 | NUR ---
PT RESTING IN BED/ NO DISTRESS NOTED. WILL MONITOR
--- NOTE | 2020-08-26 08:50 | NUR ---
Occupational Therapy order received, chart reveiwed, attempt made to see patiet at bedside, however, patient began to complain of 8/10 "chest" pain but placed hand near his sternum. Nurse Practicioner, Pia, notified and is ordering new tests. Patient currently placed on hold until this afternoon per PATIENT SUPPORT ASSISTANT report. Leigha BECKER
--- NOTE | 2020-08-26 08:50 | NUR ---
PT C/O CHEST PAIN / GAVIOTA LEROY IN TO SEE PT VSS NEW ORDERS RECIEVED
--- NOTE | 2020-08-26 09:05 | NUR ---
PHYSICAL THERAPY Attempted to see pt for evalulation however pt c/o of central sternal pain rating 04/28 spoke with primary nurse Divya and SCRAP PICKER Pia will do futher assessment and per SCRAP PICKER to defer therapy until this afternoon, will follow Ghazala Cortez PT
[2020-08-26 12:00] VITALS: BP 130/80; BP 131/101
--- NOTE | 2020-08-26 12:45 | NUR ---
Spoke with Jaz at [facility]. Pt. is [place] and they do not accept [place].
--- NOTE | 2020-08-26 12:46 | NUR ---
Pt. information sent to [facility] for Review for SNF.
--- NOTE | 2020-08-26 12:51 | NUR ---
TIANA RECEIVED CALL FROM BLAIR CONN, . SHE REQUESTED A CALL BACK TO DISCUSS THIS PATIENTS DISCHARGE PLANS. TIANA FORWARDED HER INFORMATION TO ARCADIO GUSMAN LPN CONCRETE FENCE BUILDER OVER THIS PATIENT.
--- NOTE | 2020-08-26 13:15 | NUR ---
PHYSICAL THERAPY Physical Therapy evaluation completed on 5th floor with full evaluation to follow. Recommend physical therapy per plan of care and SNF upon discharge. Thank you for this referral. Ghazala Cortez PT
--- NOTE | 2020-08-26 13:25 | NUR ---
Occupational Therapy evaluation completed on five with full evaluation to follow. Recommend occupational therapy per plan of care and SNF upon discharge. Thank you for this referral. Nora Aguirre OTR/L
--- NOTE | 2020-08-26 13:50 | NUR ---
Spoke with Pt. Friend and Caregiver along with Nurse Practitioner, NOREEN and Colorist via speaker Phone. Debora states that Pt. is unsafe at this time to return home and she has been having a hard time getting Patient to eat, drink, or get out of bed. Spoke with Pt. in his room with NOREEN and Advised him of Recommendation for SNF post discharge to regain his strength. Calls placed to [facility]. Spoke with Jaz at [place] who is not accepting Pt. at this time due to Covid 19 restrictions. [facility] is accepting SNF Pt and provided oracle identity management consultant with Fax Number. Waiting on PT/OT assessment and Notes to Fax referral.
--- NOTE | 2020-08-26 14:44 | NUR ---
Pt. receptive to referral to Nursing Facility. Air Intelligence Specialist and Investor Relations Manager advised Pt. that His Brother and Caregiver had requested that he go to a facility to gain some strength. Will follow with Pt. Therapy is unable to work with Pt. at this time. Referral Faxed to [facility] [place] [phone]
[2020-08-26 16:00] VITALS: BP 130/66
--- NOTE | 2020-08-26 18:40 | NUR ---
DURING MED PASS THE PT ASKED THIS NURSE IF THE POLICE WERE WITH ME TO ARREST HIM. PT WAS ASSURED HE WAS SAFE AND IN THE HOSPITAL. PT PLACED MEDICATIONS IN MOUTH AND AFTER DRINKING WATER HE STATED "THIS IS NOT WATER." ASSURED THE PT IT WAS WATER. PT THEN LOOKED OUT THE WINDOW AND SAID "ARE THE GROCERY STOCKER OUT THERE FOR ME, I SEE THEM" PT IS PARANOID AND DELUSIONAL AT THIS TIME. RESTING COMFORTABLY IN BED WITH HEAD ELEVATED. WILL CONTINUE TO MONITOR PTS' BEHAVIORS.
[2020-08-26 20:00] VITALS: BP 161/94
--- NOTE | 2020-08-26 21:02 | NUR ---
24 HR chart check completed.
--- NOTE | 2020-08-26 22:00 | NUR ---
AWAKE, SPEECH RAMBLING. RESPIRATIONS EASY. LUNGS DIMINISHED. PULSE OX 100% RA. IV FLUIDS INFUSING PER ORDER. CALL LIGHT WITHIN REACH. BED ALARM MAINTAINED FOR SAFETY
[2020-08-27] VITALS: BP 108/83
--- NOTE | 2020-08-27 | NUR ---
RESTING WITH EYES CLOSED. RESPIRATIONS EASY. VSS. IV FLUIDS MAINTAINED. CALL LIGHT WITHIN REACH. BED ALARM MAINTAINED
--- NOTE | 2020-08-27 04:00 | NUR ---
PATIENT PICKING AT AIR AND TALKING TO SELF. MOVED CLOSER TO NURSES STATION FOR BETTER OBSERVATION. BED ALARM MAINTAINED
--- NOTE | 2020-08-27 06:30 | NUR ---
PATIENT HAS NOT VOIDED THIS SHIFT. BLADDER SCANNED FOR >700 CC. PATIENT CONTINUES TO REFUSE CATH. URINAL PLACED. WILL MONITOR
--- NOTE | 2020-08-27 07:00 | NUR ---
STRAIGHT CATHED FOR 1100 CC BREONNA URINE. UA/CS SENT
[2020-08-27 07:30] VITALS: BP 132/78
[2020-08-27 07:38] LABS: BILIRUBIN Negative (Negative); BLOOD Negative (Negative); CLARITY Clear (Clear); COLOR Dark Yellow (Yellow); GLUCOSE Negative (Negative); KETONE 1+ (Negative); LEUKO ESTERASE Trace (Negative); NITRITE Negative (Negative); PH 6.5 (4.5-8.0)
[2020-08-27 08:00] VITALS: BP 156/87
[2020-08-27 08:01] LABS: ABG BASE EXCESS -4.8 mmol/L (-2.0-2.0); ARTERIAL BLOOD GAS PH 7.446 (7.35-7.45)
[2020-08-27 08:19] LABS: MUCOUS TRACE; RBC 0-2 rbc/hpf (0-2)
[2020-08-27 09:20] LABS: BASO % 0.5 % (0.0-1.0); EOS # 0.1 10*3/uL (0.0-0.4); EOS % 3.3 % (1.0-4.0); HEMATOCRIT 27.8 % (42.0-52.0); LYMPH # 0.9 10*3/uL (1.3-4.4); LYMPH % 20.6 % (27.0-41.0); MEAN CELL VOLUME 80.6 fl (80.0-94.0); MEAN CORPUSCULAR HGB 26.4 pg (27.0-31.0); MEAN CORPUSCULAR HGB CONC 32.7 g/dl (33.0-37.0); MONO # 0.2 10*3/uL (0.1-1.0); MONO % 5.4 % (3.0-9.0); PLATELET COUNT AUTOMATED 158 10*3/uL (130-400); RED BLOOD COUNT 3.45 10*6/uL (4.50-5.90); RED CELL DISTRI WIDTH 13.7 % (0-14.5); WHITE BLOOD COUNT 4.3 10*3/uL (4.8-10.8)
--- NOTE | 2020-08-27 09:48 | NUR ---
Left Message this a.m. for Adrianna at [facility] Concerning Referral and Positive Covid Results.
[2020-08-27 09:55] LABS: BUN 10 mg/dl (7-24); CHLORIDE 109 mmol/L (98-107); CREATININE 0.63 mg/dL (0.70-1.30); LIPASE 574 U/L (73-393); POTASSIUM 3.4 mmol/L (3.5-5.1); SODIUM 138 mmol/L (136-145)
--- NOTE | 2020-08-27 10:49 | NUR ---
Spoke with Christo in admissions at [facility]. They are currently accepting Covid Positive Patients Pending 10 days of Isolation Completed. Faxed Referral [phone].
--- NOTE | 2020-08-27 11:01 | NUR ---
Reached out to Shayy Alarcon Elevated Motorman with [facility] to inquire about options for Pt. being that he is Out of Network for LANCE.
--- NOTE | 2020-08-27 11:42 | NUR ---
Call received from Shayy Alarcon Spring Former Machine with [facility] Working with [facility] for Possible Transfer due to Pt. out of Network Benefits. Hospitalist from [facility] Will reach out to Pia Schuler NP to discuss Transfer.
[2020-08-27 12:00] VITALS: BP 150/93
--- NOTE | 2020-08-27 12:12 | NUR ---
OT NOTE Pt was seen this P.M. 1:1 for 15 minute OT session. Upon arrival pt was supine in bed. Pt identified by name and and had no complaints at this time. After much encouragement pt transferred supine to sit EOB with Cm for assist with upper body. Upon inital rise to the EOB pt had complaints of feeling dizzy. Pt educated on visual fixation technique and pt presented with poor carry over however had no other complaints of dizziness. Pt tolerated sitting EOB for aprox 5 minutes. Attempted to complete other tasks at this time and pt declined laying himself back into bed at an impulsive speed. Pt was left supine in bed with call light in hand, tray table in place, and bed alarm activated for safety. Continue with rec D/C plan to SNF. Throughout entire session airborne precautions were maintained. BENJI Hoover/Emely
--- NOTE | 2020-08-27 12:14 | NUR ---
Clinicals and Face sheet faxed to [facility] call Attn: Maryse [phone].
--- NOTE | 2020-08-27 12:15 | NUR ---
PHYSICAL THERAPY PATIENT IS COVID + in room 410-1. Patient supine in bed with head of bed slightly elevated and very hard to arouse and very hard to understand. Patient has no catheter, spO2, or IVs. Patient initially refused treatment then agreed. Patient completed supine > sitting on EOB with MIN A X 1. Patient sat on EOB for 5 minutes total with but did not want to stand. Patient was moved back to supine in bed from sititng EOB with SBA. Patient left in supine with bed alarm on. Patient was 1:1 with this CHANGE MANAGEMENT CONSULTANT for 12 minutes total. luis daniel peck mud analysis well logging captain
--- NOTE | 2020-08-27 14:38 | NUR ---
Received Call From Maryse at [facility]. No Beds available at this time. Call Placed to Bing Spoke with Instantizer Operator Teetee. There are no beds available at this time. She states "I have 14 Pt's in my own ER waiting for Beds" Sakshi Galarza Director of Case Management is aware that there are No available Beds. Call Placed to Adrianna with [facility]. [facility] is Not accepting Pt. at this time. Admissions are Closed. Pt. was referred to [facility] prior to Positive Covid Result. Spoke with Adrianna about that referral and Pt. would be considered by [place] Protocol as Assumed Positive From the day they were tested Not the day the Results came back. After Ten Days if Pt. remains Asymptomatic, Updates can be faxed to [facility]. A [place] PASRR Screen would need filled out by the discharging Hospital and Returned to [facility] for her to Complete and Submit. If Pt. becomes Symptomatic The Facility would require 20 day Isolation from Day of Initial Swab. [facility] has updated Pt. Brother Stanford Garcia and His Caregiver on Status of Discharge Plans. They were Swabbed tested
--- NOTE | 2020-08-27 15:10 | NUR ---
Call Placed to [facility] Spoke with Jazmin in Admissions. They are currently not accepting Covid Positive Patients.
--- NOTE | 2020-08-27 15:28 | NUR ---
Call Placed to [facility] [phone]. Closed to Admissions at this time.
[2020-08-27 16:00] VITALS: BP 100/59
[2020-08-27 20:00] VITALS: BP 143/91
--- NOTE | 2020-08-27 22:36 | NUR ---
ATTEMPTED TO GIVE PATIENT HIS PILLS WITH APPLESAUCE, PATIENT TOOK ONE PILL AND REFUSED THE OTHERS. THE PATIENT STATED THAT HE FEELS BETTER AND DOESN'T NEED THEM. EXPLAINED TO PATIENT THAT THEY WERE HIS NIGHT TIME PILLS THAT HE REGULARLY TAKES. PATIENT STATED THAT HE DIDN'T WANT THEM AT THIS TIME.
[2020-08-28] VITALS: BP 157/89
--- NOTE | 2020-08-28 06:56 | NUR ---
SPOKE WITH DR. ANDERSON AT THIS TIME AND STATED THAT THE PATIENT HAS NOT VOIDED ALL NIGHT, BUT WE ARE WAITING FOR THE BLADDER SCANNER FROM ANOTHER FLOOR. HE STATED TO PUT IN FOR ANOTHER ONE TIME STRAIGHT CATH AND HE WILL PASS ON TO THE DAY TEAM THAT HE IS NOT VOIDING. AND THAT IF HE IS RETAINING >400 TO STRAIGHT CATH
[2020-08-28 08:00] VITALS: BP 141/83
--- NOTE | 2020-08-28 09:30 | NUR ---
BLADDER SCANNED AT THIS TIME FOR 288CC. PT APPEARS COMFORTABLE. WILL REASSESS LATER IN THE DAY.
--- NOTE | 2020-08-28 09:38 | NUR ---
Follow up to referrals to [facility], They are Currently not accepting admissions, [facility] Not taking [facility] Positive [facility], [facility] Not accepting Admissions. The Only Pending Referral at this time is iTka Longy From admissions states Updates can be faxed to them on Sunday 09/02 for Review after his 10 day of Isolation.
--- NOTE | 2020-08-28 11:00 | NUR ---
Spoke with Dianne, Clinical Liason for [facility]. They currently have openings in [place] at [facility]. Referral Faxed Attn: Malgorzata [phone].
--- NOTE | 2020-08-28 11:26 | NUR ---
Spoke with Pt. caregiver Debora concerning request from [facility] for Last 30 days Bank Statement. Debora is also on the Bank Account and will go to Pt. Bank and Request Bank Statement and Drop off to Hospital.
[2020-08-28 12:00] VITALS: BP 160/94
--- NOTE | 2020-08-28 13:19 | NUR ---
OT NOTE Pt was seen this P.M. 1:1 for 19 minute OT session. Upon arrival pt was supine in bed. Pt identified by name and on wrsitband due to being non verbal throughout session. Pt transferred supine to sit EOB with maxA X 2. While sitting EOB for aprox 8 minutes pt presented with P+ sitting balance requiring modA to correct LOB forwards. Attempted to complete BUE ther ex and pt was unable to follow commands. Pt then laid himself back into bed impulsive and was repositioned with maxA X 2. Pt was left supine in bed with call light in hand, tray table in place, and bed alarm acivated for safety. Continue with rec D/C plan to SNF. Throughout entire session airborne precautions were maintained. BENJI Hoover/Emely
--- NOTE | 2020-08-28 13:20 | NUR ---
BLADDER SCANNED AGAIN AT THIS TIME WITH RESULTS OF 444 CC. PT AGITATED DURING SCAN AND YELLING "STOP IT!"
--- NOTE | 2020-08-28 15:25 | NUR ---
PHYSICAL THERAPY Patient was supine in bed with head of bed slightly elevated and no complaints. Patinet is very difficulty to understand. Patient required MAX A X 2 to complete supine to sitting on EOB. Patient sat on EOB with SBA. Patient did not want to or could not stand. Patient sat on EOB and attempted to perform bilateral LE ther ex, but had a great difficulty following these instructions. Patient sat on EOB for about 1 minute and then began ot lie down. Patient transferred back up to sitting on EOB with MAX A X 2. PATIENT SAT ON EOB FOR ANOTHER 3 MINUTES OF SO, AND HAD TO BE BLOCKED FROM LEANING FORWARDS AND slidding off the EOB. Patient completed sit EOB to supine in bed with MAX A X 2. Patient moved up to head of bed with MAX A X 2 WITH SHEET. Patient was left in supine with head of bed elevated and bed alarm on. Bed rails up. Patient was 1:1 with this SAFETY GROOVING MACHINE OPERATOR FOR 15 MINUTES TOTAL. DEEPTHI MAGALLON SAFETY GROOVING MACHINE OPERATOR
--- NOTE | 2020-08-28 15:28 | NUR ---
16FR DOAN CATH INSERTED. TOLERATED FAIRLY. IMMEDIATE URINE RETURN UPON INSERTION. SOME RESISTANCE NOTED UPON INSERTION.
[2020-08-28 16:00] VITALS: BP 131/88
[2020-08-28 20:00] VITALS: BP 134/90
--- NOTE | 2020-08-28 23:56 | NUR ---
DR. ANDERSON NOTIFIED OF PATIENTS BLOOD PRESSURE BEING 152/100 AND THAT HIS METOPROLOL 100MG WAS HELD DUE TO HIS HEART RATE BEING IN THE 50'S.
[2020-08-29] VITALS: BP 152/100
--- NOTE | 2020-08-29 02:24 | NUR ---
24 HR chart check completed.
[2020-08-29 07:54] LABS: ALBUMIN 2.6 gm/dl (3.1-4.5); ALKALINE PHOSPHATASE 55 U/L (45-117); BUN 8 mg/dl (7-24); CHLORIDE 115 mmol/L (98-107); CREATININE 0.53 mg/dL (0.70-1.30); POTASSIUM 3.1 mmol/L (3.5-5.1); SGOT/AST 17 IU/L (3-35); SGPT/ALT 9 U/L (12-78); SODIUM 142 mmol/L (136-145); TOTAL PROTEIN 5.6 gm/dL (6.4-8.2)
[2020-08-29 08:00] VITALS: BP 140/68
[2020-08-29 08:08] LABS: BASO % 0.3 % (0.0-1.0); EOS # 0.1 10*3/uL (0.0-0.4); EOS % 2.1 % (1.0-4.0); HEMATOCRIT 25.7 % (42.0-52.0); LYMPH # 0.8 10*3/uL (1.3-4.4); LYMPH % 20.5 % (27.0-41.0); MEAN CELL VOLUME 81.1 fl (80.0-94.0); MEAN CORPUSCULAR HGB 27.1 pg (27.0-31.0); MEAN CORPUSCULAR HGB CONC 33.5 g/dl (33.0-37.0); MEAN PLATELET VOLUME 10.8 fl (9.6-12.3); MONO # 0.2 10*3/uL (0.1-1.0); MONO % 4.7 % (3.0-9.0); NEUT # 2.7 10*3/uL (2.3-7.9); NEUT % 71.9 % (47.0-73.0); PLATELET COUNT AUTOMATED 130 10*3/uL (130-400); RED BLOOD COUNT 3.17 10*6/uL (4.50-5.90); RED CELL DISTRI WIDTH 13.8 % (0-14.5); WHITE BLOOD COUNT 3.8 10*3/uL (4.8-10.8)
--- NOTE | 2020-08-29 09:32 | NUR ---
Received Call From [facility]ianne at [facility]. Advised that Hospital is waiting on Financial Statement From [facility] and as soon as it is available it will be faxed for Review. Referral Pending.
--- NOTE | 2020-08-29 11:00 | NUR ---
Pt having very hard time following commands this am. When passing medication, pt did not know what to do with straw. Was able to get patient to take Potassium and plavix with bites of applesauce. Attempted to given other pills and patient refused to take Augmentin and states "I'm done, I'm done". Notified update on patient today.
[2020-08-29 12:00] VITALS: BP 113/79
--- NOTE | 2020-08-29 12:11 | NUR ---
Spoke with Nurse Olamide Velasquez Concerning Required Signature Form for Hospital to fax financial Records to [facility]. Pt. has had a change in condition and is unable to complete the form at this time. Nurse has been in communication with Dr Bernard and Pt. has pending tests.
--- NOTE | 2020-08-29 13:17 | NUR ---
Spoke with Pt. Caregiver Debora and Provided with Updates. Waiting for reply from [facility] [employer] [facility].
--- NOTE | 2020-08-29 13:30 | NUR ---
OT NOTE Pt was seen this P.M. 1:1 for 15 minute OT session. Upon arrival pt was supine in bed. Pt identified by name and on wristband. Pt presented to therapy speaking to unseen others and unable to follow commands. Pt transferred supine to sit EOB with maxA X 2. Attempted to complete sit to stand transfer from bed level with maxA X 2 and pt was unable to complete stand at this time. Attempted to complete BUE ther ex however pt was unable to follow commands resulting in PROM to BUE's for 1 X 10. While sitting EOB pt presented with P+ sitting balance requiring modA to maintain upright posture. Pt then transferred back into bed sit to supine with maxA X 2. There he was left with call light in hand, tray table in place, bed rails up, and bed alarm activated for safety. Continue with rec D/C plan to SNF. Throughout entire session airborne precautions were maintained. BENJI Hoover/Emely
--- NOTE | 2020-08-29 15:12 | NUR ---
PHYSICAL THERAPY Patient presented to therapy in supine in bed with head of bed elevated and bed alarm on. Patient ia very hard to understand. Patient speech is very garbled. Patient gives consent for treatment. Patient was identified by name and on wristband. Patient transferred supine < > sitting on EOB with MAX A X 2. Patient sat on EOB with MAX A X 2. Patient recieved manual stretching to the bilateral Hamstrings in sitting and AAROM ther ex to the bilateral LEs. Patient unable to assist with supine to sit hardly at all. Patient could not understand instructions and commands. Patient sat on EOB with MIN A X 1 - CGA. Patient sat for 8 min and then would not stay up anymore. Patient could not follow instructions and commands for bilateral LE ther ex in sititng. Patient was moved from Sitting EOB > supine in bed with MAX A X 2. Patient could also be considered a MAX A X 3 due to how difficult he is to transfer supine < > sitting on EOB. Patient was moved up to head of bed with MAX A X 2 with sheet. Patient was 1:1 with this DIRECTOR INSTRUCTIONAL MATERIAL for 20 MINUTES TOTAL. Patient was left in supine with head of bed leevated and bed alarm on. Call light within reach. DEEPTHI MAGALLON DIRECTOR INSTRUCTIONAL MATERIAL
--- NOTE | 2020-08-29 15:37 | NUR ---
Faxed Clinical Information and Financials [facility] Will follow on Tuesday with Dianne.
--- NOTE | 2020-08-29 15:39 | NUR ---
OCCUPATIONAL THERAPY CO-SIGN I approve of the Occupational Therapy notes written above. COREY TAM, OTR/L
--- NOTE | 2020-08-29 15:46 | NUR ---
PHYSICAL THERAPY CO-SIGN I approve of the Physical Therapy notes written above. Ghazala Cortez PT
--- NOTE | 2020-08-29 15:52 | NUR ---
PHYSICAL THERAPY CO-SIGN I approve of the Physical Therapy notes written above. Ghazala Cortez PT
[2020-08-29 16:00] VITALS: BP 116/64
--- NOTE | 2020-08-29 19:28 | NUR ---
CHART CHECK COMPLETE.
[2020-08-29 20:00] VITALS: BP 132/58
[2020-08-30] VITALS: BP 145/81
[2020-08-30 07:33] LABS: BASO % 0.3 % (0.0-1.0); EOS # 0.1 10*3/uL (0.0-0.4); EOS % 1.7 % (1.0-4.0); HEMATOCRIT 26.5 % (42.0-52.0); LYMPH # 0.6 10*3/uL (1.3-4.4); LYMPH % 18.4 % (27.0-41.0); MEAN CELL VOLUME 80.3 fl (80.0-94.0); MEAN CORPUSCULAR HGB CONC 33.6 g/dl (33.0-37.0); MEAN PLATELET VOLUME 10.6 fl (9.6-12.3); MONO # 0.2 10*3/uL (0.1-1.0); MONO % 5.2 % (3.0-9.0); NEUT # 2.6 10*3/uL (2.3-7.9); NEUT % 74.1 % (47.0-73.0); PLATELET COUNT AUTOMATED 149 10*3/uL (130-400); WHITE BLOOD COUNT 3.5 10*3/uL (4.8-10.8)
[2020-08-30 08:00] VITALS: BP 132/84
[2020-08-30 08:02] LABS: ALBUMIN 2.7 gm/dl (3.1-4.5); ALKALINE PHOSPHATASE 60 U/L (45-117); BUN 9 mg/dl (7-24); CHLORIDE 114 mmol/L (98-107); CREATININE 0.68 mg/dL (0.70-1.30); POTASSIUM 3.3 mmol/L (3.5-5.1); SGOT/AST 14 IU/L (3-35); SGPT/ALT 12 U/L (12-78); SODIUM 143 mmol/L (136-145); TOTAL PROTEIN 5.8 gm/dL (6.4-8.2)
--- NOTE | 2020-08-30 10:52 | NUR ---
PT SEEN AND ASSESSED. PT RESTING QUIETLY IN BED. PT RESPONDS TO QUESTIONS WITH DELAY AND INAPPROPRIATELY AND MUMMBLES. PT WOULD NOT EAT HIS BREAKFAST. PT LINENS WERE CHNAGED. PT FOLLOWED COMMANDS TO REPOSITION.
[2020-08-30 12:00] VITALS: BP 142/70
--- NOTE | 2020-08-30 12:15 | NUR ---
CONSULT CALLED FOR U SPOKE TO GAGE REARDON BUNDLE TIER TO EXPLAIN REASONING FOR CONSULT.
[2020-08-30 14:27] LABS: VITAMIN D, 25-HYDROXY 34.3 ng/mL (30-100)
[2020-08-30 14:34] LABS: FREE T4 1.51 ng/dl (0.76-1.46); THYROID STIM HORMONE (HS) 5.92 uIU/ml (0.358-4.75)
[2020-08-30 16:00] VITALS: BP 131/95
--- NOTE | 2020-08-30 19:43 | NUR ---
CHART CHECK COMPLETE.
[2020-08-30 20:00] VITALS: BP 156/77
--- NOTE | 2020-08-30 21:20 | NUR ---
ASSUMED CARE OF PATIENT. PATIENT IS LETHARGIC AND CONFUSED WITH EASY AND REGULAR RESPERS ON ROOM AIR. ASSESSMENT IS COMPLETE WITH NO S/S OF DISTRESS NOTED AT THIS TIME. BED BATH AND ORAL CARE PROVIDED. PATIENT TEMP 95.7 VIA RECTAL MONITOR. HYPOTHERMIA BLANKET INITIATED DR. ELIZALDE AWARE. BED IS LOW, LOCKED, ALARMED AND CALL LIGHT IS WITHIN REACH. WILL CONTINUE TO MONITOR. SEE INTERVENTIONS.
[2020-08-31] VITALS: BP 175/84
[2020-08-31 06:25] LABS: ALBUMIN 2.7 gm/dl (3.1-4.5); ALKALINE PHOSPHATASE 67 U/L (45-117); BUN 8 mg/dl (7-24); CHLORIDE 116 mmol/L (98-107); CREATININE 0.74 mg/dL (0.70-1.30); LDH 162 U/L (87-241); POTASSIUM 3.9 mmol/L (3.5-5.1); SGOT/AST 13 IU/L (3-35); SGPT/ALT 8 U/L (12-78); SODIUM 144 mmol/L (136-145)
[2020-08-31 06:26] LABS: EOS % 0.3 % (1.0-4.0); HEMATOCRIT 25.5 % (42.0-52.0); LYMPH # 0.3 10*3/uL (1.3-4.4); MEAN CELL VOLUME 80.7 fl (80.0-94.0); MEAN CORPUSCULAR HGB 26.3 pg (27.0-31.0); MEAN CORPUSCULAR HGB CONC 32.5 g/dl (33.0-37.0); MEAN PLATELET VOLUME 11.5 fl (9.6-12.3); MONO # 0.1 10*3/uL (0.1-1.0); MONO % 1.8 % (3.0-9.0); PLATELET COUNT AUTOMATED 167 10*3/uL (130-400); RED BLOOD COUNT 3.16 10*6/uL (4.50-5.90); RED CELL DISTRI WIDTH 13.9 % (0-14.5); WHITE BLOOD COUNT 3.4 10*3/uL (4.8-10.8)
--- NOTE | 2020-08-31 07:27 | NUR ---
24 HR chart check completed.
[2020-08-31 08:00] VITALS: BP 149/84
--- NOTE | 2020-08-31 09:00 | NUR ---
LOOKING AT CEILING WITH FIXED STARE. FOLLOWS SOME COMMANDS. RESPIRATIONS EASY. LUNGS DIMINISHED. PULSE OX 100% RA. INFREQUENT COUGH. DOAN PATENT. CALL LIGHT WITHIN REACH. BED ALARM MAINTAINED FOR SAFETY
--- NOTE | 2020-08-31 09:30 | NUR ---
PATIENT DID NOT TAKE ALL OF AM MEDS, SPITTING MOST OUT
[2020-08-31 12:00] VITALS: BP 160/88
[2020-08-31 16:00] VITALS: BP 160/98
--- NOTE | 2020-08-31 18:30 | NUR ---
SPIT ALL MEDS OUT.
[2020-08-31 19:00] VITALS: BP 160/104
--- NOTE | 2020-08-31 19:35 | NUR ---
DR HIGGINBOTHAM CONTACTED AND INFORMED ELEVATED BP AND PATIENT NOT TAKING PO, NEW ORDERS RECEIVED
[2020-08-31 21:30] VITALS: BP 154/94
--- NOTE | 2020-08-31 21:30 | NUR ---
BP IMPROVONG 154/94 AFTER RECEIVING HYDRALAZINE. WILL MONITOR
[2020-09-01] VITALS: BP 138/87
--- NOTE | 2020-09-01 06:23 | NUR ---
PT UNABLE TO TAKE MORNING MEDICATION, PT REFUSED TO EVEN SIP WATER. PATIENT UNABLE TO COMMUNICATE. I WAS SETTING THE PT UP TO ATTEMPT MORNING MED PASS, HE CHOCKED ON HIS OWN SALIVA. PT APPEARS TO BE HAVING A HARD TIME PROTECTING HIS OWN AIRWAY.
[2020-09-01 08:00] VITALS: BP 163/85
--- NOTE | 2020-09-01 09:40 | NUR ---
OT NOTE Pt was seen this A.M. 1:1 for 20 minute OT session. Upon arrival pt was supine in bed. Pt identified by name and on wristband due to presenting with non sensical speech throughout session. Pt was unable to follow commands throughout session. Pt transferred supine to sit EOB with maxA X 2. While sitting EOB pt presented with P- sitting balance requiring maxA to correct retrograde posture. Attempted to complete BUE ROM and pt was unable to follow commands. Pt then transferred back into bed sit to supine with maxA X 2. There he was left with call light in hand, tray table in place, bed rails up, and bed alarm activated for safety. Continue with rec D/C plan to SNF. Throughout the entire session airborne precautions were maintained. BENJI Hoover/Emely
--- NOTE | 2020-09-01 09:48 | NUR ---
[facility] Pt. is clinically Ok for their facility but she has some Questions about his Finances that Sand Miller is unable to answer. Provided with Debora Chao Phone Number Pt. caregiver to speak with her concerning Pt. finances. Debora assists Pt. at Home.
[2020-09-01 10:08] LABS: HEMATOCRIT 26.2 % (42.0-52.0); LYMPH % 15.1 % (27.0-41.0); MEAN CELL VOLUME 78.9 fl (80.0-94.0); MEAN CORPUSCULAR HGB 26.8 pg (27.0-31.0); MEAN PLATELET VOLUME 10.5 fl (9.6-12.3); MONO # 0.3 10*3/uL (0.1-1.0); MONO % 4.2 % (3.0-9.0); NEUT # 5.1 10*3/uL (2.3-7.9); NEUT % 79.9 % (47.0-73.0); PLATELET COUNT AUTOMATED 182 10*3/uL (130-400); RED BLOOD COUNT 3.32 10*6/uL (4.50-5.90); RED CELL DISTRI WIDTH 14.2 % (0-14.5); WHITE BLOOD COUNT 6.4 10*3/uL (4.8-10.8)
--- NOTE | 2020-09-01 10:29 | NUR ---
PT REFUSED AM MEDS. SHOOK HEAD NO AND SWATTED AT ME.
[2020-09-01 10:37] LABS: ALKALINE PHOSPHATASE 64 U/L (45-117); BUN 12 mg/dl (7-24); CHLORIDE 118 mmol/L (98-107); LDH 163 U/L (87-241); POTASSIUM 3.2 mmol/L (3.5-5.1); SGOT/AST 13 IU/L (3-35); SGPT/ALT 8 U/L (12-78); SODIUM 146 mmol/L (136-145); TOTAL PROTEIN 6.3 gm/dL (6.4-8.2)
--- NOTE | 2020-09-01 11:22 | NUR ---
PHYSICAL THERAPY Patient presented to therapy in supine with head of bed elevated and very garbeled speech. Patient has no verbalized complaints. Patient gives informed consent for treatment. Patient was identified by name and on wristband. Patient required MAX A X 2 SUPINE TO SITTING on EOB. Patient sat on EOB for short time and then became restless and pushed back against therapists with no verbalized explanation. Patient was moved from SITTING ON EOB to SUPINE IN BED with MAX A X 2. Patient declined to do any further therapy. Patient was left in supine in bed with head of bed elevated and bed alarm on. Patient's bed rails up. Call light left witin reach. PPE protocol for airborne precautions followed stacia. Patient was 1:1 with this HOTEL DESK CLERK for 15 minutes total. DEEPTHI MAGALLON HOTEL DESK CLERK
--- NOTE | 2020-09-01 11:42 | NUR ---
[facility] They are currently waiting on Debora dye to call them.
--- NOTE | 2020-09-01 11:57 | NUR ---
Received Call from Dianne at [facility]. Pt. is declined.
--- NOTE | 2020-09-01 12:08 | NUR ---
Referral to [facility].
--- NOTE | 2020-09-01 12:36 | NUR ---
Referral faxed to [facility] Attn: Adrianna .
--- NOTE | 2020-09-01 15:41 | NUR ---
[facility] Pending Sent to [facility] today. Pt. is accepted at [facility] Pending PASRR approval. Will reach out to Dianne in the a.m. to Confirm.
[2020-09-01 16:00] VITALS: BP 145/86
[2020-09-01 18:00] VITALS: BP 145/86
[2020-09-01 20:00] VITALS: BP 133/88
--- NOTE | 2020-09-01 20:00 | NUR ---
24 HR chart check completed.
--- NOTE | 2020-09-01 21:00 | NUR ---
GAZING AT CEILING WITH FIXED STARE. SPEECH INCOMPREHENSIBLE. RESPIRATIONS EASY. LUNGS DIMINISHED, PATIENT DOES NOT FOLLOW COMMANDS TO DEEP BREATH. PULSE OX 100% RA. DOAN PATENT FOR BREONNA URINE. CALL LIGHT WITHIN REACH. BED ALARM MAINTAINED FOR SAFETY
[2020-09-02] VITALS: BP 154/88
--- NOTE | 2020-09-02 | NUR ---
CONTINUES TO STARE AT CEILING, OCCASIONALLY PICKING AT THE AIR. RESPIRATIONS EASY. CALL LIGHT WITHIN REACH. BED ALARM MAINTAINED
--- NOTE | 2020-09-02 05:30 | NUR ---
RECTAL TEMP 96.6 ON HEATING BLANKET MONITOR MODE. BLANKET TURNED ON, WILL CONTINUE TO MONITOR
[2020-09-02 06:48] LABS: BASO % 0.2 % (0.0-1.0); EOS % 0.6 % (1.0-4.0); HEMATOCRIT 26.2 % (42.0-52.0); LYMPH # 1.1 10*3/uL (1.3-4.4); MEAN CELL VOLUME 81.4 fl (80.0-94.0); MEAN CORPUSCULAR HGB 26.4 pg (27.0-31.0); MEAN CORPUSCULAR HGB CONC 32.4 g/dl (33.0-37.0); MEAN PLATELET VOLUME 10.7 fl (9.6-12.3); MONO # 0.3 10*3/uL (0.1-1.0); MONO % 6.5 % (3.0-9.0); NEUT # 3.1 10*3/uL (2.3-7.9); NEUT % 67.8 % (47.0-73.0); PLATELET COUNT AUTOMATED 162 10*3/uL (130-400); RED BLOOD COUNT 3.22 10*6/uL (4.50-5.90); RED CELL DISTRI WIDTH 14.2 % (0-14.5); WHITE BLOOD COUNT 4.6 10*3/uL (4.8-10.8)
--- NOTE | 2020-09-02 07:00 | NUR ---
PATIENT CONDITION REMAINS POOR. FIXED STARE, INCOMPREHENSIBLE SPEECH, NOT FOLLOWING COMMANDS.
[2020-09-02 07:26] LABS: CHLORIDE 120 mmol/L (98-107); POTASSIUM 3.1 mmol/L (3.5-5.1); SODIUM 149 mmol/L (136-145)
[2020-09-02 07:37] LABS: ALBUMIN 2.9 gm/dl (3.1-4.5); ALKALINE PHOSPHATASE 61 U/L (45-117); BUN 16 mg/dl (7-24); CREATININE 0.86 mg/dL (0.70-1.30); LDH 160 U/L (87-241); SGOT/AST 22 IU/L (3-35); SGPT/ALT 12 U/L (12-78)
[2020-09-02 08:00] VITALS: BP 120/55
--- NOTE | 2020-09-02 08:49 | NUR ---
[facility] has returned approved. Plan for discharge today. Working on Appropriate Admission Paperwork for Pt. to admit.
--- NOTE | 2020-09-02 10:45 | NUR ---
OT NOTE Pt was seen this A.M. 1:1 for 20 minute OT session. Upon arrival pt was supine in bed. Pt identified by name and on wristband. Pt presented with fixed stare at the ceiling and incomprehensible speech. Due to pt's poor command follow no transfers were completed for safety concerns. Pt completed AA/PROM to BUE shoulders, elbows, wrist, and digit joints over all planes for 1 X 10 to increase and restore maximum functional use. Pt was left supine in bed with with bed rails up, call light in hand, and bed alarm activated for safety. Continue with rec D/C plan to SNF. Throughout entire session airborne precautions were maintained. BENJI Hoover/Emely
--- NOTE | 2020-09-02 11:24 | NUR ---
Spoke with Dr. Davies Early this a.m. and Notified of Pt. acceptance to [facility]. Pt. can discharge today. Spoke with Pt. Caregiver Debora as well as his Brother Stanford and notified of Planned discharge for today. Working on Transportation at this time. Signed [place] KATERIN [facility] Pending with Call to Pt. [place] Staff Radiographer Shayy .
[2020-09-02] MEDS ORDERED: DEXAMETHASONE6 MG PO (12:09)
[2020-09-02] MEDS ORDERED: AUGMENTIN 875875 MG PO (12:09)
--- NOTE | 2020-09-02 12:12 | NUR ---
PHYSICAL THERAPY Patient presented to therapy in supine with head of bed elevated and bed alarm on. Patient's bed rails were up. Patient gives informed consent for treatment. Patient was identified by name and on wristband. Patient has no verbalized complaints. Patient has garbled speech that cannot be understood. Patient performed AAROM ther ex to the bilateral LE in supine including heel slides, hip abduction, ankle pumps, SLRs 2 x 10 reps each for strengthening and ROM. Patient's joints and muscles are very tight from lying in bed so long. Patient very confused and seems to not be able to track objects with his eyes. Patient torres out with any movement of the UEs or LEs. Patient was 1:1 with this INFO PRINT PRESS OPERATOR for 17 minutes total. DEEPTHI MAGALLON INFO PRINT PRESS OPERATOR
--- NOTE | 2020-09-02 15:45 | NUR ---
[facility] HERE TO ARCHIVIST ECONOMIC HISTORY PATIENT TO TAKE TO [address] IN [place]. MIDLINE TO LEFT ARM REMAINS IN PLACE. ON ROOM AIR. REPORT GIVEN TO RECEIVING NURSE. REPORT GIVEN TO AMBULANCE. TRNASPORTED OFF FLOOR BY BED.
--- NOTE | 2020-09-03 07:44 | NUR ---
OCCUPATIONAL THERAPY CO-SIGN I approve of the Occupational Therapy notes written above. COREY TAM, OTR/L
--- NOTE | 2020-09-03 07:53 | NUR ---
PHYSICAL THERAPY CO-SIGN I approve of the Physical Therapy notes written above. BOB GIRON PT,DPT
== END 2020-09-02 15:45 | disposition other institution (70) | DRG 177 ==
LOC: ED 23:53 → 5E 08-25 03:51 → 4E 08-25 03:51 → EDHOLD 08-25 03:51 → 5E 08-25 08:22 → 4E 08-27 07:54
PROVIDERS: Counselor Professional; Emergency Medicine; Internal Medicine; Registered Nurse; Student in an Organized Health Care Education/Training Program; ADMIT Emergency Medicine; ATTEND Emergency Medicine
PROC: 05HA33Z Insertion of Infusion Device into Left Brachial Vein, Percutaneous Approach (ICD-10-PCS; principal; 2020-08-27)
PROC: B54NZZA Ultrasonography of Left Upper Extremity Veins, Guidance (ICD-10-PCS; 2020-08-27)
DX: U07.1 COVID-19 (principal); K85.90 Acute pancreatitis without necrosis or infection, unspecified; E43 Unspecified severe protein-calorie malnutrition; G93.41 Metabolic encephalopathy; E87.2 Acidosis; E87.0 Hyperosmolality and hypernatremia; D68.59 Other primary thrombophilia; Z68.41 Body mass index [BMI] 40.0-44.9, adult; E86.0 Dehydration; I25.10 Atherosclerotic heart disease of native coronary artery without angina pectoris; E66.01 Morbid (severe) obesity due to excess calories; R53.81 Other malaise; I10 Essential (primary) hypertension; D64.9 Anemia, unspecified; F41.1 Generalized anxiety disorder; F32.9 Major depressive disorder, single episode, unspecified; R63.4 Abnormal weight loss; R63.0 Anorexia; K43.9 Ventral hernia without obstruction or gangrene; J01.00 Acute maxillary sinusitis, unspecified; R62.7 Adult failure to thrive; R41.0 Disorientation, unspecified; E87.6 Hypokalemia; R73.9 Hyperglycemia, unspecified; D72.829 Elevated white blood cell count, unspecified; Z95.5 Presence of coronary angioplasty implant and graft; Z81.8 Family history of other mental and behavioral disorders; Z80.8 Family history of malignant neoplasm of other organs or systems; Z90.49 Acquired absence of other specified parts of digestive tract; Z91.19 Patient's noncompliance with other medical treatment and regimen